=== PATIENT | male | born 1940 ===

== ENCOUNTER 2017-04-19 07:53 | Inpatient (IN) | payer MEDICARE, BC, OTHER ==
[~2017-04-19] VITALS: Ht 162.6 cm; Wt 64.1 kg
[2017-04-19] VITALS (21 sets, daily range): BP systolic 87–116; BP diastolic 52–70; PULSE 92–144; RESP 14–39; TEMP 103.7; Ht 162.6 cm; Wt 64.1 kg
[2017-04-19] MEDS ORDERED: CEFEPIME 2GM/50 ML (PMX) 50 ML IVPB STA (07:55)
[2017-04-19] MEDS ORDERED: SODIUM CHLORIDE 0.9% 1L BAG IV* STA (07:55)
[2017-04-19] MEDS ORDERED: VANCOMYCIN 1 GM (PMX) 250 ML IVPB ONE (08:00)
--- NOTE | 2017-04-19 08:12 | ERD ---
ER Documentation Chief Complaint Chief Complaint s/p cardiac arrest and rosc at 0741 . pt vent dependent in snf. HPI This is a 76-year-old male who [facility] status post cardiac arrest, PEA, 1 round of epinephrine with return of spontaneous circulation. The patient has chronic encephalopathy, chronic contractures and chronic respiratory failure and is ventilator dependent. He has no family available. He is a full code. Remainder of HPI is very limited. Paramedics report that the patient feels warm. ROS Critical patient Medications Home Meds Reported Medications Vit C-Ascorbate Ca-Ascorb Sod (Vitamin C) 500 Mg/15 Ml Liquid, 500 MG GTB BID, ML 04/19/17 Cran/Vitc/Mannose/Inulin/Brom (Uti-Stat Liquid) 3,875 Mg/30 Ml Liquid, 3875 MG GTB BID 04/19/17 Acetaminophen* (Acetaminophen*) 650 Mg Tablet, 650 MG GTB Q6H Y for PAIN AND OR ELEVATED TEMP, #30 TAB 04/19/17 Carbidopa/Levodopa (Carbidopa-Levodopa 25-100 Tab) 1 Each Tablet, 1 TAB GTB QID , #56 04/19/17 Multivitamins* (Theragran*) 1 Tab Tab, 1 TAB GTB DAILY, TAB 04/19/17 Labetalol Hcl* (Labetalol Hcl*) 100 Mg Tablet, 50 MG GTB BID, TAB HOLD FOR SBP LESS THAN 110 04/19/17 Tamsulosin Hcl* (Flomax*) 0.4 Mg Cap.er.24h, 0.4 MG GTB HS, CAP 04/19/17 Ferrous Sulfate* (Ferrous Sulfate*) 325 Mg Tabec, 330 MG GTB TID, TAB 04/19/17 Doxazosin Mesylate* (Doxazosin Mesylate*) 8 Mg Tablet, 8 MG GTB DAILY, TAB HOLD FOR SBP LESS THAN 110 04/19/17 Docusate Sodium* (Colace*) 100 Mg Capsule, 100 MG GTB BID, #60 CAP 04/19/17 Chlorhexidine Gluconate (Peridex) 473 Ml Mouthwash, 15 ML MM Q12, BOTTLE 04/19/17 Atorvastatin Calcium* (Atorvastatin Calcium*) 20 Mg Tablet, 20 MG GTB QHS, #30 TAB 04/19/17 Amiodarone Hcl* (Amiodarone Hcl*) 200 Mg Tablet, 200 MG GTB DAILY, #30 TAB HOLD FOR SBP BELOW 110 OR HR BELOW 60 04/19/17 Albuterol Sulfate* (Albuterol Sulfate* Neb) 0.083%-3 Ml Neb, 2.5 MG NEB Q3H Y for WHEEZING AND SOB, #30 VIAL 04/19/17 Lactobacillus Acidophilus* (Lactinex*) 1 Tab Chew, 1 TAB GTB DAILY, TAB 04/19/17 Allergies Allergies: Coded Allergies: No Known Allergy (Unverified , 04/19/17) PMhx/Soc No prior visits, chronic respiratory failure and encephalopathy noted FmHx Family History: No diabetes Physical Exam Vitals Vital Signs Date Time Temp Pulse Resp B/P Pulse Ox O2 Delivery O2 Flow Rate FiO2 04/19/17 11:43 125 22 165/113 98 Mechanical Ventilator 04/19/17 11:10 129 28 100 40 04/19/17 10:15 98.9 100 18 148/75 98 Mechanical Ventilator 04/19/17 09:23 101 18 122/92 98 Mechanical Ventilator 04/19/17 08:59 93 26 100 40 04/19/17 08:02 113 16 100 100 04/19/17 07:55 98.8 105 20 85/72 100 Physical Exam General: No significant distress Head: Normocephalic, atraumatic. Eyes: Pupils minimally reactive bilaterally ENT: Dry mucous membranes Neck: Supple, no lymphadenopathy Respiratory: Rhonchi bilaterally Cardiovascular: Irregularly irregular, no murmurs, rubs, or gallops Abdominal: Soft, non-tender, non-distended, no peritoneal signs : Deferred MSK: Chronic contractures, no movement of all 4 extremities Neurologic: Limited exam, and encephalopathic, limited movement of all 4 extremities Skin: No rash, no significant breakdown Psych: Unable to assess Result Diagram: 04/19/1717 04/19/17 0817 Results 24 hrs Laboratory Tests Test 04/19/17 07:55 04/19/17 08:17 04/19/17 09:00 04/19/17 09:30 Blood Gas Specimen Source Blood arterial Arterial Blood Date Drawn 04/19/2017 8:47:48 AM Arterial Blood pH (Temp corrected) 7.430 Arterial Blood pCO2 (Temp correct) 31.6mmhg Arterial Blood pO2 (Temp corrected) 506.6mmHG Arterial Blood HCO3 20.5mmol/L Arterial Blood Base Excess -3.0mmol/L Arterial Blood Oxygen Saturation 99.7mmHG Gerard Test ACCEPTAB Arterial Blood Gas Puncture Site Right Radial Arterial Blood Carboxyhemoglobin 0.3% Arterial Blood Methemoglobin 0.3% Blood Gas A-a O2 Differential 174.8mmHg Oxyhemoglobin Percent 99.1% Total Hemoglobin 11.2g/dl Blood Gas Temperature 37.0C Blood Gas Respiration Rate 16.0 Blood Gas Actual Respiration Rate 24 Blood Gas Modality VENT - AC FiO2 100.0% Blood Gas Tidal Volume 500.0mL Blood Gas Low PEEP Setting 5.0cmH2O Blood Gas Notified Whom M.D. Blood Gas Notified Time 04/19/2017 8:56:30 AM White Blood Count 20.710^3/ul Red Blood Count 3.2110^6/ul Hemoglobin 10.9g/dl Hematocrit 34.5% Mean Corpuscular Volume 107.5fl Mean Corpuscular Hemoglobin 34.0pg Mean Corpuscular Hemoglobin Concent 31.6g/dl Red Cell Distribution Width 15.3% Platelet Count 39107^3/UL Mean Platelet Volume 11.7fl Neutrophils % 69.5% Segmented Neutrophils % (Manual) 62% Band Neutrophils % (Manual) 13% Lymphocytes % 14.1% Lymphocytes % (Manual) 12% Reactive Lymphocytes % (Manual) 3% Monocytes % 6.5% Monocytes % (Manual) 6% Eosinophils % 4.4% Eosinophils % (Manual) 5% Basophils % 0.3% Myelocytes % (Manual) 1% Nucleated Red Blood Cells % 0.0/100WBC Neutrophils # 14.410^3/ul Neutrophils # (Manual) 13.410^3/ul Band Neutrophils # 2.610^3/ul Absolute Lymphocytes (Manual) 2.410^3/ul Lymphocytes # 2.910^3/ul Reactive Lymphocytes # 0.610^3/ul Monocytes # 1.310^3/ul Absolute Monocytes (Manual) 1.210^3/ul Eosinophils # 0.910^3/ul Basophils # 0.110^3/ul Myelocytes # 0.210^3/ul Nucleated Red Blood Cells # 0.010^3/ul Platelet Estimate NORMAL Polychromasia 3+ Anisocytosis 1+ Prothrombin Time 16.4Sec Prothrombin Time Ratio 1.3 INR International Normalized Ratio 1.31 Activated Partial Thromboplast Time 43.1Sec Sodium Level 138mmol/L Potassium Level 4.9mmol/L Chloride Level 100mmol/L Carbon Dioxide Level 20mmol/L Anion Gap 23 Blood Urea Nitrogen 21mg/dl Creatinine 0.73mg/dl Glucose Level 192mg/dl Lactic Acid Level 8.6mmol/L 2.3mmol/L Calcium Level 7.9mg/dl Total Bilirubin 0.5mg/dl Direct Bilirubin 0.00mg/dl Indirect Bilirubin 0.5mg/dl Aspartate Amino Transf (AST/SGOT) 71IU/L Alanine Aminotransferase (ALT/SGPT) 64IU/L Alkaline Phosphatase 113IU/L Troponin I < 0.012ng/ml Total Protein 7.4g/dl Albumin 3.2g/dl Globulin 4.20g/dl Albumin/Globulin Ratio 0.76 Urine Color LINH Urine Clarity CLOUDY Urine pH 8.0 Urine Specific Riley 1.016 Urine Ketones NEGATIVEmg/dL Urine Nitrite NEGATIVEmg/dL Urine Bilirubin NEGATIVEmg/dL Urine Urobilinogen 2+mg/dL Urine Leukocyte Esterase 2+Jenaro/ul Urine Microscopic RBC 7/HPF Urine Microscopic WBC 95/HPF Urine Amorphous Crystals FEW/HPF Urine Bacteria FEW/HPF Urine Hyaline Casts FEW/HPF Urine Mucus MODERATE/HPF Urine Hemoglobin NEGATIVEmg/dL Urine Glucose NEGATIVEmg/dL Urine Total Protein 2+mg/dl Current Medications Medications (Trade) Dose Ordered Sig/Emily Route PRN Reason Start Time Stop Time Status Last Admin Dose Admin Sodium Chloride 2020 ml 2,020 ml BOLUS OVER 2 HOURS STAT IV* 04/19/17 07:55 04/19/17 07:59 DC 04/19/17 08:20 Cefepime HCl 50 ml @ 100 mls/hr ONCE STAT IVPB 04/19/17 07:55 04/19/17 08:24 DC 04/19/17 08:35 Vancomycin HCl (Vancocin) 250 ml @ 125 mls/hr ONCE ONCE IVPB 04/19/17 08:00 04/19/17 09:59 DC 04/19/17 08:00 Ondansetron HCl (Zofran Inj) 4 mg ER BRIDGE PRN IV NAUSEA AND/OR VOMITING 04/19/17 11:00 04/20/17 10:59 Acetaminophen (Tylenol Tab) 650 mg ER BRIDGE PRN PO MILD PAIN/FEVER 11/24/17 11:00 04/20/17 10:59 Furosemide (Lasix) 40 mg ONCE ONCE IV 04/19/17 12:00 04/19/17 12:01 Nitroglycerin (Nitroglycerin 2% Oint) 1 inch ONCE ONCE TD 04/19/17 12:00 04/19/17 12:01 Lorazepam (Ativan) 0.5 mg ONCE ONCE IV 04/19/17 12:00 04/19/17 12:01 Procedures/MDM EKG, MONITORS, & DIAGNOSTIC IMAGING: EKG EKG: I reviewed and interpreted a 12-lead EKG. Rhythm: Atrial fibrillation rate around 110 Ectopy: None Intervals: No abnormalities ST segments: No elevations or depressions T waves: No contiguous inversions Chest x-ray: Chest x-ray: I reviewed and interpreted a 1 view of the chest Mediastinum: No enlargement Cardiac silhouette: cardiomegaly Airspace: Mild interstitial process Bones: No evidence of fracture Repeat chest x-ray: Chest x-ray: I reviewed and interpreted a 1 view of the chest Mediastinum: No enlargement Cardiac silhouette: cardiomegaly Airspace: Worsening pulmonary edema bilaterally Bones: No evidence of fracture LAB INTERPRETATION: Significant leukocytosis, mild anemia, lactic acidosis of 8.6 trending down to 2.3, normal sodium, negative troponin, positive UTI MEDICAL DECISION MAKING: This is an elderly gentleman with minimal neurologic status at baseline who presents status post cardiac arrest, PEA arrest with return of spontaneous circulation. Unclear etiology at this point however the patient feels warm and is hypotensive likely consistent with severe sepsis and possibly septic shock. The patient exhibits no signs or symptoms concerning for hemorrhage. The patient will benefit from laboratory testing, diagnostic imaging, fluid resuscitation and broad-spectrum antibiotics. No family is available. The patient is full code. Based on the fact that the patient has very minimal if any neurologic status at baseline is chronically respiratory and ventilator dependent and has no spontaneous neurologic activity at baseline I do not feel that targeted temperature management is appropriate in this case. I believe that hypothermia carries risks without significant benefit in this case. Therefore I do not believe that we will initiate targeted temperature management at this time. The patient does not have clinical evidence of new neurologic deficit status post cardiac arrest. ER COURSE: The patient had initial blood pressure in the 80s but after an IV was established the patient was given fluids and his blood pressure responded nicely. The patient has continued to have normal tension versus slight hypertension. The patient's atrial fibrillation continues to hover around 100- 111. At this point I do not believe he requires Cardizem bolus or drip. Broad- spectrum antibiotics were provided after blood cultures in the form of vancomycin and cefepime. The patient does have a urinary tract infection. During the patient's ER course after the 30 cc/kg bolus of saline the patient had evidence of pulmonary edema. He had increased respiratory effort with rales on exam and slight frothy sputum. For this reason the patient was given nitroglycerin paste, Lasix and suctioning was performed. This is likely secondary to volume overload in the patient's repeat chest x-ray confirms this diagnosis. For this reason I do believe the patient would benefit from ICU level of care. Consider increasing positive pressure and keep if the patient has any decompensation. I kept the patient and/or family informed of laboratory and diagnostic imaging results throughout the emergency room course. DISPOSITION PLAN: ICU CONSULTATION: Accepting care team and consultations: I discussed the current laboratory data, diagnostic imaging and emergency care provided. Admitting team: Dr. Palacios Admitting team indication: Insurance directed Consulting services: Pulmonary medicine Dr. Gallo at the bedside Sepsis Documentation: Patient's infectious symptoms have not stabilized and the patient is at risk of rapid decompensation. The patient will be admitted for careful hydration, antibiotic therapy, and infectious source control. SEVERE SEPSIS CRITERIA: Infectious source: Urinary tract infection End organ damage indicated by: [Lactate > 2.0 mmol/L Hypotension (SBP < 90 or >40 mmHG drop or MAP < 65) SEPSIS MANAGEMENT Time of recognition of severe sepsis/septic shock: Upon arrival 3 HOUR BUNDLE Blood cultures x 2 before broad-spectrum antibiotics: Yes 30 ml/kg NS bolus Completed Initial lactate 8.6 Repeat lactate 2.3 SEPTIC SHOCK ASSESSMENT: + lactic acid > 4.0 No persistent hypotension (SBP < 90 or 40 mmHg drop, MAP < 65) despite 30 mL/kg IV fluid bolus VOLUME REASSESSMENT FOR SEPTIC SHOCK: Reevaluation Time: Approximately 11:15 AM Temperature of 98.9 heart rate 111 respiratory rate 25 blood pressure 114/75 pulse ox 100% on ventilator Heart Regular rate & rhythm Lungs rales bilaterally Skin Warm & dry Cap Refill Less than 2 seconds Peripheral pulses Radially present PERSISTENT HYPOTENSION TREATMENT: Comfort care No Central line not required as the patient has been fluid responsive and lactic acid is cleared significantly Vasopressor started Not required I considered further perfusion assessment with CVP measurement, SCVO2, bedside ultrasound volume assessment, passive leg raise, trial of further fluid bolus. And proceeded with 30 ml/kg fluid bolus of NSS, broad spectrum antbiotics, and admission. CRITICAL CARE Critical care time 55 minutes Emergent fluid management while maintaining close respiratory support. Provision of immediate and broad-spectrum antibiotic therapy. Simultaneous assessment for possible sources in order to direct targeted therapy. Consideration for invasive and chemical support to prevent cardiopulmonary collapse. Critical care time is independent of procedures performed. Departure Diagnosis: Primary Impression: Cardiac arrest Additional Impressions: Severe sepsis Urinary tract infection Urinary tract infection type: acute cystitis Hematuria presence: without hematuria Qualified Code: N30.00 - Acute cystitis without hematuria Encephalopathy chronic Chronic respiratory failure Respiratory failure complication: unspecified whether with hypoxia or hypercapnia Qualified Code: J96.10 - Chronic respiratory failure, unspecified whether with hypoxia or hypercapnia Pulmonary edema Chronicity: acute Qualified Code: J81.0 - Acute pulmonary edema Condition: Critical LEONARDO GASTELUM MD Apr 19, 2017 08:12
[2017-04-19 08:48] LABS: ABNORMAL IP MESSAGE 1; BASOPHIL # 0.1 10^3/ul (0.0-0.1); BASOPHILS % 0.3 % (0.0-2.0); EOSINOPHILS # 0.9 10^3/ul (0.0-0.5); EOSINOPHILS % 4.4 % (0.0-7.0); HEMATOCRIT 34.5 % (42.0-52.0); HEMOGLOBIN 10.9 g/dl (14.0-18.0); LYMPHOCYTES # 2.9 10^3/ul (0.8-2.9); LYMPHOCYTES % 14.1 % (15.0-51.0); MEAN CORPUSCULAR HGB CONC 31.6 g/dl (32.0-37.0); MEAN CORPUSCULAR VOLUME 107.5 fl (82.0-101.0); MEAN PLATELET VOLUME 11.7 fl (7.4-10.4); MONOCYTE # 1.3 10^3/ul (0.3-0.9); MONOCYTES % 6.5 % (0.0-11.0); NEUTROPHIL # 14.4 10^3/ul (1.6-7.5); NEUTROPHILS % 69.5 % (39.0-77.0); PLATELET COUNT 158 10^3/UL (140-415); POSITIVE DIFF @See below; RED BLOOD COUNT 3.21 10^6/ul (4.70-6.10); RED CELL DISTRIBUTION WIDTH 15.3 % (11.5-14.5); WHITE BLOOD COUNT 20.7 10^3/ul (4.8-10.8)
[2017-04-19 08:56] LABS: AADO2 Arterial 174.8 mmHg (7.0-24.0); Allen Test ACCEPTAB; Arterial COHb 0.3 % (0.0-3.0); Arterial Fraction of Oxyhgb 99.1 % (93.0-99.0); Arterial HCO3 20.5 mmol/L (22.0-26.0); Arterial MetHb 0.3 % (0.0-1.5); Arterial Total Hemglobin 11.2 g/dl (12.0-18.0); MODE VENT - AC
[2017-04-19 09:01] LABS: INR 1.31; PARTIAL THROMBOPLASTIN TIME 43.1 Sec (25.0-35.0); PROTIME 16.4 Sec (12.2-14.2); PT RATIO 1.3
[2017-04-19 09:10] LABS: ALANINE AMINOTRANSFERASE 64 IU/L (13-69); ALBUMIN 3.2 g/dl (3.3-4.9); ALBUMIN/GLOBULIN RATIO 0.76; ALKALINE PHOSPHATASE 113 IU/L (42-121); ANION GAP 23 (8-16); ASPARTATE AMINO TRANSFERASE 71 IU/L (15-46); BILIRUBIN,INDIRECT 0.5 mg/dl (0-1.1); BILIRUBIN,TOTAL 0.5 mg/dl (0.2-1.3); BLOOD UREA NITROGEN 21 mg/dl (7-20); CALCIUM 7.9 mg/dl (8.4-10.2); CARBON DIOXIDE 20 mmol/L (21-31); CHLORIDE 100 mmol/L (97-110); CREATININE 0.73 mg/dl (0.61-1.24); GLUCOSE 192 mg/dl (70-220); POTASSIUM 4.9 mmol/L (3.5-5.1); SODIUM 138 mmol/L (135-144); TOTAL PROTEIN 7.4 g/dl (6.1-8.1)
[2017-04-19 09:21] LABS: TROPONIN-I < 0.012 ng/ml (0.00-0.12)
--- NOTE | 2017-04-19 09:21 | RADRPT ---
PROCEDURE: Chest x-ray CLINICAL INDICATION: Shortness of breath TECHNIQUE: Chest single view COMPARISON: None FINDINGS: Tracheostomy tube is in good position. There is post sternotomy changes. Mild cardiomegaly and an sc lerotic aortic calcification is seen. There is mild interstitial vascular congestion. No confluent p neumonias identified. Costophrenic angles sharp. Bones are osteopenic. IMPRESSION: 1. Tracheostomy tube in good position. 2. Cardiomegaly with mild interstitial vascular congestion. 3. Atherosclerotic aortic calcification RPTAT: HH .Tim Nichols MD, MD Date Time Electronically viewed and signed by .Tim Nichols MD, MD on 04/19/2017 09:21 .W/
[2017-04-19 09:47] LABS: ADD UMIC YES; UR AMORPHOUS CRYSTAL FEW /HPF (NONE SEEN); UR ASCORBIC ACID 40 mg/dL (NEGATIVE); UR BACTERIA FEW /HPF (NONE SEEN); UR BILIRUBIN (Dip) NEGATIVE (NEGATIVE); UR BLOOD (Dip) NEGATIVE (NEGATIVE); UR CLARITY CLOUDY (CLEAR); UR COLOR AMBER (YELLOW); UR GLUCOSE (Dip) NEGATIVE (NEGATIVE); UR KETONES (Dip) NEGATIVE (NEGATIVE); UR LEUKOCYTE ESTERASE (Dip) 2+ Leu/ul (NEGATIVE); UR MUCUS MODERATE /HPF (NONE SEEN); UR NITRITE (Dip) NEGATIVE (NEGATIVE); UR RBC 7 /HPF (0-5); UR SPECIFIC GRAVITY (Dip) 1.016 (1.003-1.030); UR TOTAL PROTEIN (Dip) 2+ mg/dl (NEGATIVE); UR UROBILINOGEN (Dip) 2+ mg/dL (NEGATIVE)
[2017-04-19 10:53] LABS: ANISOCYTOSIS 1+ (0-0); EOSINOPHILS % (M) 5 % (0-7); MONOCYTES % (M) 6 % (0-11); MYELOCYTES % (M) 1 % (0-0); PLATELET ESTIMATE NORMAL; POLYCHROMASIA 3+ (0-0); REACTIVE LYMPHOCYTES% (M) 3 % (0-0)
[2017-04-19] MEDS ORDERED: ONDANSETRON 4 MG INJ IV PRN ×2 (11:00→12:00)
[2017-04-19] MEDS ORDERED: ACETAMINOPHEN 325 MG TAB PO PRN (11:00)
[2017-04-19] MEDS ORDERED: LACTINEX GTB (11:09)
[2017-04-19] MEDS ORDERED: ALBU2.5V3 NEB (11:10)
[2017-04-19] MEDS ORDERED: ATOR20TA38 GTB (11:11)
[2017-04-19] MEDS ORDERED: AMIO200T2 GTB (11:11)
[2017-04-19] MEDS ORDERED: CHLO473M4 MM (11:12)
[2017-04-19] MEDS ORDERED: DOCU-144 GTB (11:12)
[2017-04-19] MEDS ORDERED: DOXA8TAB65 GTB (11:13)
[2017-04-19] MEDS ORDERED: FER325 GTB (11:13)
[2017-04-19] MEDS ORDERED: TAMS-14 GTB (11:14)
[2017-04-19] MEDS ORDERED: MULTI GTB (11:15)
[2017-04-19] MEDS ORDERED: LABE100T3 GTB (11:15)
[2017-04-19] MEDS ORDERED: CARB1TAB34 GTB (11:16)
[2017-04-19] MEDS ORDERED: CRAN3875 GTB (11:17)
[2017-04-19] MEDS ORDERED: ACET-2047 GTB (11:17)
[2017-04-19] MEDS ORDERED: VIT500LI GTB (11:18)
--- NOTE | 2017-04-19 11:37 | RADRPT ---
PROCEDURE: XR Chest. CLINICAL INDICATION: pain TECHNIQUE: Single portable view of the chest was obtained COMPARISON: CHEST 04/19/2017 FINDINGS: There are worsening patchy bilateral upper lobe and lower lobe infiltrates. There is mild cardiomega ly. There is a tracheostomy tube in place.. The heart, lungs and mediastinum are otherwise unchanged . . RPTAT: AA IMPRESSION: Worsening patchy bilateral upper lobe and lower lobe infiltrates, suspicious for worsening pulmonary vascular congestion. Mild cardiomegaly. No other significant change. .Toi Hunt MD, MD Date Time Electronically viewed and signed by .Toi Hunt MD, MD on 04/19/2017 11:37 .S/
[2017-04-19] MEDS ORDERED: NACL 0.9% 3 ML SYG IV SCH (12:00)
[2017-04-19] MEDS ORDERED: SOD CHLORIDE 0.45% 1,000 ML IV SCH (12:00)
[2017-04-19] MEDS ORDERED: FUROSEMIDE 40 MG INJ IV ONE (12:00)
[2017-04-19] MEDS ORDERED: VANCOMYCIN IV PER PHARMACY XX SCH (12:00)
[2017-04-19] MEDS ORDERED: ALBUTEROL/IPRATROPIUM (NEB) 3 ML AMP HHN PRN (12:00)
[2017-04-19] MEDS ORDERED: MAGNESIUM HYDROXIDE 30ML CUP PO PRN (12:00)
[2017-04-19] MEDS ORDERED: NITROGLYCERIN 2% 1 GM OINT PKT TD ONE (12:00)
[2017-04-19] MEDS ORDERED: DOCUSATE SODIUM 100 MG CAP PO PRN (12:00)
[2017-04-19] MEDS ORDERED: HYDROCODONE/APAP (5/325) TAB PO PRN (12:00)
[2017-04-19] MEDS ORDERED: LORAZEPAM 2 MG INJ IV PRN (12:00)
[2017-04-19] MEDS ORDERED: NA PHOSPHATE/BIPHOS 133 ML ENEMA PR PRN (12:00)
[2017-04-19] MEDS ORDERED: NITROGLYCERIN (SL) 0.4 MG TAB SL PRN (12:00)
[2017-04-19] MEDS ORDERED: LORAZEPAM 2 MG INJ IV ONE (12:00)
--- NOTE | 2017-04-19 13:18 | CONS ---
DATE OF ADMISSION: 04/19/2017 DATE OF CONSULTATION: 04/19/2017 TYPE OF CONSULTATION: Pulmonary. REASON FOR CONSULT: Ventilator management. HISTORY OF PRESENT ILLNESS: This is an unfortunate 76-year-old gentleman with vent dependent respir atory failure, encephalopathy, transferred from [facility] facility, status post cardiopulmonar y arrest S1 with return of circulation. Awake, alert with contractures. No hemodynamic compromise at present and remains what appears to be his baseline status. PAST MEDICAL HISTORY: 1. Vent dependent respiratory failure. 2. Chronic encephalopathy. 3. Contractures. 4. Dysphagia with G-tube. MEDICATIONS: Per chart. ALLERGIES: NONE. SOCIAL HISTORY: Nonsmoker, no alcohol, no history of drug use. FAMILY HISTORY: Noncontributory. SYSTEMS REVIEW: A 12-point review of systems unable to perform. PHYSICAL EXAMINATION: GENERAL: Chronically ill appearing gentleman. VITAL SIGNS: Temperature 98, pulse is 100, blood pressure 160/100, O2 saturation 96% on FIO2 of 40% . NECK: Trach site clean and intact. CARDIAC: S1, S2, no added sounds or murmurs. CHEST: Diminished air entry bilaterally. ABDOMEN: Soft, nontender. No guarding or rebound. EXTREMITIES: No cyanosis, clubbing, edema. NEUROLOGIC: Generalized weakness, unable to assess. LABORATORY DATA: White count 20.7, hemoglobin 10.9, platelets of 158. BUN 21, creatinine 0.73. La ctic acid initially 8.6. INR 2.3. Arterial blood gas pH 7.4, pCO2 of 31, PaO2 of 506. INR 1.3. U rinalysis positive for UTI. Chest x-ray demonstrates mild cardiomegaly. IMPRESSION AND PLAN: 1. Urinary tract infection with sepsis. 2. Questionable PEA arrest. 3. Chronic encephalopathy. 4. Vent dependent respiratory failure. 5. Dysphagia with G-tube. REQUIREMENTS: 1. Volume resuscitation. 2. Broad-spectrum antibiotics for UTI. 3. Tube feeding as tolerated. 4. Obtain further family history 5. DVT and GI prophylaxis. Dictated By: TEVIN DAVIS/DEYVI Conf#: [id number] DID#: [id number]
[2017-04-19] MEDS ORDERED: NITROGLYCERIN 50 MG/D5W (PMX) 250 ML IV STA (13:41)
[2017-04-19] MEDS ORDERED: ACETAMINOPHEN 650MG/20.3ML CUP GTB ONE (14:30)
--- NOTE | 2017-04-19 15:52 | RADRPT ---
Echocardiogram Report Patient Name: PAM LEIGH Gender: Male Date: 1940 Study Date: 19-Apr-2017 Clerical Office: [facility] Location: [facility] Ref. Physician: ZOE ALEXANDRA Quality: Adequate Procedures: Transthoracic echocardiogram with complete 2D, M-Mode, and doppler examination. Indications: Sepsis, on vent. 2D/M Mode Doppler Measurement Value Normal Ranges Measurement Value Normal Ranges LVIDd 2D 4.4 3.5 - 5.6 cm AV Peak Daniel 1.8 m/sec LVIDs 2D 3.5 2.1 - 4.1 cm AV Peak PG 12.0 mmHg FS 2D 18.6 % LVOT Peak Daniel 1.0 m/sec LVPWd 2D 1.4 0.6 - 1.1 cm LVOT Peak PG 4.0 mmHg IVSd 2D 1.4 0.6 - 1.1 cm MV E Peak Daniel 1.2 m/sec IVS/LVPW 2D 1.0 MV A Peak Daniel 0.7 m/sec AoR Diam 2D 2.9 2.0 - 3.7 cm MV E/A 1.7 LA/Ao 2D 1 0 - 1 MV Decel Time 127 msec EDV 2D 82.9 cm3 MV E/A 1.7 ESV 2D 44.7 cm3 TR Peak Daniel 3.4 m/sec LA Dimen 2D 4.0 2.3 - 4.0 cm TR Peak PG 46.0 mmHg RVSP 54.0 mmHg Findings Left Ventricle: Lower limits of normal systolic function. Normal left ventricular cavity size. Mild concentric left ventricular hypertrophy. Ejection fraction is visually estimated at 50 %. Abnormal Diastolic Function. Right Ventricle: Normal right ventricular size. Normal right ventricular systolic function. Left Atrium: The left atrium is normal in size. Right Atrium: The right atrium is normal in size. Mitral Valve: Mild mitral leaflet calcification. Mild mitral annular calcification. Mild mitral valve regurgitation. Aortic Valve: No significant aortic stenosis. Aortic cusps appear mildly calcified. Trace aortic valve regurgitation. Tricuspid Valve: Normal appearance of the tricuspid valve. Estimated peak PA systolic pressure 54 mmHg. There is mild to moderate tricuspid regurgitation. Pulmonic Valve: Pulmonic valve not well visualized. There is trace pulmonic regurgitation. Pericardium: Normal pericardium with no significant pericardial effusion. Aorta: Normal aortic root. IVC: Dilated IVC with respiratory collapse, however, patient on ventilator. Conclusions Lower limits of normal systolic function. Normal left ventricular cavity size. Mild concentric left ventricular hypertrophy. Ejection fraction is visually estimated at 50 %. Abnormal Diastolic Function. Mild mitral leaflet calcification. Mild mitral annular calcification. Mild mitral valve regurgitation. Normal appearance of the tricuspid valve. Estimated peak PA systolic pressure 54 mmHg. There is mild to moderate tricuspid regurgitation. Electronically Signed By: Nic Aguilar 19-Apr-2017 15:52:10 -0800 Patient Name: PAM LEIGH Study Date: 19-Apr-2017 [id number]
[2017-04-19] MEDS: morphine 2 MG INJ IV PRN (16:42)
[2017-04-19] MEDS: CARBIDOPA/LEVODOPA (25/100) TAB GTB SCH ×2 (17:00→20:16)
[2017-04-19] MEDS: FERROUS SULFATE (EC) 325 MG TAB PO SCH ×2 (17:00→20:16)
--- NOTE | 2017-04-19 17:26 | HP ---
DATE OF ADMISSION: 04/19/2017 CHIEF COMPLAINT: A 76-year-old male, status post cardiac arrest. HISTORY OF PRESENT ILLNESS: A 76-year-old male, [facility] in from [facility]. Past medical history, based on records, of hypertension, prostate issues, high cholesterol, who again was brought in because of PEA cardiac arrest. Most of the information is taken from ER documentation as patient is unable to provide a full HPI at this time. He has a history of chronic encephalopathy as well as contractures and respiratory failure, ventilator dependent. Again when the patient was in PEA cardiac arrest he received 1 round of epinephrine and he had return of spontaneous circulation. Full review of systems cannot be obtained at this time. Pulmonary team evaluated the patient as well in the ER. When he came in today, he was found with a white count of 20.7 so it was elevated. He was found with lactic acid of 8.6, so elevated, and was given IV antibiotics, as well. He also had a chest x-ray performed. History of worsening patchy bilateral upper and lower lobe infiltrates suspicious for worsening pulmonary vascular congestion. PAST MEDICAL HISTORY: As stated above. ALLERGIES: NO KNOWN DRUG ALLERGIES. MEDICATIONS: Based on records: 1. Albuterol nebulizers p.r.n. 2. Flomax 0.4 mg. 3. Ferrous sulfate 330 mg. 4. Amiodarone 200 mg. 5. Atorvastatin 20 mg. 6. Doxazosin 8 mg. 7. Labetalol 50 mg. 8. Tylenol 650 p.r.n. 9. Sinemet 25/100 10. Peridex 15 mL. 11. Colace 100 mg b.i.d. 12. Lactobacillus. 13. Multivitamin 1 tab daily. 14. Vitamin C 500 mg 15. Cranberry extract. PAST SURGICAL HISTORY: Again, he has a trach placement in the past. SOCIAL HISTORY: Noncontributory. FAMILY HISTORY: Unknown. PHYSICAL EXAMINATION: VITAL SIGNS: T-max 98.9, pulse 93-129, respirations 18-26, blood pressure is 85-165 systolic over 72-113 diastolic, saturating at 98-100 percent on mechanical ventilation, FiO2 of 40. GENERAL APPEARANCE: Showed patient lying in bed, appears contracted, unresponsive. HEENT: Pupils minimally reactive bilaterally. NECK: Trach in place. No leakage or bleeding from the trach site. LUNGS: Positive rhonchi heard bilaterally. No wheezes. CARDIOVASCULAR: Irregularly irregular heart rate. No rubs or gallops. ABDOMEN: Soft, nontender, nondistended. Normal bowel sounds. No rebound or guarding. MUSCULOSKELETAL: He has got chronic contractures lower extremities but no lower extremity edema bilaterally. NEUROLOGIC: Unable to fully assess. LABORATORY DATA: WBC 22.7, hemoglobin 10.9, hematocrit 31.5, platelets 158. His sodium 138, potassium 4.9, chloride 100, CO2 of 20, BUN 21, creatinine 0.73, glucose 192. LFTs are essentially normal. Troponin is negative x1. Again, lactic acid 8.6, on repeat it was 2.3. UA shows 2+ leukocyte esterase. Previously mentioned chest x-ray results. IMPRESSION: A 76-year-old male coming in with status post cardiac arrest, pulseless electrical activity with return of spontaneous circulation now sepsis and lactic acidosis secondary to upper respiratory infection versus urinary tract infection. 1. Status post cardiac arrest again admit patient to intensive care unit. Get cardiology consult as well. Check TSH, A1c, lipid panel, monitor heart rate very carefully. 2. Severe sepsis, lactic acidosis. Again, likely secondary to upper respiratory infection given the chest x-ray findings and urinary tract infection. Put him on broad-spectrum antibiotics. Tylenol p.r.n. fevers, intravenous fluids as well. Trend the lactic acid as well. Consider Infectious Disease consult as well. Follow up final culture results. 3. History of chronic encephalopathy. Again, no present issues. Continue to monitor for now. 4. History of respiratory failure, ventilator dependent. Again, will get pulmonary consult for vent management. Patient will be in intensive care unit on broad-spectrum antibiotics. DuoNeb p.r.n. 5. Gastrointestinal prophylaxis. Patient will be on a H2 ulises. 6. Deep venous thrombosis prophylaxis. He will get sequential compression devices for now. Dictated By: Cj Palacios MD /daly/violette /Document#: [id number]
[2017-04-19] MEDS: LORAZEPAM 2 MG INJ IV PRN (17:33)
[2017-04-19] MEDS: SOD CHLORIDE 0.9% 1,000 ML IV SCH (18:00)
[2017-04-19] MEDS: ASCORBIC ACID 500 MG TAB GTB SCH (20:16)
[2017-04-19] MEDS: FAMOTIDINE 20 MG INJ IV SCH (20:16)
[2017-04-19] MEDS: VANCOMYCIN 750 MG in DEXTROSE 5% 150 ML IVPB SCH (20:16)
[2017-04-19] MEDS: CHLORHEXIDINE GLUCONATE 15 ML UD CUP MM SCH (20:17)
[2017-04-19] MEDS ORDERED: NON-FORMULARY/PATIENT OWN MED (Cran/Vitc/Mannose/Inulin/Brom (Uti-Stat Liquid) 3,875 MG) GTB SCH (21:00)
[2017-04-19] MEDS: CEFEPIME 2GM/50 ML (PMX) 50 ML IVPB SCH (21:44)
[2017-04-20] VITALS (34 sets, daily range): BP systolic 92–134; BP diastolic 53–90; PULSE 88–137; RESP 20–38
[2017-04-20] MEDS: SOD CHLORIDE 0.9% 1,000 ML IV SCH ×2 (03:24→09:02)
[2017-04-20 06:46] LABS: HEMATOCRIT 28.4 % (42.0-52.0); HEMOGLOBIN 9.3 g/dl (14.0-18.0); MEAN CORPUSCULAR HEMOGLOBIN 33.8 pg (29.0-33.0); MEAN CORPUSCULAR HGB CONC 32.7 g/dl (32.0-37.0); MEAN CORPUSCULAR VOLUME 103.3 fl (82.0-101.0); MEAN PLATELET VOLUME 11.3 fl (7.4-10.4); PLATELET COUNT 108 10^3/UL (140-415); RED BLOOD COUNT 2.75 10^6/ul (4.70-6.10); RED CELL DISTRIBUTION WIDTH 15.7 % (11.5-14.5); WHITE BLOOD COUNT 15.4 10^3/ul (4.8-10.8)
[2017-04-20 07:08] LABS: CHOL/HDL RATIO 2.2 RATIO
[2017-04-20 07:09] LABS: CREATININE 0.82 mg/dl (0.61-1.24); MAGNESIUM 2.1 mg/dl (1.7-2.5); PHOSPHORUS 3.1 mg/dl (2.5-4.9); POTASSIUM 3.8 mmol/L (3.5-5.1)
--- NOTE | 2017-04-20 08:26 | RADRPT ---
PROCEDURE: XR Chest 1 View. CLINICAL INDICATION: Shortness of breath. TECHNIQUE: Single view of the chest was obtained. COMPARISON: Yesterday. FINDINGS: The heart size is within normal limits. Calcified atherosclerosis is noted in the aorta. Tracheosto my tube is stable and appears in grossly appropriate location. Median sternotomy wires are seen over lying the heart. The lungs are hyperexpanded. Diffuse interstitial prominence is seen in both lungs. Patchy infiltrates throughout the right lung have decreased. Mild scattered residual remains. Subse gmental atelectasis is seen scattered in the left lung. Osseous structures are unchanged. IMPRESSION: Calcified atherosclerosis in the aorta. Hyperexpanded lungs with diffuse mild interstitial prominence in both lungs. Interstitial prominenc e could be chronic. Findings could reflect COPD. Interval decrease in patchy infiltrates throughout the right lung. Mild residual remains. Scattered atelectasis in the left lung. RPTAT: AA .Jimmie Cunningham MD, Date Time Electronically viewed and signed by .Jimmie Cunningham MD, on 04/20/2017 08:26 .P/
[2017-04-20] MEDS: CHLORHEXIDINE GLUCONATE 15 ML UD CUP MM SCH ×2 (08:51→21:42)
[2017-04-20] MEDS: FAMOTIDINE 20 MG INJ IV SCH ×2 (08:51→21:42)
[2017-04-20] MEDS: DOXAZOSIN 4 MG TAB GTB SCH (08:52)
[2017-04-20] MEDS: LACTOBACILLUS RHAMNOSUS CAP PO SCH (08:52)
[2017-04-20] MEDS: AMIODARONE 200 MG TAB GTB SCH (08:53)
[2017-04-20] MEDS: FERROUS SULFATE (EC) 325 MG TAB PO SCH ×3 (08:53→21:41)
[2017-04-20] MEDS: ASCORBIC ACID 500 MG TAB GTB SCH ×2 (08:53→21:42)
[2017-04-20] MEDS: CARBIDOPA/LEVODOPA (25/100) TAB GTB SCH ×4 (08:53→21:41)
[2017-04-20 08:57] LABS: THYROID STIMULATING HORMONE 0.647 MIU/L (0.465-4.680)
[2017-04-20 09:01] LABS: ANISOCYTOSIS 1+ (0-0); GIANT THROMBO% (M) 2 % (0-0); MONOCYTES % (M) 6 % (0-11); POLYCHROMASIA 1+ (0-0)
[2017-04-20] MEDS: CEFEPIME 2GM/50 ML (PMX) 50 ML IVPB SCH ×2 (09:03→23:24)
[2017-04-20 09:13] LABS: AADO2 Arterial 85.5 mmHg (7.0-24.0); Allen Test ACCEPTAB; Arterial Base Excess 1.6 mmol/L (-3.0-3); Arterial COHb 0.3 % (0.0-3.0); Arterial Fraction of Oxyhgb 98.5 % (93.0-99.0); Arterial HCO3 23.8 mmol/L (22.0-26.0); Arterial MetHb 0.2 % (0.0-1.5); Arterial Total Hemglobin 12.4 g/dl (12.0-18.0); MODE VENT - AC
--- NOTE | 2017-04-20 09:18 | PN ---
Date/Time of Note Date/Time of Note DATE: 04/20/17 TIME: 09:13 Assessment/Plan VTE Prophylaxis VTE Prophylaxis Intervention: SCD's Lines/Catheters IV Catheter Type (from Nrs): Intraosseous Central line still needed: Yes Urinary Cath still in place: Yes Reason Cath still needed: urinary retention Assessment/Plan Chief Complaint/Hosp Course S: Seen by pulmonary team, positive fever this morning, had possible seizure activity yesterday evening none since last night. O: VS: see below PE: GENERAL APPEARANCE: lying in bed, appears contracted, opens eyes occasionally HEENT: Pupils minimally reactive bilaterally. NECK: Trach in place. No leakage or bleeding from the trach site. LUNGS: Less positive rhonchi heard bilaterally. No wheezes. CARDIOVASCULAR: Irregularly irregular heart rate. No rubs or gallops. ABDOMEN: Soft, nontender, nondistended. Normal bowel sounds. No rebound or guarding. MUSCULOSKELETAL: He has got chronic contractures lower extremities but no lower extremity edema bilaterally. NEUROLOGIC: Unable to fully assess. A/P: A 76-year-old male coming in with status post cardiac arrest, pulseless electrical activity with return of spontaneous circulation now sepsis and lactic acidosis secondary to upper respiratory infection versus urinary tract infection. 1. Status post cardiac arrest -continue ICU care. -Follow-up cardiology consult as well, TSH, A1c, lipid panel, monitor heart rate very carefully. 2. Severe sepsis, lactic acidosis-slowly improving again, likely secondary to upper respiratory infection given the chest x-ray findings and urinary tract infection. -Continue broad-spectrum antibiotics. -Tylenol p.r.n. fevers, intravenous fluids as well. Trend the lactic acid as well. -Consider Infectious Disease consult as well. - Follow up final culture results. 3. History of chronic encephalopathy. Again, no present issues. Continue to monitor for now. 4. History of respiratory failure, ventilator dependent. - F/U pulmonary consult for vent management. -Antibiotics, duo nebs as needed 5. Gastrointestinal prophylaxis - H2 ulises. 6. Deep venous thrombosis prophylaxis - sequential compression devices for now. Critical care time spent on patient care today equals 45 minutes. Problems: Exam/Review of Systems Vital Signs Vitals Vital Signs Date Time Temp Pulse Resp B/P Pulse Ox O2 Delivery O2 Flow Rate FiO2 04/20/17 08:00 103 04/20/17 06:00 29 104/69 99 Mechanical Ventilator 04/20/17 05:10 40 04/20/17 04:00 99.8 Intake and Output 04/19/17 04/19/17 04/20/17 15:00 23:00 07:00 Intake Total 600 ml 700 ml Output Total 375 ml 355 ml Balance 225 ml 345 ml Results Result Diagram: 04/20/17 0602 04/20/17 0602 Results 24 hrs Laboratory Tests Test 04/19/17 09:30 04/19/17 13:55 04/19/17 18:38 04/19/17 22:01 Lactic Acid Level 2.3 *H 3.0 *H 2.6 *H 1.6 Test 04/20/17 06:02 White Blood Count 15.4 #H Red Blood Count 2.75 L Hemoglobin 9.3 L Hematocrit 28.4 L Mean Corpuscular Volume 103.3 H Mean Corpuscular Hemoglobin 33.8 H Mean Corpuscular Hemoglobin Concent 32.7 Red Cell Distribution Width 15.7 H Platelet Count 108 #L Mean Platelet Volume 11.3 H Neutrophils % Segmented Neutrophils % (Manual) 72 Band Neutrophils % (Manual) 18 H Lymphocytes % Lymphocytes % (Manual) 4 L Monocytes % Monocytes % (Manual) 6 Eosinophils % Basophils % Nucleated Red Blood Cells % 0.0 Neutrophils # Neutrophils # (Manual) 11.5 H Band Neutrophils # 2.7 H Absolute Lymphocytes (Manual) 0.6 L Lymphocytes # Monocytes # Absolute Monocytes (Manual) 0.9 Eosinophils # Basophils # Nucleated Red Blood Cells # Giant Platelets 2 H Polychromasia 1+ Anisocytosis 1+ Macrocytosis 1+ Sodium Level 146 H Potassium Level 3.8 Chloride Level 112 H Carbon Dioxide Level 27 Anion Gap 11 # Blood Urea Nitrogen 38 #H Creatinine 0.82 Glucose Level 131 # Hemoglobin A1c 5.5 Calcium Level 8.0 L Phosphorus Level 3.1 Magnesium Level 2.1 Triglycerides Level 47 Cholesterol Level 55 L LDL Cholesterol, Calculated 21 HDL Cholesterol 25 L Cholesterol/HDL Ratio 2.2 Thyroid Stimulating Hormone (TSH) 0.647 Medications Medications Current Medications Ondansetron HCl (Zofran Inj) 4 mg Q6H PRN IV NAUSEA AND/OR VOMITING; Start at 12:00 Acetaminophen (Tylenol Tab) 650 mg Q6H PRN PO PAIN LEVEL 1-3 OR FEVER; Start 04/19/17 at 12:00 Acetaminophen/ Hydrocodone Bitart ([place] (5/325)) 1 tab Q6H PRN PO MODERATE PAIN LEVEL 4-6; Start 04/19/17 at 12:00 Morphine Sulfate (morphine) 2 mg Q4H PRN IV SEVERE PAIN LEVEL 7-10 Last administered on 04/19/17 16:42; Admin Dose 2 MG; Start 04/19/17 at 12:00 Docusate Sodium (Colace) 100 mg Q12H PRN PO CONSTIPATION; Start 04/19/17 at 12 :00 Magnesium Hydroxide (Milk Of Mag) 30 ml DAILY PRN PO CONSTIPATION; Start 04/19 at 12:00 Sodium Biphosphate/ Sodium Phosphate (Fleet Enema) 133 ml DAILY PRN [place] CONSTIPATION; Start 04/19/17 at 12:00 Famotidine (Pepcid Iv) 20 mg Q12 IV Last administered on 04/20/17 08:51; Admin Dose 20 MG; Start 04/19/17 at 21:00 Lorazepam (Ativan) 0.5 mg Q6H PRN IV ANXIETY; Start 04/19/17 at 12:00 Nitroglycerin (Nitroglycerin (Sl Tab) 0.4 Mg) 1 tab Q5M PRN SL ANGINA; Start 04/19/17 at 12:00 Amiodarone HCl (Cordarone) 200 mg DAILY GTB Last administered on 04/20/17 08: 53; Admin Dose 200 MG; Start 04/20/17 at 09:00 Carbidopa/Levodopa (Sinemet (25/ 100)) 1 tab QID GTB Last administered on 04/20 08:53; Admin Dose 1 TAB; Start 04/19/17 at 13:00 Chlorhexidine Gluconate (Peridex) 15 ml Q12 MM Last administered on 04/20/17 08:51; Admin Dose 15 ML; Start 04/19/17 at 21:00 Doxazosin Mesylate (Cardura) 8 mg DAILY GTB Last administered on 04/20/17 08: 52; Admin Dose 8 MG; Start 04/20/17 at 09:00 Ferrous Sulfate (Ferrous Sulfate (Ec)) 330 mg TID PO Last administered on 04/20 08:53; Admin Dose 330 MG; Start 04/19/17 at 13:00 Lactobacillus Acidophilus/ Rhamnosus (Culturelle) 1 cap DAILY PO Last administered on 04/20/17 08:52; Admin Dose 1 CAP; Start 04/20/17 at 09:00 Ascorbic Acid 500 mg 500 mg BID GTB Last administered on 04/20/17 08:53; Admin Dose 500 MG; Start 04/19/17 at 21:00 Cefepime HCl (Maxipime 2gm/50 ml (Pmx)) 50 ml @ 100 mls/hr Q12 IVPB Last administered on 04/20/17 09:03; Admin Dose 100 MLS/HR; Start 04/19/17 at 21: 00 Miscellaneous Information VANCO TR LEVEL PRIOR... ONCE ONCE XX ; Start at 19:00; Stop 04/20/17 at 19:01 Vancomycin HCl/ Dextrose/Water (Vancocin/D5W) 150 ml @ 75 mls/hr Q12H IVPB Last administered on 04/19/17 20:16; Admin Dose 75 MLS/HR; Start 04/19/17 at 20:00 Lorazepam 2 mg 2 mg Q10MIN PRN IV seisure Last administered on 04/19/17 17:33 ; Admin Dose 2 MG; Start 04/19/17 at 17:30 Dextrose (D5W) 1,000 ml @ 75 mls/hr [id number] IV ; Start 04/20/17 at 09:30; Status ZOE MORA S. Apr 20, 2017 09:18
--- NOTE | 2017-04-20 09:28 | CONS ---
Date/Time of Note Date/Time of Note DATE: 04/20/17 TIME: 09:24 Consult Date/Type/Reason Admit Date/Time Apr 19, 2017 at 10:58 Initial Consult Date Type of Consultation: Pulm Subjective Patient comfortable today. No respiratory distress. Appears at baseline mental status. Objective Vital Signs Date Time Temp Pulse Resp B/P Pulse Ox O2 Delivery O2 Flow Rate FiO2 04/20/17 08:00 103 04/20/17 06:00 29 104/69 99 Mechanical Ventilator 04/20/17 05:10 40 04/20/17 04:00 99.8 Intake and Output 04/19/17 04/19/17 04/20/17 15:00 23:00 07:00 Intake Total 600 ml 700 ml Output Total 375 ml 355 ml Balance 225 ml 345 ml Exam PHYSICAL EXAMINATION: GENERAL: Chronically ill appearing gentleman. VITAL SIGNS: As above. NECK: Trach site clean and intact. CARDIAC: S1, S2, no added sounds or murmurs. CHEST: Diminished air entry bilaterally. ABDOMEN: Soft, nontender. No guarding or rebound. EXTREMITIES: No cyanosis, clubbing, edema. NEUROLOGIC: Generalized weakness, unable to assess. Results/Medications Result Diagram: 04/20/17 0602 04/20/17 0602 Results 24 hrs Laboratory Tests Test 04/19/17 09:30 04/19/17 13:55 04/19/17 18:38 04/19/17 22:01 Lactic Acid Level 2.3 *H 3.0 *H 2.6 *H 1.6 Test 04/20/17 06:02 04/20/17 07:00 White Blood Count 15.4 #H Red Blood Count 2.75 L Hemoglobin 9.3 L Hematocrit 28.4 L Mean Corpuscular Volume 103.3 H Mean Corpuscular Hemoglobin 33.8 H Mean Corpuscular Hemoglobin Concent 32.7 Red Cell Distribution Width 15.7 H Platelet Count 108 #L Mean Platelet Volume 11.3 H Neutrophils % Segmented Neutrophils % (Manual) 72 Band Neutrophils % (Manual) 18 H Lymphocytes % Lymphocytes % (Manual) 4 L Monocytes % Monocytes % (Manual) 6 Eosinophils % Basophils % Nucleated Red Blood Cells % 0.0 Neutrophils # Neutrophils # (Manual) 11.5 H Band Neutrophils # 2.7 H Absolute Lymphocytes (Manual) 0.6 L Lymphocytes # Monocytes # Absolute Monocytes (Manual) 0.9 Eosinophils # Basophils # Nucleated Red Blood Cells # Giant Platelets 2 H Polychromasia 1+ Anisocytosis 1+ Macrocytosis 1+ Sodium Level 146 H Potassium Level 3.8 Chloride Level 112 H Carbon Dioxide Level 27 Anion Gap 11 # Blood Urea Nitrogen 38 #H Creatinine 0.82 Glucose Level 131 # Hemoglobin A1c 5.5 Calcium Level 8.0 L Phosphorus Level 3.1 Magnesium Level 2.1 Triglycerides Level 47 Cholesterol Level 55 L LDL Cholesterol, Calculated 21 HDL Cholesterol 25 L Cholesterol/HDL Ratio 2.2 Thyroid Stimulating Hormone (TSH) 0.647 Blood Gas Specimen Source Blood arterial Arterial Blood Date Drawn 04/20/2017 8:15:00 AM Arterial Blood pH (Temp corrected) 7.517 H Arterial Blood pCO2 (Temp correct) 30.0 L Arterial Blood pO2 (Temp corrected) 165.2 H Arterial Blood HCO3 23.8 Arterial Blood Base Excess 1.6 Arterial Blood Oxygen Saturation 99.0 Gerard Test ACCEPTAB Arterial Blood Gas Puncture Site Right Radial Arterial Blood Carboxyhemoglobin 0.3 Arterial Blood Methemoglobin 0.2 Blood Gas A-a O2 Differential 85.5 H Oxyhemoglobin Percent 98.5 Total Hemoglobin 12.4 Blood Gas Temperature 37.0 Blood Gas Respiration Rate 16.0 Blood Gas Actual Respiration Rate 26 Blood Gas Modality VENT - AC FiO2 40.0 Blood Gas Tidal Volume 500.0 Blood Gas Low PEEP Setting 8.0 Blood Gas Notified Whom KARRI MARTÍNEZ Blood Gas Notified Time 04/20/2017 8:35:00 AM Medications Current Medications Ondansetron HCl (Zofran Inj) 4 mg Q6H PRN IV NAUSEA AND/OR VOMITING; Start at 12:00 Acetaminophen (Tylenol Tab) 650 mg Q6H PRN PO PAIN LEVEL 1-3 OR FEVER; Start 04/19/17 at 12:00 Acetaminophen/ Hydrocodone Bitart ([place] (5/325)) 1 tab Q6H PRN PO MODERATE PAIN LEVEL 4-6; Start 04/19/17 at 12:00 Morphine Sulfate (morphine) 2 mg Q4H PRN IV SEVERE PAIN LEVEL 7-10 Last administered on 04/19/17t 16:42; Admin Dose 2 MG; Start 04/19/17 at 12:00 Docusate Sodium (Colace) 100 mg Q12H PRN PO CONSTIPATION; Start 04/19/17 at 12 :00 Magnesium Hydroxide (Milk Of Mag) 30 ml DAILY PRN PO CONSTIPATION; Start 04/19 at 12:00 Sodium Biphosphate/ Sodium Phosphate (Fleet Enema) 133 ml DAILY PRN MD CONSTIPATION; Start 04/19/17 at 12:00 Famotidine (Pepcid Iv) 20 mg Q12 IV Last administered on 04/20/17 08:51; Admin Dose 20 MG; Start 04/19/17 at 21:00 Lorazepam (Ativan) 0.5 mg Q6H PRN IV ANXIETY; Start 04/19/17 at 12:00 Nitroglycerin (Nitroglycerin (Sl Tab) 0.4 Mg) 1 tab Q5M PRN SL ANGINA; Start 04/19/17 at 12:00 Amiodarone HCl (Cordarone) 200 mg DAILY GTB Last administered on 04/20/17 08: 53; Admin Dose 200 MG; Start 04/20/17 at 09:00 Carbidopa/Levodopa (Sinemet (25/ )) 1 tab QID GTB Last administered on 04/20 08:53; Admin Dose 1 TAB; Start 04/19/17 at 13:00 Chlorhexidine Gluconate (Peridex) 15 ml Q12 MM Last administered on 04/20/17 08:51; Admin Dose 15 ML; Start 04/19/17 at 21:00 Doxazosin Mesylate (Cardura) 8 mg DAILY GTB Last administered on 04/20/17 08: 52; Admin Dose 8 MG; Start 04/20/17 at 09:00 Ferrous Sulfate (Ferrous Sulfate (Ec)) 330 mg TID PO Last administered on 04/20 08:53; Admin Dose 330 MG; Start 04/19/17 at 13:00 Lactobacillus Acidophilus/ Rhamnosus (Culturelle) 1 cap DAILY PO Last administered on 04/20/17 08:52; Admin Dose 1 CAP; Start 04/20/17 at 09:00 Ascorbic Acid 500 mg 500 mg BID GTB Last administered on 04/20/17 08:53; Admin Dose 500 MG; Start 04/19/17 at 21:00 Cefepime HCl (Maxipime 2gm/50 ml (Pmx)) 50 ml @ 100 mls/hr Q12 IVPB Last administered on 04/20/17 09:03; Admin Dose 100 MLS/HR; Start 04/19/17 at 21: 00 Miscellaneous Information VANCO TR LEVEL PRIOR... ONCE ONCE XX ; Start at 19:00; Stop 04/20/17 at 19:01 Vancomycin HCl/ Dextrose/Water (Vancocin/D5W) 150 ml @ 75 mls/hr Q12H IVPB Last administered on 04/19/17 20:16; Admin Dose 75 MLS/HR; Start 04/19/17 at 20:00 Lorazepam 2 mg 2 mg Q10MIN PRN IV seisure Last administered on 04/19/17 17:33 ; Admin Dose 2 MG; Start 04/19/17 at 17:30 Dextrose (D5W) 1,000 ml @ 75 mls/hr [id number] IV ; Start 04/20/17 at 09:30 Lidocaine (Xylocaine 1% (Mpf)) 5 ml ONCE ONCE SC ; Start 04/20/17 at 09:30; Stop 04/20/17 at 09:31 Assessment/Plan Chief Complaint/Hosp Course IMPRESSION AND PLAN: 1. Urinary tract infection with sepsis.Improving leukocytosis transfer to telemetry 2. Questionable PEA arrest. 3. Chronic encephalopathy. 4. Vent dependent respiratory failure. 5. Dysphagia with G-tube. REQUIREMENTS: 1. Volume resuscitation. 2. Broad-spectrum antibiotics for UTI. 3. Tube feeding as tolerated. 4. Obtain further family history 5. DVT and GI prophylaxis. Transfer to telemetry Problems: T[facility] CURRAN MD, [facility] Apr 20, 2017 09:28
[2017-04-20] MEDS ORDERED: LIDOCAINE 1% (MPF) 5 ML VIAL SC ONE (09:30)
[2017-04-20] MEDS: DEXTROSE 5% 1,000 ML IV SCH ×2 (09:47→23:25)
[2017-04-20] MEDS: VANCOMYCIN 750 MG in DEXTROSE 5% 150 ML IVPB SCH ×2 (09:47→20:43)
--- NOTE | 2017-04-20 09:56 | CONS ---
Date/Time of Note Date/Time of Note DATE: 04/20/17 TIME: 09:54 Assessment/Plan Assessment/Plan Additional Assessment/Plan 76 yo with HTN, resp failure, a. fib (likely chronic) s/p reported PEA arrest - better now. EFCHO EF 55% - will initiate on Lovenox 0.75 mg / kg bid for a. fib and add rate Rx agents as needed Full note dictated - tnx #[id number] Consultation Date/Type/Reason Admit Date/Time Apr 19, 2017 at 10:58 Initial Consult Date Type of Consultation: Pulm Exam/Review of Systems Vital Signs Vitals Vital Signs Date Time Temp Pulse Resp B/P Pulse Ox O2 Delivery O2 Flow Rate FiO2 04/20/17 08:00 103 04/20/17 06:00 29 104/69 99 Mechanical Ventilator 04/20/17 05:10 40 04/20/17 04:00 99.8 Intake and Output 04/19/17 04/19/17 04/20/17 15:00 23:00 07:00 Intake Total 600 ml 700 ml Output Total 375 ml 355 ml Balance 225 ml 345 ml Results Result Diagram: 04/20/17 0602 04/20/17 0602 Results 24 hrs Laboratory Tests Test 04/19/17 13:55 04/19/17 18:38 04/19/17 22:01 04/20/17 06:02 Lactic Acid Level 3.0 *H 2.6 *H 1.6 White Blood Count 15.4 #H Red Blood Count 2.75 L Hemoglobin 9.3 L Hematocrit 28.4 L Mean Corpuscular Volume 103.3 H Mean Corpuscular Hemoglobin 33.8 H Mean Corpuscular Hemoglobin Concent 32.7 Red Cell Distribution Width 15.7 H Platelet Count 108 #L Mean Platelet Volume 11.3 H Neutrophils % Segmented Neutrophils % (Manual) 72 Band Neutrophils % (Manual) 18 H Lymphocytes % Lymphocytes % (Manual) 4 L Monocytes % Monocytes % (Manual) 6 Eosinophils % Basophils % Nucleated Red Blood Cells % 0.0 Neutrophils # Neutrophils # (Manual) 11.5 H Band Neutrophils # 2.7 H Absolute Lymphocytes (Manual) 0.6 L Lymphocytes # Monocytes # Absolute Monocytes (Manual) 0.9 Eosinophils # Basophils # Nucleated Red Blood Cells # Giant Platelets 2 H Polychromasia 1+ Anisocytosis 1+ Macrocytosis 1+ Sodium Level 146 H Potassium Level 3.8 Chloride Level 112 H Carbon Dioxide Level 27 Anion Gap 11 # Blood Urea Nitrogen 38 #H Creatinine 0.82 Glucose Level 131 # Hemoglobin A1c 5.5 Calcium Level 8.0 L Phosphorus Level 3.1 Magnesium Level 2.1 Triglycerides Level 47 Cholesterol Level 55 L LDL Cholesterol, Calculated 21 HDL Cholesterol 25 L Cholesterol/HDL Ratio 2.2 Thyroid Stimulating Hormone (TSH) 0.647 Test 04/20/17 07:00 Blood Gas Specimen Source Blood arterial Arterial Blood Date Drawn 04/20/2017 8:15:00 AM Arterial Blood pH (Temp corrected) 7.517 H Arterial Blood pCO2 (Temp correct) 30.0 L Arterial Blood pO2 (Temp corrected) 165.2 H Arterial Blood HCO3 23.8 Arterial Blood Base Excess 1.6 Arterial Blood Oxygen Saturation 99.0 Gerard Test ACCEPTAB Arterial Blood Gas Puncture Site Right Radial Arterial Blood Carboxyhemoglobin 0.3 Arterial Blood Methemoglobin 0.2 Blood Gas A-a O2 Differential 85.5 H Oxyhemoglobin Percent 98.5 Total Hemoglobin 12.4 Blood Gas Temperature 37.0 Blood Gas Respiration Rate 16.0 Blood Gas Actual Respiration Rate 26 Blood Gas Modality VENT - AC FiO2 40.0 Blood Gas Tidal Volume 500.0 Blood Gas Low PEEP Setting 8.0 Blood Gas Notified Whom KARRI MARTÍNEZ Blood Gas Notified Time 04/20/2017 8:35:00 AM Medications Medications Current Medications Ondansetron HCl (Zofran Inj) 4 mg Q6H PRN IV NAUSEA AND/OR VOMITING; Start at 12:00 Acetaminophen (Tylenol Tab) 650 mg Q6H PRN PO PAIN LEVEL 1-3 OR FEVER; Start 04/19/17 at 12:00 Acetaminophen/ Hydrocodone Bitart ([place] (5/325)) 1 tab Q6H PRN PO MODERATE PAIN LEVEL 4-6; Start 04/19/17 at 12:00 Morphine Sulfate (morphine) 2 mg Q4H PRN IV SEVERE PAIN LEVEL 7-10 Last administered on 04/19/17t 16:42; Admin Dose 2 MG; Start 04/19/17 at 12:00 Docusate Sodium (Colace) 100 mg Q12H PRN PO CONSTIPATION; Start 04/19/17 at 12 :00 Magnesium Hydroxide (Milk Of Mag) 30 ml DAILY PRN PO CONSTIPATION; Start 04/19 at 12:00 Sodium Biphosphate/ Sodium Phosphate (Fleet Enema) 133 ml DAILY PRN [place] CONSTIPATION; Start 04/19/17 at 12:00 Famotidine (Pepcid Iv) 20 mg Q12 IV Last administered on 04/20/17 08:51; Admin Dose 20 MG; Start 04/19/17 at 21:00 Lorazepam (Ativan) 0.5 mg Q6H PRN IV ANXIETY; Start 04/19/17 at 12:00 Nitroglycerin (Nitroglycerin (Sl Tab) 0.4 Mg) 1 tab Q5M PRN SL ANGINA; Start 04/19/17 at 12:00 Amiodarone HCl (Cordarone) 200 mg DAILY GTB Last administered on 04/20/17 08: 53; Admin Dose 200 MG; Start 04/20/17 at 09:00 Carbidopa/Levodopa (Sinemet (25/ )) 1 tab QID GTB Last administered on 04/20 08:53; Admin Dose 1 TAB; Start 04/19/17 at 13:00 Chlorhexidine Gluconate (Peridex) 15 ml Q12 MM Last administered on 04/20/17 08:51; Admin Dose 15 ML; Start 04/19/17 at 21:00 Doxazosin Mesylate (Cardura) 8 mg DAILY GTB Last administered on 04/20/17 08: 52; Admin Dose 8 MG; Start 04/20/17 at 09:00 Ferrous Sulfate (Ferrous Sulfate (Ec)) 330 mg TID PO Last administered on 04/20 08:53; Admin Dose 330 MG; Start 04/19/17 at 13:00 Lactobacillus Acidophilus/ Rhamnosus (Culturelle) 1 cap DAILY PO Last administered on 04/20/17 08:52; Admin Dose 1 CAP; Start 04/20/17 at 09:00 Ascorbic Acid 500 mg 500 mg BID GTB Last administered on 04/20/17 08:53; Admin Dose 500 MG; Start 04/19/17 at 21:00 Cefepime HCl (Maxipime 2gm/50 ml (Pmx)) 50 ml @ 100 mls/hr Q12 IVPB Last administered on 04/20/17 09:03; Admin Dose 100 MLS/HR; Start 04/19/17 at 21: 00 Miscellaneous Information VANCO TR LEVEL PRIOR... ONCE ONCE XX ; Start at 19:00; Stop 04/20/17 at 19:01 Vancomycin HCl/ Dextrose/Water (Vancocin/D5W) 150 ml @ 75 mls/hr Q12H IVPB Last administered on 04/20/17 09:47; Admin Dose 75 MLS/HR; Start 04/19/17 at 20:00 Lorazepam 2 mg 2 mg Q10MIN PRN IV seisure Last administered on 04/19/17 17:33 ; Admin Dose 2 MG; Start 04/19/17 at 17:30 Dextrose (D5W) 1,000 ml @ 75 mls/hr [id number] IV Last administered on 09:47; Admin Dose 75 MLS/HR; Start 04/20/17 at 09:30 MARCI CHEN MD Apr 20, 2017 09:56
[2017-04-20] MEDS ORDERED: ENOXAPARIN 100 MG/ML SYG SC SCH ×2 (10:00)
--- NOTE | 2017-04-20 10:27 | EN ---
Date/Time of Note Date/Time of Note DATE: 04/20/17 TIME: 10:24 ER Progress Note I have been consulted to see the patient for IO line removal On exam: General: No significant distress Head: Normocephalic, atraumatic. ENT: Moist mucous membranes Neck: Supple, no lymphadenopathy Respiratory: Mechanical breath sounds Cardiovascular: RRR, no murmurs, rubs, or gallops Abdominal: Soft, non-tender, non-distended, no peritoneal signs : Deferred MSK: Limited movement of all 4 extremities, no bony abnormalities, a left proximal tibial IO line is intact with dressing that is clean and dry Neurologic: Limited exam, and encephalopathic, limited movement of all 4 extremities Skin: No rash, no significant breakdown Psych: Unable to assess Procedure(s): The patient was not available for consent. A sterile procedure was performed. Using traction and rotation I was able to remove the left proximal tibial intraosseous line without complication. The needle was intact. A clean sterile dressing was applied and secured by nursing staff. Needle was disposed of. The patient tolerated procedure well without complications. Further care per ICU team. LEONARDO GASTELUM MD Apr 20, 2017 10:27
[2017-04-20] MEDS: ENOXAPARIN 30 MG/0.3 ML SYG SC SCH ×2 (12:46→21:48)
--- NOTE | 2017-04-20 16:35 | RADRPT ---
PROCEDURE: XR Chest 1 View. CLINICAL INDICATION: Shortness of breath. TECHNIQUE: Single view of the chest was obtained. COMPARISON: April 20, 2017 at 06:18 a.m. FINDINGS: The heart size is within normal limits. Calcified atherosclerosis is noted in the aorta. Left-sided PICC line has its tip in the expected location of the mid superior vena cava. Median sternotomy wir es overlie the heart. Tracheostomy tube is stable and appears in grossly appropriate location. The l ungs are hyperexpanded. Diffuse interstitial prominence in both lungs appears stable. Superimposed m ild potential alveolar infiltrates scattered throughout the right lung are stable. The right costoph renic angle is not included on the obtained image. The osseous structures are unchanged. IMPRESSION: Calcified atherosclerosis in the aorta. Limited exam with the right costophrenic angle not included on the obtained image. Repeat exam can b e considered. Left-sided PICC line with its tip in the expected location of the mid superior vena cava. Hyperexpanded lungs with diffuse mild interstitial prominence in both lungs. Interstitial prominenc e could be chronic. Findings could reflect COPD. Stable mild potential alveolar infiltrates scattered throughout the right lung. RPTAT: AA .Jimmie Cunningham MD, Date Time Electronically viewed and signed by .Jimmie Cunningham MD, on 04/20/2017 16:35 .P/
[2017-04-20] MEDS ORDERED: HEPARIN (10 UNITS/ML) 5ML SYG IV PRN (17:30)
[2017-04-20] MEDS: ACETAMINOPHEN 325 MG TAB PO PRN (19:01)
[2017-04-20] MEDS: morphine 2 MG INJ IV PRN (23:43)
[2017-04-21] VITALS (31 sets, daily range): BP systolic 93–125; BP diastolic 57–77; PULSE 71–129; RESP 20–35
[2017-04-21] MEDS ORDERED: PENDING SANTYL ORDER FOR WOUND CARE XX PRN (02:00)
[2017-04-21 04:19] LABS: ABNORMAL IP MESSAGE 1; POSITIVE DIFF @See below
[2017-04-21 04:20] LABS: MAGNESIUM 2.1 mg/dl (1.7-2.5); PHOSPHORUS 2.4 mg/dl (2.5-4.9)
[2017-04-21 04:23] LABS: CALCIUM 7.4 mg/dl (8.4-10.2); CREATININE 0.68 mg/dl (0.61-1.24); POTASSIUM 3.2 mmol/L (3.5-5.1)
[2017-04-21 04:26] LABS: HEMATOCRIT 23.9 % (42.0-52.0); HEMOGLOBIN 7.8 g/dl (14.0-18.0); MEAN CORPUSCULAR HEMOGLOBIN 34.1 pg (29.0-33.0); MEAN CORPUSCULAR HGB CONC 32.6 g/dl (32.0-37.0); MEAN CORPUSCULAR VOLUME 104.4 fl (82.0-101.0); MEAN PLATELET VOLUME 11.8 fl (7.4-10.4); PLATELET COUNT 102 10^3/UL (140-415); RED BLOOD COUNT 2.29 10^6/ul (4.70-6.10); RED CELL DISTRIBUTION WIDTH 15.7 % (11.5-14.5); WHITE BLOOD COUNT 13.9 10^3/ul (4.8-10.8)
[2017-04-21] MEDS ORDERED: COLLAGENASE 30 GM TUBE TOP PRN (05:00)
[2017-04-21 07:14] LABS: ADD UMIC YES; UR AMORPHOUS CRYSTAL FEW /HPF (NONE SEEN); UR ASCORBIC ACID 40 mg/dL (NEGATIVE); UR BACTERIA FEW /HPF (NONE SEEN); UR BILIRUBIN (Dip) NEGATIVE (NEGATIVE); UR BLOOD (Dip) 3+ mg/dL (NEGATIVE); UR CLARITY CLOUDY (CLEAR); UR COLOR YELLOW (YELLOW); UR GLUCOSE (Dip) NEGATIVE (NEGATIVE); UR KETONES (Dip) TRACE mg/dL (NEGATIVE); UR LEUKOCYTE ESTERASE (Dip) TRACE Leu/ul (NEGATIVE); UR MUCUS FEW /HPF (NONE SEEN); UR NITRITE (Dip) NEGATIVE (NEGATIVE); UR RBC > 182 /HPF (0-5); UR SPECIFIC GRAVITY (Dip) 1.024 (1.003-1.030); UR TOTAL PROTEIN (Dip) 2+ mg/dl (NEGATIVE); UR UROBILINOGEN (Dip) NEGATIVE (NEGATIVE)
[2017-04-21 07:45] LABS: ANISOCYTOSIS 1+ (0-0); MONOCYTES % (M) 4 % (0-11); PLATELET ESTIMATE DECREASED; POLYCHROMASIA 3+ (0-0)
[2017-04-21 08:37] LABS: AADO2 Arterial 82.7 mmHg (7.0-24.0); Allen Test ACCEPTAB; Arterial Base Excess -0.8 mmol/L (-3.0-3); Arterial COHb 0.3 % (0.0-3.0); Arterial Fraction of Oxyhgb 97.1 % (93.0-99.0); Arterial HCO3 21.4 mmol/L (22.0-26.0); Arterial MetHb 0.1 % (0.0-1.5); MODE VENT - AC
[2017-04-21] MEDS: VANCOMYCIN 750 MG in DEXTROSE 5% 150 ML IVPB SCH (08:41)
[2017-04-21] MEDS: DOXAZOSIN 4 MG TAB GTB SCH (08:41)
[2017-04-21] MEDS: FAMOTIDINE 20 MG INJ IV SCH ×2 (08:41→20:37)
[2017-04-21] MEDS: CEFEPIME 2GM/50 ML (PMX) 50 ML IVPB SCH (08:41)
[2017-04-21] MEDS: CHLORHEXIDINE GLUCONATE 15 ML UD CUP MM SCH ×2 (08:41→20:35)
[2017-04-21] MEDS: LACTOBACILLUS RHAMNOSUS CAP PO SCH (08:42)
[2017-04-21] MEDS: AMIODARONE 200 MG TAB GTB SCH (08:42)
[2017-04-21] MEDS: CARBIDOPA/LEVODOPA (25/100) TAB GTB SCH ×4 (08:42→20:33)
[2017-04-21] MEDS: FERROUS SULFATE (EC) 325 MG TAB PO SCH ×3 (08:42→20:34)
[2017-04-21] MEDS: ASCORBIC ACID 500 MG TAB GTB SCH ×2 (08:42→20:35)
--- NOTE | 2017-04-21 09:01 | RADRPT ---
PROCEDURE: CT Brain without contrast. CLINICAL INDICATION: Lethargic. TECHNIQUE: A multiplanar CT of the brain was performed on a CT scanner utilizing axial imaging fro m the skull base through the vertex without IV contrast. The CTDIvol is 45.01 mGy and the DLP is 90 0.28 mGycm. One or more of the following dose reduction techniques were utilized: Automated exposu re control, adjustment of the mA and/or kV according to patient size, use of iterative reconstructio n technique. DICOM images are available. COMPARISON: None FINDINGS: No evidence of intracranial hemorrhage or abnormal extra-axial fluid collection. Mild patchy new periventricular and subcortical white matter low attenuation compatible with sequela e of chronic microvascular ischemic injury. The brain parenchyma is otherwise normal attenuation and morphology with preservation of buckley white differentiation.The ventricles and subarachnoid spaces a re prominent compatible with mild volume loss. Atherosclerotic calcification of the cavernous pricing intern al carotid arteries. Mild lobulated mucosal thickening in the ethmoid air cells and sphenoid sinuses without acute or agg ressive features The basal cisterns, posterior fossa contents, brainstem, craniocervical junction, orbits, pituitary axis, remaining paranasal sinuses, mastoid air cells, and calvarium are unremarkable. IMPRESSION: 1. No intracranial hemorrhage or acute intracranial abnormality. 2. Mild chronic microvascular ischemic changes and age related volume loss. Early ischemic injury m ay be occult to CT imaging and diffusion weighted MRI may be considered as clinically warranted. 3. Atherosclerotic calcification of the cavernous internal carotid arteries. RPTAT:AAJJ Physician Wale Date Time Electronically viewed and signed by Physician Wale on 04/21/2017 09:00 ALTON/
--- NOTE | 2017-04-21 10:14 | RADRPT ---
PROCEDURE: XR Chest. CLINICAL INDICATION: Dyspnea . TECHNIQUE: Single frontal chest x-ray. COMPARISON: 04/20/2017 FINDINGS: There is a tracheostomy tube, left arm PICC line and sternotomy wires in place unchanged. Prominent interstitial markings are present likely chronic or senescent in nature. There are no alveolar infi ltrates, edema, or effusions. . Calcific atherosclerosis of the aorta is present.. The cardiomedias tinal silhouette is unremarkable. The osseous structures are intact. IMPRESSION: Tracheostomy tube and left arm PICC line in place. Diffuse interstitial prominence likely chronic or senescent in nature. RPTAT: QQ .Panfilo Blackmon MD, MD Date Time Electronically viewed and signed by .Panfilo Blackmon MD, MD on 04/21/2017 10:14 .L/
--- NOTE | 2017-04-21 10:37 | CONS ---
Date/Time of Note Date/Time of Note DATE: 04/21/17 TIME: 10:36 Consult Date/Type/Reason Admit Date/Time Apr 19, 2017 at 10:58 Type of Consultation: Pulm Subjective Patient remains comfortable. No new events. Neurologically unchanged. Objective Vital Signs Date Time Temp Pulse Resp B/P Pulse Ox O2 Delivery O2 Flow Rate FiO2 04/21/17 08:00 105 04/21/17 08:00 99.7 27 108/70 100 Mechanical Ventilator 04/21/17 04:46 30 Intake and Output 04/20/17 04/20/17 04/21/17 14:59 22:59 06:59 Intake Total 875 ml 945 ml 830 ml Output Total 380 ml 470 ml 350 ml Balance 495 ml 475 ml 480 ml Exam PHYSICAL EXAMINATION: GENERAL: Chronically ill appearing gentleman. VITAL SIGNS: As above. NECK: Trach site clean and intact. CARDIAC: S1, S2, no added sounds or murmurs. CHEST: Diminished air entry bilaterally. ABDOMEN: Soft, nontender. No guarding or rebound. EXTREMITIES: No cyanosis, clubbing, edema. NEUROLOGIC: Generalized weakness, unable to assess. Results/Medications Result Diagram: 04/21/17 0320 04/21/17 0320 Results 24 hrs Laboratory Tests Test 04/20/17 18:57 04/20/17 19:50 04/21/17 03:20 04/21/17 07:00 Vancomycin Level Trough 12.0 Urine Color YELLOW Urine Clarity CLOUDY A Urine pH 5.0 Urine Specific [place] 1.024 Urine Ketones TRACE A Urine Nitrite NEGATIVE Urine Bilirubin NEGATIVE Urine Urobilinogen NEGATIVE Urine Leukocyte Esterase TRACE A Urine Microscopic RBC > 182 H Urine Microscopic WBC 38 H Urine Amorphous Crystals FEW A Urine Bacteria FEW A Urine Mucus FEW A Urine Hemoglobin 3+ H Urine Glucose NEGATIVE Urine Total Protein 2+ H White Blood Count 13.9 H Red Blood Count 2.29 L Hemoglobin 7.8 L Hematocrit 23.9 L Mean Corpuscular Volume 104.4 H Mean Corpuscular Hemoglobin 34.1 H Mean Corpuscular Hemoglobin Concent 32.6 Red Cell Distribution Width 15.7 H Platelet Count 102 L Mean Platelet Volume 11.8 H Neutrophils % Segmented Neutrophils % (Manual) 86 H Band Neutrophils % (Manual) 5 H Lymphocytes % Lymphocytes % (Manual) 5 L Monocytes % Monocytes % (Manual) 4 Eosinophils % Basophils % Nucleated Red Blood Cells % 0.0 Neutrophils # Neutrophils # (Manual) 12.0 H Band Neutrophils # 0.6 Absolute Lymphocytes (Manual) 0.6 L Lymphocytes # Monocytes # Absolute Monocytes (Manual) 0.5 Eosinophils # Basophils # Nucleated Red Blood Cells # Platelet Estimate DECREASED Polychromasia 3+ Anisocytosis 1+ Sodium Level 142 Potassium Level 3.2 L Chloride Level 111 H Carbon Dioxide Level 26 Anion Gap 8 Blood Urea Nitrogen 32 H Creatinine 0.68 Glucose Level 133 Calcium Level 7.4 L Phosphorus Level 2.4 L Magnesium Level 2.1 Blood Gas Specimen Source Blood arterial Arterial Blood Date Drawn 04/21/2017 8:20:03 AM Arterial Blood pH (Temp corrected) 7.520 H Arterial Blood pCO2 (Temp correct) 26.8 L Arterial Blood pO2 (Temp corrected) 99.7 H Arterial Blood HCO3 21.4 L Arterial Blood Base Excess -0.8 Arterial Blood Oxygen Saturation 97.5 Gerard Test ACCEPTAB Arterial Blood Gas Puncture Site Right Radial Arterial Blood Carboxyhemoglobin 0.3 Arterial Blood Methemoglobin 0.1 Blood Gas A-a O2 Differential 82.7 H Oxyhemoglobin Percent 97.1 Total Hemoglobin 9.0 L Blood Gas Temperature 37.0 Blood Gas Respiration Rate 12.0 Blood Gas Actual Respiration Rate 28 Blood Gas Modality VENT - AC FiO2 30.0 Blood Gas Tidal Volume 450.0 Blood Gas Low PEEP Setting 5.0 Blood Gas Notified Whom KARRI MARTÍNEZ Blood Gas Notified Time 04/21/2017 8:37:12 AM Medications Current Medications Ondansetron HCl (Zofran Inj) 4 mg Q6H PRN IV NAUSEA AND/OR VOMITING; Start at 12:00 Acetaminophen (Tylenol Tab) 650 mg Q6H PRN PO PAIN LEVEL 1-3 OR FEVER Last administered on 04/20/17 19:01; Admin Dose 650 MG; Start 04/19/17 at 12:00 Acetaminophen/ Hydrocodone Bitart ([place] (5/325)) 1 tab Q6H PRN PO MODERATE PAIN LEVEL 4-6; Start 04/19/17 at 12:00 Morphine Sulfate (morphine) 2 mg Q4H PRN IV SEVERE PAIN LEVEL 7-10 Last administered on 04/20/17 23:43; Admin Dose 2 MG; Start 04/19/17 at 12:00 Docusate Sodium (Colace) 100 mg Q12H PRN PO CONSTIPATION; Start 04/19/17 at 12 :00 Magnesium Hydroxide (Milk Of Mag) 30 ml DAILY PRN PO CONSTIPATION; Start 04/19 at 12:00 Sodium Biphosphate/ Sodium Phosphate (Fleet Enema) 133 ml DAILY PRN [place] CONSTIPATION; Start 04/19/17 at 12:00 Famotidine (Pepcid Iv) 20 mg Q12 IV Last administered on 04/21/17 08:41; Admin Dose 20 MG; Start 04/19/17 at 21:00 Lorazepam (Ativan) 0.5 mg Q6H PRN IV ANXIETY Last administered on 04/21/17 01 :46; Admin Dose 0.5 MG; Start 04/19/17 at 12:00 Nitroglycerin (Nitroglycerin (Sl Tab) 0.4 Mg) 1 tab Q5M PRN SL ANGINA; Start 04/19/17 at 12:00 Amiodarone HCl (Cordarone) 200 mg DAILY GTB Last administered on 04/21/17 08: 42; Admin Dose 200 MG; Start 04/20/17 at 09:00 Carbidopa/Levodopa (Sinemet (25/ 100)) 1 tab QID GTB Last administered on 04/21 08:42; Admin Dose 1 TAB; Start 04/19/17 at 13:00 Chlorhexidine Gluconate (Peridex) 15 ml Q12 MM Last administered on 04/21/17 08:41; Admin Dose 15 ML; Start 04/19/17 at 21:00 Doxazosin Mesylate (Cardura) 8 mg DAILY GTB Last administered on 04/21/17 08: 41; Admin Dose 8 MG; Start 04/20/17 at 09:00 Ferrous Sulfate (Ferrous Sulfate (Ec)) 330 mg TID PO Last administered on 04/21 08:42; Admin Dose 330 MG; Start 04/19/17 at 13:00 Lactobacillus Acidophilus/ Rhamnosus (Culturelle) 1 cap DAILY PO Last administered on 04/21/17 08:42; Admin Dose 1 CAP; Start 04/20/17 at 09:00 Ascorbic Acid 500 mg 500 mg BID GTB Last administered on 04/21/17 08:42; Admin Dose 500 MG; Start 04/19/17 at 21:00 Cefepime HCl 50 ml @ 100 mls/hr Q12 IVPB Last administered on 04/21/17 08:41 ; Admin Dose 100 MLS/HR; Start 04/19/17 at 21:00 Vancomycin HCl/ Dextrose/Water (Vancocin/D5W) 150 ml @ 75 mls/hr Q12H IVPB Last administered on 04/21/17 08:41; Admin Dose 75 MLS/HR; Start 04/19/17 at 20:00 Lorazepam 2 mg 2 mg Q10MIN PRN IV seisure Last administered on 04/19/17 17:33 ; Admin Dose 2 MG; Start 04/19/17 at 17:30 Dextrose (D5W) 1,000 ml @ 75 mls/hr [id number] IV Last administered on 23:25; Admin Dose 75 MLS/HR; Start 04/20/17 at 09:30 Enoxaparin Sodium (Lovenox) 30 mg Q12 SC Last administered on 04/20/17 21:48 ; Admin Dose 30 MG; Start 04/20/17 at 10:00 Acetaminophen (Tylenol Liquid) 650 mg Q6H PRN GTB PAIN AND OR ELEVATED TEMP; Start 04/20/17 at 19:00 Miscellaneous Information (Pending Santyl Order For Wound Care) This patient galdamez... PRN PRN XX WOUND CARE; Start 04/21/17 at 02:00 Collagenase (Santyl) 1 applic DAILY TOP ; Start 04/21/17 at 09:00 Collagenase 1 applic 1 applic PRN PRN TOP PRN; Start 04/21/17 at 05:00 Potassium Phosphate/Sodium Chloride (K Phos (Meq)/NS) 259.0909 ml @ 64.773 m... ONCE ONCE IVPB ; Start 04/21/17 at 11:00; Stop 04/21/17 at 14:59 Assessment/Plan Chief Complaint/Hosp Course IMPRESSION AND PLAN: 1. Urinary tract infection with sepsis.Improving leukocytosis transfer to telemetry 2. Questionable PEA arrest. 3. Chronic encephalopathy. 4. Vent dependent respiratory failure. 5. Dysphagia with G-tube. REQUIREMENTS: 1. Volume resuscitation. 2. Broad-spectrum antibiotics for UTI. 3. Tube feeding as tolerated. 4. Obtain further family history 5. DVT and GI prophylaxis. 6. Monitor H&H 7. Replace potassium and electrolytes Transfer to telemetry Problems: TEVIN CURRAN MD, [facility] Apr 21, 2017 10:37
[2017-04-21] MEDS: ENOXAPARIN 30 MG/0.3 ML SYG SC SCH (10:39)
[2017-04-21] MEDS: COLLAGENASE 30 GM TUBE TOP SCH (10:42)
[2017-04-21] MEDS ORDERED: TOBRAMYCIN IV PER PHARMACY XX SCH (11:00)
[2017-04-21] MEDS ORDERED: POTASSIUM PHOSPHATE 40 MEQ in SOD CHLORIDE 0.9% 250 ML IVPB ONE (11:00)
--- NOTE | 2017-04-21 11:25 | CONS ---
Date/Time of Note Date/Time of Note DATE: 04/21/17 TIME: 11:22 Assessment/Plan Assessment/Plan Additional Assessment/Plan 1. HTN - well Rx, con't Med rx 2. Resp failure - chronicm, pulm team follows 3. A. fib (likely chronic) - reasonable rate control now - will initiate on Lovenox 0.75 mg / kg bid for a. fib and add rate Rx agents as needed 4. s/p reported PEA arrest - uncera, no tachy-bardy here. NO VT/Vf noted. 5. HF with preserved EF - chronic - EFCHO EF 55% Consultation Date/Type/Reason Admit Date/Time Apr 19, 2017 at 10:58 Type of Consultation: Pulm 24 HR Interval Summary Free Text/Dictation NO acute events - BP stable - will monitor clinically now. ROS: No fever, no chills, no nausea, no vomiting, no diarrhea/constipation No recent weight changes No chest pain, no PND, no orthopnea No dizziness, blurred vision No thirst, no heat or cold intolerance Exam/Review of Systems Vital Signs Vitals Vital Signs Date Time Temp Pulse Resp B/P Pulse Ox O2 Delivery O2 Flow Rate FiO2 04/21/17 11:10 124 27 100 30 04/21/17 08:00 99.7 108/70 Mechanical Ventilator Intake and Output 04/20/17 04/20/17 04/21/17 15:00 23:00 07:00 Intake Total 850 ml 945 ml 850 ml Output Total 440 ml 420 ml 330 ml Balance 410 ml 525 ml 520 ml Exam General: WN/WD/NAD, AOx 0 HEENT: Unicetric/atraumatic/EOMI (does not follow commands) NECK: trach Lymph: no lymphadenopathy HEART: regular with no S3, II/ systolic murmur at apex LUNGS: Coarse sounds ABD: soft, NT, ND, +BS : Intact Neuro: non focal, contracted SKIN: chronic changes EXT: trace edema Results Result Diagram: 04/21/1731904/21/17 032 Results 24 hrs Laboratory Tests Test 04/20/17 18:57 04/20/17 19:50 04/21/17 03:20 04/21/17 07:00 Vancomycin Level Trough 12.0 Urine Color YELLOW Urine Clarity CLOUDY A Urine pH 5.0 Urine Specific [place] 1.024 Urine Ketones TRACE A Urine Nitrite NEGATIVE Urine Bilirubin NEGATIVE Urine Urobilinogen NEGATIVE Urine Leukocyte Esterase TRACE A Urine Microscopic RBC > 182 H Urine Microscopic WBC 38 H Urine Amorphous Crystals FEW A Urine Bacteria FEW A Urine Mucus FEW A Urine Hemoglobin 3+ H Urine Glucose NEGATIVE Urine Total Protein 2+ H White Blood Count 13.9 H Red Blood Count 2.29 L Hemoglobin 7.8 L Hematocrit 23.9 L Mean Corpuscular Volume 104.4 H Mean Corpuscular Hemoglobin 34.1 H Mean Corpuscular Hemoglobin Concent 32.6 Red Cell Distribution Width 15.7 H Platelet Count 102 L Mean Platelet Volume 11.8 H Neutrophils % Segmented Neutrophils % (Manual) 86 H Band Neutrophils % (Manual) 5 H Lymphocytes % Lymphocytes % (Manual) 5 L Monocytes % Monocytes % (Manual) 4 Eosinophils % Basophils % Nucleated Red Blood Cells % 0.0 Neutrophils # Neutrophils # (Manual) 12.0 H Band Neutrophils # 0.6 Absolute Lymphocytes (Manual) 0.6 L Lymphocytes # Monocytes # Absolute Monocytes (Manual) 0.5 Eosinophils # Basophils # Nucleated Red Blood Cells # Platelet Estimate DECREASED Polychromasia 3+ Anisocytosis 1+ Sodium Level 142 Potassium Level 3.2 L Chloride Level 111 H Carbon Dioxide Level 26 Anion Gap 8 Blood Urea Nitrogen 32 H Creatinine 0.68 Glucose Level 133 Calcium Level 7.4 L Phosphorus Level 2.4 L Magnesium Level 2.1 Blood Gas Specimen Source Blood arterial Arterial Blood Date Drawn 04/21/2017 8:20:03 AM Arterial Blood pH (Temp corrected) 7.520 H Arterial Blood pCO2 (Temp correct) 26.8 L Arterial Blood pO2 (Temp corrected) 99.7 H Arterial Blood HCO3 21.4 L Arterial Blood Base Excess -0.8 Arterial Blood Oxygen Saturation 97.5 Gerard Test ACCEPTAB Arterial Blood Gas Puncture Site Right Radial Arterial Blood Carboxyhemoglobin 0.3 Arterial Blood Methemoglobin 0.1 Blood Gas A-a O2 Differential 82.7 H Oxyhemoglobin Percent 97.1 Total Hemoglobin 9.0 L Blood Gas Temperature 37.0 Blood Gas Respiration Rate 12.0 Blood Gas Actual Respiration Rate 28 Blood Gas Modality VENT - AC FiO2 30.0 Blood Gas Tidal Volume 450.0 Blood Gas Low PEEP Setting 5.0 Blood Gas Notified Whom KARRI MARTÍNEZ Blood Gas Notified Time 04/21/2017 8:37:12 AM Medications Medications Current Medications Ondansetron HCl (Zofran Inj) 4 mg Q6H PRN IV NAUSEA AND/OR VOMITING; Start at 12:00 Acetaminophen (Tylenol Tab) 650 mg Q6H PRN PO PAIN LEVEL 1-3 OR FEVER Last administered on 04/20/17 19:01; Admin Dose 650 MG; Start 04/19/17 at 12:00 Acetaminophen/ Hydrocodone Bitart ([place] (5/325)) 1 tab Q6H PRN PO MODERATE PAIN LEVEL 4-6; Start 04/19/17 at 12:00 Morphine Sulfate (morphine) 2 mg Q4H PRN IV SEVERE PAIN LEVEL 7-10 Last administered on 04/20/17 23:43; Admin Dose 2 MG; Start 04/19/17 at 12:00 Docusate Sodium (Colace) 100 mg Q12H PRN PO CONSTIPATION; Start 04/19/17 at 12 :00 Magnesium Hydroxide (Milk Of Mag) 30 ml DAILY PRN PO CONSTIPATION; Start 04/19 at 12:00 Sodium Biphosphate/ Sodium Phosphate (Fleet Enema) 133 ml DAILY PRN [place] CONSTIPATION; Start 04/19/17 at 12:00 Famotidine (Pepcid Iv) 20 mg Q12 IV Last administered on 04/21/17 08:41; Admin Dose 20 MG; Start 04/19/17 at 21:00 Lorazepam (Ativan) 0.5 mg Q6H PRN IV ANXIETY Last administered on 04/21/17 01 :46; Admin Dose 0.5 MG; Start 04/19/17 at 12:00 Nitroglycerin (Nitroglycerin (Sl Tab) 0.4 Mg) 1 tab Q5M PRN SL ANGINA; Start 04/19/17 at 12:00 Amiodarone HCl (Cordarone) 200 mg DAILY GTB Last administered on 04/21/17 08: 42; Admin Dose 200 MG; Start 04/20/17 at 09:00 Carbidopa/Levodopa (Sinemet (25/ )) 1 tab QID GTB Last administered on 04/21 08:42; Admin Dose 1 TAB; Start 04/19/17 at 13:00 Chlorhexidine Gluconate (Peridex) 15 ml Q12 MM Last administered on 04/21/17 08:41; Admin Dose 15 ML; Start 04/19/17 at 21:00 Doxazosin Mesylate (Cardura) 8 mg DAILY GTB Last administered on 04/21/17 08: 41; Admin Dose 8 MG; Start 04/20/17 at 09:00 Ferrous Sulfate (Ferrous Sulfate (Ec)) 330 mg TID PO Last administered on 04/21 08:42; Admin Dose 330 MG; Start 04/19/17 at 13:00 Lactobacillus Acidophilus/ Rhamnosus (Culturelle) 1 cap DAILY PO Last administered on 04/21/17 08:42; Admin Dose 1 CAP; Start 04/20/17 at 09:00 Ascorbic Acid 500 mg 500 mg BID GTB Last administered on 04/21/17 08:42; Admin Dose 500 MG; Start 04/19/17 at 21:00 Cefepime HCl (Maxipime 2gm/50 ml (Pmx)) 50 ml @ 100 mls/hr Q12 IVPB Last administered on 04/21/17 08:41; Admin Dose 100 MLS/HR; Start 04/19/17 at 21: 00 Lorazepam 2 mg 2 mg Q10MIN PRN IV seisure Last administered on 04/19/17 17:33 ; Admin Dose 2 MG; Start 04/19/17 at 17:30 Dextrose (D5W) 1,000 ml @ 75 mls/hr [id number] IV Last administered on 23:25; Admin Dose 75 MLS/HR; Start 04/20/17 at 09:30 Enoxaparin Sodium (Lovenox) 30 mg Q12 SC Last administered on 04/21/17 10:39 ; Admin Dose 30 MG; Start 04/20/17 at 10:00 Acetaminophen (Tylenol Liquid) 650 mg Q6H PRN GTB PAIN AND OR ELEVATED TEMP; Start 04/20/17 at 19:00 Miscellaneous Information (Pending Santyl Order For Wound Care) This patient galdamez... PRN PRN XX WOUND CARE; Start 04/21/17 at 02:00 Collagenase (Santyl) 1 applic DAILY TOP ; Start 04/21/17 at 09:00 Collagenase 1 applic 1 applic PRN PRN TOP PRN Last administered on 04/21/17 10:40; Admin Dose 1 APPLIC; Start 04/21/17 at 05:00 Potassium Phosphate/Sodium Chloride (K Phos (Meq)/NS) 259.0909 ml @ 64.773 m... ONCE ONCE IVPB ; Start 04/21/17 at 11:00; Stop 04/21/17 at 14:59 Tobramycin TOBRAMYCIN PER PHARMACY NOTE XX ; Start 04/21/17 at 11:00; Status UNV Tobramycin/Sodium Chloride (Tobramycin/NS) 107.5 ml @ 103.75 mls/ hr ONCE ONCE IVPB ; Start 04/21/17 at 12:00; Stop 04/21/17 at 13:02 MARCI CHEN MD Apr 21, 2017 11:25
[2017-04-21] MEDS: ACETAMINOPHEN 650MG/20.3ML CUP GTB PRN ×2 (11:45→17:44)
[2017-04-21] MEDS ORDERED: TOBRAMYCIN 300 MG in SOD CHLORIDE 0.9% 100 ML IVPB ONE (12:00)
--- NOTE | 2017-04-21 12:37 | PN ---
Date/Time of Note Date/Time of Note DATE: 04/21/17 TIME: 12:34 Assessment/Plan VTE Prophylaxis VTE Prophylaxis Intervention: SCD's Lines/Catheters IV [facility]ter Type (from [facility]): PICC Line Central line still needed: Yes Urinary Cath still in place: Yes Reason Cath still needed: urinary retention Assessment/Plan Chief Complaint/Hosp Course S: Again positive fever this morning, seen by cardiology and pulmonary teams. Awaiting blood transfusion. O: VS: see below PE: GENERAL APPEARANCE: lying in bed, appears contracted, opens eyes occasionally HEENT: Pupils minimally reactive bilaterally. NECK: Trach in place. No leakage or bleeding from the trach site. LUNGS: Less positive rhonchi heard bilaterally. No wheezes. CARDIOVASCULAR: Irregularly irregular heart rate. No rubs or gallops. ABDOMEN: Soft, nontender, nondistended. Normal bowel sounds. No rebound or guarding. MUSCULOSKELETAL: He has got chronic contractures lower extremities but no lower extremity edema bilaterally. NEUROLOGIC: Unable to fully assess. A/P: A 76-year-old male coming in with status post cardiac arrest, pulseless electrical activity with return of spontaneous circulation now sepsis and lactic acidosis secondary to upper respiratory infection versus urinary tract infection. 1. Status post cardiac arrest -ROSC -continue ICU care. -Follow-up cardiology consult and pulmonary recommendations - monitor heart rate very carefully. 2. Severe sepsis, lactic acidosis-slowly improving again, likely secondary to upper respiratory infection given the chest x-ray findings and urinary tract infection. Urine culture shows Actinobacter infection multidrug-resistant. -Continue broad-spectrum antibiotics, switched to tobramycin and cefepime, ID consult as well. -Tylenol p.r.n. fevers, intravenous fluids as well. - Trend the lactic acid - Follow up final culture results. 3. History of chronic encephalopathy. Again, no present issues. Continue to monitor for now. 4. History of respiratory failure, ventilator dependent. - F/U pulmonary consult for vent management. -Antibiotics, duo nebs as needed 5. Gastrointestinal prophylaxis - H2 ulises. 6. Deep venous thrombosis prophylaxis - sequential compression devices for now. Critical care time spent on patient care today equals 40 minutes. Problems: Exam/Review of Systems Vital Signs Vitals Vital Signs Date Time Temp Pulse Resp B/P Pulse Ox O2 Delivery O2 Flow Rate FiO2 04/21/17 12:00 125 04/21/17 11:10 27 100 30 11/26/17 11:00 102/72 Mechanical Ventilator 04/21/17 08:00 99.7 Intake and Output 04/20/17 04/20/17 04/21/17 15:00 23:00 07:00 Intake Total 850 ml 945 ml 850 ml Output Total 440 ml 420 ml 330 ml Balance 410 ml 525 ml 520 ml Results Result Diagram: 04/21/17 0320 04/21/17 0320 Results 24 hrs Laboratory Tests Test 04/20/17 18:57 04/20/17 19:50 04/21/17 03:20 04/21/17 07:00 Vancomycin Level Trough 12.0 Urine Color YELLOW Urine Clarity CLOUDY A Urine pH 5.0 Urine Specific [place] 1.024 Urine Ketones TRACE A Urine Nitrite NEGATIVE Urine Bilirubin NEGATIVE Urine Urobilinogen NEGATIVE Urine Leukocyte Esterase TRACE A Urine Microscopic RBC > 182 H Urine Microscopic WBC 38 H Urine Amorphous Crystals FEW A Urine Bacteria FEW A Urine Mucus FEW A Urine Hemoglobin 3+ H Urine Glucose NEGATIVE Urine Total Protein 2+ H White Blood Count 13.9 H Red Blood Count 2.29 L Hemoglobin 7.8 L Hematocrit 23.9 L Mean Corpuscular Volume 104.4 H Mean Corpuscular Hemoglobin 34.1 H Mean Corpuscular Hemoglobin Concent 32.6 Red Cell Distribution Width 15.7 H Platelet Count 102 L Mean Platelet Volume 11.8 H Neutrophils % Segmented Neutrophils % (Manual) 86 H Band Neutrophils % (Manual) 5 H Lymphocytes % Lymphocytes % (Manual) 5 L Monocytes % Monocytes % (Manual) 4 Eosinophils % Basophils % Nucleated Red Blood Cells % 0.0 Neutrophils # Neutrophils # (Manual) 12.0 H Band Neutrophils # 0.6 Absolute Lymphocytes (Manual) 0.6 L Lymphocytes # Monocytes # Absolute Monocytes (Manual) 0.5 Eosinophils # Basophils # Nucleated Red Blood Cells # Platelet Estimate DECREASED Polychromasia 3+ Anisocytosis 1+ Sodium Level 142 Potassium Level 3.2 L Chloride Level 111 H Carbon Dioxide Level 26 Anion Gap 8 Blood Urea Nitrogen 32 H Creatinine 0.68 Glucose Level 133 Calcium Level 7.4 L Phosphorus Level 2.4 L Magnesium Level 2.1 Blood Gas Specimen Source Blood arterial Arterial Blood Date Drawn 04/21/2017 8:20:03 AM Arterial Blood pH (Temp corrected) 7.520 H Arterial Blood pCO2 (Temp correct) 26.8 L Arterial Blood pO2 (Temp corrected) 99.7 H Arterial Blood HCO3 21.4 L Arterial Blood Base Excess -0.8 Arterial Blood Oxygen Saturation 97.5 Gerard Test ACCEPTAB Arterial Blood Gas Puncture Site Right Radial Arterial Blood Carboxyhemoglobin 0.3 Arterial Blood Methemoglobin 0.1 Blood Gas A-a O2 Differential 82.7 H Oxyhemoglobin Percent 97.1 Total Hemoglobin 9.0 L Blood Gas Temperature 37.0 Blood Gas Respiration Rate 12.0 Blood Gas Actual Respiration Rate 28 Blood Gas Modality VENT - AC FiO2 30.0 Blood Gas Tidal Volume 450.0 Blood Gas Low PEEP Setting 5.0 Blood Gas Notified Whom KARRI MARTÍNEZ Blood Gas Notified Time 04/21/2017 8:37:12 AM Medications Medications Current Medications Ondansetron HCl (Zofran Inj) 4 mg Q6H PRN IV NAUSEA AND/OR VOMITING; Start at 12:00 Acetaminophen (Tylenol Tab) 650 mg Q6H PRN PO PAIN LEVEL 1-3 OR FEVER Last administered on 04/20/17 19:01; Admin Dose 650 MG; Start 04/19/17 at 12:00 Acetaminophen/ Hydrocodone Bitart ([place] (5/325)) 1 tab Q6H PRN PO MODERATE PAIN LEVEL 4-6; Start 04/19/17 at 12:00 Morphine Sulfate (morphine) 2 mg Q4H PRN IV SEVERE PAIN LEVEL 7-10 Last administered on 04/20/17 23:43; Admin Dose 2 MG; Start 04/19/17 at 12:00 Docusate Sodium (Colace) 100 mg Q12H PRN PO CONSTIPATION; Start 04/19/17 at 12 :00 Magnesium Hydroxide (Milk Of Mag) 30 ml DAILY PRN PO CONSTIPATION; Start 04/19 at 12:00 Sodium Biphosphate/ Sodium Phosphate (Fleet Enema) 133 ml DAILY PRN [place] CONSTIPATION; Start 04/19/17 at 12:00 Famotidine (Pepcid Iv) 20 mg Q12 IV Last administered on 04/21/17 08:41; Admin Dose 20 MG; Start 04/19/17 at 21:00 Lorazepam (Ativan) 0.5 mg Q6H PRN IV ANXIETY Last administered on 04/21/17 01 :46; Admin Dose 0.5 MG; Start 04/19/17 at 12:00 Nitroglycerin (Nitroglycerin (Sl Tab) 0.4 Mg) 1 tab Q5M PRN SL ANGINA; Start 04/19/17 at 12:00 Amiodarone HCl (Cordarone) 200 mg DAILY GTB Last administered on 04/21/17 08: 42; Admin Dose 200 MG; Start 04/20/17 at 09:00 Carbidopa/Levodopa (Sinemet (25/ 100)) 1 tab QID GTB Last administered on 04/21 08:42; Admin Dose 1 TAB; Start 04/19/17 at 13:00 Chlorhexidine Gluconate (Peridex) 15 ml Q12 MM Last administered on 04/21/17 08:41; Admin Dose 15 ML; Start 04/19/17 at 21:00 Doxazosin Mesylate (Cardura) 8 mg DAILY GTB Last administered on 04/21/17 08: 41; Admin Dose 8 MG; Start 04/20/17 at 09:00 Ferrous Sulfate (Ferrous Sulfate (Ec)) 330 mg TID PO Last administered on 04/21 08:42; Admin Dose 330 MG; Start 04/19/17 at 13:00 Lactobacillus Acidophilus/ Rhamnosus (Culturelle) 1 cap DAILY PO Last administered on 04/21/17 08:42; Admin Dose 1 CAP; Start 04/20/17 at 09:00 Ascorbic Acid (Vitamin C) 500 mg BID GTB Last administered on 04/21/17 08:42 ; Admin Dose 500 MG; Start 04/19/17 at 21:00 Lorazepam 2 mg 2 mg Q10MIN PRN IV seisure Last administered on 04/19/17 17:33 ; Admin Dose 2 MG; Start 04/19/17 at 17:30 Dextrose (D5W) 1,000 ml @ 75 mls/hr [id number] IV Last administered on 23:25; Admin Dose 75 MLS/HR; Start 04/20/17 at 09:30 Acetaminophen (Tylenol Liquid) 650 mg Q6H PRN GTB PAIN AND OR ELEVATED TEMP Last administered on 04/21/17 11:45; Admin Dose 650 MG; Start 04/20/17 at 19: 00 [facility]isc[facility] This patient galdamez... PRN PRN XX WOUND CARE; Start 04/21/17 at 02:00 Collagenase (Santyl) 1 applic DAILY TOP ; Start 04/21/17 at 09:00 Collagenase 1 applic 1 applic PRN PRN TOP PRN Last administered on 04/21/17t 10:40; Admin Dose 1 APPLIC; Start 04/21/17 at 05:00 Potassium Phosphate/Sodium Chloride (K Phos (Meq)/NS) 259.0909 ml @ 64.773 m... ONCE ONCE IVPB Last administered on 04/21/17t 12:04; Admin Dose 64.773 MLS/HR; Start 04/21/17 at 11:00; Stop 04/21/17 at 14:59 Tobramycin TOBRAMYCIN PER PHARMACY NOTE XX ; Start 04/21/17 at 11:00 Tobramycin/Sodium Chloride (Tobramycin/NS) 107.5 ml @ 103.75 mls/ hr ONCE ONCE IVPB ; Start 04/21/17 at 12:00; Stop 04/21/17 at 13:02 Enoxaparin Sodium (Lovenox) 50 mg Q12 SC ; Start 04/21/17 at 21:00 Miscellaneous Information (*Rx Drug Level Order Reminder*) RANDOM TOBRAMYCIN LEVEL ... ONCE ONCE XX ; Start 04/21/17 at 22:00; Stop 04/21/17 at 22:01 ZOE ALEXANDRA Apr 21, 2017 12:37
--- NOTE | 2017-04-21 12:44 | CONS ---
Date/Time of Note Date/Time of Note DATE: 04/21/17 TIME: 12:10 Assessment/Plan Assessment/Plan Chief Complaint/Hosp Course ID PROGRESS NOTE CURRENT ABX: DAY #3 => Vanco IV #3 + Cefepime #3 + Tobra #1 24H INTERVAL SUMMARY * * CT BRAIN IMPRESSION: 1. No intracranial hemorrhage or acute intracranial abnormality.2. Mild chronic microvascular ischemic changes and age related volume loss. Early ischemic injury may be occult to CT imaging and diffusion weighted MRI may be considered as clinically warranted. 3. Atherosclerotic calcification of the cavernous internal carotid arteries. * CXR 04/21/17 IMPRESSION: Tracheostomy tube and left arm PICC line in place. Diffuse interstitial prominence likely chronic or senescent in nature. * CXR 04/20/17: Hyperinflation/COPD * MICRO: (+)MRSA Nares, (-)BCx; Urine Cx (+) GNR URINE CULTURE Final Organism 1 ACINETOBACTER BAUMANNII COLONY COUNT >100,000 CFU/ml A.BAUMANNI M.I.C. RX --------- --- AMIKACIN R CEFEPIME >=64 R CEFTAZIDIME 32 R CIPROFLOXACIN >=4 R GENTAMICIN >=16 R IMIPENEM >=16 R LEVOFLOXACIN >=8 R TOBRAMYCIN 4 S PIPERACILLIN/TAZOBACTAM >=128 R PHYSICAL EXAMINATION: GENERAL: Chronic encephalopathy, VSS, NAD, looks comfortable on the Vent HEENT: NC, AT, anicteric, does not open eyes, oral membranes moist NECK: (+)Trach -> Vent CHEST: CTA anterior, diminished BLL, open wound chest granulation tissue HEART: S1S2 ABDOMEN: soft, peg : FC w/concentrated urine EXT: Warm, chronic BLEXT venous stasis hyperpigmentation changes, luext stiff, knee abrasion, toe scab SKIN: No rash, no diaphoresis Neuro: Obtunded ID ASSESSMENT: 76 yo M w/encephalopathy, VDRF admit from SNF s/p cardiac arrest w/PEA, s/p ROSC on 04/19/17 1. Severe sepsis w/shock, hypotension, fevers > 103.7, leukocytosis w/bandemia , lactic acid of 8.6 on admission * 04/19/17 BCx (-) 2. GNR UTI 04/19/17 URINE CULTURE Final Organism 1 ACINETOBACTER BAUMANNII COLONY COUNT >100,000 CFU/ml 3. Chronic encephalopathy. 4. Vent dependent respiratory failure. 5. Dysphagia with G-tube. 6. Wounds: Chest, knee abrasion, toe scab, buttock (+)MRSA NARES -> Bactroban INVASIVES: PIV, R-IJ TLC, FC CURRENT ABX: DAY #3 => Vanco IV #3 + Cefepime #3 + Tobra #1 ID RECOMMENDATIONS/PLAN: 1. Continue current ABX 2. Wound Cx -> Chest . . Problems: Consultation Date/Type/Reason Admit Date/Time Apr 19, 2017 at 10:58 Initial Consult Date Type of Consultation: ID Exam/Review of Systems Vital Signs Vitals Vital Signs Date Time Temp Pulse Resp B/P Pulse Ox O2 Delivery O2 Flow Rate FiO2 04/21/17 11:10 124 27 100 30 04/21/17 11:00 102/72 Mechanical Ventilator 04/21/17 08:00 99.7 Intake and Output 04/20/17 04/20/17 04/21/17 15:00 23:00 07:00 Intake Total 850 ml 945 ml 850 ml Output Total 440 ml 420 ml 330 ml Balance 410 ml 525 ml 520 ml Results Result Diagram: 04/21/17 0320 04/21/17 0320 Results 24 hrs Laboratory Tests Test 04/20/17 18:57 04/20/17 19:50 04/21/17 03:20 04/21/17 07:00 Vancomycin Level Trough 12.0 Urine Color YELLOW Urine Clarity CLOUDY A Urine pH 5.0 Urine Specific [place] 1.024 Urine Ketones TRACE A Urine Nitrite NEGATIVE Urine Bilirubin NEGATIVE Urine Urobilinogen NEGATIVE Urine Leukocyte Esterase TRACE A Urine Microscopic RBC > 182 H Urine Microscopic WBC 38 H Urine Amorphous Crystals FEW A Urine Bacteria FEW A Urine Mucus FEW A Urine Hemoglobin 3+ H Urine Glucose NEGATIVE Urine Total Protein 2+ H White Blood Count 13.9 H Red Blood Count 2.29 L Hemoglobin 7.8 L Hematocrit 23.9 L Mean Corpuscular Volume 104.4 H Mean Corpuscular Hemoglobin 34.1 H Mean Corpuscular Hemoglobin Concent 32.6 Red Cell Distribution Width 15.7 H Platelet Count 102 L Mean Platelet Volume 11.8 H Neutrophils % Segmented Neutrophils % (Manual) 86 H Band Neutrophils % (Manual) 5 H Lymphocytes % Lymphocytes % (Manual) 5 L Monocytes % Monocytes % (Manual) 4 Eosinophils % Basophils % Nucleated Red Blood Cells % 0.0 Neutrophils # Neutrophils # (Manual) 12.0 H Band Neutrophils # 0.6 Absolute Lymphocytes (Manual) 0.6 L Lymphocytes # Monocytes # Absolute Monocytes (Manual) 0.5 Eosinophils # Basophils # Nucleated Red Blood Cells # Platelet Estimate DECREASED Polychromasia 3+ Anisocytosis 1+ Sodium Level 142 Potassium Level 3.2 L Chloride Level 111 H Carbon Dioxide Level 26 Anion Gap 8 Blood Urea Nitrogen 32 H Creatinine 0.68 Glucose Level 133 Calcium Level 7.4 L Phosphorus Level 2.4 L Magnesium Level 2.1 Blood Gas Specimen Source Blood arterial Arterial Blood Date Drawn 04/21/2017 8:20:03 AM Arterial Blood pH (Temp corrected) 7.520 H Arterial Blood pCO2 (Temp correct) 26.8 L Arterial Blood pO2 (Temp corrected) 99.7 H Arterial Blood HCO3 21.4 L Arterial Blood Base Excess -0.8 Arterial Blood Oxygen Saturation 97.5 Gerard Test ACCEPTAB Arterial Blood Gas Puncture Site Right Radial Arterial Blood Carboxyhemoglobin 0.3 Arterial Blood Methemoglobin 0.1 Blood Gas A-a O2 Differential 82.7 H Oxyhemoglobin Percent 97.1 Total Hemoglobin 9.0 L Blood Gas Temperature 37.0 Blood Gas Respiration Rate 12.0 Blood Gas Actual Respiration Rate 28 Blood Gas Modality VENT - AC FiO2 30.0 Blood Gas Tidal Volume 450.0 Blood Gas Low PEEP Setting 5.0 Blood Gas Notified Whom KARRI MARTÍNEZ Blood Gas Notified Time 04/21/2017 8:37:12 AM Medications Medications Current Medications Ondansetron HCl (Zofran Inj) 4 mg Q6H PRN IV NAUSEA AND/OR VOMITING; Start at 12:00 Acetaminophen (Tylenol Tab) 650 mg Q6H PRN PO PAIN LEVEL 1-3 OR FEVER Last administered on 04/20/17t 19:01; Admin Dose 650 MG; Start 04/19/17 at 12:00 Acetaminophen/ Hydrocodone Bitart ([place] (5/325)) 1 tab Q6H PRN PO MODERATE PAIN LEVEL 4-6; Start 04/19/17 at 12:00 Morphine Sulfate (morphine) 2 mg Q4H PRN IV SEVERE PAIN LEVEL 7-10 Last administered on 04/20/17 23:43; Admin Dose 2 MG; Start 04/19/17 at 12:00 Docusate Sodium (Colace) 100 mg Q12H PRN PO CONSTIPATION; Start 04/19/17 at 12 :00 Magnesium Hydroxide (Milk Of Mag) 30 ml DAILY PRN PO CONSTIPATION; Start 04/19 at 12:00 Sodium Biphosphate/ Sodium Phosphate (Fleet Enema) 133 ml DAILY PRN [place] CONSTIPATION; Start 04/19/17 at 12:00 Famotidine (Pepcid Iv) 20 mg Q12 IV Last administered on 04/21/17 08:41; Admin Dose 20 MG; Start 04/19/17 at 21:00 Lorazepam (Ativan) 0.5 mg Q6H PRN IV ANXIETY Last administered on 04/21/17 01 :46; Admin Dose 0.5 MG; Start 04/19/17 at 12:00 Nitroglycerin (Nitroglycerin (Sl Tab) 0.4 Mg) 1 tab Q5M PRN SL ANGINA; Start 04/19/17 at 12:00 Amiodarone HCl (Cordarone) 200 mg DAILY GTB Last administered on 04/21/17 08: 42; Admin Dose 200 MG; Start 04/20/17 at 09:00 Carbidopa/Levodopa (Sinemet (25/ 100)) 1 tab QID GTB Last administered on 04/21 08:42; Admin Dose 1 TAB; Start 04/19/17 at 13:00 Chlorhexidine Gluconate (Peridex) 15 ml Q12 MM Last administered on 04/21/17 08:41; Admin Dose 15 ML; Start 04/19/17 at 21:00 Doxazosin Mesylate (Cardura) 8 mg DAILY GTB Last administered on 04/21/17 08: 41; Admin Dose 8 MG; Start 04/20/17 at 09:00 Ferrous Sulfate (Ferrous Sulfate (Ec)) 330 mg TID PO Last administered on 04/21 08:42; Admin Dose 330 MG; Start 04/19/17 at 13:00 Lactobacillus Acidophilus/ Rhamnosus (Culturelle) 1 cap DAILY PO Last administered on 04/21/17 08:42; Admin Dose 1 CAP; Start 04/20/17 at 09:00 Ascorbic Acid 500 mg 500 mg BID GTB Last administered on 04/21/17 08:42; Admin Dose 500 MG; Start 04/19/17 at 21:00 Cefepime HCl (Maxipime 2gm/50 ml (Pmx)) 50 ml @ 100 mls/hr Q12 IVPB Last administered on 04/21/17 08:41; Admin Dose 100 MLS/HR; Start 04/19/17 at 21: 00 Lorazepam 2 mg 2 mg Q10MIN PRN IV seisure Last administered on 04/19/17 17:33 ; Admin Dose 2 MG; Start 04/19/17 at 17:30 Dextrose (D5W) 1,000 ml @ 75 mls/hr [id number] IV Last administered on 23:25; Admin Dose 75 MLS/HR; Start 04/20/17 at 09:30 Acetaminophen (Tylenol Liquid) 650 mg Q6H PRN GTB PAIN AND OR ELEVATED TEMP Last administered on 04/21/17 11:45; Admin Dose 650 MG; Start 04/20/17 at 19: 00 Miscellaneous Information (Pending Santyl Order For Wound Care) This patient galdamez... PRN PRN XX WOUND CARE; Start 04/21/17 at 02:00 Collagenase (Santyl) 1 applic DAILY TOP ; Start 04/21/17 at 09:00 Collagenase 1 applic 1 applic PRN PRN TOP PRN Last administered on 04/21/17 10:40; Admin Dose 1 APPLIC; Start 04/21/17 at 05:00 Potassium Phosphate/Sodium Chloride (K Phos (Meq)/NS) 259.0909 ml @ 64.773 m... ONCE ONCE IVPB Last administered on 04/21/17 12:04; Admin Dose 64.773 MLS/HR; Start 04/21/17 at 11:00; Stop 04/21/17 at 14:59 Tobramycin TOBRAMYCIN PER PHARMACY NOTE XX ; Start 04/21/17 at 11:00 Tobramycin/Sodium Chloride (Tobramycin/NS) 107.5 ml @ 103.75 mls/ hr ONCE ONCE IVPB ; Start 04/21/17 at 12:00; Stop 04/21/17 at 13:02 Enoxaparin Sodium (Lovenox) 50 mg Q12 SC ; Start 04/21/17 at 21:00 Miscellaneous Information (*Rx Drug Level Order Reminder*) RANDOM TOBRAMYCIN LEVEL ... ONCE ONCE XX ; Start 04/21/17 at 22:00; Stop 04/21/17 at 22:01 CLEOPATRA SUAREZ NP Apr 21, 2017 12:26
[2017-04-21] MEDS ORDERED: DIPHENHYDRAMINE 50 MG INJ IV PRN (13:00)
[2017-04-21] MEDS: DEXTROSE 5% 1,000 ML IV SCH ×2 (13:06→22:34)
--- NOTE | 2017-04-21 14:09 | CONS ---
DATE OF ADMISSION: 04/19/2017 DATE OF CONSULTATION: 04/21/2017 TYPE OF CONSULTATION: Infectious Disease. REASON FOR CONSULTATION: Antibiotic management. HISTORY OF PRESENT ILLNESS: The patient is a 76-year-old male admitted on 04/19/2017 status post car diac arrest. The patient was brought in from a longterm facility. His past problems include : 1. Chronic encephalopathy. 2. Hypertension. 3. Benign prostatic hypertrophy. 4. Hypercholesterolemia. He was brought in because of PEA cardiac arrest. The patient also has a history of contractures and respiratory failure. He is ventilator dependent. He received round of epinephrine and return of s pontaneous circulation. On admission, his white count was 22.7, H and H of 10.9 and 31.5, platelet count 158,000. BUN and creatinine 21/0.73. LFTs are essentially normal. Lactic acid was 8.6, repe at 2.3. Urine showed 2+ leukocyte esterase. PAST MEDICAL HISTORY: Operations as outlined. FAMILY HISTORY: Noncontributory. SOCIAL HISTORY: He lives in a longterm facility. Has chronic encephalopathy. ALLERGIES: NONE TO PENICILLIN, SULFA OR FOODS. MEDICATIONS: Per chart review. REVIEW OF SYSTEMS: Noncontributory. PHYSICAL EXAMINATION: GENERAL: The patient is an elderly ill-appearing male who is obtunded on a respirator. SKIN: Without generalized rash. HEENT: Within normal limits. NECK: Tracheostomy in place. LYMPH NODES: None palpable. CHEST: Decreased breath sounds at the bases. HEART: Without murmur or gallop. ABDOMEN: Soft, nontender, without organosplenomegaly or masses. EXTREMITIES: He has chronic contractures in the lower extremities. He is without cyanosis, clubbin g, or edema. RECTAL AND GENITAL: Deferred. NEUROLOGIC: The patient is sedated. IMPRESSION AND PLAN: The patient comes in status post cardiac arrest with clear cut sepsis. His ur ine is growing Acinetobacter baumannii. Blood cultures are negative. The patient was started on to bramycin. The acinetobacter thankfully is sensitive to tobramycin. He had a PICC line placed on and currently has diffuse interstitial prominence likely chronic or in nature. The pat ient has urinary tract infection. He is chronically ill. His white count today is 13.9. Will cont inue him currently on tobramycin. The patient also, I believe, received vancomycin per pharmacy. Shaniqua denis is also on cefepime, which he probably does not need. The tobramycin should be adequate. I will dictate my findings to the hospitalist. Dictated By: ESTEFANY REDDING MD, JD/DEYVI Conf#: [id number] DID#: [id number]
[2017-04-21] MEDS: MUPIROCIN 2% 22 GM OINT TOP SCH (20:35)
[2017-04-21] MEDS: ENOXAPARIN 60 MG/0.6 ML SYG SC SCH (20:36)
[2017-04-21] MEDS ORDERED: [UNRECOGNIZED DRUG - OTHER] XX ONE (22:00)
[2017-04-22] VITALS (25 sets, daily range): BP systolic 100–118; BP diastolic 51–67; PULSE 88–104; RESP 17–36
[2017-04-22] MEDS: ACETAMINOPHEN 650MG/20.3ML CUP GTB PRN ×3 (01:29→15:32)
--- NOTE | 2017-04-22 06:57 | CONS ---
DATE OF ADMISSION: 04/19/2017 DATE OF CONSULTATION: TYPE OF CONSULTATION: Cardiology. REFERRING PHYSICIAN: Tony De Jesus MD. REASON FOR EVALUATION: Status post cardiorespiratory arrest, atrial fibrillation. HISTORY OF PRESENT ILLNESS: Mr. Castillo is a 76-year-old gentleman with history of encephalopathy, res piratory failure, history of chronic encephalopathy, history of heart condition who comes to the [facility] now after questionable PEA arrest. I have been asked to see the patient in consultation mary muro of his cardiac issues. The patient is now with chronic trach. He is doing better now. Now, he is in atrial fibrillation with a rate of 118 to 120, blood pressure 110/75. I reviewed medications carefully. The patient is on amiodarone, so I suspect his atrial fibrillation is fairly chronic. T here is no anticoagulation now. For now we are going to initiate Lovenox at 0.75 mg subcutaneous b. i.d. for atrial fibrillation and follow expectantly. The patient did have a 2D echo on presentation and we will review a 2D echo once it is available, but I believe preliminary interpretation was eje ction fraction was fairly normal. PAST MEDICAL HISTORY: Hypertension, dyslipidemia, history of atrial fibrillation, history of respir atory failure, chronic history of malnutrition, history of encephalopathy, history of chronic debili tated state. ALLERGIES: NO KNOWN DRUG ALLERGIES. SOCIAL HISTORY: The patient does not smoke, does not drink, does not use any drugs. FAMILY HISTORY: Negative for sudden cardiac or premature coronary artery disease. CURRENT MEDICATIONS: Include amiodarone 200 mg p.o. b.i.d., doxazosin, lactulose somewhat a 20 mg I V b.i.d., ascorbic acid, cefepime, vancomycin, Lorazepam 10 mg once daily, nitroglycerin, iron, Car bidopa/levodopa, Tylenol, morphine sulfate, docusate, magnesium hydroxide, lorazepam. REVIEW OF SYSTEMS: CONSTITUTIONAL: No fevers. No chills. Not short of breath. HEENT: No change in vision or hearing. CARDIAC: No chest pain reported. The patient is status post PEA, although etiology of this is poor ly defined. RESPIRATORY: Shortness of breath. GASTROINTESTINAL: No nausea, vomiting. GENITOURINARY: No hematuria. NEUROLOGIC: Encephalopathy. PSYCHIATRIC: Unknown. PHYSICAL EXAMINATION: VITAL SIGNS: Currently blood pressure is 110/75, heart rate 111 in atrial fibrillation. He is afeb rile. GENERAL: He is a thin gentleman in no acute distress, alert and oriented x0, not aware of his condi tion. HEAD: Normocephalic, atraumatic. Eyes anicteric. NECK: Supple. JVD is not assessable with a trach. HEART: Irregularly irregular with soft systolic murmur. LUNGS: Coarse at the bases. ABDOMEN: Distended, bowel sounds are present. There is no hepatosplenomegaly. GENITOURINARY: Grossly intact. EXTREMITIES: Show no clubbing, cyanosis or significant edema. LABORATORY DATA: White blood cell count 15.4, hemoglobin is 9.3, platelets 108. INR is 1.3, sodium 146, potassium is 3.8, BUN is __ , creatinine 0.8. Lactic acid is 2.6 on presentation, 1.6 now. ASSESSMENT AND PLAN: 1. Atrial fibrillation. The patient has atrial fibrillation, likely chronic because he was on amio darone at the facility. We will continue to treat now. Rate is modestly well controlled. For now will add additional agents the more blood pressure tolerates. 2. ____. The patient CHADS score greater than 1. I think it would reasonable to initiate him Saroj enox at modified dose and we will follow expectantly. 3. Status post pulseless electrical activity arrest. The description is fairly unclear. The patie nt returned to spontaneous circulation. Continue to follow. 4. Respiratory failure, chronic. Continue vent management per primary team. 5. Infection is on antibiotic . 6. Encephalopathy, probably chronic. We will defer to primary team for management. I would like to thank Dr. Palacios for referring this patient for my evaluation. Dictated By: MARCI BRAGG/DEYVI Conf#: [id number] DID#: [id number]
[2017-04-22] MEDS: FAMOTIDINE 20 MG INJ IV SCH (08:21)
[2017-04-22] MEDS: FERROUS SULFATE (EC) 325 MG TAB PO SCH ×3 (08:22→20:34)
[2017-04-22] MEDS: ASCORBIC ACID 500 MG TAB GTB SCH ×2 (08:22→20:34)
[2017-04-22] MEDS: CARBIDOPA/LEVODOPA (25/100) TAB GTB SCH ×4 (08:22→20:32)
[2017-04-22] MEDS: AMIODARONE 200 MG TAB GTB SCH (08:22)
[2017-04-22] MEDS: CHLORHEXIDINE GLUCONATE 15 ML UD CUP MM SCH ×2 (08:23→21:08)
[2017-04-22] MEDS: LACTOBACILLUS RHAMNOSUS CAP PO SCH (08:23)
[2017-04-22] MEDS: DOXAZOSIN 4 MG TAB GTB SCH (08:23)
[2017-04-22] MEDS: ENOXAPARIN 60 MG/0.6 ML SYG SC SCH ×2 (08:24→20:47)
[2017-04-22] MEDS: MUPIROCIN 2% 22 GM OINT TOP SCH ×2 (08:26→20:35)
[2017-04-22] MEDS: COLLAGENASE 30 GM TUBE TOP SCH (08:26)
[2017-04-22 09:58] LABS: ABNORMAL IP MESSAGE 1; BASOPHILS % 0.2 % (0.0-2.0); EOSINOPHILS # 0.1 10^3/ul (0.0-0.5); HEMATOCRIT 23.9 % (42.0-52.0); HEMOGLOBIN 7.8 g/dl (14.0-18.0); LYMPHOCYTES # 1.1 10^3/ul (0.8-2.9); LYMPHOCYTES % 10.2 % (15.0-51.0); MEAN CORPUSCULAR HEMOGLOBIN 33.1 pg (29.0-33.0); MEAN CORPUSCULAR HGB CONC 32.6 g/dl (32.0-37.0); MEAN CORPUSCULAR VOLUME 101.3 fl (82.0-101.0); MEAN PLATELET VOLUME 12.1 fl (7.4-10.4); MONOCYTE # 0.9 10^3/ul (0.3-0.9); NEUTROPHIL # 8.7 10^3/ul (1.6-7.5); NEUTROPHILS % 80.1 % (39.0-77.0); PLATELET COUNT 80 10^3/UL (140-415); POSITIVE DIFF @See below; RED BLOOD COUNT 2.36 10^6/ul (4.70-6.10); RED CELL DISTRIBUTION WIDTH 18.2 % (11.5-14.5); WHITE BLOOD COUNT 10.9 10^3/ul (4.8-10.8)
--- NOTE | 2017-04-22 10:29 | RADRPT ---
PROCEDURE: US guidance for PICC line CLINICAL INDICATION: PICC line placement TECHNIQUE: Multiple real-time images were acquired of the patient's arm utilizing a high resolutio n transducer. This was performed by the PICC line nurse for venous access. COMPARISON: None FINDINGS: Ultrasound guidance for PICC line placement. IMPRESSION: Ultrasound guidance for PICC line placement. RPTAT: AA .Toi Hunt MD, MD Date Time Electronically viewed and signed by .Toi Hunt MD, on 04/22/2017 10:28 .S/
[2017-04-22 10:32] LABS: CALCIUM 7.2 mg/dl (8.4-10.2); CREATININE 0.8 mg/dl (0.61-1.24); POTASSIUM 3.2 mmol/L (3.5-5.1)
[2017-04-22] MEDS ORDERED: POTASSIUM CHLORIDE 20 MEQ POWDER FOR ORAL SOLN GTB STA (10:47)
--- NOTE | 2017-04-22 11:18 | CONS ---
Date/Time of Note Date/Time of Note DATE: 04/22/17 TIME: : Consult Date/Type/Reason Admit Date/Time Apr 19, 2017 at 10:58 Type of Consultation: Pulmonary Subjective Patient appears comfortable this morning. Improved leukocytosis. Neurologically unchanged. Objective Vital Signs Date Time Temp Pulse Resp B/P Pulse Ox O2 Delivery O2 Flow Rate FiO2 04/22/17 11:06 100.6 78 17 95 04/22/17 09:10 30 04/22/17 04:00 Mechanical Ventilator Intake and Output 04/21/17 04/21/17 04/22/17 15:00 23:00 07:00 Intake Total 1049.54 ml 895 ml 411 ml Output Total 300 ml 200 ml 450 ml Balance 749.54 ml 695 ml -39 ml Exam PHYSICAL EXAMINATION: GENERAL: Chronically ill appearing gentleman. VITAL SIGNS: As above. NECK: Trach site clean and intact. CARDIAC: S1, S2, no added sounds or murmurs. CHEST: Diminished air entry bilaterally. ABDOMEN: Soft, nontender. No guarding or rebound. EXTREMITIES: No cyanosis, clubbing, edema. NEUROLOGIC: Generalized weakness, unable to assess. Results/Medications Result Diagram: 04/22/1792204/22/17922 Results 24 hrs Laboratory Tests Test 04/21/17 22:19 04/22/17 09:23 Random Tobramycin Level 3.8 White Blood Count 10.9 #H Red Blood Count 2.36 L Hemoglobin 7.8 L Hematocrit 23.9 L Mean Corpuscular Volume 101.3 H Mean Corpuscular Hemoglobin 33.1 H Mean Corpuscular Hemoglobin Concent 32.6 Red Cell Distribution Width 18.2 H Platelet Count 80 #L Mean Platelet Volume 12.1 H Neutrophils % 80.1 H Lymphocytes % 10.2 L Monocytes % 8.0 Eosinophils % 1.0 Basophils % 0.2 Nucleated Red Blood Cells % 0.0 Neutrophils # 8.7 H Lymphocytes # 1.1 Monocytes # 0.9 Eosinophils # 0.1 Basophils # 0.0 Nucleated Red Blood Cells # 0.0 Sodium Level 141 Potassium Level 3.2 L Chloride Level 108 Carbon Dioxide Level 25 Anion Gap 11 Blood Urea Nitrogen 32 H Creatinine 0.80 Glucose Level 140 Calcium Level 7.2 L Medications Current Medications Ondansetron HCl (Zofran Inj) 4 mg Q6H PRN IV NAUSEA AND/OR VOMITING; Start at 12:00 Acetaminophen (Tylenol Tab) 650 mg Q6H PRN PO PAIN LEVEL 1-3 OR FEVER Last administered on 04/20/17 19:01; Admin Dose 650 MG; Start 04/19/17 at 12:00 Acetaminophen/ Hydrocodone Bitart ([place] (5/325)) 1 tab Q6H PRN PO MODERATE PAIN LEVEL 4-6; Start 04/19/17 at 12:00 Morphine Sulfate (morphine) 2 mg Q4H PRN IV SEVERE PAIN LEVEL 7-10 Last administered on 04/20/17 23:43; Admin Dose 2 MG; Start 04/19/17 at 12:00 Docusate Sodium (Colace) 100 mg Q12H PRN PO CONSTIPATION; Start 04/19/17 at 12 :00 Magnesium Hydroxide (Milk Of Mag) 30 ml DAILY PRN PO CONSTIPATION; Start 04/19 at 12:00 Sodium Biphosphate/ Sodium Phosphate (Fleet Enema) 133 ml DAILY PRN [place] CONSTIPATION; Start 04/19/17 at 12:00 Nitroglycerin (Nitroglycerin (Sl Tab) 0.4 Mg) 1 tab Q5M PRN SL ANGINA; Start 04/19/17 at 12:00 Amiodarone HCl (Cordarone) 200 mg DAILY GTB Last administered on 04/22/17 08: 22; Admin Dose 200 MG; Start 04/20/17 at 09:00 Carbidopa/Levodopa (Sinemet (25/ 100)) 1 tab QID GTB Last administered on 04/22 08:22; Admin Dose 1 TAB; Start 04/19/17 at 13:00 Chlorhexidine Gluconate (Peridex) 15 ml Q12 MM Last administered on 04/22/17 08:23; Admin Dose 15 ML; Start 04/19/17 at 21:00 Doxazosin Mesylate (Cardura) 8 mg DAILY GTB Last administered on 04/22/17 08: 23; Admin Dose 8 MG; Start 04/20/17 at 09:00 Ferrous Sulfate (Ferrous Sulfate (Ec)) 330 mg TID PO Last administered on 04/22 08:22; Admin Dose 330 MG; Start 04/19/17 at 13:00 Lactobacillus Acidophilus/ Rhamnosus (Culturelle) 1 cap DAILY PO Last administered on 04/22/17 08:23; Admin Dose 1 CAP; Start 04/20/17 at 09:00 Ascorbic Acid (Vitamin C) 500 mg BID GTB Last administered on 04/22/17 08:22 ; Admin Dose 500 MG; Start 04/19/17 at 21:00 Lorazepam (Ativan) 2 mg Q10MIN PRN IV seisure Last administered on 04/19/17 17:33; Admin Dose 2 MG; Start 04/19/17 at 17:30 Acetaminophen (Tylenol Liquid) 650 mg Q6H PRN GTB PAIN AND OR ELEVATED TEMP Last administered on 04/22/17 08:20; Admin Dose 650 MG; Start 04/20/17 at 19: 00 Miscellaneous Information (Pending Santyl Order For Wound Care) This patient galdamez... PRN PRN XX WOUND CARE; Start 04/21/17 at 02:00 Collagenase (Santyl) 1 applic DAILY TOP Last administered on 04/22/17 08:26; Admin Dose 1 APPLIC; Start 04/21/17 at 09:00 Collagenase (Santyl) 1 applic PRN PRN TOP PRN Last administered on 04/21/17 10:40; Admin Dose 1 APPLIC; Start 04/21/17 at 05:00 Tobramycin (Tobramycin Iv Per Pharmacy) TOBRAMYCIN PER PHARMACY NOTE XX ; Start 04/21/17 at 11:00 Enoxaparin Sodium (Lovenox) 50 mg Q12 SC Last administered on 04/22/17 08:24 ; Admin Dose 50 MG; Start 04/21/17 at 21:00 Mupirocin 1 applic 1 applic BID TOP Last administered on 04/22/17 08:26; Admin Dose 1 APPLIC; Start 04/21/17 at 21:00 Tobramycin/ Dextrose (Tobramycin/D5W) 107.5 ml @ 107.5 mls/ hr Q24H IVPB ; Start 04/22/17 at 13:00 Assessment/Plan Chief Complaint/Hosp Course IMPRESSION AND PLAN: 1. Acinetobacter UTI 2. Questionable PEA arrest. 3. Chronic encephalopathy. 4. Vent dependent respiratory failure. 5. Dysphagia with G-tube. REQUIREMENTS: 1. Volume resuscitation. 2. Continue ID recommendations 3. Tube feeding as tolerated. 4. DVT and GI prophylaxis. 5. Monitor H&H consider transfusion 1 unit packed red blood cells 6. Replace potassium and electrolytes [place] evaluation Problems: TEV[facility] CURRAN MD, [facility] Apr 22, 2017 11:18
[2017-04-22] MEDS: TOBRAMYCIN 300 MG in DEXTROSE 5% 100 ML IVPB SCH (13:40)
--- NOTE | 2017-04-22 14:39 | PN ---
DATE: 04/22/2017 SUBJECTIVE: No events overnight. The patient is non-communicative. Spiking fevers with T-max of 1 01.5 this morning. He is in no distress. WBC today 10.9, H and H 7.8 and 23.9, platelets 80, neutrophils 80.1. BUN 32, creatinine 0.80. MICROBIOLOGY: Wound cultures of the chest growing Staphylococcus aureus. Urine culture on admissio n grew Acinetobacter baumannii susceptible only to tobramycin. DIAGNOSTICS: Chest x-ray yesterday revealed diffuse interstitial prominence likely chronic. INDWELLINGS: Trach, PEG, Taylor, PICC line. ASSESSMENT: 1. Sepsis, status post shock. 2. Ongoing fevers. 3. Multidrug resistant urinary tract infection. 4. Sternal wound with cultures preliminary growing Staphylococcus aureus. 5. Chronic encephalopathy. 6. Dysphagia. 7. 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 8. History of cardiopulmonary arrest. PLAN: The patient is clinically stable. We are going to add daptomycin to the regimen to avoid 2 n ephrotoxic drugs. Wait for final wound cultures. Continue tobramycin. Follow recommendations of s pecialists. Dictated By: ALLIE [facility] [employer] ENGINEER for ESTEFANY REDDING MD NI/NTS Conf#: [id number] DID#: [id number] CC: CHATO NIETO MD;*EndCC*
[2017-04-22] MEDS ORDERED: DAPTOMYCIN 385 MG in SOD CHLORIDE 0.9% 100 ML IVPB SCH (16:30)
--- NOTE | 2017-04-22 17:53 | CONS ---
Date/Time of Note Date/Time of Note DATE: 04/22/17 TIME: 17:47 Assessment/Plan Assessment/Plan Chief Complaint/Hosp Course IMP: 1.AF-rate controlled 2.s/p cardiac arrest-PEA. EF 50% by echo this admit 3.encephalopathy 4.Fevers 5.anemia 6.UTI Recc: -Tele -Continue lovenox -Contnue po amio for now -start low dose BB as tolerated only -Continue abx's and f/u cx data -Follow MS closely -check troponin Problems: Consultation Date/Type/Reason Admit Date/Time Apr 19, 2017 at 10:58 Initial Consult Date 04/20/2017 Type of Consultation: cardiology Reason for Consultation cardiac arrest Referring Provider: ZOE ALEXANDRA Exam/Review of Systems Vital Signs Vitals Vital Signs Date Time Temp Pulse Resp B/P Pulse Ox O2 Delivery O2 Flow Rate FiO2 04/22/17 17:15 102 26 100 30 04/22/17 16:20 101.3 04/22/17 15:18 118/55 04/22/17 11:58 Mechanical Ventilator Intake and Output 04/21/17 04/21/17 04/22/17 15:00 23:00 07:00 Intake Total 1049.54 ml 895 ml 411 ml Output Total 300 ml 200 ml 450 ml Balance 749.54 ml 695 ml -39 ml Exam Review of Systems: CONSTITUTIONAL: No fevers, chills. PULMONARY: trached CARDIOVASCULAR: No obvious chest pain/palpitations GASTROINTESTINAL: No nausea/vomiting. GENITOURINARY: No hematuria/dysuria. MUSCULOSKELETAL: No obvious myagias/arthalgias. PSYCHIATRIC: The patient denies depression. NEUROLOGIC: encephalopathic Constitutional: other (encephalopathic) Psych: no complaints Head: normocephalic ENMT: mucosa pink and moist Neck: jvd (9 cm water), supple Respiratory: diminished breath sounds (at bases/B) Cardiovascular: regular rate and rhythm Gastrointestinal: non-tender, soft Musculoskeletal: muscle tone (normal) Extremities: edema (none) Neurological: other (No focal deficits) Results Result Diagram: 04/22/1723 04/22/1723 Results 24 hrs Laboratory Tests Test 04/21/17 22:19 04/22/17 09:23 Random Tobramycin Level 3.8 White Blood Count 10.9 #H Red Blood Count 2.36 L Hemoglobin 7.8 L Hematocrit 23.9 L Mean Corpuscular Volume 101.3 H Mean Corpuscular Hemoglobin 33.1 H Mean Corpuscular Hemoglobin Concent 32.6 Red Cell Distribution Width 18.2 H Platelet Count 80 #L Mean Platelet Volume 12.1 H Neutrophils % 80.1 H Lymphocytes % 10.2 L Monocytes % 8.0 Eosinophils % 1.0 Basophils % 0.2 Nucleated Red Blood Cells % 0.0 Neutrophils # 8.7 H Lymphocytes # 1.1 Monocytes # 0.9 Eosinophils # 0.1 Basophils # 0.0 Nucleated Red Blood Cells # 0.0 Sodium Level 141 Potassium Level 3.2 L Chloride Level 108 Carbon Dioxide Level 25 Anion Gap 11 Blood Urea Nitrogen 32 H Creatinine 0.80 Glucose Level 140 Calcium Level 7.2 L Medications Medications Current Medications Ondansetron HCl (Zofran Inj) 4 mg Q6H PRN IV NAUSEA AND/OR VOMITING; Start at 12:00 Acetaminophen (Tylenol Tab) 650 mg Q6H PRN PO PAIN LEVEL 1-3 OR FEVER Last administered on 04/20/17 19:01; Admin Dose 650 MG; Start 04/19/17 at 12:00 Acetaminophen/ Hydrocodone Bitart ([place] (5/325)) 1 tab Q6H PRN PO MODERATE PAIN LEVEL 4-6; Start 04/19/17 at 12:00 Morphine Sulfate (morphine) 2 mg Q4H PRN IV SEVERE PAIN LEVEL 7-10 Last administered on 04/20/17 23:43; Admin Dose 2 MG; Start 04/19/17 at 12:00 Docusate Sodium (Colace) 100 mg Q12H PRN PO CONSTIPATION; Start 04/19/17 at 12 :00 Magnesium Hydroxide (Milk Of Mag) 30 ml DAILY PRN PO CONSTIPATION; Start 04/19 at 12:00 Sodium Biphosphate/ Sodium Phosphate (Fleet Enema) 133 ml DAILY PRN [place] CONSTIPATION; Start 04/19/17 at 12:00 Nitroglycerin (Nitroglycerin (Sl Tab) 0.4 Mg) 1 tab Q5M PRN SL ANGINA; Start 04/19/17 at 12:00 Amiodarone HCl (Cordarone) 200 mg DAILY GTB Last administered on 04/22/17 08: 22; Admin Dose 200 MG; Start 04/20/17 at 09:00 Carbidopa/Levodopa (Sinemet (25/ )) 1 tab QID GTB Last administered on 04/22 16:33; Admin Dose 1 TAB; Start 04/19/17 at 13:00 Chlorhexidine Gluconate (Peridex) 15 ml Q12 MM Last administered on 04/22/17 08:23; Admin Dose 15 ML; Start 04/19/17 at 21:00 Doxazosin Mesylate (Cardura) 8 mg DAILY GTB Last administered on 04/22/17 08: 23; Admin Dose 8 MG; Start 04/20/17 at 09:00 Ferrous Sulfate (Ferrous Sulfate (Ec)) 330 mg TID PO Last administered on 04/22 12:47; Admin Dose 330 MG; Start 04/19/17 at 13:00 Lactobacillus Acidophilus/ Rhamnosus (Culturelle) 1 cap DAILY PO Last administered on 04/22/17 08:23; Admin Dose 1 CAP; Start 04/20/17 at 09:00 Ascorbic Acid (Vitamin C) 500 mg BID GTB Last administered on 04/22/17 08:22 ; Admin Dose 500 MG; Start 04/19/17 at 21:00 Lorazepam (Ativan) 2 mg Q10MIN PRN IV seisure Last administered on 04/19/17 17:33; Admin Dose 2 MG; Start 04/19/17 at 17:30 Acetaminophen (Tylenol Liquid) 650 mg Q6H PRN GTB PAIN AND OR ELEVATED TEMP Last administered on 04/22/17 15:32; Admin Dose 650 MG; Start 04/20/17 at 19: 00 Miscellaneous Information (Pending Santyl Order For Wound Care) This patient galdamez... PRN PRN XX WOUND CARE; Start 04/21/17 at 02:00 Collagenase (Santyl) 1 applic DAILY TOP Last administered on 04/22/17 08:26; Admin Dose 1 APPLIC; Start 04/21/17 at 09:00 Collagenase (Santyl) 1 applic PRN PRN TOP PRN Last administered on 04/21/17 10:40; Admin Dose 1 APPLIC; Start 04/21/17 at 05:00 Tobramycin (Tobramycin Iv Per Pharmacy) TOBRAMYCIN PER PHARMACY NOTE XX ; Start 04/21/17 at 11:00 Enoxaparin Sodium (Lovenox) 50 mg Q12 SC Last administered on 04/22/17 08:24 ; Admin Dose 50 MG; Start 04/21/17 at 21:00 Mupirocin 1 applic 1 applic BID TOP Last administered on 04/22/17 08:26; Admin Dose 1 APPLIC; Start 04/21/17 at 21:00 Tobramycin 300 mg/ Dextrose 107.5 ml @ 107.5 mls/ hr Q24H IVPB Last administered on 04/22/17 13:40; Admin Dose 107.5 MLS/HR; Start 04/22/17 at 13 :00 Daptomycin/Sodium Chloride (Cubicin/NS) 100 ml @ 200 mls/hr Q24H IVPB Last administered on 04/22/17 16:33; Admin Dose 200 MLS/HR; Start 04/22/17 at 16: 30 ELVIS HINTON Apr 22, 2017 17:53
--- NOTE | 2017-04-22 18:51 | PN ---
Date/Time of Note Date/Time of Note DATE: 04/22/17 TIME: 18:48 Assessment/Plan VTE Prophylaxis VTE Prophylaxis Intervention: SCD's Lines/Catheters IV Catheter Type (from Nrsg): PICC Line Central line still needed: No Urinary Cath still in place: Yes Reason Cath still needed: pres ulcer contaminated by urine Assessment/Plan Assessment/Plan 76 yo M with chronic encephalopathy, suspect h/o anoxic brain injury with chronic PEG/trach sent from SNF following PEA arrest with ROSC. Hospitalization complicated by sepsis 2/2 UTI v chest wall wound #cardiac arrest with ROS[facility] cardiology on consult, etio of cardiac arrest unclear cont cardiac meds #sepsis from UTI v chest wall wound ID on consult, on tobra for possible UTI and dapto based on chest wall wound culture results #chronic encephalopathy: cont home psychotropic meds Subjective 24 Hr Interval Summary Free Text/Dictation doesnt follow commands though this is likely baseline still febrile Exam/Review of Systems Vital Signs Vitals Vital Signs Date Time Temp Pulse Resp B/P Pulse Ox O2 Delivery O2 Flow Rate FiO2 04/22/17 17:15 102 26 100 30 04/22/17 16:20 101.3 04/22/17 15:18 118/55 04/22/17 11:58 Mechanical Ventilator Intake and Output 04/21/17 04/21/17 04/22/17 15:00 23:00 07:00 Intake Total 1049.54 ml 895 ml 411 ml Output Total 300 ml 200 ml 450 ml Balance 749.54 ml 695 ml -39 ml Exam does not follow commands +contractures no mrg lungs clear abd soft no rashes Results Result Diagram: 04/22/1792204/22/17 0923 Results 24 hrs Laboratory Tests Test 04/21/17 22:19 04/22/17 09:23 Random Tobramycin Level 3.8 White Blood Count 10.9 #H Red Blood Count 2.36 L Hemoglobin 7.8 L Hematocrit 23.9 L Mean Corpuscular Volume 101.3 H Mean Corpuscular Hemoglobin 33.1 H Mean Corpuscular Hemoglobin Concent 32.6 Red Cell Distribution Width 18.2 H Platelet Count 80 #L Mean Platelet Volume 12.1 H Neutrophils % 80.1 H Lymphocytes % 10.2 L Monocytes % 8.0 Eosinophils % 1.0 Basophils % 0.2 Nucleated Red Blood Cells % 0.0 Neutrophils # 8.7 H Lymphocytes # 1.1 Monocytes # 0.9 Eosinophils # 0.1 Basophils # 0.0 Nucleated Red Blood Cells # 0.0 Sodium Level 141 Potassium Level 3.2 L Chloride Level 108 Carbon Dioxide Level 25 Anion Gap 11 Blood Urea Nitrogen 32 H Creatinine 0.80 Glucose Level 140 Calcium Level 7.2 L Medications Medications Current Medications Ondansetron HCl (Zofran Inj) 4 mg Q6H PRN IV NAUSEA AND/OR VOMITING; Start at 12:00 Acetaminophen (Tylenol Tab) 650 mg Q6H PRN PO PAIN LEVEL 1-3 OR FEVER Last administered on 04/20/17 19:01; Admin Dose 650 MG; Start 04/19/17 at 12:00 Acetaminophen/ Hydrocodone Bitart ([place] (5/325)) 1 tab Q6H PRN PO MODERATE PAIN LEVEL 4-6; Start 04/19/17 at 12:00 Morphine Sulfate (morphine) 2 mg Q4H PRN IV SEVERE PAIN LEVEL 7-10 Last administered on 04/20/17 23:43; Admin Dose 2 MG; Start 04/19/17 at 12:00 Docusate Sodium (Colace) 100 mg Q12H PRN PO CONSTIPATION; Start 04/19/17 at 12 :00 Magnesium Hydroxide (Milk Of Mag) 30 ml DAILY PRN PO CONSTIPATION; Start 04/19 at 12:00 Sodium Biphosphate/ Sodium Phosphate (Fleet Enema) 133 ml DAILY PRN [place] CONSTIPATION; Start 04/19/17 at 12:00 Nitroglycerin (Nitroglycerin (Sl Tab) 0.4 Mg) 1 tab Q5M PRN SL ANGINA; Start 04/19/17 at 12:00 Amiodarone HCl (Cordarone) 200 mg DAILY GTB Last administered on 04/22/17 08: 22; Admin Dose 200 MG; Start 04/20/17 at 09:00 Carbidopa/Levodopa (Sinemet (25/ 100)) 1 tab QID GTB Last administered on 04/22 16:33; Admin Dose 1 TAB; Start 04/19/17 at 13:00 Chlorhexidine Gluconate (Peridex) 15 ml Q12 MM Last administered on 04/22/17 08:23; Admin Dose 15 ML; Start 04/19/17 at 21:00 Doxazosin Mesylate (Cardura) 8 mg DAILY GTB Last administered on 04/22/17 08: 23; Admin Dose 8 MG; Start 04/20/17 at 09:00 Ferrous Sulfate (Ferrous Sulfate (Ec)) 330 mg TID PO Last administered on 04/22 12:47; Admin Dose 330 MG; Start 04/19/17 at 13:00 Lactobacillus Acidophilus/ Rhamnosus (Culturelle) 1 cap DAILY PO Last administered on 04/22/17 08:23; Admin Dose 1 CAP; Start 04/20/17 at 09:00 Ascorbic Acid (Vitamin C) 500 mg BID GTB Last administered on 04/22/17 08:22 ; Admin Dose 500 MG; Start 04/19/17 at 21:00 Lorazepam (Ativan) 2 mg Q10MIN PRN IV seisure Last administered on 04/19/17 17:33; Admin Dose 2 MG; Start 04/19/17 at 17:30 Acetaminophen (Tylenol Liquid) 650 mg Q6H PRN GTB PAIN AND OR ELEVATED TEMP Last administered on 04/22/17 15:32; Admin Dose 650 MG; Start 04/20/17 at 19: 00 Miscellaneous Information (Pending Santyl Order For Wound Care) This patient galdamez... PRN PRN XX WOUND CARE; Start 04/21/17 at 02:00 Collagenase (Santyl) 1 applic DAILY TOP Last administered on 04/22/17 08:26; Admin Dose 1 APPLIC; Start 04/21/17 at 09:00 Collagenase (Santyl) 1 applic PRN PRN TOP PRN Last administered on 04/21/17 10:40; Admin Dose 1 APPLIC; Start 04/21/17 at 05:00 Tobramycin (Tobramycin Iv Per Pharmacy) TOBRAMYCIN PER PHARMACY NOTE XX ; Start 04/21/17 at 11:00 Enoxaparin Sodium (Lovenox) 50 mg Q12 SC Last administered on 04/22/17 08:24 ; Admin Dose 50 MG; Start 04/21/17 at 21:00 Mupirocin 1 applic 1 applic BID TOP Last administered on 04/22/17 08:26; Admin Dose 1 APPLIC; Start 04/21/17 at 21:00 Tobramycin 300 mg/ Dextrose 107.5 ml @ 107.5 mls/ hr Q24H IVPB Last administered on 04/22/17 13:40; Admin Dose 107.5 MLS/HR; Start 04/22/17 at 13 :00 Daptomycin/Sodium Chloride (Cubicin/NS) 100 ml @ 200 mls/hr Q24H IVPB Last administered on 04/22/17 16:33; Admin Dose 200 MLS/HR; Start 04/22/17 at 16: 30 Metoprolol Tartrate (Lopressor) 12.5 mg BID PO ; Start 04/22/17 at 21:00 VIRGILIO MCCALL MD Apr 22, 2017 18:51
[2017-04-22] MEDS ORDERED: ALBUTEROL 0.083% (NEB) 2.5 MG/3 ML AMP NEB PRN (19:00)
[2017-04-22] MEDS: METOPROLOL 25 MG TAB PO SCH (20:33)
[2017-04-22] MEDS: TAMSULOSIN (SR) 0.4 MG CAP PO SCH (20:58)
[2017-04-22] MEDS: DOCUSATE SODIUM 100 MG CAP PO SCH (21:09)
[2017-04-22] MEDS: ATORVASTATIN 20 MG TAB GTB SCH (21:19)
[2017-04-23] VITALS (27 sets, daily range): BP systolic 86–121; BP diastolic 49–68; PULSE 70–95; RESP 17–32
[2017-04-23] MEDS: ACETAMINOPHEN 650MG/20.3ML CUP GTB PRN ×3 (00:45→17:59)
[2017-04-23 08:57] LABS: ABNORMAL IP MESSAGE 1; BASOPHILS % 0.1 % (0.0-2.0); EOSINOPHILS % 0.4 % (0.0-7.0); HEMATOCRIT 23.4 % (42.0-52.0); HEMOGLOBIN 7.6 g/dl (14.0-18.0); LYMPHOCYTES # 0.8 10^3/ul (0.8-2.9); LYMPHOCYTES % 6.9 % (15.0-51.0); MEAN CORPUSCULAR HEMOGLOBIN 33.3 pg (29.0-33.0); MEAN CORPUSCULAR HGB CONC 32.5 g/dl (32.0-37.0); MEAN CORPUSCULAR VOLUME 102.6 fl (82.0-101.0); MONOCYTE # 0.7 10^3/ul (0.3-0.9); NEUTROPHIL # 9.5 10^3/ul (1.6-7.5); NUCLEATED RED BLOOD CELLS% 0.3 /100WBC (0.0-0.0); PLATELET COUNT 80 10^3/UL (140-415); POSITIVE DIFF @See below; RED BLOOD COUNT 2.28 10^6/ul (4.70-6.10); RED CELL DISTRIBUTION WIDTH 17.7 % (11.5-14.5); WHITE BLOOD COUNT 11.1 10^3/ul (4.8-10.8)
[2017-04-23] MEDS ORDERED: MULTIVITAMINS THERAPEUTIC TAB GTB SCH (09:00)
[2017-04-23] MEDS: ENOXAPARIN 60 MG/0.6 ML SYG SC SCH ×2 (09:00→21:00)
[2017-04-23] MEDS: DOCUSATE SODIUM 100 MG CAP PO SCH (09:00)
[2017-04-23 09:14] LABS: CALCIUM 7.5 mg/dl (8.4-10.2); CREATININE 0.75 mg/dl (0.61-1.24); POTASSIUM 4.3 mmol/L (3.5-5.1)
[2017-04-23] MEDS: CHLORHEXIDINE GLUCONATE 15 ML UD CUP MM SCH ×2 (09:30→20:56)
[2017-04-23] MEDS: DOXAZOSIN 4 MG TAB GTB SCH (09:32)
[2017-04-23] MEDS: LACTOBACILLUS RHAMNOSUS CAP PO SCH (09:33)
[2017-04-23] MEDS: ASCORBIC ACID 500 MG TAB GTB SCH ×2 (09:33→20:56)
[2017-04-23] MEDS: CARBIDOPA/LEVODOPA (25/100) TAB GTB SCH ×4 (09:34→20:56)
[2017-04-23] MEDS: AMIODARONE 200 MG TAB GTB SCH (09:34)
[2017-04-23] MEDS: COLLAGENASE 30 GM TUBE TOP SCH (09:35)
[2017-04-23] MEDS: METOPROLOL 25 MG TAB PO SCH ×2 (09:35→20:56)
[2017-04-23] MEDS: FERROUS SULFATE (EC) 325 MG TAB PO SCH ×3 (09:35→20:56)
[2017-04-23] MEDS: MUPIROCIN 2% 22 GM OINT TOP SCH ×2 (09:35→20:59)
--- NOTE | 2017-04-23 10:14 | CONS ---
Date/Time of Note Date/Time of Note DATE: 04/23/17 TIME: 10:00 Consult Date/Type/Reason Admit Date/Time Apr 19, 2017 at 10:58 Type of Consultation: Pulm Ordering Provider: ZOE ALEXANDRA Subjective remains comfortable. Objective Vital Signs Date Time Temp Pulse Resp B/P Pulse Ox O2 Delivery O2 Flow Rate FiO2 04/23/17 08:05 102.0 98 19 103/58 100 04/23/17 07:00 30 04/22/17 11:58 Mechanical Ventilator Intake and Output 04/22/17 04/22/17 04/23/17 15:00 23:00 07:00 Intake Total 107.5 ml 800 ml 500 ml Output Total 500 ml 450 ml Balance 107.5 ml 300 ml 50 ml Exam PHYSICAL EXAMINATION: GENERAL: Chronically ill appearing gentleman. VITAL SIGNS: As above. NECK: Trach site clean and intact. CARDIAC: S1, S2, no added sounds or murmurs. CHEST: Diminished air entry bilaterally. ABDOMEN: Soft, nontender. No guarding or rebound. EXTREMITIES: No cyanosis, clubbing, edema. NEUROLOGIC: Generalized weakness, unable to assess. Results/Medications Result Diagram: 04/23/17 0734 04/23/17 0734 Results 24 hrs Laboratory Tests Test 04/23/17 07:34 White Blood Count 11.1 H Red Blood Count 2.28 L Hemoglobin 7.6 L Hematocrit 23.4 L Mean Corpuscular Volume 102.6 H Mean Corpuscular Hemoglobin 33.3 H Mean Corpuscular Hemoglobin Concent 32.5 Red Cell Distribution Width 17.7 H Platelet Count 80 L Mean Platelet Volume 13.0 H Neutrophils % 86.0 H Lymphocytes % 6.9 L Monocytes % 6.0 Eosinophils % 0.4 Basophils % 0.1 Nucleated Red Blood Cells % 0.3 H Neutrophils # 9.5 H Lymphocytes # 0.8 Monocytes # 0.7 Eosinophils # 0.0 Basophils # 0.0 Nucleated Red Blood Cells # 0.0 Sodium Level 142 Potassium Level 4.3 Chloride Level 111 H Carbon Dioxide Level 26 Anion Gap 9 Blood Urea Nitrogen 35 H Creatinine 0.75 Glucose Level 112 Calcium Level 7.5 L Troponin I 0.028 Medications Current Medications Ondansetron HCl (Zofran Inj) 4 mg Q6H PRN IV NAUSEA AND/OR VOMITING; Start at 12:00 Acetaminophen (Tylenol Tab) 650 mg Q6H PRN PO PAIN LEVEL 1-3 OR FEVER Last administered on 04/20/17 19:01; Admin Dose 650 MG; Start 04/19/17 at 12:00 Acetaminophen/ Hydrocodone Bitart ([place] (5/325)) 1 tab Q6H PRN PO MODERATE PAIN LEVEL 4-6; Start 04/19/17 at 12:00 Morphine Sulfate (morphine) 2 mg Q4H PRN IV SEVERE PAIN LEVEL 7-10 Last administered on 04/20/17 23:43; Admin Dose 2 MG; Start 04/19/17 at 12:00 Docusate Sodium (Colace) 100 mg Q12H PRN PO CONSTIPATION; Start 04/19/17 at 12 :00 Magnesium Hydroxide (Milk Of Mag) 30 ml DAILY PRN PO CONSTIPATION; Start 04/19 at 12:00 Sodium Biphosphate/ Sodium Phosphate (Fleet Enema) 133 ml DAILY PRN [place] CONSTIPATION; Start 04/19/17 at 12:00 Nitroglycerin (Nitroglycerin (Sl Tab) 0.4 Mg) 1 tab Q5M PRN SL ANGINA; Start 04/19/17 at 12:00 Amiodarone HCl (Cordarone) 200 mg DAILY GTB Last administered on 04/23/17 09: 34; Admin Dose 200 MG; Start 04/20/17 at 09:00 Carbidopa/Levodopa (Sinemet (25/ 100)) 1 tab QID GTB Last administered on 04/23 09:34; Admin Dose 1 TAB; Start 04/19/17 at 13:00 Chlorhexidine Gluconate (Peridex) 15 ml Q12 MM Last administered on 04/23/17 09:30; Admin Dose 15 ML; Start 04/19/17 at 21:00 Doxazosin Mesylate (Cardura) 8 mg DAILY GTB Last administered on 04/23/17 09: 32; Admin Dose 8 MG; Start 04/20/17 at 09:00 Ferrous Sulfate (Ferrous Sulfate (Ec)) 330 mg TID PO Last administered on 04/23 09:35; Admin Dose 330 MG; Start 04/19/17 at 13:00 Lactobacillus Acidophilus/ Rhamnosus (Culturelle) 1 cap DAILY PO Last administered on 04/23/17 09:33; Admin Dose 1 CAP; Start 04/20/17 at 09:00 Ascorbic Acid (Vitamin C) 500 mg BID GTB Last administered on 04/23/17 09:33 ; Admin Dose 500 MG; Start 04/19/17 at 21:00 Lorazepam (Ativan) 2 mg Q10MIN PRN IV seisure Last administered on 04/19/17 17:33; Admin Dose 2 MG; Start 04/19/17 at 17:30 Acetaminophen (Tylenol Liquid) 650 mg Q6H PRN GTB PAIN AND OR ELEVATED TEMP Last administered on 04/23/17 09:35; Admin Dose 650 MG; Start 04/20/17 at 19: 00 Miscellaneous Information (Pending Santyl Order For Wound Care) This patient galdamez... PRN PRN XX WOUND CARE; Start 04/21/17 at 02:00 Collagenase (Santyl) 1 applic DAILY TOP Last administered on 04/23/17 09:35; Admin Dose 1 APPLIC; Start 04/21/17 at 09:00 Collagenase (Santyl) 1 applic PRN PRN TOP PRN Last administered on 04/21/17 10:40; Admin Dose 1 APPLIC; Start 04/21/17 at 05:00 Tobramycin (Tobramycin Iv Per Pharmacy) TOBRAMYCIN PER PHARMACY NOTE XX ; Start 04/21/17 at 11:00 Enoxaparin Sodium (Lovenox) 50 mg Q12 SC Last administered on 04/22/17 20:47 ; Admin Dose 50 MG; Start 04/21/17 at 21:00 Mupirocin 1 applic 1 applic BID TOP Last administered on 04/23/17 09:35; Admin Dose 1 APPLIC; Start 04/21/17 at 21:00 Tobramycin 300 mg/ Dextrose 107.5 ml @ 107.5 mls/ hr Q24H IVPB Last administered on 04/22/17 13:40; Admin Dose 107.5 MLS/HR; Start 04/22/17 at 13 :00 Daptomycin/Sodium Chloride (Cubicin/NS) 100 ml @ 200 mls/hr Q24H IVPB Last administered on 04/22/17 16:33; Admin Dose 200 MLS/HR; Start 04/22/17 at 16: 30 Metoprolol Tartrate (Lopressor) 12.5 mg BID PO Last administered on 04/23/17 09:35; Admin Dose 12.5 MG; Start 04/22/17 at 21:00 Albuterol (Proventil 0.083% (Neb)) 2.5 mg Q3H PRN NEB WHEEZING AND SOB; Start 04/22/17 at 19:00 Atorvastatin Calcium (Lipitor) 20 mg QHS GTB Last administered on 04/22/17 21 :19; Admin Dose 20 MG; Start 04/22/17 at 21:00 Docusate Sodium (Colace) 100 mg BID PO Last administered on 04/22/17 21:09; Admin Dose 100 MG; Start 04/22/17 at 21:00 Multivitamins Therapeutic (Theragran) 1 tab DAILY GTB Last administered on 09:35; Admin Dose 1 TAB; Start 04/23/17 at 09:00 Tamsulosin HCl (Flomax) 0.4 mg HS PO Last administered on 04/22/17 20:58; Admin Dose 0.4 MG; Start 04/22/17 at 21:00 Miscellaneous Information (*Rx Drug Level Order Reminder*) TOBRA TR LEVEL PRIOR... ONCE ONCE XX ; Start 04/23/17 at 12:00; Stop 04/23/17 at 12:01 Assessment/Plan Chief Complaint/Hosp Course IMPRESSION AND PLAN: 1. Acinetobacter UTI 2. Questionable PEA arrest. 3. Chronic encephalopathy. 4. Vent dependent respiratory failure. 5. Dysphagia with G-tube. REQUIREMENTS: 1. Volume resuscitation. 2. Continue ID recommendations 3. Tube feeding as tolerated. 4. DVT and GI prophylaxis. 5. Monitor H&H consider transfusion 1 unit packed red blood cells 6. Replace potassium and electrolytes Block evaluation Problems: TEVIN CURRAN MD, [facility] Apr 23, 2017 10:10
--- NOTE | 2017-04-23 10:49 | CONS ---
Date/Time of Note Date/Time of Note DATE: 04/23/17 TIME: 10:47 Assessment/Plan Assessment/Plan Additional Assessment/Plan 1. Atrial fibrillation. The patient has atrial fibrillation, likely chronic because he was on amiodarone at the facility. We will continue to treat now. Rate is modestly well controlled. For now will add additional agents the more blood pressure tolerates.STABLE. 2. 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 I think it would reasonable to initiate him Lovenox at modified dose and we will follow expectantly. Tolerted well. 3. Status post pulseless electrical activity arrest. The description is fairly unclear. The patient returned to spontaneous circulation. Continue to follow. 4. Respiratory failure, chronic. Continue vent management per primary team. 5. Infection - on antibiotics, chronic. 6. Encephalopathy, probably chronic. We will defer to primary team for management. Consultation Date/Type/Reason Admit Date/Time Apr 19, 2017 at 10:58 Type of Consultation: Pulm Referring Provider: ZOE ALEXANDRA 24 HR Interval Summary Free Text/Dictation NO acute events - BP in good range - no CP now, will monitor. ROS: No fever, no chills, no nausea, no vomiting, no diarrhea/constipation No recent weight changes No chest pain, no PND, no orthopnea No dizziness, blurred vision No thirst, no heat or cold intolerance (per nurse) Exam/Review of Systems Vital Signs Vitals Vital Signs Date Time Temp Pulse Resp B/P Pulse Ox O2 Delivery O2 Flow Rate FiO2 04/23/17 08:05 102.0 98 19 103/58 100 04/23/17 07:00 30 04/22/17 11:58 Mechanical Ventilator Intake and Output 04/22/17 04/22/17 04/23/17 15:00 23:00 07:00 Intake Total 107.5 ml 800 ml 500 ml Output Total 500 ml 450 ml Balance 107.5 ml 300 ml 50 ml Exam General: WN/WD/NAD, AOx 0 HEENT: Unicetric/atraumatic/EOMI (does not follow commands) NECK: trach Lymph: no lymphadenopathy HEART: regular with no S3, II/ systolic murmur at apex LUNGS: Coarse sounds ABD: soft, NT, ND, +BS : Intact Neuro: non focal SKIN: chronic changes EXT: trace edema Results Result Diagram: 04/23/17 0734 04/23/17 0734 Results 24 hrs Laboratory Tests Test 04/23/17 06:00 04/23/17 07:34 Stool Occult Blood NEGATIVE White Blood Count 11.1 H Red Blood Count 2.28 L Hemoglobin 7.6 L Hematocrit 23.4 L Mean Corpuscular Volume 102.6 H Mean Corpuscular Hemoglobin 33.3 H Mean Corpuscular Hemoglobin Concent 32.5 Red Cell Distribution Width 17.7 H Platelet Count 80 L Mean Platelet Volume 13.0 H Neutrophils % 86.0 H Lymphocytes % 6.9 L Monocytes % 6.0 Eosinophils % 0.4 Basophils % 0.1 Nucleated Red Blood Cells % 0.3 H Neutrophils # 9.5 H Lymphocytes # 0.8 Monocytes # 0.7 Eosinophils # 0.0 Basophils # 0.0 Nucleated Red Blood Cells # 0.0 Sodium Level 142 Potassium Level 4.3 Chloride Level 111 H Carbon Dioxide Level 26 Anion Gap 9 Blood Urea Nitrogen 35 H Creatinine 0.75 Glucose Level 112 Calcium Level 7.5 L Troponin I 0.028 Medications Medications Current Medications Ondansetron HCl (Zofran Inj) 4 mg Q6H PRN IV NAUSEA AND/OR VOMITING; Start at 12:00 Acetaminophen (Tylenol Tab) 650 mg Q6H PRN PO PAIN LEVEL 1-3 OR FEVER Last administered on 04/20/17 19:01; Admin Dose 650 MG; Start 04/19/17 at 12:00 Acetaminophen/ Hydrocodone Bitart ([place] (5/325)) 1 tab Q6H PRN PO MODERATE PAIN LEVEL 4-6; Start 04/19/17 at 12:00 Morphine Sulfate (morphine) 2 mg Q4H PRN IV SEVERE PAIN LEVEL 7-10 Last administered on 04/20/17 23:43; Admin Dose 2 MG; Start 04/19/17 at 12:00 Docusate Sodium (Colace) 100 mg Q12H PRN PO CONSTIPATION; Start 04/19/17 at 12 :00 Magnesium Hydroxide (Milk Of Mag) 30 ml DAILY PRN PO CONSTIPATION; Start 04/19 at 12:00 Sodium Biphosphate/ Sodium Phosphate (Fleet Enema) 133 ml DAILY PRN [place] CONSTIPATION; Start 04/19/17 at 12:00 Nitroglycerin (Nitroglycerin (Sl Tab) 0.4 Mg) 1 tab Q5M PRN SL ANGINA; Start 04/19/17 at 12:00 Amiodarone HCl (Cordarone) 200 mg DAILY GTB Last administered on 04/23/17 09: 34; Admin Dose 200 MG; Start 04/20/17 at 09:00 Carbidopa/Levodopa (Sinemet (25/ 100)) 1 tab QID GTB Last administered on 04/23 09:34; Admin Dose 1 TAB; Start 04/19/17 at 13:00 Chlorhexidine Gluconate (Peridex) 15 ml Q12 MM Last administered on 04/23/17 09:30; Admin Dose 15 ML; Start 04/19/17 at 21:00 Doxazosin Mesylate (Cardura) 8 mg DAILY GTB Last administered on 04/23/17 09: 32; Admin Dose 8 MG; Start 04/20/17 at 09:00 Ferrous Sulfate (Ferrous Sulfate (Ec)) 330 mg TID PO Last administered on 04/23 09:35; Admin Dose 330 MG; Start 04/19/17 at 13:00 Lactobacillus Acidophilus/ Rhamnosus (Culturelle) 1 cap DAILY PO Last administered on 04/23/17 09:33; Admin Dose 1 CAP; Start 04/20/17 at 09:00 Ascorbic Acid (Vitamin C) 500 mg BID GTB Last administered on 04/23/17 09:33 ; Admin Dose 500 MG; Start 04/19/17 at 21:00 Lorazepam (Ativan) 2 mg Q10MIN PRN IV seisure Last administered on 04/19/17 17:33; Admin Dose 2 MG; Start 04/19/17 at 17:30 Acetaminophen (Tylenol Liquid) 650 mg Q6H PRN GTB PAIN AND OR ELEVATED TEMP Last administered on 04/23/17 09:35; Admin Dose 650 MG; Start 04/20/17 at 19: 00 Miscellaneous Information (Pending Santyl Order For Wound Care) This patient galdamez... PRN PRN XX WOUND CARE; Start 04/21/17 at 02:00 Collagenase (Santyl) 1 applic DAILY TOP Last administered on 04/23/17 09:35; Admin Dose 1 APPLIC; Start 04/21/17 at 09:00 Collagenase (Santyl) 1 applic PRN PRN TOP PRN Last administered on 04/21/17 10:40; Admin Dose 1 APPLIC; Start 04/21/17 at 05:00 Tobramycin (Tobramycin Iv Per Pharmacy) TOBRAMYCIN PER PHARMACY NOTE XX ; Start 04/21/17 at 11:00 Enoxaparin Sodium (Lovenox) 50 mg Q12 SC Last administered on 04/22/17 20:47 ; Admin Dose 50 MG; Start 04/21/17 at 21:00 Mupirocin 1 applic 1 applic BID TOP Last administered on 04/23/17 09:35; Admin Dose 1 APPLIC; Start 04/21/17 at 21:00 Tobramycin 300 mg/ Dextrose 107.5 ml @ 107.5 mls/ hr Q24H IVPB Last administered on 04/22/17 13:40; Admin Dose 107.5 MLS/HR; Start 04/22/17 at 13 :00 Daptomycin/Sodium Chloride (Cubicin/NS) 100 ml @ 200 mls/hr Q24H IVPB Last administered on 04/22/17 16:33; Admin Dose 200 MLS/HR; Start 04/22/17 at 16: 30 Metoprolol Tartrate (Lopressor) 12.5 mg BID PO Last administered on 04/23/17 09:35; Admin Dose 12.5 MG; Start 04/22/17 at 21:00 Albuterol (Proventil 0.083% (Neb)) 2.5 mg Q3H PRN NEB WHEEZING AND SOB; Start 04/22/17 at 19:00 Atorvastatin Calcium (Lipitor) 20 mg QHS GTB Last administered on 04/22/17 21 :19; Admin Dose 20 MG; Start 04/22/17 at 21:00 Docusate Sodium (Colace) 100 mg BID PO Last administered on 04/22/17 21:09; Admin Dose 100 MG; Start 04/22/17 at 21:00 Multivitamins Therapeutic (Theragran) 1 tab DAILY GTB Last administered on 09:35; Admin Dose 1 TAB; Start 04/23/17 at 09:00 Tamsulosin HCl (Flomax) 0.4 mg HS PO Last administered on 04/22/17 20:58; Admin Dose 0.4 MG; Start 04/22/17 at 21:00 Miscellaneous Information (*Rx Drug Level Order Reminder*) TOBRA TR LEVEL PRIOR... ONCE ONCE XX ; Start 04/23/17 at 12:00; Stop 04/23/17 at 12:01 MARCI CHEN MD Apr 23, 2017 10:49
[2017-04-23] MEDS: TOBRAMYCIN 300 MG in DEXTROSE 5% 100 ML IVPB SCH (13:00)
--- NOTE | 2017-04-23 14:26 | RADRPT ---
Vent Rate: 86 bpm RR Interval: 0 msec OR Interval: 0 msec QRS Duration: 70 msec QT Interval: 378 msec QTC Interval: 452 msec P-R-T [place]: 0 - 71 - 85 degrees Atrial fibrillation Abnormal ECG Electronically Signed By: Brady Fritz [id number]
[2017-04-23] MEDS: BALSAM PERU/CASTOR OIL 60 GM TUBE TOP SCH ×2 (15:00→15:27)
--- NOTE | 2017-04-23 17:19 | PN ---
DATE: 04/23/2017 SUBJECTIVE: No events overnight. The patient is lying comfortably in bed. Still spiking fevers wi th a T-max of 102, T-current 101.7. LABORATORY: WBC today 11.1, H and H 7.6 and 23.4, platelets 80, neutrophils 86. BUN 35, creatinine 0.75. MICROBIOLOGY: Blood cultures have been negative. Urine culture on 04/19/2017 grew Acinetobacter ba umannii. Repeat urine culture negative. The wound on the chest is growing MRSA. ANTIMICROBIALS: The patient is on daptomycin and tobramycin. INDWELLINGS: Trach, PEG, Taylor, PICC line placed on 04/20/2017. PHYSICAL EXAMINATION: GENERAL: This is a chronically ill-appearing, elderly man who is in no distress. HEENT: Head atraumatic, normocephalic. Sclerae anicteric. Buccal mucosa dry. NECK: Supple. CHEST: Rise symmetrical. Breath sounds diminished to bases. HEART: S1, S2. ABDOMEN: Soft, bowel tones present. EXTREMITIES: Without cyanosis. ASSESSMENT: 1. Persistent fevers, questionable essential. 2. Status post septic shock. 3. Status post multidrug resistant urinary tract infection. 4. Sternal wound with cultures growing methicillin-resistant Staphylococcus aureus. 5. Anoxic encephalopathy status post cardiopulmonary arrest. 6. Methicillin-resistant Staphylococcus aureus nares colonization. PLAN: The patient remains clinically unchanged with ongoing fevers off unclear etiology. Blood cul tures since admission have been negative. Repeat urine culture negative. He is on appropriate anti biotics. We may change daptomycin to IV clindamycin. We might order CT chest, abdomen and pelvis a nd if negative, proceed with WBC labeled nuclear scan. Dictated By: ALLIE GODOY INTERNAL CONTROLS MANAGER for ESTEFANY REDDING MD NI/NTS Conf#: [id number] DID#: [id number] CC: Tony De Jesus;*EndCC*
--- NOTE | 2017-04-23 18:13 | PN ---
Date/Time of Note Date/Time of Note DATE: 04/23/17 TIME: 18:08 Assessment/Plan VTE Prophylaxis VTE Prophylaxis Intervention: SCD's Lines/Catheters IV Catheter Type (from Nrsg): PICC Line Central line still needed: No Urinary Cath still in place: Yes Reason Cath still needed: urinary retention Assessment/Plan Assessment/Plan 76 yo M with chronic encephalopathy, suspect h/o anoxic brain injury with chronic PEG/trach sent from SNF following PEA arrest with [facility]. Hospitalization complicated by sepsis 2/2 UTI v chest wall wound #cardiac arrest with [facility] cardiology on consult, etio of cardiac arrest unclear cont cardiac meds full dose lovenox started by cardiology for ?hypercoag state? Pt without any known VTEs #sepsis from UTI v chest wall wound ID on consult, on tobra for possible UTI and clinda based on chest wall wound culture results Of note, given size of chest wall wound, cannot rule out underlying abscess/ fluid collection. defer work up to ID team #chronic encephalopathy: cont home psychotropic meds Subjective 24 Hr Interval Summary Free Text/Dictation still febrile Exam/Review of Systems Vital Signs Vitals Vital Signs Date Time Temp Pulse Resp B/P Pulse Ox O2 Delivery O2 Flow Rate FiO2 04/23/17 17:00 87 23 99 30 04/23/17 15:23 100.3 86/49 04/22/17 11:58 Mechanical Ventilator Intake and Output 04/22/17 04/22/17 04/23/17 14:59 22:59 06:59 Intake Total 107.5 ml 800 ml 500 ml Output Total 500 ml 450 ml Balance 107.5 ml 300 ml 50 ml Exam chronic trach, doesnt follow commands chest wall wound undressed, 2 cm white patch with several small darkened areas, no sig surrounding erythema abd soft no mrg lungs clear Results Result Diagram: 04/23/17 0734 04/23/17 0734 Results 24 hrs Laboratory Tests Test 04/23/17 06:00 04/23/17 07:34 04/23/17 11:42 Stool Occult Blood NEGATIVE White Blood Count 11.1 H Red Blood Count 2.28 L Hemoglobin 7.6 L Hematocrit 23.4 L Mean Corpuscular Volume 102.6 H Mean Corpuscular Hemoglobin 33.3 H Mean Corpuscular Hemoglobin Concent 32.5 Red Cell Distribution Width 17.7 H Platelet Count 80 L Mean Platelet Volume 13.0 H Neutrophils % 86.0 H Lymphocytes % 6.9 L Monocytes % 6.0 Eosinophils % 0.4 Basophils % 0.1 Nucleated Red Blood Cells % 0.3 H Neutrophils # 9.5 H Lymphocytes # 0.8 Monocytes # 0.7 Eosinophils # 0.0 Basophils # 0.0 Nucleated Red Blood Cells # 0.0 Sodium Level 142 Potassium Level 4.3 Chloride Level 111 H Carbon Dioxide Level 26 Anion Gap 9 Blood Urea Nitrogen 35 H Creatinine 0.75 Glucose Level 112 Calcium Level 7.5 L Troponin I 0.028 Tobramycin Level Trough 1.3 Medications Medications Current Medications Ondansetron HCl (Zofran Inj) 4 mg Q6H PRN IV NAUSEA AND/OR VOMITING; Start at 12:00 Acetaminophen (Tylenol Tab) 650 mg Q6H PRN PO PAIN LEVEL 1-3 OR FEVER Last administered on 04/20/17 19:01; Admin Dose 650 MG; Start 04/19/17 at 12:00 Acetaminophen/ Hydrocodone Bitart ([place] (5/325)) 1 tab Q6H PRN PO MODERATE PAIN LEVEL 4-6; Start 04/19/17 at 12:00 Morphine Sulfate (morphine) 2 mg Q4H PRN IV SEVERE PAIN LEVEL 7-10 Last administered on 04/20/17 23:43; Admin Dose 2 MG; Start 04/19/17 at 12:00 Magnesium Hydroxide (Milk Of Mag) 30 ml DAILY PRN PO CONSTIPATION; Start 04/19 at 12:00 Sodium Biphosphate/ Sodium Phosphate (Fleet Enema) 133 ml DAILY PRN [place] CONSTIPATION; Start 04/19/17 at 12:00 Nitroglycerin (Nitroglycerin (Sl Tab) 0.4 Mg) 1 tab Q5M PRN SL ANGINA; Start 04/19/17 at 12:00 Amiodarone HCl (Cordarone) 200 mg DAILY GTB Last administered on 04/23/17 09: 34; Admin Dose 200 MG; Start 04/20/17 at 09:00 Carbidopa/Levodopa (Sinemet (25/ 100)) 1 tab QID GTB Last administered on 04/23 17:59; Admin Dose 1 TAB; Start 04/19/17 at 13:00 Chlorhexidine Gluconate (Peridex) 15 ml Q12 MM Last administered on 04/23/17 09:30; Admin Dose 15 ML; Start 04/19/17 at 21:00 Doxazosin Mesylate (Cardura) 8 mg DAILY GTB Last administered on 04/23/17 09: 32; Admin Dose 8 MG; Start 04/20/17 at 09:00 Ferrous Sulfate (Ferrous Sulfate (Ec)) 330 mg TID PO Last administered on 04/23 13:11; Admin Dose 330 MG; Start 04/19/17 at 13:00 Lactobacillus Acidophilus/ Rhamnosus (Culturelle) 1 cap DAILY PO Last administered on 04/23/17 09:33; Admin Dose 1 CAP; Start 04/20/17 at 09:00 Ascorbic Acid (Vitamin C) 500 mg BID GTB Last administered on 04/23/17 09:33 ; Admin Dose 500 MG; Start 04/19/17 at 21:00 Lorazepam (Ativan) 2 mg Q10MIN PRN IV seisure Last administered on 04/19/17 17:33; Admin Dose 2 MG; Start 04/19/17 at 17:30 Acetaminophen (Tylenol Liquid) 650 mg Q6H PRN GTB PAIN AND OR ELEVATED TEMP Last administered on 04/23/17 17:59; Admin Dose 650 MG; Start 04/20/17 at 19: 00 Miscellaneous Information (Pending Santyl Order For Wound Care) This patient galdamez... PRN PRN XX WOUND CARE; Start 04/21/17 at 02:00 Collagenase (Santyl) 1 applic DAILY TOP Last administered on 04/23/17 09:35; Admin Dose 1 APPLIC; Start 04/21/17 at 09:00 Collagenase (Santyl) 1 applic PRN PRN TOP PRN Last administered on 04/21/17 10:40; Admin Dose 1 APPLIC; Start 04/21/17 at 05:00 Tobramycin (Tobramycin Iv Per Pharmacy) TOBRAMYCIN PER PHARMACY NOTE XX ; Start 04/21/17 at 11:00 Enoxaparin Sodium (Lovenox) 50 mg Q12 SC Last administered on 04/22/17 20:47 ; Admin Dose 50 MG; Start 04/21/17 at 21:00 Mupirocin (Bactroban) 1 applic BID TOP Last administered on 04/23/17 09:35; Admin Dose 1 APPLIC; Start 04/21/17 at 21:00 Metoprolol Tartrate (Lopressor) 12.5 mg BID PO Last administered on 04/23/17 09:35; Admin Dose 12.5 MG; Start 04/22/17 at 21:00 Albuterol (Proventil 0.083% (Neb)) 2.5 mg Q3H PRN NEB WHEEZING AND SOB; Start 04/22/17 at 19:00 Atorvastatin Calcium (Lipitor) 20 mg QHS GTB Last administered on 04/22/17 21 :19; Admin Dose 20 MG; Start 04/22/17 at 21:00 Tamsulosin HCl 0.4 mg 0.4 mg HS PO Last administered on 04/22/17 20:58; Admin Dose 0.4 MG; Start 04/22/17 at 21:00 Tobramycin 300 mg/ Dextrose 107.5 ml @ 107.5 mls/ hr Q36H IVPB ; Start at 01:00 Clindamycin HCl/ Dextrose (Cleocin 600 Mg/ D5W (Pmx)) 50 ml @ 50 mls/hr Q8 IVPB ; Start 04/23/17 at 22:00 Docusate Sodium (Colace Liquid Cup) 100 mg BID GTB ; Start 04/23/17 at 21:00 Multivitamins (Multivitamin) 30 ml DAILY GTB ; Start 04/24/17 at 09:00 VIRGILIO MCCALL MD Apr 23, 2017 18:13
[2017-04-23] MEDS: TAMSULOSIN (SR) 0.4 MG CAP PO SCH (20:56)
[2017-04-23] MEDS: DOCUSATE SODIUM 10 MG/ML (10ML CUP) GTB SCH (20:56)
[2017-04-23] MEDS: ATORVASTATIN 20 MG TAB GTB SCH (22:22)
[2017-04-23] MEDS: CLINDAMYCIN 600 MG/D5W (PMX) 50 ML IVPB SCH (22:22)
[2017-04-24] VITALS (36 sets, daily range): BP systolic 83–123; BP diastolic 51–81; PULSE 58–104; RESP 11–24
[2017-04-24] MEDS: TOBRAMYCIN 300 MG in DEXTROSE 5% 100 ML IVPB SCH ×2 (01:00→02:43)
[2017-04-24] MEDS: ACETAMINOPHEN 650MG/20.3ML CUP GTB PRN ×2 (03:55→09:24)
[2017-04-24] MEDS: CLINDAMYCIN 600 MG/D5W (PMX) 50 ML IVPB SCH ×2 (06:04→17:28)
[2017-04-24] MEDS ORDERED: IBUPROFEN 600 MG TAB GTB ONE (06:30)
--- NOTE | 2017-04-24 06:59 | RADRPT ---
PROCEDURE: XR Chest. TECHNIQUE: Single frontal radiograph. CLINICAL INDICATION: FEVER COMPARISON: CHEST 04/21/2017. FINDINGS: Stable position of tracheostomy tube and left-sided PICC. Progressed air space opacities identified at the right lung base. Stable appearance of the cardiac silhouette with postoperative changes reflecting prior CABG. There are aortic calcifications. IMPRESSION: Increased right lower lobe infiltrate. RPTAT: EE .Julio Cesar Swift MD, MD Date Time Electronically viewed and signed by .Julio Cesar Swift MD, MD on 04/24/2017 07:05 .C/
[2017-04-24 07:45] LABS: ABNORMAL IP MESSAGE 1; MEAN CORPUSCULAR HEMOGLOBIN 32.7 pg (29.0-33.0); MEAN CORPUSCULAR VOLUME 105.5 fl (82.0-101.0); MEAN PLATELET VOLUME 13.1 fl (7.4-10.4); NUCLEATED RED BLOOD CELLS% 0.8 /100WBC (0.0-0.0); PLATELET COUNT 86 10^3/UL (140-415); POSITIVE DIFF @See below; RED BLOOD COUNT 1.99 10^6/ul (4.70-6.10); RED CELL DISTRIBUTION WIDTH 17.3 % (11.5-14.5); WHITE BLOOD COUNT 8.7 10^3/ul (4.8-10.8)
[2017-04-24 07:55] LABS: HEMOGLOBIN 6.5 g/dl (14.0-18.0)
[2017-04-24 08:11] LABS: CALCIUM 7.4 mg/dl (8.4-10.2); CREATININE 0.96 mg/dl (0.61-1.24); POTASSIUM 3.9 mmol/L (3.5-5.1)
[2017-04-24] MEDS: ENOXAPARIN 60 MG/0.6 ML SYG SC SCH (09:00)
[2017-04-24] MEDS: METOPROLOL 25 MG TAB PO SCH ×2 (09:00→21:00)
[2017-04-24] MEDS: DOXAZOSIN 4 MG TAB GTB SCH (09:00)
[2017-04-24] MEDS: MULTIVITAMINS 30 ML CUP GTB SCH (09:23)
[2017-04-24] MEDS: CHLORHEXIDINE GLUCONATE 15 ML UD CUP MM SCH (09:23)
[2017-04-24] MEDS: AMIODARONE 200 MG TAB GTB SCH (09:24)
[2017-04-24] MEDS: CARBIDOPA/LEVODOPA (25/100) TAB GTB SCH ×4 (09:24→21:00)
[2017-04-24] MEDS: DOCUSATE SODIUM 10 MG/ML (10ML CUP) GTB SCH ×2 (09:24→21:00)
[2017-04-24] MEDS: MUPIROCIN 2% 22 GM OINT TOP SCH ×2 (09:25→21:00)
[2017-04-24] MEDS: BALSAM PERU/CASTOR OIL 60 GM TUBE TOP SCH (09:25)
[2017-04-24] MEDS: LACTOBACILLUS RHAMNOSUS CAP PO SCH (09:25)
[2017-04-24] MEDS: COLLAGENASE 30 GM TUBE TOP SCH (09:25)
[2017-04-24] MEDS: FERROUS SULFATE (EC) 325 MG TAB PO SCH ×3 (09:25→21:00)
[2017-04-24] MEDS: ASCORBIC ACID 500 MG TAB GTB SCH ×2 (09:25→21:00)
[2017-04-24 10:31] LABS: ADD UMIC YES; UR ASCORBIC ACID 40 mg/dL (NEGATIVE); UR BACTERIA FEW /HPF (NONE SEEN); UR BILIRUBIN (Dip) NEGATIVE (NEGATIVE); UR BLOOD (Dip) 1+ mg/dL (NEGATIVE); UR CLARITY CLOUDY (CLEAR); UR COLOR YELLOW (YELLOW); UR GLUCOSE (Dip) NEGATIVE (NEGATIVE); UR KETONES (Dip) NEGATIVE (NEGATIVE); UR LEUKOCYTE ESTERASE (Dip) NEGATIVE Leu/ul (NEGATIVE); UR MUCUS FEW /HPF (NONE SEEN); UR NITRITE (Dip) NEGATIVE (NEGATIVE); UR RBC 23 /HPF (0-5); UR SPECIFIC GRAVITY (Dip) 1.019 (1.003-1.030); UR SQUAMOUS EPITHELIAL CELL FEW /HPF (FEW); UR TOTAL PROTEIN (Dip) 1+ mg/dl (NEGATIVE); UR UROBILINOGEN (Dip) 1+ mg/dL (NEGATIVE)
[2017-04-24 10:34] LABS: ANISOCYTOSIS 1+ (0-0); ERYTHROBLAST% (NRBC) (M) 1 % (0-0); PLATELET ESTIMATE DECREASED; POLYCHROMASIA 3+ (0-0)
[2017-04-24] MEDS ORDERED: SOD CHLORIDE 0.9% 250 ML IV* ONE (10:59)
[2017-04-24] MEDS: SOD CHLORIDE 0.9% 500 ML IV SCH ×2 (12:00→13:00)
[2017-04-24 12:35] LABS: IRON < 10 ug/dl (35-150)
--- NOTE | 2017-04-24 12:38 | CONS ---
Date/Time of Note Date/Time of Note DATE: 04/24/17 TIME: 12:37 Consult Date/Type/Reason Admit Date/Time Apr 19, 2017 at 10:58 Type of Consultation: Pulm Ordering Provider: ZOE ALEXANDRA Subjective Still febrile. Drop in hemoglobin noted. Clinically unchanged. Objective Vital Signs Date Time Temp Pulse Resp B/P Pulse Ox O2 Delivery O2 Flow Rate FiO2 04/24/17 12:33 58 04/24/17 11:00 21 100 30 04/24/17 10:59 97.7 83/51 04/22/17 11:58 Mechanical Ventilator Intake and Output 04/23/17 04/23/17 04/24/17 14:59 22:59 06:59 Intake Total 1010 ml 50 ml Output Total 400 ml Balance 610 ml 50 ml Exam GENERAL: Elderly lady appears comfortable at rest no acute distress VITAL SIGNS: per chart NECK: Supple. No JVD or lymphadenopathy. CARDIAC EXAM: S1, S2. No added sounds or murmurs. CHEST: Diminished air entry right base ABDOMEN: Soft, nontender. No guarding or rebound. Diminished bowel sounds EXTREMITIES: No cyanosis, clubbing or edema. NEUROLOGIC: Generalized weakness. Results/Medications Result Diagram: 04/24/17 0631 04/24/17 0631 Results 24 hrs Laboratory Tests Test 04/24/17 06:28 04/24/17 06:30 04/24/17 06:31 Iron Level < 10 L Total Iron Binding Capacity Pending Percent Iron Saturation Pending Urine Color YELLOW Urine Clarity CLOUDY A Urine pH 5.0 Urine Specific [place] 1.019 Urine Ketones NEGATIVE Urine Nitrite NEGATIVE Urine Bilirubin NEGATIVE Urine Urobilinogen 1+ H Urine Leukocyte Esterase NEGATIVE Urine Microscopic RBC 23 H Urine Microscopic WBC 9 H Urine Squamous Epithelial Cells FEW Urine Bacteria FEW A Urine Mucus FEW A Urine Hemoglobin 1+ H Urine Glucose NEGATIVE Urine Total Protein 1+ H White Blood Count 8.7 # Red Blood Count 1.99 L Hemoglobin 6.5 *L Hematocrit 21.0 L Mean Corpuscular Volume 105.5 H Mean Corpuscular Hemoglobin 32.7 Mean Corpuscular Hemoglobin Concent 31.0 L Red Cell Distribution Width 17.3 H Platelet Count 86 L Mean Platelet Volume 13.1 H Neutrophils % Segmented Neutrophils % (Manual) 84 H Band Neutrophils % (Manual) 6 H Lymphocytes % Lymphocytes % (Manual) 10 L Monocytes % Eosinophils % Basophils % Nucleated Red Blood Cells % 1 H Neutrophils # Neutrophils # (Manual) 7.4 Band Neutrophils # 0.5 Absolute Lymphocytes (Manual) 0.8 Lymphocytes # Monocytes # Eosinophils # Basophils # Nucleated Red Blood Cells # Platelet Estimate DECREASED Polychromasia 3+ Anisocytosis 1+ Macrocytosis 1+ Sodium Level 144 Potassium Level 3.9 Chloride Level 112 H Carbon Dioxide Level 28 Anion Gap 8 Blood Urea Nitrogen 42 H Creatinine 0.96 Glucose Level 144 Calcium Level 7.4 L Creatine Kinase 1286 H Medications Current Medications Ondansetron HCl (Zofran Inj) 4 mg Q6H PRN IV NAUSEA AND/OR VOMITING; Start at 12:00 Acetaminophen (Tylenol Tab) 650 mg Q6H PRN PO PAIN LEVEL 1-3 OR FEVER Last administered on 04/20/17 19:01; Admin Dose 650 MG; Start 04/19/17 at 12:00 Acetaminophen/ Hydrocodone Bitart ([place] (5/325)) 1 tab Q6H PRN PO MODERATE PAIN LEVEL 4-6; Start 04/19/17 at 12:00 Morphine Sulfate (morphine) 2 mg Q4H PRN IV SEVERE PAIN LEVEL 7-10 Last administered on 04/20/17 23:43; Admin Dose 2 MG; Start 04/19/17 at 12:00 Magnesium Hydroxide (Milk Of Mag) 30 ml DAILY PRN PO CONSTIPATION; Start 04/19 at 12:00 Sodium Biphosphate/ Sodium Phosphate (Fleet Enema) 133 ml DAILY PRN [place] CONSTIPATION; Start 04/19/17 at 12:00 Nitroglycerin (Nitroglycerin (Sl Tab) 0.4 Mg) 1 tab Q5M PRN SL ANGINA; Start 04/19/17 at 12:00 Amiodarone HCl (Cordarone) 200 mg DAILY GTB Last administered on 04/24/17 09: 24; Admin Dose 200 MG; Start 04/20/17 at 09:00 Carbidopa/Levodopa (Sinemet (25/ 100)) 1 tab QID GTB Last administered on 04/24 09:24; Admin Dose 1 TAB; Start 04/19/17 at 13:00 Chlorhexidine Gluconate (Peridex) 15 ml Q12 MM Last administered on 04/24/17 09:23; Admin Dose 15 ML; Start 04/19/17 at 21:00 Doxazosin Mesylate (Cardura) 8 mg DAILY GTB Last administered on 04/23/17 09: 32; Admin Dose 8 MG; Start 04/20/17 at 09:00 Ferrous Sulfate (Ferrous Sulfate (Ec)) 330 mg TID PO Last administered on 04/24 09:25; Admin Dose 330 MG; Start 04/19/17 at 13:00 Lactobacillus Acidophilus/ Rhamnosus (Culturelle) 1 cap DAILY PO Last administered on 04/24/17 09:25; Admin Dose 1 CAP; Start 04/20/17 at 09:00 Ascorbic Acid (Vitamin C) 500 mg BID GTB Last administered on 04/24/17 09:25 ; Admin Dose 500 MG; Start 04/19/17 at 21:00 Lorazepam (Ativan) 2 mg Q10MIN PRN IV seisure Last administered on 04/19/17 17:33; Admin Dose 2 MG; Start 04/19/17 at 17:30 Acetaminophen (Tylenol Liquid) 650 mg Q6H PRN GTB PAIN AND OR ELEVATED TEMP Last administered on 04/24/17 09:24; Admin Dose 650 MG; Start 04/20/17 at 19: 00 Miscellaneous Information (Pending Santyl Order For Wound Care) This patient galdamez... PRN PRN XX WOUND CARE; Start 04/21/17 at 02:00 Collagenase (Santyl) 1 applic DAILY TOP Last administered on 04/24/17 09:25; Admin Dose 1 APPLIC; Start 04/21/17 at 09:00 Collagenase (Santyl) 1 applic PRN PRN TOP PRN Last administered on 04/21/17 10:40; Admin Dose 1 APPLIC; Start 04/21/17 at 05:00 Enoxaparin Sodium (Lovenox) 50 mg Q12 SC Last administered on 04/23/17 21:00 ; Admin Dose 50 MG; Start 04/21/17 at 21:00 Mupirocin (Bactroban) 1 applic BID TOP Last administered on 04/24/17 09:25; Admin Dose 1 APPLIC; Start 04/21/17 at 21:00 Metoprolol Tartrate (Lopressor) 12.5 mg BID PO Last administered on 04/23/17 09:35; Admin Dose 12.5 MG; Start 04/22/17 at 21:00 Albuterol (Proventil 0.083% (Neb)) 2.5 mg Q3H PRN NEB WHEEZING AND SOB; Start 04/22/17 at 19:00 Atorvastatin Calcium (Lipitor) 20 mg QHS GTB Last administered on 04/23/17 22 :22; Admin Dose 20 MG; Start 04/22/17 at 21:00 Tamsulosin HCl 0.4 mg 0.4 mg HS PO Last administered on 04/23/17 20:56; Admin Dose 0.4 MG; Start 04/22/17 at 21:00 Clindamycin HCl/ Dextrose (Cleocin 600 Mg/ D5W (Pmx)) 50 ml @ 50 mls/hr Q8 IVPB Last administered on 04/24/17 06:04; Admin Dose 50 MLS/HR; Start 04/23/17 at 22:00 Docusate Sodium (Colace Liquid Cup) 100 mg BID GTB Last administered on 09:24; Admin Dose 100 MG; Start 04/23/17 at 21:00 Multivitamins 30 ml 30 ml DAILY GTB Last administered on 04/24/17 09:23; Admin Dose 30 ML; Start 04/24/17 at 09:00 Meropenem/Sodium Chloride 50 ml @ 100 mls/hr Q8 IVPB ; Start 04/24/17 at 14:00 Sodium Chloride (NS) 500 ml @ 500 mls/hr Q1H IV ; Start 04/24/17 at 12:00; Stop 04/24/17 at 13:59 Assessment/Plan Chief Complaint/Hosp Course IMPRESSION AND PLAN: 1. Acinetobacter UTI persistent sepsis with fevers. Possible underlying abscess. 2. Questionable PEA arrest. 3. Chronic encephalopathy. 4. Vent dependent respiratory failure. 5. Dysphagia with G-tube. 6. Drop in hemoglobin. Questionable GI bleed. REQUIREMENTS: 1. Continue tube feeding IV fluids. 2. Continue ID recommendations 3. Care. 4. DVT and GI prophylaxis. 5. Transfuse PRBCs. Block evaluation Problems: TEVIN CURRAN MD, [facility] Apr 24, 2017 12:38
[2017-04-24 12:44] LABS: TOTAL IRON BINDING CAPACITY 210 ug/dl (241-421)
[2017-04-24] MEDS ORDERED: SOD CHLORIDE 0.9% 500 ML IV ONE (14:00)
--- NOTE | 2017-04-24 14:11 | CONS ---
Date/Time of Note Date/Time of Note DATE: 04/24/17 TIME: 14:07 Assessment/Plan Assessment/Plan Chief Complaint/Hosp Course IMP: 1.AF-rate controlled 2.s/p cardiac arrest-PEA. EF 50% by echo this admit 3.encephalopathy 4.Fevers 5.anemia-worsening 6.UTI Recc: -Tele -Continue lovenox as tolerated only and would consider holding given worseing anemia requiring transfuion -Contnue po amio for now -start low dose BB as tolerated only -Continue abx's and f/u cx data -Follow MS closely -hold cardura given anemia -transfuse PRBC's and follow Hgb Problems: Consultation Date/Type/Reason Admit Date/Time Apr 19, 2017 at 10:58 Initial Consult Date 04/20/2017 Type of Consultation: cardiology Reason for Consultation cardiac arrest Referring Provider: ZOE ALEXANDRA Exam/Review of Systems Vital Signs Vitals Vital Signs Date Time Temp Pulse Resp B/P Pulse Ox O2 Delivery O2 Flow Rate FiO2 04/24/17 13:50 63 19 100 30 04/24/17 10:59 97.7 83/51 04/22/17 11:58 Mechanical Ventilator Intake and Output 04/23/17 04/23/17 04/24/17 15:00 23:00 07:00 Intake Total 1010 ml 1070 ml Output Total 400 ml 550 ml Balance 610 ml 520 ml Exam Review of Systems: CONSTITUTIONAL: No fevers, chills. PULMONARY: No sob CARDIOVASCULAR: No chest pain/palpitations GASTROINTESTINAL: No nausea/vomiting. GENITOURINARY: No hematuria/dysuria. MUSCULOSKELETAL: No myagias/arthalgias. PSYCHIATRIC: The patient denies depression. NEUROLOGIC: No weakness Constitutional: alert Psych: no complaints Head: normocephalic ENMT: mucosa pink and moist Neck: jvd (8 cm water), other (trached), supple Respiratory: other (upper airway rhonchi) Cardiovascular: regular rate and rhythm Gastrointestinal: non-tender, soft Musculoskeletal: muscle weakness (generalized) Extremities: edema (none), other (Contracted) Neurological: unresponsive Results Result Diagram: 04/24/17 0631 04/24/17 0631 Results 24 hrs Laboratory Tests Test 04/24/17 06:28 04/24/17 06:30 04/24/17 06:31 Iron Level < 10 L Total Iron Binding Capacity 210 L Percent Iron Saturation Vitamin B12 Level > 1000 H Urine Color YELLOW Urine Clarity CLOUDY A Urine pH 5.0 Urine Specific [place] 1.019 Urine Ketones NEGATIVE Urine Nitrite NEGATIVE Urine Bilirubin NEGATIVE Urine Urobilinogen 1+ H Urine Leukocyte Esterase NEGATIVE Urine Microscopic RBC 23 H Urine Microscopic WBC 9 H Urine Squamous Epithelial Cells FEW Urine Bacteria FEW A Urine Mucus FEW A Urine Hemoglobin 1+ H Urine Glucose NEGATIVE Urine Total Protein 1+ H White Blood Count 8.7 # Red Blood Count 1.99 L Hemoglobin 6.5 *L Hematocrit 21.0 L Mean Corpuscular Volume 105.5 H Mean Corpuscular Hemoglobin 32.7 Mean Corpuscular Hemoglobin Concent 31.0 L Red Cell Distribution Width 17.3 H Platelet Count 86 L Mean Platelet Volume 13.1 H Neutrophils % Segmented Neutrophils % (Manual) 84 H Band Neutrophils % (Manual) 6 H Lymphocytes % Lymphocytes % (Manual) 10 L Monocytes % Eosinophils % Basophils % Nucleated Red Blood Cells % 1 H Neutrophils # Neutrophils # (Manual) 7.4 Band Neutrophils # 0.5 Absolute Lymphocytes (Manual) 0.8 Lymphocytes # Monocytes # Eosinophils # Basophils # Nucleated Red Blood Cells # Platelet Estimate DECREASED Polychromasia 3+ Anisocytosis 1+ Macrocytosis 1+ Sodium Level 144 Potassium Level 3.9 Chloride Level 112 H Carbon Dioxide Level 28 Anion Gap 8 Blood Urea Nitrogen 42 H Creatinine 0.96 Glucose Level 144 Calcium Level 7.4 L Creatine Kinase 1286 H Medications Medications Current Medications Ondansetron HCl (Zofran Inj) 4 mg Q6H PRN IV NAUSEA AND/OR VOMITING; Start at 12:00 Acetaminophen (Tylenol Tab) 650 mg Q6H PRN PO PAIN LEVEL 1-3 OR FEVER Last administered on 04/20/17 19:01; Admin Dose 650 MG; Start 04/19/17 at 12:00 Acetaminophen/ Hydrocodone Bitart ([place] (5/325)) 1 tab Q6H PRN PO MODERATE PAIN LEVEL 4-6; Start 04/19/17 at 12:00 Morphine Sulfate (morphine) 2 mg Q4H PRN IV SEVERE PAIN LEVEL 7-10 Last administered on 04/20/17 23:43; Admin Dose 2 MG; Start 04/19/17 at 12:00 Magnesium Hydroxide (Milk Of Mag) 30 ml DAILY PRN PO CONSTIPATION; Start 04/19 at 12:00 Sodium Biphosphate/ Sodium Phosphate (Fleet Enema) 133 ml DAILY PRN [place] CONSTIPATION; Start 04/19/17 at 12:00 Nitroglycerin (Nitroglycerin (Sl Tab) 0.4 Mg) 1 tab Q5M PRN SL ANGINA; Start 04/19/17 at 12:00 Amiodarone HCl (Cordarone) 200 mg DAILY GTB Last administered on 04/24/17 09: 24; Admin Dose 200 MG; Start 04/20/17 at 09:00 Carbidopa/Levodopa (Sinemet (/ )) 1 tab QID GTB Last administered on 04/24 13:12; Admin Dose 1 TAB; Start 04/19/17 at 13:00 Chlorhexidine Gluconate (Peridex) 15 ml Q12 MM Last administered on 04/24/17 09:23; Admin Dose 15 ML; Start 04/19/17 at 21:00 Doxazosin Mesylate (Cardura) 8 mg DAILY GTB Last administered on 04/23/17 09: 32; Admin Dose 8 MG; Start 04/20/17 at 09:00 Ferrous Sulfate (Ferrous Sulfate (Ec)) 330 mg TID PO Last administered on 04/24 13:12; Admin Dose 330 MG; Start 04/19/17 at 13:00 Lactobacillus Acidophilus/ Rhamnosus (Culturelle) 1 cap DAILY PO Last administered on 04/24/17 09:25; Admin Dose 1 CAP; Start 04/20/17 at 09:00 Ascorbic Acid (Vitamin C) 500 mg BID GTB Last administered on 04/24/17 09:25 ; Admin Dose 500 MG; Start 04/19/17 at 21:00 Lorazepam (Ativan) 2 mg Q10MIN PRN IV seisure Last administered on 04/19/17 17:33; Admin Dose 2 MG; Start 04/19/17 at 17:30 Acetaminophen (Tylenol Liquid) 650 mg Q6H PRN GTB PAIN AND OR ELEVATED TEMP Last administered on 04/24/17 09:24; Admin Dose 650 MG; Start 04/20/17 at 19: 00 Miscellaneous Information (Pending Santyl Order For Wound Care) This patient galdamez... PRN PRN XX WOUND CARE; Start 04/21/17 at 02:00 Collagenase (Santyl) 1 applic DAILY TOP Last administered on 04/24/17 09:25; Admin Dose 1 APPLIC; Start 04/21/17 at 09:00 Collagenase (Santyl) 1 applic PRN PRN TOP PRN Last administered on 04/21/17 10:40; Admin Dose 1 APPLIC; Start 04/21/17 at 05:00 Enoxaparin Sodium (Lovenox) 50 mg Q12 SC Last administered on 04/23/17 21:00 ; Admin Dose 50 MG; Start 04/21/17 at 21:00 Mupirocin (Bactroban) 1 applic BID TOP Last administered on 04/24/17 09:25; Admin Dose 1 APPLIC; Start 04/21/17 at 21:00 Metoprolol Tartrate (Lopressor) 12.5 mg BID PO Last administered on 04/23/17 09:35; Admin Dose 12.5 MG; Start 04/22/17 at 21:00 Albuterol (Proventil 0.083% (Neb)) 2.5 mg Q3H PRN NEB WHEEZING AND SOB; Start 04/22/17 at 19:00 Atorvastatin Calcium (Lipitor) 20 mg QHS GTB Last administered on 04/23/17 22 :22; Admin Dose 20 MG; Start 04/22/17 at 21:00 Tamsulosin HCl 0.4 mg 0.4 mg HS PO Last administered on 04/23/17 20:56; Admin Dose 0.4 MG; Start 04/22/17 at 21:00 Clindamycin HCl/ Dextrose (Cleocin 600 Mg/ D5W (Pmx)) 50 ml @ 50 mls/hr Q8 IVPB Last administered on 04/24/17 06:04; Admin Dose 50 MLS/HR; Start 04/23/17 at 22:00 Docusate Sodium (Colace Liquid Cup) 100 mg BID GTB Last administered on 09:24; Admin Dose 100 MG; Start 04/23/17 at 21:00 Multivitamins 30 ml 30 ml DAILY GTB Last administered on 04/24/17 09:23; Admin Dose 30 ML; Start 04/24/17 at 09:00 Meropenem/Sodium Chloride 50 ml @ 100 mls/hr Q8 IVPB ; Start 04/24/17 at 14:00 Sodium Chloride (NS) 500 ml @ 500 mls/hr Q1H ONCE IV ; Start 04/24/17 at 14:00 ; Stop 04/24/17 at 14:59 ELVIS HINTON Apr 24, 2017 14:10
--- NOTE | 2017-04-24 15:33 | PN ---
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 Hospitalization complicated by sepsis 2/2 UTI v chest wall wound, now with progressive anemia of unclear etiology #anemia: etio unclear. FOBT negative so no evidence of GI blood loss. MCV high -transfuse 1 unit pRBCs, hold lovenox -re macrocytosis, TFTs not grossly abnormal. check folate. will also check iron despite macrocytosis #cardiac arrest with ROSC cardiology on consult, etio of cardiac arrest unclear cont cardiac meds HOLD LOVENOX GIVEN PROGRESSIVE ANEMIA #sepsis from UTI v chest wall wound ID on consult, abx expanded from tobra to meropenem, pt remains on clinda Of note, given size of chest wall wound, cannot rule out underlying abscess/ fluid collection. defer work up to ID team goals of care: talked to pt's sister ashlee to get blood transfusion consent. she told RN and I that she wants "everything done" to prolong her brother's life. Subjective 24 Hr Interval Summary Free Text/Dictation still febrile Exam/Review of Systems Vital Signs Vitals Vital Signs Date Time Temp Pulse Resp B/P Pulse Ox O2 Delivery O2 Flow Rate FiO2 04/24/17 15:10 98.1 67 19 85/54 99 04/24/17 13:50 30 04/22/17 11:58 Mechanical Ventilator Intake and Output 04/23/17 04/23/17 04/24/17 15:00 23:00 07:00 Intake Total 1010 ml 1070 ml Output Total 400 ml 550 ml Balance 610 ml 520 ml Exam doesn't follow commands lungs clear no mrg abd soft no rashes Results Result Diagram: 04/24/17 0631 04/24/17 0631 Results 24 hrs Laboratory Tests Test 04/24/17 06:28 04/24/17 06:30 04/24/17 06:31 04/24/17 14:09 Iron Level < 10 L Total Iron Binding Capacity 210 L Percent Iron Saturation Vitamin B12 Level > 1000 H Urine Color YELLOW Urine Clarity CLOUDY A Urine pH 5.0 Urine Specific [place] 1.019 Urine Ketones NEGATIVE Urine Nitrite NEGATIVE Urine Bilirubin NEGATIVE Urine Urobilinogen 1+ H Urine Leukocyte Esterase NEGATIVE Urine Microscopic RBC 23 H Urine Microscopic WBC 9 H Urine Squamous Epithelial Cells FEW Urine Bacteria FEW A Urine Mucus FEW A Urine Hemoglobin 1+ H Urine Glucose NEGATIVE Urine Total Protein 1+ H White Blood Count 8.7 # Red Blood Count 1.99 L Hemoglobin 6.5 *L Hematocrit 21.0 L Mean Corpuscular Volume 105.5 H Mean Corpuscular Hemoglobin 32.7 Mean Corpuscular Hemoglobin Concent 31.0 L Red Cell Distribution Width 17.3 H Platelet Count 86 L Mean Platelet Volume 13.1 H Neutrophils % Segmented Neutrophils % (Manual) 84 H Band Neutrophils % (Manual) 6 H Lymphocytes % Lymphocytes % (Manual) 10 L Monocytes % Eosinophils % Basophils % Nucleated Red Blood Cells % 1 H Neutrophils # Neutrophils # (Manual) 7.4 Band Neutrophils # 0.5 Absolute Lymphocytes (Manual) 0.8 Lymphocytes # Monocytes # Eosinophils # Basophils # Nucleated Red Blood Cells # Platelet Estimate DECREASED Polychromasia 3+ Anisocytosis 1+ Macrocytosis 1+ Sodium Level 144 Potassium Level 3.9 Chloride Level 112 H Carbon Dioxide Level 28 Anion Gap 8 Blood Urea Nitrogen 42 H Creatinine 0.96 Glucose Level 144 Calcium Level 7.4 L Creatine Kinase 1286 H Lactic Acid Level 1.4 Medications Medications Current Medications Ondansetron HCl (Zofran Inj) 4 mg Q6H PRN IV NAUSEA AND/OR VOMITING; Start at 12:00 Acetaminophen (Tylenol Tab) 650 mg Q6H PRN PO PAIN LEVEL 1-3 OR FEVER Last administered on 04/20/17 19:01; Admin Dose 650 MG; Start 04/19/17 at 12:00 Acetaminophen/ Hydrocodone Bitart ([place] (5/325)) 1 tab Q6H PRN PO MODERATE PAIN LEVEL 4-6; Start 04/19/17 at 12:00 Morphine Sulfate (morphine) 2 mg Q4H PRN IV SEVERE PAIN LEVEL 7-10 Last administered on 04/20/17 23:43; Admin Dose 2 MG; Start 04/19/17 at 12:00 Magnesium Hydroxide (Milk Of Mag) 30 ml DAILY PRN PO CONSTIPATION; Start 04/19 at 12:00 Sodium Biphosphate/ Sodium Phosphate (Fleet Enema) 133 ml DAILY PRN [place] CONSTIPATION; Start 04/19/17 at 12:00 Nitroglycerin (Nitroglycerin (Sl Tab) 0.4 Mg) 1 tab Q5M PRN SL ANGINA; Start 04/19/17 at 12:00 Amiodarone HCl (Cordarone) 200 mg DAILY GTB Last administered on 04/24/17 09: 24; Admin Dose 200 MG; Start 04/20/17 at 09:00 Carbidopa/Levodopa (Sinemet (/ )) 1 tab QID GTB Last administered on 04/24 13:12; Admin Dose 1 TAB; Start 04/19/17 at 13:00 Chlorhexidine Gluconate (Peridex) 15 ml Q12 MM Last administered on 04/24/17 09:23; Admin Dose 15 ML; Start 04/19/17 at 21:00 Doxazosin Mesylate (Cardura) 8 mg DAILY GTB Last administered on 04/23/17 09: 32; Admin Dose 8 MG; Start 04/20/17 at 09:00; Status Future Hold Ferrous Sulfate (Ferrous Sulfate (Ec)) 330 mg TID PO Last administered on 04/24 13:12; Admin Dose 330 MG; Start 04/19/17 at 13:00 Lactobacillus Acidophilus/ Rhamnosus (Culturelle) 1 cap DAILY PO Last administered on 04/24/17 09:25; Admin Dose 1 CAP; Start 04/20/17 at 09:00 Ascorbic Acid (Vitamin C) 500 mg BID GTB Last administered on 04/24/17 09:25 ; Admin Dose 500 MG; Start 04/19/17 at 21:00 Lorazepam (Ativan) 2 mg Q10MIN PRN IV seisure Last administered on 04/19/17 17:33; Admin Dose 2 MG; Start 04/19/17 at 17:30 Acetaminophen (Tylenol Liquid) 650 mg Q6H PRN GTB PAIN AND OR ELEVATED TEMP Last administered on 04/24/17 09:24; Admin Dose 650 MG; Start 04/20/17 at 19: 00 Miscellaneous Information (Pending [facility] Order For Wound Care) This patient galdamez... PRN PRN XX WOUND CARE; Start 04/21/17 at 02:00 Collagenase (Santyl) 1 applic DAILY TOP Last administered on 04/24/17 09:25; Admin Dose 1 APPLIC; Start 04/21/17 at 09:00 Collagenase (Santyl) 1 applic PRN PRN TOP PRN Last administered on 04/21/17 10:40; Admin Dose 1 APPLIC; Start 04/21/17 at 05:00 Enoxaparin Sodium (Lovenox) 50 mg Q12 SC Last administered on 04/23/17 21:00 ; Admin Dose 50 MG; Start 04/21/17 at 21:00 Mupirocin (Bactroban) 1 applic BID TOP Last administered on 04/24/17 09:25; Admin Dose 1 APPLIC; Start 04/21/17 at 21:00 Metoprolol Tartrate (Lopressor) 12.5 mg BID PO Last administered on 04/23/17 09:35; Admin Dose 12.5 MG; Start 04/22/17 at 21:00 Albuterol (Proventil 0.083% (Neb)) 2.5 mg Q3H PRN NEB WHEEZING AND SOB; Start 04/22/17 at 19:00 Atorvastatin Calcium (Lipitor) 20 mg QHS GTB Last administered on 04/23/17 22 :22; Admin Dose 20 MG; Start 04/22/17 at 21:00 Tamsulosin HCl 0.4 mg 0.4 mg HS PO Last administered on 04/23/17 20:56; Admin Dose 0.4 MG; Start 04/22/17 at 21:00 Clindamycin HCl/ Dextrose (Cleocin 600 Mg/ D5W (Pmx)) 50 ml @ 50 mls/hr Q8 IVPB Last administered on 04/24/17 06:04; Admin Dose 50 MLS/HR; Start 04/23/17 at 22:00 Docusate Sodium (Colace Liquid Cup) 100 mg BID GTB Last administered on 09:24; Admin Dose 100 MG; Start 04/23/17 at 21:00 Multivitamins 30 ml 30 ml DAILY GTB Last administered on 04/24/17 09:23; Admin Dose 30 ML; Start 04/24/17 at 09:00 Meropenem/Sodium Chloride (Merrem 500mg/50 ml(Pmx)) 50 ml @ 100 mls/hr Q8 IVPB ; Start 04/24/17 at 14:00 VIRGILIO MCCALL MD Apr 24, 2017 15:33
[2017-04-24] MEDS: MEROPENEM 500MG/50 ML (PMX) 50 ML IVPB SCH (15:40)
--- NOTE | 2017-04-24 15:56 | PN ---
DATE: 04/24/2017 SUBJECTIVE: The patient remains clinically unchanged, continues to spike fever with a T-max 103.1 t his morning. DIAGNOSTICS: Chest x-ray this morning revealed increased right lower lobe infiltrate. INDWELLINGS: Trach, PEG, [place]. ANTIMICROBIALS: He was started on meropenem also on IV clindamycin. MICROBIOLOGY: Chest wall grew MRSA. Urine culture on admission grew Acinetobacter baumannii. Nare s swab positive for MRSA. PHYSICAL EXAMINATION: GENERAL: This is a chronically ill-appearing, elderly man who is noncommunicative, in no distress. HEENT: Head atraumatic, normocephalic. Sclerae anicteric. Buccal mucosa dry. NECK: Supple, tracheostomy present. CHEST: Rise symmetrical. Breath sounds diminished to bases. HEART: S1, S2. ABDOMEN: Soft. Bowel tones present. EXTREMITIES: Wasted, contractured without cyanosis. ASSESSMENT: 1. Ongoing fevers. 2. Status post septic shock. 3. Healthcare-associated pneumonia. 4. 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 5. Methicillin-resistant Staphylococcus aureus nares colonization. 6. Anoxic encephalopathy status post cardiopulmonary arrest. PLAN: The patient remains clinically unchanged, again, with ongoing fevers. LABORATORY DATA: WBC today decreased to 8.7. He is FULL CODE. We will keep him on current antibio tics. We will order CT abdomen, chest and pelvis given high fever to rule out occult abscess. Dictated By: ALLIE GODOY [employer]IANCES CONSULTANT for ESTEFANY MEDINA/DEYVI Conf#: [id number] DID#: [id number]
[2017-04-24] MEDS ORDERED: NORepinephrine 8MG/250 ML (PMX 250 ML IV SCH (16:00)
[2017-04-24] MEDS ORDERED: BARIUM SULF 2% 450 ML BTL (BERRY SMOOTHIE) PO ONE (16:00)
--- NOTE | 2017-04-24 17:42 | CONS ---
Date/Time of Note Date/Time of Note DATE: 04/24/17 TIME: 17:23 Assessment/Plan Assessment/Plan Chief Complaint/Hosp Course Assessment: Anemia Hypotension Chronic encephalopathy Respiratory failure Sepsis UTI Chest wall wound Status post cardiac arrest Plan: Colonoscopy when patient is hemodynamically stable or emergently needs intervention Transfuse for hemoglobin less than 7.5 Plan discussed with the nursing staff. Consultation performed in collaboration with Dr. Leal Problems: Consultation Date/Type/Reason Admit Date/Time Apr 19, 2017 at 10:58 Date of Consultation: Apr 24, 2017 Reason for Consultation GI Hx of Present Illness This is a 76-year-old male with a history of cardiac arrest and anoxic brain injury as a result he has chronic encephalopathy. 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 Was admitted from SNF following PEA cardiac arrest. Ring the course of hospitalization patient developed UTI sepsis and a chest wall wound. Past Medical History Unable to obtain due to tracheostomy Social History Smoking Status: Unknown if ever smoked Exam/Review of Systems Vital Signs Vitals Vital Signs Date Time Temp Pulse Resp B/P Pulse Ox O2 Delivery O2 Flow Rate FiO2 04/24/17 16:59 77 04/24/17 15:14 20 98 30 04/24/17 15:10 98.1 85/54 04/22/17 11:58 Mechanical Ventilator Intake and Output 04/23/17 04/23/17 04/24/17 15:00 23:00 07:00 Intake Total 1010 ml 1070 ml Output Total 400 ml 550 ml Balance 610 ml 520 ml Exam PHYSICAL EXAMINATION: GENERAL: Cachectic with multiple contractures. Ventilator dependent SKIN: Scattered skin lesions, no stigmata chronic liver disease, no evidence of bleeding diathesis LYMPHATIC: No palpable lymphadenopathy. HEAD: Normocephalic, atraumatic, no tenderness. EYES: Pupils equal reactive to light and accommodation, full extraocular movements, sclera clear, non-icteric, no discharge. EARS/NOSE AND THROAT: Ears normal, nose normal, oropharynx normal, oral membranes well hydrated without lesions. NECK: Supple, no masses, thyroid normal. Tracheostomy in place CHEST: Inspection within normal limits. CARDIOVASCULAR: Heart: Regular rate and rhythm, no murmurs, gallops or rubs. Peripheral pulses present within normal limits, no cyanosis, clubbing or edemas. No pulsatile abdominal mass RESPIRATORY: Lungs clear to auscultation and percussion, no wheezing, no rubs GASTROINTESTINAL AND LIVER: Abdomen: Soft, non tenderness, non-distended, no hernias, no masses, no organomegaly, no ascites, no guarding, no rebound tenderness, normoactive bowel sounds. Rectal: Deferred. GENITOURINARY: Male genitalia within normal limits. EXTREMITIES: No cyanosis, clubbing or edema. Contractures present Results Result Diagram: 04/24/17 0631 04/24/17 0631 Results 24 hrs Laboratory Tests Test 04/24/17 06:28 04/24/17 06:30 04/24/17 06:31 04/24/17 14:09 Iron Level < 10 L Total Iron Binding Capacity 210 L Percent Iron Saturation Vitamin B12 Level > 1000 H Urine Color YELLOW Urine Clarity CLOUDY A Urine pH 5.0 Urine Specific [place] 1.019 Urine Ketones NEGATIVE Urine Nitrite NEGATIVE Urine Bilirubin NEGATIVE Urine Urobilinogen 1+ H Urine Leukocyte Esterase NEGATIVE Urine Microscopic RBC 23 H Urine Microscopic WBC 9 H Urine Squamous Epithelial Cells FEW Urine Bacteria FEW A Urine Mucus FEW A Urine Hemoglobin 1+ H Urine Glucose NEGATIVE Urine Total Protein 1+ H White Blood Count 8.7 # Red Blood Count 1.99 L Hemoglobin 6.5 *L Hematocrit 21.0 L Mean Corpuscular Volume 105.5 H Mean Corpuscular Hemoglobin 32.7 Mean Corpuscular Hemoglobin Concent 31.0 L Red Cell Distribution Width 17.3 H Platelet Count 86 L Mean Platelet Volume 13.1 H Neutrophils % Segmented Neutrophils % (Manual) 84 H Band Neutrophils % (Manual) 6 H Lymphocytes % Lymphocytes % (Manual) 10 L Monocytes % Eosinophils % Basophils % Nucleated Red Blood Cells % 1 H Neutrophils # Neutrophils # (Manual) 7.4 Band Neutrophils # 0.5 Absolute Lymphocytes (Manual) 0.8 Lymphocytes # Monocytes # Eosinophils # Basophils # Nucleated Red Blood Cells # Platelet Estimate DECREASED Polychromasia 3+ Anisocytosis 1+ Macrocytosis 1+ Sodium Level 144 Potassium Level 3.9 Chloride Level 112 H Carbon Dioxide Level 28 Anion Gap 8 Blood Urea Nitrogen 42 H Creatinine 0.96 Glucose Level 144 Calcium Level 7.4 L Creatine Kinase 1286 H Lactic Acid Level 1.4 Medications Medications Current Medications Ondansetron HCl (Zofran Inj) 4 mg Q6H PRN IV NAUSEA AND/OR VOMITING; Start at 12:00 Acetaminophen (Tylenol Tab) 650 mg Q6H PRN PO PAIN LEVEL 1-3 OR FEVER Last administered on 04/20/17 19:01; Admin Dose 650 MG; Start 04/19/17 at 12:00 Acetaminophen/ Hydrocodone Bitart ([place] (5/325)) 1 tab Q6H PRN PO MODERATE PAIN LEVEL 4-6; Start 04/19/17 at 12:00 Morphine Sulfate (morphine) 2 mg Q4H PRN IV SEVERE PAIN LEVEL 7-10 Last administered on 04/20/17 23:43; Admin Dose 2 MG; Start 04/19/17 at 12:00 Magnesium Hydroxide (Milk Of Mag) 30 ml DAILY PRN PO CONSTIPATION; Start 04/19 at 12:00 Sodium Biphosphate/ Sodium Phosphate (Fleet Enema) 133 ml DAILY PRN CO CONSTIPATION; Start 04/19/17 at 12:00 Nitroglycerin (Nitroglycerin (Sl Tab) 0.4 Mg) 1 tab Q5M PRN SL ANGINA; Start 04/19/17 at 12:00 Amiodarone HCl (Cordarone) 200 mg DAILY GTB Last administered on 04/24/17 09: 24; Admin Dose 200 MG; Start 04/20/17 at 09:00 Carbidopa/Levodopa (Sinemet (25/ 100)) 1 tab QID GTB Last administered on 04/24 13:12; Admin Dose 1 TAB; Start 04/19/17 at 13:00 Chlorhexidine Gluconate (Peridex) 15 ml Q12 MM Last administered on 04/24/17 09:23; Admin Dose 15 ML; Start 04/19/17 at 21:00 Doxazosin Mesylate (Cardura) 8 mg DAILY GTB Last administered on 04/23/17 09: 32; Admin Dose 8 MG; Start 04/20/17 at 09:00; Status Future Hold Ferrous Sulfate (Ferrous Sulfate (Ec)) 330 mg TID PO Last administered on 04/24 13:12; Admin Dose 330 MG; Start 04/19/17 at 13:00 Lactobacillus Acidophilus/ Rhamnosus (Culturelle) 1 cap DAILY PO Last administered on 04/24/17 09:25; Admin Dose 1 CAP; Start 04/20/17 at 09:00 Ascorbic Acid (Vitamin C) 500 mg BID GTB Last administered on 04/24/17 09:25 ; Admin Dose 500 MG; Start 04/19/17 at 21:00 Lorazepam (Ativan) 2 mg Q10MIN PRN IV seisure Last administered on 04/19/17 17:33; Admin Dose 2 MG; Start 04/19/17 at 17:30 Acetaminophen (Tylenol Liquid) 650 mg Q6H PRN GTB PAIN AND OR ELEVATED TEMP Last administered on 04/24/17 09:24; Admin Dose 650 MG; Start 04/20/17 at 19: 00 Miscellaneous Information (Pending Santyl Order For Wound Care) This patient galdamez... PRN PRN XX WOUND CARE; Start 04/21/17 at 02:00 Collagenase (Santyl) 1 applic DAILY TOP Last administered on 04/24/17 09:25; Admin Dose 1 APPLIC; Start 04/21/17 at 09:00 Collagenase (Santyl) 1 applic PRN PRN TOP PRN Last administered on 04/21/17 10:40; Admin Dose 1 APPLIC; Start 04/21/17 at 05:00 Enoxaparin Sodium (Lovenox) 50 mg Q12 SC Last administered on 04/23/17 21:00 ; Admin Dose 50 MG; Start 04/21/17 at 21:00; Status Future Hold Mupirocin (Bactroban) 1 applic BID TOP Last administered on 04/24/17 09:25; Admin Dose 1 APPLIC; Start 04/21/17 at 21:00 Metoprolol Tartrate (Lopressor) 12.5 mg BID PO Last administered on 04/23/17 09:35; Admin Dose 12.5 MG; Start 04/22/17 at 21:00 Albuterol (Proventil 0.083% (Neb)) 2.5 mg Q3H PRN NEB WHEEZING AND SOB; Start 04/22/17 at 19:00 Atorvastatin Calcium (Lipitor) 20 mg QHS GTB Last administered on 04/23/17 22 :22; Admin Dose 20 MG; Start 04/22/17 at 21:00 Tamsulosin HCl 0.4 mg 0.4 mg HS PO Last administered on 04/23/17 20:56; Admin Dose 0.4 MG; Start 04/22/17 at 21:00 Clindamycin HCl/ Dextrose (Cleocin 600 Mg/ D5W (Pmx)) 50 ml @ 50 mls/hr Q8 IVPB Last administered on 04/24/17 06:04; Admin Dose 50 MLS/HR; Start 04/23/17 at 22:00 Docusate Sodium (Colace Liquid Cup) 100 mg BID GTB Last administered on 09:24; Admin Dose 100 MG; Start 04/23/17 at 21:00 Multivitamins 30 ml 30 ml DAILY GTB Last administered on 04/24/17 09:23; Admin Dose 30 ML; Start 04/24/17 at 09:00 Meropenem/Sodium Chloride (Merrem 500mg/50 ml(Pmx)) 50 ml @ 100 mls/hr Q8 IVPB Last administered on 04/24/17 15:40; Admin Dose 100 MLS/HR; Start 04/24/17 at 14:00 Copies To: CC: DHEERAJ LEAL MD, ANASTASIA NP Apr 24, 2017 17:34
[2017-04-24] MEDS ORDERED: ALTEPLASE (CATHFLO) 2 MG INJ CATHETER PRN (18:30)
[2017-04-24] MEDS ORDERED: ALTEPLASE (CATHFLO) 2 MG INJ CATHETER ONE (19:30)
[2017-04-24] MEDS: ATORVASTATIN 20 MG TAB GTB SCH (21:00)
[2017-04-24] MEDS: TAMSULOSIN (SR) 0.4 MG CAP PO SCH (21:00)
[2017-04-24] MEDS ORDERED: SOD CHLORIDE 0.9% 100 ML ONE (22:49)
[2017-04-24] MEDS ORDERED: IODIXANOL LOCM 100 ML BTL ONE (22:49)
--- NOTE | 2017-04-24 23:15 | RADRPT ---
PROCEDURE: CT Chest without contrast. CLINICAL INDICATION: Fever. Possible abscess or infection. TECHNIQUE: CT scan of the chest without contrast was performed on a multidetector high-resolution C T scanner. Coronal and sagittal reformatted images were obtained from the axial source images. The total exam CTDI equals 10.29 mGy and the total exam DLP equals 391.31 mGy-cm. DICOM images are avail able. One or more of the following dose reduction techniques were used: - Automated exposure control. - Adjustment of the mA and/or kV according to patient size. - Use of iterative reconstruction technique. COMPARISON: Chest x-ray dated 04/24/2017. FINDINGS: Lungs, pleura, airways, and thoracic inlet: There is consolidation within the bilateral dependent l ower lobes and tree in bud opacity throughout the remaining portions of the basilar lower lobes, lef t greater than right. There is also patchy consolidation within the dependent left upper lobe. There are scattered subpleural ground-glass opacities in both upper lobes and there are patchy tree in bu d opacities in the lingula, right middle lobe, and inferior right upper lobe. There is mild interlob ular septal thickening scattered throughout both lungs, most pronounced at the lung bases. There is no pneumothorax. There are small bilateral pleural effusions. There is a well-positioned tracheostom y in place. Cardiovascular system, mediastinum, and lymphatics: There is four-chamber cardiac enlargement witho ut pericardial thickening or effusion. There has been prior median sternotomy. There is a left-sided PICC with its tip in the mid SVC. There are multivessel coronary artery calcifications. There are a therosclerotic changes of the aorta, which is nonaneurysmal. There are calcified mediastinal lymph n odes, consistent with prior granulomatous disease. There are enlarged noncalcified paratracheal node s with a dominant node measuring 12 mm. Visualized upper abdomen: There is a percutaneous gastrostomy tube in place. There is moderate mult ilevel degenerative enthesopathy. Musculoskeletal system and soft tissues: There are fractures of the anterolateral right second thro ugh seventh ribs and anterolateral left 2nd through 6th ribs, which appears subacute in nature, whic h correspond to the regions of ground-glass opacity within the lungs. There are no concerning osseou s lesions. There is nonspecific focal fluid density within the ventral right mid chest subcutaneous fat measuring 3.5 cm. IMPRESSION: 1. Consolidation within the dependent bilateral lower lobes, which may reflect aspiration or pneumo koki. Small bilateral pleural effusions. Extensive bronchiolitis throughout the remaining basilar low er lobes, lingula, and inferior right upper lobe and right middle lobe. 2. Four-chamber cardiac enlargement with findings suggestive of mild pulmonary edema. Correlate cli nically for CHF. 3. Fractures of the anterolateral right second through seventh ribs and anterolateral left 2nd thro ugh 6th ribs, which appears subacute in nature. Ground-glass opacities within the underlying lung pa renchyma in the regions of the fractures, suggestive of pulmonary contusion. 4. Nonspecific focal fluid density within the ventral right mid chest subcutaneous fat measuring 3. 5 cm, possibly a seroma. Underlying infection is not excluded. 5. Mediastinal adenopathy, likely reactive in nature. 6. Multivessel coronary artery calcifications and atherosclerotic changes of the aorta. RPTAT: HLBP .King Anaya MD, Date Time Electronically viewed and signed by .King Anaya MD, MD on 04/24/2017 23:15 .P/
[2017-04-25] VITALS (31 sets, daily range): BP systolic 84–147; BP diastolic 51–85; PULSE 80–124; RESP 0–29
[2017-04-25] MEDS: MEROPENEM 500MG/50 ML (PMX) 50 ML IVPB SCH ×4 (00:04→22:21)
[2017-04-25] MEDS: CLINDAMYCIN 600 MG/D5W (PMX) 50 ML IVPB SCH ×4 (00:04→22:29)
[2017-04-25] MEDS: CHLORHEXIDINE GLUCONATE 15 ML UD CUP MM SCH ×3 (00:09→21:02)
[2017-04-25] MEDS: LORAZEPAM 2 MG INJ IV PRN (04:06)
[2017-04-25 06:29] LABS: ABNORMAL IP MESSAGE 1; BASOPHILS % 0.1 % (0.0-2.0); HEMATOCRIT 24.2 % (42.0-52.0); HEMOGLOBIN 7.8 g/dl (14.0-18.0); LYMPHOCYTES # 0.5 10^3/ul (0.8-2.9); LYMPHOCYTES % 5.8 % (15.0-51.0); MEAN CORPUSCULAR HEMOGLOBIN 32.8 pg (29.0-33.0); MEAN CORPUSCULAR HGB CONC 32.2 g/dl (32.0-37.0); MEAN CORPUSCULAR VOLUME 101.7 fl (82.0-101.0); MEAN PLATELET VOLUME 13.2 fl (7.4-10.4); MONOCYTE # 0.5 10^3/ul (0.3-0.9); MONOCYTES % 6.6 % (0.0-11.0); NEUTROPHIL # 7.1 10^3/ul (1.6-7.5); NEUTROPHILS % 86.6 % (39.0-77.0); NUCLEATED RED BLOOD CELLS # 0.2 10^3/ul (0.0-0.0); NUCLEATED RED BLOOD CELLS% 1.8 /100WBC (0.0-0.0); PLATELET COUNT 101 10^3/UL (140-415); POSITIVE DIFF @See below; RED BLOOD COUNT 2.38 10^6/ul (4.70-6.10); RED CELL DISTRIBUTION WIDTH 19.2 % (11.5-14.5); WHITE BLOOD COUNT 8.2 10^3/ul (4.8-10.8)
[2017-04-25 07:11] LABS: CALCIUM 7.3 mg/dl (8.4-10.2); CREATININE 1.05 mg/dl (0.61-1.24); POTASSIUM 4.6 mmol/L (3.5-5.1)
--- NOTE | 2017-04-25 08:38 | RADRPT ---
PROCEDURE: CT Abdomen and Pelvis with contrast. CLINICAL INDICATION: Abdominal pain TECHNIQUE: CT scan of the abdomen and pelvis with contrast was performed on a multidetector high-r esolution CT scanner. Coronal and sagittal reformatted images were obtained from the axial source im ages. Images were reviewed on a high-resolution PACS workstation. 80 cc of Isovue 300 iodinated cont rast was administered intravenously without reported complication. The total exam CTDI equals 13 mG y and the total exam DLP equals 667 mGy-cm. One or more of the following dose reduction techniques were used: Automated exposure control, Adjustment of the mA and/or kV according to patient size, and /or use of iterative reconstruction technique. DICOM images are available. COMPARISON: None. FINDINGS: Partially imaged right sixth and seventh rib minimally displaced fractures. Coronary arterial and ao rtic atherosclerosis. Small bilateral pleural effusions, right greater than left, with bibasilar ate lectasis/consolidation. No suspicious hepatic mass. Portal vein is patent. No pancreatic ductal dilatation. Spleen and adren als are unremarkable. Gastrostomy tube identified. Gallbladder is contracted. Mild scattered abdomin al and pelvic ascites. No hydronephrosis. No obstructing renal stone. No evidence of small bowel obstruction. Moderate stool throughout the colon. No significant retroperitoneal lymphadenopathy or evidence of pneumoperitoneum. Taylor catheter in pl [place]. Diffuse anasarca. Aortoiliac atherosclerosis. No well-defined rim-enhancing fluid collection. 6 mm rounded hyperdensit y within the left psoas muscle. Enlarged prostate gland with central calcifications. Blunted appearance of the right femoral head with chronic-appearing dislocation and periarticular os sification/calcification. Probable right hip joint effusion with synovitis. IMPRESSION: Partially imaged right sixth and seventh rib minimally displaced fractures. Coronary arterial and aortic atherosclerosis. Small bilateral pleural effusions, right greater than left, with bibasilar atelectasis/consolidation . Mild scattered abdominal pelvic ascites. No well-defined, drainable intra-abdominal abscess. 6 mm rounded hyperdensity within the left psoas muscle. Intramuscular hemorrhage may have this appea myron. Blunted appearance of the right femoral head with chronic-appearing dislocation and periarticular os sification/calcification. Probable right hip joint effusion with synovitis. RPTAT: AA .Guillermo Paul MD, MD Date Time Electronically viewed and signed by .Guillermo Paul MD, MD on 04/25/2017 08:38 .T/
[2017-04-25] MEDS: FERROUS SULFATE (EC) 325 MG TAB PO SCH ×3 (08:55→21:04)
[2017-04-25] MEDS: ASCORBIC ACID 500 MG TAB GTB SCH ×2 (08:55→21:02)
[2017-04-25] MEDS: CARBIDOPA/LEVODOPA (25/100) TAB GTB SCH ×4 (08:55→21:05)
[2017-04-25] MEDS: METOPROLOL 25 MG TAB PO SCH ×2 (08:55→21:07)
[2017-04-25] MEDS: AMIODARONE 200 MG TAB GTB SCH (08:56)
[2017-04-25] MEDS: MULTIVITAMINS 30 ML CUP GTB SCH (08:57)
[2017-04-25] MEDS: LACTOBACILLUS RHAMNOSUS CAP PO SCH (08:57)
[2017-04-25] MEDS: DOCUSATE SODIUM 10 MG/ML (10ML CUP) GTB SCH ×2 (08:57→21:02)
[2017-04-25] MEDS: BALSAM PERU/CASTOR OIL 60 GM TUBE TOP SCH (08:59)
[2017-04-25] MEDS: COLLAGENASE 30 GM TUBE TOP SCH (08:59)
[2017-04-25] MEDS: MUPIROCIN 2% 22 GM OINT TOP SCH ×2 (09:00→21:00)
--- NOTE | 2017-04-25 09:53 | CONS ---
Date/Time of Note Date/Time of Note DATE: 04/25/17 TIME: 09:22 Consultation Date/Type/Reason Admit Date/Time Apr 19, 2017 at 10:58 Type of Consultation: Palliative care Brief note Palliative care issues addressed with patient's brother this morning. History was patient was normal state of good condition up until approximately 2 years ago he developed some acute onset of respiratory failure. Son left the hospital when he returned he found his brother in extreme as he had been intubated after that the details are somewhat unclear. States the patient was transferred to a long-term unit and since that time he has not improved neurologically. Please refer to extensive note written by admissions hospitalist. I discussed palliative care issues the fact that we will continue to do whatever level of care that he would want us to do at that patient was already on life support and that there are no benefits in cardiopulmonary resuscitation. He is in agreement with this we discussed ongoing level of care briefly I did not address comfort measures at this time. The brother is the major decision maker for family. My impressions are that he does not want to do prolonged care if his brother is suffering.Athis time he is in agreement with code change to DNR Social History Smoking Status: Unknown if ever smoked Exam/Review of Systems Vital Signs Vitals Vital Signs Date Time Temp Pulse Resp B/P Pulse Ox O2 Delivery O2 Flow Rate FiO2 04/25/17 05:30 95 28 100 30 04/25/17 04:00 99.0 147/85 04/24/17 17:45 Mechanical Ventilator Intake and Output 04/24/17 04/24/17 04/25/17 14:59 22:59 06:59 Intake Total 1020 ml 1350 ml 200 ml Output Total 550 ml 890 ml 80 ml Balance 470 ml 460 ml 120 ml Results Result Diagram: 04/25/17 0600 04/25/17 0600 Results 24 hrs Laboratory Tests Test 04/24/17 14:09 04/25/17 04:49 04/25/17 06:00 Lactic Acid Level 1.4 Lab Scanned Report BLOOD TRANSFUSION White Blood Count 8.2 Red Blood Count 2.38 L Hemoglobin 7.8 L Hematocrit 24.2 L Mean Corpuscular Volume 101.7 H Mean Corpuscular Hemoglobin 32.8 Mean Corpuscular Hemoglobin Concent 32.2 Red Cell Distribution Width 19.2 H Platelet Count 101 L Mean Platelet Volume 13.2 H Neutrophils % 86.6 H Lymphocytes % 5.8 L Monocytes % 6.6 Eosinophils % 0.0 Basophils % 0.1 Nucleated Red Blood Cells % 1.8 H Neutrophils # 7.1 Lymphocytes # 0.5 L Monocytes # 0.5 Eosinophils # 0.0 Basophils # 0.0 Nucleated Red Blood Cells # 0.2 H Sodium Level 145 H Potassium Level 4.6 Chloride Level 114 H Carbon Dioxide Level 24 Anion Gap 12 Blood Urea Nitrogen 50 H Creatinine 1.05 Glucose Level 94 # Calcium Level 7.3 L Medications Medications Current Medications Ondansetron HCl (Zofran Inj) 4 mg Q6H PRN IV NAUSEA AND/OR VOMITING; Start at 12:00 Acetaminophen (Tylenol Tab) 650 mg Q6H PRN PO PAIN LEVEL 1-3 OR FEVER Last administered on 04/20/17 19:01; Admin Dose 650 MG; Start 04/19/17 at 12:00 Acetaminophen/ Hydrocodone Bitart ([place] (5/325)) 1 tab Q6H PRN PO MODERATE PAIN LEVEL 4-6; Start 04/19/17 at 12:00 Morphine Sulfate (morphine) 2 mg Q4H PRN IV SEVERE PAIN LEVEL 7-10 Last administered on 04/20/17 23:43; Admin Dose 2 MG; Start 04/19/17 at 12:00 Magnesium Hydroxide (Milk Of Mag) 30 ml DAILY PRN PO CONSTIPATION; Start 04/19 at 12:00 Sodium Biphosphate/ Sodium Phosphate (Fleet Enema) 133 ml DAILY PRN NE CONSTIPATION; Start 04/19/17 at 12:00 Nitroglycerin (Nitroglycerin (Sl Tab) 0.4 Mg) 1 tab Q5M PRN SL ANGINA; Start 04/19/17 at 12:00 Amiodarone HCl (Cordarone) 200 mg DAILY GTB Last administered on 04/24/17 09: 24; Admin Dose 200 MG; Start 04/20/17 at 09:00 Carbidopa/Levodopa (Sinemet (25/ 100)) 1 tab QID GTB Last administered on 04/25 08:55; Admin Dose 1 TAB; Start 04/19/17 at 13:00 Chlorhexidine Gluconate (Peridex) 15 ml Q12 MM Last administered on 04/25/17 00:09; Admin Dose 15 ML; Start 04/19/17 at 21:00 Doxazosin Mesylate (Cardura) 8 mg DAILY GTB Last administered on 04/23/17 09: 32; Admin Dose 8 MG; Start 04/20/17 at 09:00; Status Future Hold Ferrous Sulfate (Ferrous Sulfate (Ec)) 330 mg TID PO Last administered on 04/25 08:55; Admin Dose 330 MG; Start 04/19/17 at 13:00 Lactobacillus Acidophilus/ Rhamnosus (Culturelle) 1 cap DAILY PO Last administered on 04/24/17 09:25; Admin Dose 1 CAP; Start 04/20/17 at 09:00 Ascorbic Acid (Vitamin C) 500 mg BID GTB Last administered on 04/25/17 08:55 ; Admin Dose 500 MG; Start 04/19/17 at 21:00 Lorazepam (Ativan) 2 mg Q10MIN PRN IV seisure Last administered on 04/25/17 04:06; Admin Dose 2 MG; Start 04/19/17 at 17:30 Acetaminophen (Tylenol Liquid) 650 mg Q6H PRN GTB PAIN AND OR ELEVATED TEMP Last administered on 04/24/17 09:24; Admin Dose 650 MG; Start 04/20/17 at 19: 00 Miscellaneous Information (Pending Santyl Order For Wound Care) This patient galdamez... PRN PRN XX WOUND CARE; Start 04/21/17 at 02:00 Collagenase (Santyl) 1 applic DAILY TOP Last administered on 04/24/17 09:25; Admin Dose 1 APPLIC; Start 04/21/17 at 09:00 Collagenase (Santyl) 1 applic PRN PRN TOP PRN Last administered on 04/21/17 10:40; Admin Dose 1 APPLIC; Start 04/21/17 at 05:00 Enoxaparin Sodium (Lovenox) 50 mg Q12 SC Last administered on 04/23/17 21:00 ; Admin Dose 50 MG; Start 04/21/17 at 21:00; Status Future Hold Mupirocin (Bactroban) 1 applic BID TOP Last administered on 04/24/17 21:00; Admin Dose 1 APPLIC; Start 04/21/17 at 21:00 Metoprolol Tartrate (Lopressor) 12.5 mg BID PO Last administered on 04/25/17 08:55; Admin Dose 12.5 MG; Start 04/22/17 at 21:00 Albuterol (Proventil 0.083% (Neb)) 2.5 mg Q3H PRN NEB WHEEZING AND SOB; Start 04/22/17 at 19:00 Atorvastatin Calcium (Lipitor) 20 mg QHS GTB Last administered on 04/23/17 22 :22; Admin Dose 20 MG; Start 04/22/17 at 21:00 Tamsulosin HCl 0.4 mg 0.4 mg HS PO Last administered on 04/23/17 20:56; Admin Dose 0.4 MG; Start 04/22/17 at 21:00 Clindamycin HCl/ Dextrose (Cleocin 600 Mg/ D5W (Pmx)) 50 ml @ 50 mls/hr Q8 IVPB Last administered on 04/25/17 05:40; Admin Dose 50 MLS/HR; Start 04/23/17 at 22:00 Docusate Sodium (Colace Liquid Cup) 100 mg BID GTB Last administered on 09:24; Admin Dose 100 MG; Start 04/23/17 at 21:00 Multivitamins 30 ml 30 ml DAILY GTB Last administered on 04/24/17 09:23; Admin Dose 30 ML; Start 04/24/17 at 09:00 Meropenem/Sodium Chloride (Merrem 500mg/50 ml(Pmx)) 50 ml @ 100 mls/hr Q8 IVPB Last administered on 04/25/17 05:40; Admin Dose 100 MLS/HR; Start 04/24/17 at 14:00 PRATIK SANTACRUZ Apr 25, 2017 09:32
--- NOTE | 2017-04-25 10:24 | CONS ---
Date/Time of Note Date/Time of Note DATE: 04/25/17 TIME: 10:10 Consult Date/Type/Reason Admit Date/Time Apr 19, 2017 at 10:58 Type of Consultation: Pulm Ordering Provider: ZOE ALEXANDRA Subjective GENERAL: Elderly male comfortable at rest. VITAL SIGNS: per chart NECK: Supple. No JVD or lymphadenopathy. CARDIAC EXAM: S1, S2. No added sounds or murmurs. CHEST: Diminished air entry right base ABDOMEN: Soft, nontender. No guarding or rebound. Diminished bowel sounds EXTREMITIES: No cyanosis, clubbing or edema. NEUROLOGIC: Generalized weakness. Objective Vital Signs Date Time Temp Pulse Resp B/P Pulse Ox O2 Delivery O2 Flow Rate FiO2 04/25/17 08:47 120 25 100 30 04/25/17 04:00 99.0 147/85 04/24/17 17:45 Mechanical Ventilator Intake and Output 04/24/17 04/24/17 04/25/17 14:59 22:59 06:59 Intake Total 1020 ml 1350 ml 200 ml Output Total 550 ml 890 ml 80 ml Balance 470 ml 460 ml 120 ml Results/Medications Result Diagram: 04/25/17 0600 04/25/17 0600 Results 24 hrs Laboratory Tests Test 04/24/17 14:09 04/25/17 04:49 04/25/17 06:00 Lactic Acid Level 1.4 Lab Scanned Report BLOOD TRANSFUSION White Blood Count 8.2 Red Blood Count 2.38 L Hemoglobin 7.8 L Hematocrit 24.2 L Mean Corpuscular Volume 101.7 H Mean Corpuscular Hemoglobin 32.8 Mean Corpuscular Hemoglobin Concent 32.2 Red Cell Distribution Width 19.2 H Platelet Count 101 L Mean Platelet Volume 13.2 H Neutrophils % 86.6 H Lymphocytes % 5.8 L Monocytes % 6.6 Eosinophils % 0.0 Basophils % 0.1 Nucleated Red Blood Cells % 1.8 H Neutrophils # 7.1 Lymphocytes # 0.5 L Monocytes # 0.5 Eosinophils # 0.0 Basophils # 0.0 Nucleated Red Blood Cells # 0.2 H Sodium Level 145 H Potassium Level 4.6 Chloride Level 114 H Carbon Dioxide Level 24 Anion Gap 12 Blood Urea Nitrogen 50 H Creatinine 1.05 Glucose Level 94 # Calcium Level 7.3 L Medications Current Medications Ondansetron HCl (Zofran Inj) 4 mg Q6H PRN IV NAUSEA AND/OR VOMITING; Start at 12:00 Acetaminophen (Tylenol Tab) 650 mg Q6H PRN PO PAIN LEVEL 1-3 OR FEVER Last administered on 04/20/17 19:01; Admin Dose 650 MG; Start 04/19/17 at 12:00 Acetaminophen/ Hydrocodone Bitart ([place] (5/325)) 1 tab Q6H PRN PO MODERATE PAIN LEVEL 4-6; Start 04/19/17 at 12:00 Morphine Sulfate (morphine) 2 mg Q4H PRN IV SEVERE PAIN LEVEL 7-10 Last administered on 04/20/17 23:43; Admin Dose 2 MG; Start 04/19/17 at 12:00 Magnesium Hydroxide (Milk Of Mag) 30 ml DAILY PRN PO CONSTIPATION; Start 04/19 at 12:00 Sodium Biphosphate/ Sodium Phosphate (Fleet Enema) 133 ml DAILY PRN [place] CONSTIPATION; Start 04/19/17 at 12:00 Nitroglycerin (Nitroglycerin (Sl Tab) 0.4 Mg) 1 tab Q5M PRN SL ANGINA; Start 04/19/17 at 12:00 Amiodarone HCl (Cordarone) 200 mg DAILY GTB Last administered on 04/25/17 08: 56; Admin Dose 200 MG; Start 04/20/17 at 09:00 Carbidopa/Levodopa (Sinemet (25/ 100)) 1 tab QID GTB Last administered on 04/25 08:55; Admin Dose 1 TAB; Start 04/19/17 at 13:00 Chlorhexidine Gluconate (Peridex) 15 ml Q12 MM Last administered on 04/25/17 08:57; Admin Dose 15 ML; Start 04/19/17 at 21:00 Doxazosin Mesylate (Cardura) 8 mg DAILY GTB Last administered on 04/23/17 09: 32; Admin Dose 8 MG; Start 04/20/17 at 09:00; Status Future Hold Ferrous Sulfate (Ferrous Sulfate (Ec)) 330 mg TID PO Last administered on 04/25 08:55; Admin Dose 330 MG; Start 04/19/17 at 13:00 Lactobacillus Acidophilus/ Rhamnosus (Culturelle) 1 cap DAILY PO Last administered on 04/25/17 08:57; Admin Dose 1 CAP; Start 04/20/17 at 09:00 Ascorbic Acid (Vitamin C) 500 mg BID GTB Last administered on 04/25/17 08:55 ; Admin Dose 500 MG; Start 04/19/17 at 21:00 Lorazepam (Ativan) 2 mg Q10MIN PRN IV seisure Last administered on 04/25/17 04:06; Admin Dose 2 MG; Start 04/19/17 at 17:30 Acetaminophen (Tylenol Liquid) 650 mg Q6H PRN GTB PAIN AND OR ELEVATED TEMP Last administered on 04/24/17 09:24; Admin Dose 650 MG; Start 04/20/17 at 19: 00 Miscellaneous Information (Pending Santyl Order For Wound Care) This patient galdamez... PRN PRN XX WOUND CARE; Start 04/21/17 at 02:00 Collagenase (Santyl) 1 applic DAILY TOP Last administered on 04/25/17 08:59; Admin Dose 1 APPLIC; Start 04/21/17 at 09:00 Collagenase (Santyl) 1 applic PRN PRN TOP PRN Last administered on 04/21/17 10:40; Admin Dose 1 APPLIC; Start 04/21/17 at 05:00 Enoxaparin Sodium (Lovenox) 50 mg Q12 SC Last administered on 04/23/17 21:00 ; Admin Dose 50 MG; Start 04/21/17 at 21:00; Status Future Hold Mupirocin (Bactroban) 1 applic BID TOP Last administered on 04/24/17 21:00; Admin Dose 1 APPLIC; Start 04/21/17 at 21:00 Metoprolol Tartrate (Lopressor) 12.5 mg BID PO Last administered on 04/25/17 08:55; Admin Dose 12.5 MG; Start 04/22/17 at 21:00 Albuterol (Proventil 0.083% (Neb)) 2.5 mg Q3H PRN NEB WHEEZING AND SOB; Start 04/22/17 at 19:00 Atorvastatin Calcium (Lipitor) 20 mg QHS GTB Last administered on 04/23/17 22 :22; Admin Dose 20 MG; Start 04/22/17 at 21:00 Tamsulosin HCl 0.4 mg 0.4 mg HS PO Last administered on 11/28/17at 20:56; Admin Dose 0.4 MG; Start 04/22/17 at 21:00 Clindamycin HCl/ Dextrose (Cleocin 600 Mg/ D5W (Pmx)) 50 ml @ 50 mls/hr Q8 IVPB Last administered on 04/25/17 05:40; Admin Dose 50 MLS/HR; Start 04/23/17 at 22:00 Docusate Sodium (Colace Liquid Cup) 100 mg BID GTB Last administered on 08:57; Admin Dose 100 MG; Start 04/23/17 at 21:00 Multivitamins 30 ml 30 ml DAILY GTB Last administered on 04/25/17 08:57; Admin Dose 30 ML; Start 04/24/17 at 09:00 Meropenem/Sodium Chloride (Merrem 500mg/50 ml(Pmx)) 50 ml @ 100 mls/hr Q8 IVPB Last administered on 04/25/17 05:40; Admin Dose 100 MLS/HR; Start 04/24/17 at 14:00 Assessment/Plan Chief Complaint/Hosp Course IMPRESSION AND PLAN: 1. Acinetobacter UTI persistent sepsis with fevers. Possible underlying abscess. 2. Questionable PEA arrest. 3. Chronic encephalopathy. 4. Vent dependent respiratory failure. 5. Dysphagia with G-tube. 6. Drop in hemoglobin. Questionable GI bleed. REQUIREMENTS: 1. Continue tube feeding IV fluids. 2. Continue ID recommendations 3. Care. 4. DVT and GI prophylaxis. 5. Transfuse PRBCs. 6. Pressors as needed. Problems: TEVIN CURRAN MD, [facility] Apr 25, 2017 10:24
[2017-04-25] MEDS: ACETAMINOPHEN 650MG/20.3ML CUP GTB PRN ×2 (10:43→21:02)
--- NOTE | 2017-04-25 11:43 | CONS ---
Date/Time of Note Date/Time of Note DATE: 04/25/17 TIME: 11:38 Assessment/Plan Assessment/Plan Chief Complaint/Hosp Course IMP: 1.AF-some tachycardia today 2.s/p cardiac arrest-PEA. EF 50% by echo this admit 3.encephalopathy 4.Fevers 5.anemia-worsening 6.UTI 7. Hypotension-overall improved Recc: -Tele -Lovenox on hold due to anemia -Contnue po amio for now -Continue low dose BB as tolerated only -Continue abx's and f/u cx data -Follow MS closely -hold cardura given anemia -s/p transfusions of PRBC's/follow HGb -Five digoxin IVP Q6 x 2 Problems: Consultation Date/Type/Reason Admit Date/Time Apr 19, 2017 at 10:58 Initial Consult Date 04/20/2017 Type of Consultation: cardiology Reason for Consultation AF Referring Provider: ZOE ALEXANDRA Exam/Review of Systems Vital Signs Vitals Vital Signs Date Time Temp Pulse Resp B/P Pulse Ox O2 Delivery O2 Flow Rate FiO2 04/25/17 11:10 92 20 100 30 04/25/17 11:00 100/59 04/25/17 08:00 102.7 04/24/17 17:45 Mechanical Ventilator Intake and Output 04/24/17 04/24/17 04/25/17 15:00 23:00 07:00 Intake Total 1350 ml 200 ml Output Total 930 ml 115 ml Balance 420 ml 85 ml Exam Review of Systems: CONSTITUTIONAL: No fevers, chills. PULMONARY: trached CARDIOVASCULAR: No chest pain/palpitations GASTROINTESTINAL: No nausea/vomiting. GENITOURINARY: No hematuria/dysuria. MUSCULOSKELETAL: No obvious myagias/arthalgias. PSYCHIATRIC: The patient denies depression. NEUROLOGIC: Encephalopathic Constitutional: other (encephalopathic) Psych: no complaints Neck: other (trached) Respiratory: other (upper airway rhocherous sounds) Cardiovascular: irregular rhythm Gastrointestinal: non-tender, soft Musculoskeletal: muscle weakness (generalized) Extremities: edema (trace/B) Neurological: confused Results Result Diagram: 04/25/17 0600 04/25/17 0600 Results 24 hrs Laboratory Tests Test 04/24/17 14:09 04/25/17 04:49 04/25/17 06:00 Lactic Acid Level 1.4 Lab Scanned Report BLOOD TRANSFUSION White Blood Count 8.2 Red Blood Count 2.38 L Hemoglobin 7.8 L Hematocrit 24.2 L Mean Corpuscular Volume 101.7 H Mean Corpuscular Hemoglobin 32.8 Mean Corpuscular Hemoglobin Concent 32.2 Red Cell Distribution Width 19.2 H Platelet Count 101 L Mean Platelet Volume 13.2 H Neutrophils % 86.6 H Lymphocytes % 5.8 L Monocytes % 6.6 Eosinophils % 0.0 Basophils % 0.1 Nucleated Red Blood Cells % 1.8 H Neutrophils # 7.1 Lymphocytes # 0.5 L Monocytes # 0.5 Eosinophils # 0.0 Basophils # 0.0 Nucleated Red Blood Cells # 0.2 H Sodium Level 145 H Potassium Level 4.6 Chloride Level 114 H Carbon Dioxide Level 24 Anion Gap 12 Blood Urea Nitrogen 50 H Creatinine 1.05 Glucose Level 94 # Calcium Level 7.3 L Medications Medications Current Medications Ondansetron HCl (Zofran Inj) 4 mg Q6H PRN IV NAUSEA AND/OR VOMITING; Start at 12:00 Acetaminophen (Tylenol Tab) 650 mg Q6H PRN PO PAIN LEVEL 1-3 OR FEVER Last administered on 04/20/17 19:01; Admin Dose 650 MG; Start 04/19/17 at 12:00 Acetaminophen/ Hydrocodone Bitart ([place] (5/325)) 1 tab Q6H PRN PO MODERATE PAIN LEVEL 4-6; Start 04/19/17 at 12:00 Morphine Sulfate (morphine) 2 mg Q4H PRN IV SEVERE PAIN LEVEL 7-10 Last administered on 04/20/17 23:43; Admin Dose 2 MG; Start 04/19/17 at 12:00 Magnesium Hydroxide (Milk Of Mag) 30 ml DAILY PRN PO CONSTIPATION; Start 04/19 at 12:00 Sodium Biphosphate/ Sodium Phosphate (Fleet Enema) [address] CONSTIPATION; Start 04/19/17 at 12:00 Nitroglycerin (Nitroglycerin (Sl Tab) 0.4 Mg) 1 tab Q5M PRN SL ANGINA; Start 04/19/17 at 12:00 Amiodarone HCl (Cordarone) 200 mg DAILY GTB Last administered on 04/25/17 08: 56; Admin Dose 200 MG; Start 04/20/17 at 09:00 Carbidopa/Levodopa (Sinemet (/ )) 1 tab QID GTB Last administered on 04/25 08:55; Admin Dose 1 TAB; Start 04/19/17 at 13:00 Chlorhexidine Gluconate (Peridex) 15 ml Q12 MM Last administered on 04/25/17 08:57; Admin Dose 15 ML; Start 04/19/17 at 21:00 Doxazosin Mesylate (Cardura) 8 mg DAILY GTB Last administered on 04/23/17 09: 32; Admin Dose 8 MG; Start 04/20/17 at 09:00; Status Future Hold Ferrous Sulfate (Ferrous Sulfate (Ec)) 330 mg TID PO Last administered on 04/25 08:55; Admin Dose 330 MG; Start 04/19/17 at 13:00 Lactobacillus Acidophilus/ Rhamnosus (Culturelle) 1 cap DAILY PO Last administered on 04/25/17 08:57; Admin Dose 1 CAP; Start 04/20/17 at 09:00 Ascorbic Acid (Vitamin C) 500 mg BID GTB Last administered on 04/25/17 08:55 ; Admin Dose 500 MG; Start 04/19/17 at 21:00 Lorazepam (Ativan) 2 mg Q10MIN PRN IV seisure Last administered on 04/25/17 04:06; Admin Dose 2 MG; Start 04/19/17 at 17:30 Acetaminophen (Tylenol Liquid) 650 mg Q6H PRN GTB PAIN AND OR ELEVATED TEMP Last administered on 04/25/17 10:43; Admin Dose 650 MG; Start 04/20/17 at 19: 00 Miscellaneous Information (Pending Santyl Order For Wound Care) This patient galdamez... PRN PRN XX WOUND CARE; Start 04/21/17 at 02:00 Collagenase (Santyl) 1 applic DAILY TOP Last administered on 04/25/17 08:59; Admin Dose 1 APPLIC; Start 04/21/17 at 09:00 Collagenase (Santyl) 1 applic PRN PRN TOP PRN Last administered on 04/21/17 10:40; Admin Dose 1 APPLIC; Start 04/21/17 at 05:00 Enoxaparin Sodium (Lovenox) 50 mg Q12 SC Last administered on 04/23/17 21:00 ; Admin Dose 50 MG; Start 04/21/17 at 21:00; Status Future Hold Mupirocin (Bactroban) 1 applic BID TOP Last administered on 04/24/17 21:00; Admin Dose 1 APPLIC; Start 04/21/17 at 21:00 Metoprolol Tartrate (Lopressor) 12.5 mg BID PO Last administered on 04/25/17 08:55; Admin Dose 12.5 MG; Start 04/22/17 at 21:00 Albuterol (Proventil 0.083% (Neb)) 2.5 mg Q3H PRN NEB WHEEZING AND SOB; Start 04/22/17 at 19:00 Atorvastatin Calcium (Lipitor) 20 mg QHS GTB Last administered on 04/23/17 22 :22; Admin Dose 20 MG; Start 04/22/17 at 21:00 Tamsulosin HCl 0.4 mg 0.4 mg HS PO Last administered on 04/23/17 20:56; Admin Dose 0.4 MG; Start 04/22/17 at 21:00 Clindamycin HCl/ Dextrose (Cleocin 600 Mg/ D5W (Pmx)) 50 ml @ 50 mls/hr Q8 IVPB Last administered on 04/25/17 05:40; Admin Dose 50 MLS/HR; Start 04/23/17 at 22:00 Docusate Sodium (Colace Liquid Cup) 100 mg BID GTB Last administered on 08:57; Admin Dose 100 MG; Start 04/23/17 at 21:00 Multivitamins 30 ml 30 ml DAILY GTB Last administered on 04/25/17 08:57; Admin Dose 30 ML; Start 04/24/17 at 09:00 Meropenem/Sodium Chloride (Merrem 500mg/50 ml(Pmx)) 50 ml @ 100 mls/hr Q8 IVPB Last administered on 04/25/17 05:40; Admin Dose 100 MLS/HR; Start 04/24/17 at 14:00 ELVIS HINTON 30, 2017 11:43
[2017-04-25] MEDS: DIGOXIN 500 MCG INJ IV SCH ×2 (13:56→21:10)
--- NOTE | 2017-04-25 14:38 | PN ---
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 Hospitalization complicated by sepsis 2/2 UTI v chest wall wound, now with progressive anemia of unclear etiology #anemia: etio unclear. FOBT negative but labs with ZULY even in setting of macrocytosis in pt already on iron GI to see. hgb with appropriate bump after transfusion #cardiac arrest with ROSC cardiology on consult, etio of cardiac arrest unclear cont cardiac meds #sepsis from PNA v chest wall wound based on imaging. remains febrile ID on consult, abx expanded from tobra to meropenem, pt remains on clinda Of note, given size of chest wall wound, cannot rule out underlying abscess/ fluid collection. defer work up to ID team-->imaging with seroma v abscess. defer aspiration to ID could also consider sampling hip fluid, pleural effusion-->dw ID transfer back to tele given BP ok Subjective 24 Hr Interval Summary Free Text/Dictation never actually required pressors after xfer yesterday Exam/Review of Systems Vital Signs Vitals Vital Signs Date Time Temp Pulse Resp B/P Pulse Ox O2 Delivery O2 Flow Rate FiO2 04/25/17 13:15 83 20 100 30 04/25/17 12:00 102.0 90/51 04/24/17 17:45 Mechanical Ventilator Intake and Output 04/24/17 04/24/17 04/25/17 15:00 23:00 07:00 Intake Total 1350 ml 200 ml Output Total 930 ml 115 ml Balance 420 ml 85 ml Exam doesnt follow commands no mrg no wheezing +contractures no rashes imaging results from yesterday reviewed, multiple niduses of infection possible 1. Consolidation within the dependent bilateral lower lobes, which may reflect aspiration or pneumonia. Small bilateral pleural effusions. Extensive bronchiolitis throughout the remaining basilar lower lobes, lingula, and inferior right upper lobe and right middle lobe. 3. Fractures of the anterolateral right second through seventh ribs and anterolateral left 2nd through 6th ribs, which appears subacute in nature. Ground-glass opacities within the underlying lung parenchyma in the regions of the fractures, suggestive of pulmonary contusion. 4. Nonspecific focal fluid density within the ventral right mid chest subcutaneous fat measuring 3.5 cm, possibly a seroma. Underlying infection is not excluded. 5. Mediastinal adenopathy, likely reactive in nature. Partially imaged right sixth and seventh rib minimally displaced fractures. Small bilateral pleural effusions, right greater than left, with bibasilar atelectasis/consolidation. 6 mm rounded hyperdensity within the left psoas muscle. Intramuscular hemorrhage may have this appearance. Blunted appearance of the right femoral head with chronic-appearing dislocation and periarticular ossification/calcification. Probable right hip joint effusion with synovitis. Results Result Diagram: 04/25/17 0600 04/25/17 0600 Results 24 hrs Laboratory Tests Test 04/25/17 04:49 04/25/17 06:00 Lab Scanned Report BLOOD TRANSFUSION White Blood Count 8.2 Red Blood Count 2.38 L Hemoglobin 7.8 L Hematocrit 24.2 L Mean Corpuscular Volume 101.7 H Mean Corpuscular Hemoglobin 32.8 Mean Corpuscular Hemoglobin Concent 32.2 Red Cell Distribution Width 19.2 H Platelet Count 101 L Mean Platelet Volume 13.2 H Neutrophils % 86.6 H Lymphocytes % 5.8 L Monocytes % 6.6 Eosinophils % 0.0 Basophils % 0.1 Nucleated Red Blood Cells % 1.8 H Neutrophils # 7.1 Lymphocytes # 0.5 L Monocytes # 0.5 Eosinophils # 0.0 Basophils # 0.0 Nucleated Red Blood Cells # 0.2 H Sodium Level 145 H Potassium Level 4.6 Chloride Level 114 H Carbon Dioxide Level 24 Anion Gap 12 Blood Urea Nitrogen 50 H Creatinine 1.05 Glucose Level 94 # Calcium Level 7.3 L Medications Medications Current Medications Ondansetron HCl (Zofran Inj) 4 mg Q6H PRN IV NAUSEA AND/OR VOMITING; Start at 12:00 Acetaminophen (Tylenol Tab) 650 mg Q6H PRN PO PAIN LEVEL 1-3 OR FEVER Last administered on 04/20/17t 19:01; Admin Dose 650 MG; Start 04/19/17 at 12:00 Acetaminophen/ Hydrocodone Bitart ([place] (5/325)) 1 tab Q6H PRN PO MODERATE PAIN LEVEL 4-6; Start 04/19/17 at 12:00 Morphine Sulfate (morphine) 2 mg Q4H PRN IV SEVERE PAIN LEVEL 7-10 Last administered on 04/20/17 23:43; Admin Dose 2 MG; Start 04/19/17 at 12:00 Magnesium Hydroxide (Milk Of Mag) 30 ml DAILY PRN PO CONSTIPATION; Start 04/19 at 12:00 Sodium Biphosphate/ Sodium Phosphate (Fleet Enema) 133 ml DAILY PRN [place] CONSTIPATION; Start 04/19/17 at 12:00 Nitroglycerin (Nitroglycerin (Sl Tab) 0.4 Mg) 1 tab Q5M PRN SL ANGINA; Start 04/19/17 at 12:00 Amiodarone HCl (Cordarone) 200 mg DAILY GTB Last administered on 04/25/17 08: 56; Admin Dose 200 MG; Start 04/20/17 at 09:00 Carbidopa/Levodopa (Sinemet (25/ 100)) 1 tab QID GTB Last administered on 04/25 13:45; Admin Dose 1 TAB; Start 04/19/17 at 13:00 Chlorhexidine Gluconate (Peridex) 15 ml Q12 MM Last administered on 04/25/17 08:57; Admin Dose 15 ML; Start 04/19/17 at 21:00 Doxazosin Mesylate (Cardura) 8 mg DAILY GTB Last administered on 04/23/17 09: 32; Admin Dose 8 MG; Start 04/20/17 at 09:00; Status Future Hold Ferrous Sulfate (Ferrous Sulfate (Ec)) 330 mg TID PO Last administered on 04/25 13:45; Admin Dose 330 MG; Start 04/19/17 at 13:00 Lactobacillus Acidophilus/ Rhamnosus (Culturelle) 1 cap DAILY PO Last administered on 04/25/17 08:57; Admin Dose 1 CAP; Start 04/20/17 at 09:00 Ascorbic Acid (Vitamin C) 500 mg BID GTB Last administered on 04/25/17 08:55 ; Admin Dose 500 MG; Start 04/19/17 at 21:00 Lorazepam (Ativan) 2 mg Q10MIN PRN IV seisure Last administered on 04/25/17 04:06; Admin Dose 2 MG; Start 04/19/17 at 17:30 Acetaminophen (Tylenol Liquid) 650 mg Q6H PRN GTB PAIN AND OR ELEVATED TEMP Last administered on 04/25/17 10:43; Admin Dose 650 MG; Start 04/20/17 at 19: 00 Miscellaneous Information (Pending Santyl Order For Wound Care) This patient galdamez... PRN PRN XX WOUND CARE; Start 04/21/17 at 02:00 Collagenase (Santyl) 1 applic DAILY TOP Last administered on 04/25/17 08:59; Admin Dose 1 APPLIC; Start 04/21/17 at 09:00 Collagenase (Santyl) 1 applic PRN PRN TOP PRN Last administered on 04/21/17 10:40; Admin Dose 1 APPLIC; Start 04/21/17 at 05:00 Enoxaparin Sodium (Lovenox) 50 mg Q12 SC Last administered on 04/23/17 21:00 ; Admin Dose 50 MG; Start 04/21/17 at 21:00; Status Future Hold Mupirocin (Bactroban) 1 applic BID TOP Last administered on 04/24/17 21:00; Admin Dose 1 APPLIC; Start 04/21/17 at 21:00 Metoprolol Tartrate (Lopressor) 12.5 mg BID PO Last administered on 04/25/17 08:55; Admin Dose 12.5 MG; Start 04/22/17 at 21:00 Albuterol (Proventil 0.083% (Neb)) 2.5 mg Q3H PRN NEB WHEEZING AND SOB; Start 04/22/17 at 19:00 Atorvastatin Calcium (Lipitor) 20 mg QHS GTB Last administered on 04/23/17 22 :22; Admin Dose 20 MG; Start 04/22/17 at 21:00 Tamsulosin HCl 0.4 mg 0.4 mg HS PO Last administered on 04/23/17 20:56; Admin Dose 0.4 MG; Start 04/22/17 at 21:00 Clindamycin HCl/ Dextrose (Cleocin 600 Mg/ D5W (Pmx)) 50 ml @ 50 mls/hr Q8 IVPB Last administered on 04/25/17 05:40; Admin Dose 50 MLS/HR; Start 04/23/17 at 22:00 Docusate Sodium (Colace Liquid Cup) 100 mg BID GTB Last administered on 08:57; Admin Dose 100 MG; Start 04/23/17 at 21:00 Multivitamins 30 ml 30 ml DAILY GTB Last administered on 04/25/17 08:57; Admin Dose 30 ML; Start 04/24/17 at 09:00 Meropenem/Sodium Chloride (Merrem 500mg/50 ml(Pmx)) 50 ml @ 100 mls/hr Q8 IVPB Last administered on 04/25/17 13:59; Admin Dose 100 MLS/HR; Start 04/24/17 at 14:00 Digoxin (Digoxin) 250 mcg Q6 IV Last administered on 04/25/17 13:56; Admin Dose 250 MCG; Start 04/25/17 at 12:00; Stop 04/25/17 at 18:01 VIRGILIO MCCALL MD Apr 25, 2017 14:38
--- NOTE | 2017-04-25 17:21 | PN ---
Date/Time of Note Date/Time of Note DATE: 04/25/17 TIME: 17:09 Assessment/Plan VTE Prophylaxis VTE Prophylaxis Intervention: SCD's Lines/Catheters IV Catheter Type (from Nrs): PICC Line Central line still needed: Yes (Medication) Urinary Cath still in place: Yes (Monitor output) Reason Cath still needed: other (indicate) (monitor output) Assessment/Plan Chief Complaint/Hosp Course Assessment: Macrocytic anemia Hypotension Chronic encephalopathy Respiratory failure Sepsis UTI Chest wall wound Status post cardiac arrest Plan: Stool for OB negative Continue to monitor H/H Transfuse for hemoglobin less than 7.5 No overt signs of GI bleed, colonoscopy Patient seen in collaboration with Dr. Leal Subjective: Course reviewed with nursing staff Patient interviewed and examined All labs, imaging and other results reviewed The patient received transfusion yesterday, currently HGB 7.8- no overt signs of GI bleed. Code status DNR. Problems: Exam/Review of Systems Vital Signs Vitals Vital Signs Date Time Temp Pulse Resp B/P Pulse Ox O2 Delivery O2 Flow Rate FiO2 04/25/17 15:00 80 21 110/62 100 04/25/17 13:15 30 04/25/17 12:00 102.0 04/24/17 17:45 Mechanical Ventilator Intake and Output 04/24/17 04/24/17 04/25/17 15:00 23:00 07:00 Intake Total 1350 ml 200 ml Output Total 930 ml 115 ml Balance 420 ml 85 ml Results Result Diagram: 04/25/17 0600 04/25/17 0600 Results 24 hrs Laboratory Tests Test 04/25/17 04:49 04/25/17 06:00 Lab Scanned Report BLOOD TRANSFUSION White Blood Count 8.2 Red Blood Count 2.38 L Hemoglobin 7.8 L Hematocrit 24.2 L Mean Corpuscular Volume 101.7 H Mean Corpuscular Hemoglobin 32.8 Mean Corpuscular Hemoglobin Concent 32.2 Red Cell Distribution Width 19.2 H Platelet Count 101 L Mean Platelet Volume 13.2 H Neutrophils % 86.6 H Lymphocytes % 5.8 L Monocytes % 6.6 Eosinophils % 0.0 Basophils % 0.1 Nucleated Red Blood Cells % 1.8 H Neutrophils # 7.1 Lymphocytes # 0.5 L Monocytes # 0.5 Eosinophils # 0.0 Basophils # 0.0 Nucleated Red Blood Cells # 0.2 H Sodium Level 145 H Potassium Level 4.6 Chloride Level 114 H Carbon Dioxide Level 24 Anion Gap 12 Blood Urea Nitrogen 50 H Creatinine 1.05 Glucose Level 94 # Calcium Level 7.3 L Medications Medications Current Medications Ondansetron HCl (Zofran Inj) 4 mg Q6H PRN IV NAUSEA AND/OR VOMITING; Start at 12:00 Acetaminophen (Tylenol Tab) 650 mg Q6H PRN PO PAIN LEVEL 1-3 OR FEVER Last administered on 04/20/17 19:01; Admin Dose 650 MG; Start 04/19/17 at 12:00 Acetaminophen/ Hydrocodone Bitart ([place] (5/325)) 1 tab Q6H PRN PO MODERATE PAIN LEVEL 4-6; Start 04/19/17 at 12:00 Morphine Sulfate (morphine) 2 mg Q4H PRN IV SEVERE PAIN LEVEL 7-10 Last administered on 04/20/17 23:43; Admin Dose 2 MG; Start 04/19/17 at 12:00 Magnesium Hydroxide (Milk Of Mag) 30 ml DAILY PRN PO CONSTIPATION; Start 04/19 at 12:00 Sodium Biphosphate/ Sodium Phosphate (Fleet Enema) 133 ml DAILY PRN [place] CONSTIPATION; Start 04/19/17 at 12:00 Nitroglycerin (Nitroglycerin (Sl Tab) 0.4 Mg) 1 tab Q5M PRN SL ANGINA; Start 04/19/17 at 12:00 Amiodarone HCl (Cordarone) 200 mg DAILY GTB Last administered on 04/25/17 08: 56; Admin Dose 200 MG; Start 04/20/17 at 09:00 Carbidopa/Levodopa (Sinemet (25/ 100)) 1 tab QID GTB Last administered on 04/25 13:45; Admin Dose 1 TAB; Start 04/19/17 at 13:00 Chlorhexidine Gluconate (Peridex) 15 ml Q12 MM Last administered on 04/25/17 08:57; Admin Dose 15 ML; Start 04/19/17 at 21:00 Doxazosin Mesylate (Cardura) 8 mg DAILY GTB Last administered on 04/23/17 09: 32; Admin Dose 8 MG; Start 04/20/17 at 09:00; Status Future Hold Ferrous Sulfate (Ferrous Sulfate (Ec)) 330 mg TID PO Last administered on 04/25 13:45; Admin Dose 330 MG; Start 04/19/17 at 13:00 Lactobacillus Acidophilus/ Rhamnosus (Culturelle) 1 cap DAILY PO Last administered on 04/25/17 08:57; Admin Dose 1 CAP; Start 04/20/17 at 09:00 Ascorbic Acid (Vitamin C) 500 mg BID GTB Last administered on 04/25/17 08:55 ; Admin Dose 500 MG; Start 04/19/17 at 21:00 Lorazepam (Ativan) 2 mg Q10MIN PRN IV seisure Last administered on 04/25/17 04:06; Admin Dose 2 MG; Start 04/19/17 at 17:30 Acetaminophen (Tylenol Liquid) 650 mg Q6H PRN GTB PAIN AND OR ELEVATED TEMP Last administered on 04/25/17 10:43; Admin Dose 650 MG; Start 04/20/17 at 19: 00 Miscellaneous Information (Pending Santyl Order For Wound Care) This patient galdamez... PRN PRN XX WOUND CARE; Start 04/21/17 at 02:00 Collagenase (Santyl) 1 applic DAILY TOP Last administered on 04/25/17 08:59; Admin Dose 1 APPLIC; Start 04/21/17 at 09:00 Collagenase (Santyl) 1 applic PRN PRN TOP PRN Last administered on 04/21/17 10:40; Admin Dose 1 APPLIC; Start 04/21/17 at 05:00 Enoxaparin Sodium (Lovenox) 50 mg Q12 SC Last administered on 04/23/17 21:00 ; Admin Dose 50 MG; Start 04/21/17 at 21:00; Status Future Hold Mupirocin (Bactroban) 1 applic BID TOP Last administered on 04/24/17 21:00; Admin Dose 1 APPLIC; Start 04/21/17 at 21:00 Metoprolol Tartrate (Lopressor) 12.5 mg BID PO Last administered on 04/25/17 08:55; Admin Dose 12.5 MG; Start 04/22/17 at 21:00 Albuterol (Proventil 0.083% (Neb)) 2.5 mg Q3H PRN NEB WHEEZING AND SOB; Start 04/22/17 at 19:00 Atorvastatin Calcium (Lipitor) 20 mg QHS GTB Last administered on 04/23/17 22 :22; Admin Dose 20 MG; Start 04/22/17 at 21:00 Tamsulosin HCl 0.4 mg 0.4 mg HS PO Last administered on 04/23/17 20:56; Admin Dose 0.4 MG; Start 04/22/17 at 21:00 Clindamycin HCl/ Dextrose (Cleocin 600 Mg/ D5W (Pmx)) 50 ml @ 50 mls/hr Q8 IVPB Last administered on 04/25/17 15:36; Admin Dose 50 MLS/HR; Start 04/23/17 at 22:00 Docusate Sodium (Colace Liquid Cup) 100 mg BID GTB Last administered on 08:57; Admin Dose 100 MG; Start 04/23/17 at 21:00 Multivitamins 30 ml 30 ml DAILY GTB Last administered on 04/25/17 08:57; Admin Dose 30 ML; Start 04/24/17 at 09:00 Meropenem/Sodium Chloride (Merrem 500mg/50 ml(Pmx)) 50 ml @ 100 mls/hr Q8 IVPB Last administered on 04/25/17 13:59; Admin Dose 100 MLS/HR; Start 04/24/17 at 14:00 Digoxin (Digoxin) 250 mcg Q6 IV Last administered on 04/25/17 13:56; Admin Dose 250 MCG; Start 04/25/17 at 12:00; Stop 04/25/17 at 18:01 JAMIE FINLEY Apr 25, 2017 17:19
--- NOTE | 2017-04-25 17:43 | PN ---
DATE: 04/25/2017 SUBJECTIVE: The patient was transferred to ICU secondary to symptomatic hypotension. He is nonverb al, noncommunicative. VITAL SIGNS: Spiking fevers with a T-max of 102.7, pulse 99, respirations 87, blood pressure 90/51, saturation 100 on the vent. LABORATORY: WBC 8.2, H and H 7.8 and 24.2, platelets 101, neutrophils 86.6, BUN 50, creatinine 1.05 . MICROBIOLOGY: Blood culture and urine culture repeated on 04/24/2017 remain negative. Upper chest wound culture growing MRSA susceptible to clindamycin. DIAGNOSTICS: The patient had CT of the abdomen and chest yesterday that revealed consolidation with independent bilateral lower lobes which may reflect aspiration or pneumonia, small bilateral pleura l effusion, extensive bronchiolitis throughout the remaining bibasilar lower lobes, lingula and infe rior right upper lobe and right middle lobe, fractures of the anterolateral right second through sev enth ribs and anterolateral left second through sixth ribs which appears subacute in nature. No spe cific focal fluid density within the ventral . Subcutaneous fat measuring 3.5 cm, possibly ser ezio. Underlying infection is not excluded. Mediastinal adenopathy likely reactive in nature. CT o f the abdomen revealed 6 mm rounded hyperdensity within the left psoas muscle, questionable intramus cular hemorrhage. Questionable right hip joint effusion with synovitis. No well-defined drainable intra-abdominal abscess. INDWELLINGS: Trach, PEG, Taylor. ANTIMICROBIALS: The patient was started on meropenem 2 days ago. He is also on clindamycin. PHYSICAL EXAMINATION: GENERAL: This is a chronically ill-appearing, elderly man who is in no distress. HEENT: Head atraumatic, normocephalic. Sclerae anicteric. Buccal mucosa dry. NECK: Supple. Tracheostomy present. CHEST: Rise symmetrical. Breath sounds diminished to bases. HEART: S1, S2. ABDOMEN: Soft, bowel tones present. EXTREMITIES: Without cyanosis. ASSESSMENT: 1. Septic shock with persistent fevers. Etiology could be secondary to pneumonia, left psoas muscl e infection versus chest wound with a questionable abscess. 2. Vegetative state status post cardiopulmonary arrest. 3. 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 4. Methicillin-resistant Staphylococcus aureus nares colonization. 5. Dysphagia. 6. Anemia. PLAN: The patient is stable off pressors. He is on broad-spectrum antibiotics. He is being follow ed by multiple consultants. Palliative care on the case. He is DNR status now. Dictated By: ALLIE GODOY STORES CLERK for ESTEFANY REDDING MD NI/NTS Conf#: [id number] DID#: [id number] CC: Tony De Jesus;*EndCC*
[2017-04-25] MEDS: ATORVASTATIN 20 MG TAB GTB SCH (21:03)
[2017-04-25] MEDS: TAMSULOSIN (SR) 0.4 MG CAP PO SCH (21:05)
[2017-04-26] VITALS (24 sets, daily range): BP systolic 95–111; BP diastolic 49–60; PULSE 71–92; RESP 18–27
[2017-04-26] MEDS: ACETAMINOPHEN 650MG/20.3ML CUP GTB PRN ×2 (03:19→13:47)
[2017-04-26] MEDS: MEROPENEM 500MG/50 ML (PMX) 50 ML IVPB SCH ×3 (05:17→21:18)
[2017-04-26] MEDS: CLINDAMYCIN 600 MG/D5W (PMX) 50 ML IVPB SCH ×3 (05:47→21:19)
[2017-04-26 06:39] LABS: ABNORMAL IP MESSAGE 1; BASOPHILS % 0.2 % (0.0-2.0); HEMATOCRIT 23.8 % (42.0-52.0); HEMOGLOBIN 7.6 g/dl (14.0-18.0); LYMPHOCYTES # 0.9 10^3/ul (0.8-2.9); LYMPHOCYTES % 9.8 % (15.0-51.0); MEAN CORPUSCULAR HGB CONC 31.9 g/dl (32.0-37.0); MEAN CORPUSCULAR VOLUME 103.5 fl (82.0-101.0); MEAN PLATELET VOLUME 13.4 fl (7.4-10.4); MONOCYTE # 0.5 10^3/ul (0.3-0.9); MONOCYTES % 5.9 % (0.0-11.0); NEUTROPHIL # 7.2 10^3/ul (1.6-7.5); NEUTROPHILS % 83.6 % (39.0-77.0); NUCLEATED RED BLOOD CELLS # 0.1 10^3/ul (0.0-0.0); NUCLEATED RED BLOOD CELLS% 1.5 /100WBC (0.0-0.0); PLATELET COUNT 123 10^3/UL (140-415); POSITIVE DIFF @See below; RED CELL DISTRIBUTION WIDTH 18.5 % (11.5-14.5); WHITE BLOOD COUNT 8.7 10^3/ul (4.8-10.8)
[2017-04-26 07:18] LABS: CREATININE 1.01 mg/dl (0.61-1.24); POTASSIUM 3.4 mmol/L (3.5-5.1)
[2017-04-26] MEDS: MUPIROCIN 2% 22 GM OINT TOP SCH ×2 (09:00→21:13)
[2017-04-26] MEDS: LACTOBACILLUS RHAMNOSUS CAP PO SCH (09:00)
[2017-04-26] MEDS: CHLORHEXIDINE GLUCONATE 15 ML UD CUP MM SCH ×2 (10:06→21:10)
[2017-04-26] MEDS: MULTIVITAMINS 30 ML CUP GTB SCH (10:07)
[2017-04-26] MEDS: AMIODARONE 200 MG TAB GTB SCH (10:09)
[2017-04-26] MEDS: CARBIDOPA/LEVODOPA (25/100) TAB GTB SCH ×4 (10:09→21:18)
[2017-04-26] MEDS: METOPROLOL 25 MG TAB PO SCH ×2 (10:10→21:00)
[2017-04-26] MEDS: FERROUS SULFATE (EC) 325 MG TAB PO SCH ×3 (10:11→21:09)
[2017-04-26] MEDS: ASCORBIC ACID 500 MG TAB GTB SCH ×2 (10:11→21:09)
[2017-04-26] MEDS: DOCUSATE SODIUM 10 MG/ML (10ML CUP) GTB SCH ×2 (10:11→21:09)
[2017-04-26] MEDS: COLLAGENASE 30 GM TUBE TOP SCH (10:12)
[2017-04-26] MEDS: BALSAM PERU/CASTOR OIL 60 GM TUBE TOP SCH (10:15)
--- NOTE | 2017-04-26 11:25 | CONS ---
Date/Time of Note Date/Time of Note DATE: 04/26/17 TIME: 11:23 Assessment/Plan Assessment/Plan Additional Assessment/Plan Ventilator setting; AC of 12, tidal volume 450, PEEP of 5, 30% FiO2. Assessment and recommendations; 1. Patient with history of chronic respiratory failure and advanced encephalopathy admitted with pneumonia and UTI currently on appropriate antibiotic regimen. 2. Anemia and thrombocytopenia. Continue current supportive care. Consultation Date/Type/Reason Admit Date/Time Apr 19, 2017 at 10:58 Initial Consult Date 04/24/17 Type of Consultation: Pulmonary Referring Provider: ZOE ALEXANDRA 24 HR Interval Summary Free Text/Dictation Patient's condition remained stable. Has remained hemodynamically stable. General exam; elderly male, on ventilator via tracheostomy, unresponsive, currently in no distress. Exam/Review of Systems Vital Signs Vitals Vital Signs Date Time Temp Pulse Resp B/P Pulse Ox O2 Delivery O2 Flow Rate FiO2 04/26/17 10:48 80 22 100 30 04/26/17 08:04 102.4 105/49 04/24/17 17:45 Mechanical Ventilator Intake and Output 04/25/17 04/25/17 04/26/17 15:00 23:00 07:00 Intake Total 50 ml 680 ml Output Total 425 ml 550 ml Balance -425 ml 50 ml 130 ml Exam HEENT exam; supple neck, no lymphadenopathy. No JVD. Tracheostomy in place. Patient has bilateral subconjunctival edema. Patient is edentulous. Chest exam; diminished but clear breath sounds. There is a well-healed sternal scar. S1-S2 audible, no murmurs. Regular rhythm. Abdomen exam; soft, protuberant. G-tube in place. Bowel sounds audible. Extremity exam; no edema. Patient has evidence contractures involving all 4 extremities. 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 Results Result Diagram: 04/26/17 0555 04/26/17 0555 Results 24 hrs Laboratory Tests Test 04/26/17 05:55 White Blood Count 8.7 Red Blood Count 2.30 L Hemoglobin 7.6 L Hematocrit 23.8 L Mean Corpuscular Volume 103.5 H Mean Corpuscular Hemoglobin 33.0 Mean Corpuscular Hemoglobin Concent 31.9 L Red Cell Distribution Width 18.5 H Platelet Count 123 #L Mean Platelet Volume 13.4 H Neutrophils % 83.6 H Lymphocytes % 9.8 L Monocytes % 5.9 Eosinophils % 0.0 Basophils % 0.2 Nucleated Red Blood Cells % 1.5 H Neutrophils # 7.2 Lymphocytes # 0.9 Monocytes # 0.5 Eosinophils # 0.0 Basophils # 0.0 Nucleated Red Blood Cells # 0.1 H Sodium Level 148 H Potassium Level 3.4 L Chloride Level 117 H Carbon Dioxide Level 27 Anion Gap 7 L Blood Urea Nitrogen 43 H Creatinine 1.01 Glucose Level 129 Calcium Level 7.0 L Medications Medications Current Medications Ondansetron HCl (Zofran Inj) 4 mg Q6H PRN IV NAUSEA AND/OR VOMITING; Start at 12:00 Acetaminophen (Tylenol Tab) 650 mg Q6H PRN PO PAIN LEVEL 1-3 OR FEVER Last administered on 04/20/17 19:01; Admin Dose 650 MG; Start 04/19/17 at 12:00 Acetaminophen/ Hydrocodone Bitart ([place] (5/325)) 1 tab Q6H PRN PO MODERATE PAIN LEVEL 4-6; Start 04/19/17 at 12:00 Morphine Sulfate (morphine) 2 mg Q4H PRN IV SEVERE PAIN LEVEL 7-10 Last administered on 04/20/17 23:43; Admin Dose 2 MG; Start 04/19/17 at 12:00 Magnesium Hydroxide (Milk Of Mag) 30 ml DAILY PRN PO CONSTIPATION; Start 04/19 at 12:00 Sodium Biphosphate/ Sodium Phosphate (Fleet Enema) 133 ml DAILY PRN [place] CONSTIPATION; Start 04/19/17 at 12:00 Nitroglycerin (Nitroglycerin (Sl Tab) 0.4 Mg) 1 tab Q5M PRN SL ANGINA; Start 04/19/17 at 12:00 Amiodarone HCl (Cordarone) 200 mg DAILY GTB Last administered on 04/26/17 10: 09; Admin Dose 200 MG; Start 04/20/17 at 09:00 Carbidopa/Levodopa (Sinemet (25/ 100)) 1 tab QID GTB Last administered on 10:09; Admin Dose 1 TAB; Start 04/19/17 at 13:00 Chlorhexidine Gluconate (Peridex) 15 ml Q12 MM Last administered on 04/26/17 10:06; Admin Dose 15 ML; Start 04/19/17 at 21:00 Doxazosin Mesylate (Cardura) 8 mg DAILY GTB Last administered on 04/23/17 09: 32; Admin Dose 8 MG; Start 04/20/17 at 09:00; Status Future Hold Ferrous Sulfate (Ferrous Sulfate (Ec)) 330 mg TID PO Last administered on 10:11; Admin Dose 330 MG; Start 04/19/17 at 13:00 Lactobacillus Acidophilus/ Rhamnosus (Culturelle) 1 cap DAILY PO Last administered on 04/26/17 09:00; Admin Dose 1 CAP; Start 04/20/17 at 09:00 Ascorbic Acid (Vitamin C) 500 mg BID GTB Last administered on 04/26/17 10:11; Admin Dose 500 MG; Start 04/19/17 at 21:00 Lorazepam (Ativan) 2 mg Q10MIN PRN IV seisure Last administered on 04/25/17 04:06; Admin Dose 2 MG; Start 04/19/17 at 17:30 Acetaminophen (Tylenol Liquid) 650 mg Q6H PRN GTB PAIN AND OR ELEVATED TEMP Last administered on 04/26/17 03:19; Admin Dose 650 MG; Start 04/20/17 at 19: 00 Miscellaneous Information (Pending Santyl Order For Wound Care) This patient galdamez... PRN PRN XX WOUND CARE; Start 04/21/17 at 02:00 Collagenase (Santyl) 1 applic DAILY TOP Last administered on 04/26/17 10:12; Admin Dose 1 APPLIC; Start 04/21/17 at 09:00 Collagenase (Santyl) 1 applic PRN PRN TOP PRN Last administered on 04/21/17 10:40; Admin Dose 1 APPLIC; Start 04/21/17 at 05:00 Enoxaparin Sodium (Lovenox) 50 mg Q12 SC Last administered on 04/23/17 21:00 ; Admin Dose 50 MG; Start 04/21/17 at 21:00; Status Future Hold Mupirocin (Bactroban) 1 applic BID TOP Last administered on 04/26/17 09:00; Admin Dose 1 APPLIC; Start 04/21/17 at 21:00 Metoprolol Tartrate (Lopressor) 12.5 mg BID PO Last administered on 04/26/17 10:10; Admin Dose 12.5 MG; Start 04/22/17 at 21:00 Albuterol (Proventil 0.083% (Neb)) 2.5 mg Q3H PRN NEB WHEEZING AND SOB; Start 04/22/17 at 19:00 Atorvastatin Calcium (Lipitor) 20 mg QHS GTB Last administered on 04/25/17 21 :03; Admin Dose 20 MG; Start 04/22/17 at 21:00 Tamsulosin HCl 0.4 mg 0.4 mg HS PO Last administered on 04/25/17 21:05; Admin Dose 0.4 MG; Start 04/22/17 at 21:00 Clindamycin HCl/ Dextrose (Cleocin 600 Mg/ D5W (Pmx)) 50 ml @ 50 mls/hr Q8 IVPB Last administered on 04/26/17 05:47; Admin Dose 50 MLS/HR; Start 04/23/17 at 22:00 Docusate Sodium (Colace Liquid Cup) 100 mg BID GTB Last administered on 10:11; Admin Dose 100 MG; Start 04/23/17 at 21:00 Multivitamins 30 ml 30 ml DAILY GTB Last administered on 04/26/17 10:07; Admin Dose 30 ML; Start 04/24/17 at 09:00 Meropenem/Sodium Chloride (Merrem 500mg/50 ml(Pmx)) 50 ml @ 100 mls/hr Q8 IVPB Last administered on 04/26/17 05:17; Admin Dose 100 MLS/HR; Start 04/24/17 at 14:00 ILANA BENITEZ Apr 26, 2017 11:25
--- NOTE | 2017-04-26 11:35 | PN ---
Date/Time of Note Date/Time of Note DATE: 04/26/17 TIME: 11:27 Assessment/Plan VTE Prophylaxis VTE Prophylaxis Intervention: SCD's Lines/Catheters IV Catheter Type (from Nrs): PICC Line Central line still needed: Yes (meds) Urinary Cath still in place: Yes Reason Cath still needed: other (indicate) (monitor output) Assessment/Plan Chief Complaint/Hosp Course Assessment: Macrocytic anemia Hypotension Chronic encephalopathy Respiratory failure Sepsis UTI Chest wall wound Status post cardiac arrest Plan: Stool for OB negative Continue to monitor H/H Transfuse for hemoglobin less than 7.5 No overt signs of GI bleed, colonoscopy Patient seen in collaboration with Dr. Leal Subjective: Course reviewed with nursing staff Patient interviewed and examined All labs, imaging and other results reviewed The patient has been down graded to TELE, currently remains stable, HGB stable from yesterday. No overt signs of GI bleed will continue to monitor need for endoscopies. At this time not clinically warranted. Code status DNR. Problems: Exam/Review of Systems Vital Signs Vitals Vital Signs Date Time Temp Pulse Resp B/P Pulse Ox O2 Delivery O2 Flow Rate FiO2 04/26/17 10:48 80 22 100 30 04/26/17 08:04 102.4 105/49 04/24/17 17:45 Mechanical Ventilator Intake and Output 04/25/17 04/25/17 04/26/17 15:00 23:00 07:00 Intake Total 50 ml 680 ml Output Total 425 ml 550 ml Balance -425 ml 50 ml 130 ml Results Result Diagram: 04/26/17 0555 04/26/17 0555 Results 24 hrs Laboratory Tests Test 04/26/17 05:55 White Blood Count 8.7 Red Blood Count 2.30 L Hemoglobin 7.6 L Hematocrit 23.8 L Mean Corpuscular Volume 103.5 H Mean Corpuscular Hemoglobin 33.0 Mean Corpuscular Hemoglobin Concent 31.9 L Red Cell Distribution Width 18.5 H Platelet Count 123 #L Mean Platelet Volume 13.4 H Neutrophils % 83.6 H Lymphocytes % 9.8 L Monocytes % 5.9 Eosinophils % 0.0 Basophils % 0.2 Nucleated Red Blood Cells % 1.5 H Neutrophils # 7.2 Lymphocytes # 0.9 Monocytes # 0.5 Eosinophils # 0.0 Basophils # 0.0 Nucleated Red Blood Cells # 0.1 H Sodium Level 148 H Potassium Level 3.4 L Chloride Level 117 H Carbon Dioxide Level 27 Anion Gap 7 L Blood Urea Nitrogen 43 H Creatinine 1.01 Glucose Level 129 Calcium Level 7.0 L Medications Medications Current Medications Ondansetron HCl (Zofran Inj) 4 mg Q6H PRN IV NAUSEA AND/OR VOMITING; Start at 12:00 Acetaminophen (Tylenol Tab) 650 mg Q6H PRN PO PAIN LEVEL 1-3 OR FEVER Last administered on 04/20/17 19:01; Admin Dose 650 MG; Start 04/19/17 at 12:00 Acetaminophen/ Hydrocodone Bitart ([place] (5/325)) 1 tab Q6H PRN PO MODERATE PAIN LEVEL 4-6; Start 04/19/17 at 12:00 Morphine Sulfate (morphine) 2 mg Q4H PRN IV SEVERE PAIN LEVEL 7-10 Last administered on 04/20/17 23:43; Admin Dose 2 MG; Start 04/19/17 at 12:00 Magnesium Hydroxide (Milk Of Mag) 30 ml DAILY PRN PO CONSTIPATION; Start 04/19 at 12:00 Sodium Biphosphate/ Sodium Phosphate (Fleet Enema) 133 ml DAILY PRN [place] CONSTIPATION; Start 04/19/17 at 12:00 Nitroglycerin (Nitroglycerin (Sl Tab) 0.4 Mg) 1 tab Q5M PRN SL ANGINA; Start 04/19/17 at 12:00 Amiodarone HCl (Cordarone) 200 mg DAILY GTB Last administered on 04/26/17 10: 09; Admin Dose 200 MG; Start 04/20/17 at 09:00 Carbidopa/Levodopa (Sinemet (25/ 100)) 1 tab QID GTB Last administered on 10:09; Admin Dose 1 TAB; Start 04/19/17 at 13:00 Chlorhexidine Gluconate (Peridex) 15 ml Q12 MM Last administered on 04/26/17 10:06; Admin Dose 15 ML; Start 04/19/17 at 21:00 Doxazosin Mesylate (Cardura) 8 mg DAILY GTB Last administered on 04/23/17 09: 32; Admin Dose 8 MG; Start 04/20/17 at 09:00; Status Future Hold Ferrous Sulfate (Ferrous Sulfate (Ec)) 330 mg TID PO Last administered on 10:11; Admin Dose 330 MG; Start 04/19/17 at 13:00 Lactobacillus Acidophilus/ Rhamnosus (Culturelle) 1 cap DAILY PO Last administered on 04/26/17 09:00; Admin Dose 1 CAP; Start 04/20/17 at 09:00 Ascorbic Acid (Vitamin C) 500 mg BID GTB Last administered on 04/26/17 10:11; Admin Dose 500 MG; Start 04/19/17 at 21:00 Lorazepam (Ativan) 2 mg Q10MIN PRN IV seisure Last administered on 04/25/17 04:06; Admin Dose 2 MG; Start 04/19/17 at 17:30 Acetaminophen (Tylenol Liquid) 650 mg Q6H PRN GTB PAIN AND OR ELEVATED TEMP Last administered on 04/26/17 03:19; Admin Dose 650 MG; Start 04/20/17 at 19: 00 Miscellaneous Information (Pending Santyl Order For Wound Care) This patient galdamez... PRN PRN XX WOUND CARE; Start 04/21/17 at 02:00 Collagenase (Santyl) 1 applic DAILY TOP Last administered on 04/26/17 10:12; Admin Dose 1 APPLIC; Start 04/21/17 at 09:00 Collagenase (Santyl) 1 applic PRN PRN TOP PRN Last administered on 04/21/17 10:40; Admin Dose 1 APPLIC; Start 04/21/17 at 05:00 Enoxaparin Sodium (Lovenox) 50 mg Q12 SC Last administered on 04/23/17 21:00 ; Admin Dose 50 MG; Start 04/21/17 at 21:00; Status Future Hold Mupirocin (Bactroban) 1 applic BID TOP Last administered on 04/26/17 09:00; Admin Dose 1 APPLIC; Start 04/21/17 at 21:00 Metoprolol Tartrate (Lopressor) 12.5 mg BID PO Last administered on 04/26/17 10:10; Admin Dose 12.5 MG; Start 04/22/17 at 21:00 Albuterol (Proventil 0.083% (Neb)) 2.5 mg Q3H PRN NEB WHEEZING AND SOB; Start 04/22/17 at 19:00 Atorvastatin Calcium (Lipitor) 20 mg QHS GTB Last administered on 04/25/17 21 :03; Admin Dose 20 MG; Start 04/22/17 at 21:00 Tamsulosin HCl 0.4 mg 0.4 mg HS PO Last administered on 04/25/17 21:05; Admin Dose 0.4 MG; Start 04/22/17 at 21:00 Clindamycin HCl/ Dextrose (Cleocin 600 Mg/ D5W (Pmx)) 50 ml @ 50 mls/hr Q8 IVPB Last administered on 04/26/17 05:47; Admin Dose 50 MLS/HR; Start 04/23/17 at 22:00 Docusate Sodium (Colace Liquid Cup) 100 mg BID GTB Last administered on 10:11; Admin Dose 100 MG; Start 04/23/17 at 21:00 Multivitamins 30 ml 30 ml DAILY GTB Last administered on 04/26/17 10:07; Admin Dose 30 ML; Start 04/24/17 at 09:00 Meropenem/Sodium Chloride (Merrem 500mg/50 ml(Pmx)) 50 ml @ 100 mls/hr Q8 IVPB Last administered on 04/26/17 05:17; Admin Dose 100 MLS/HR; Start 04/24/17 at 14:00 JAMIE FINLEY Apr 26, 2017 11:35
--- NOTE | 2017-04-26 12:48 | CONS ---
Date/Time of Note Date/Time of Note DATE: 04/26/17 TIME: 12:45 Assessment/Plan Assessment/Plan Chief Complaint/Hosp Course SUBJECTIVE: no acute changes, nonverbal, noncommunicative, in no distress. Continues to spike fevers MICROBIOLOGY: Blood culture and urine culture repeated on 04/24/2017 remain negative. Upper chest wound culture growing MRSA susceptible to clindamycin. DIAGNOSTICS: 04/24 CT of the abdomen and chest revealed consolidation with independent bilateral lower lobes which may reflect aspiration or pneumonia, small bilateral pleural effusion, extensive bronchiolitis throughout the remaining bibasilar lower lobes, lingula and inferior right upper lobe and right middle lobe, fractures of the anterolateral right second through seventh ribs and anterolateral left second through sixth ribs which appears subacute in nature. No specific focal fluid density within the ventral . Subcutaneous fat measuring 3.5 cm, possibly seroma. Underlying infection is not excluded. Mediastinal adenopathy likely reactive in nature. CT of the abdomen revealed 6 mm rounded hyperdensity within the left psoas muscle, questionable intramuscular hemorrhage. Questionable right hip joint effusion with synovitis. No well-defined drainable intra-abdominal abscess. INDWELLINGS: Trach, PEG, Taylor. ANTIMICROBIALS: Meropenem Clindamycin. PHYSICAL EXAMINATION: GENERAL: This is a chronically ill-appearing, elderly man who is in no distress. HEENT: Head atraumatic, normocephalic. Sclerae anicteric. Buccal mucosa dry. NECK: Supple. Tracheostomy present. CHEST: Rise symmetrical. Breath sounds diminished to bases. HEART: S1, S2. ABDOMEN: Soft, bowel tones present. EXTREMITIES: Without cyanosis. ASSESSMENT: 1. Septic shock with persistent fevers. Etiology could be secondary to pneumonia, left psoas muscle infection versus chest wound with a questionable abscess. 2. Vegetative state status post cardiopulmonary arrest. 3. 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 4. Methicillin-resistant Staphylococcus aureus nares colonization. 5. Dysphagia. 6. Anemia. PLAN: Clinically unchanged. Spiking fevers despite broad-spectrum antibiotics. He is being followed by multiple consultants. Palliative care on the case. He is DNR status now. Care is futile. staff Problems: Consultation Date/Type/Reason Admit Date/Time Apr 19, 2017 at 10:58 Initial Consult Date 04/24/17 Type of Consultation: id Referring Provider: ZOE ALEXANDRA Exam/Review of Systems Vital Signs Vitals Vital Signs Date Time Temp Pulse Resp B/P Pulse Ox O2 Delivery O2 Flow Rate FiO2 04/26/17 12:19 103.0 84 27 108/53 100 04/26/17 10:48 30 04/24/17 17:45 Mechanical Ventilator Intake and Output 04/25/17 04/25/17 04/26/17 15:00 23:00 07:00 Intake Total 50 ml 680 ml Output Total 425 ml 550 ml Balance -425 ml 50 ml 130 ml Results Result Diagram: 04/26/17 0555 04/26/17 0555 Results 24 hrs Laboratory Tests Test 04/26/17 05:55 White Blood Count 8.7 Red Blood Count 2.30 L Hemoglobin 7.6 L Hematocrit 23.8 L Mean Corpuscular Volume 103.5 H Mean Corpuscular Hemoglobin 33.0 Mean Corpuscular Hemoglobin Concent 31.9 L Red Cell Distribution Width 18.5 H Platelet Count 123 #L Mean Platelet Volume 13.4 H Neutrophils % 83.6 H Lymphocytes % 9.8 L Monocytes % 5.9 Eosinophils % 0.0 Basophils % 0.2 Nucleated Red Blood Cells % 1.5 H Neutrophils # 7.2 Lymphocytes # 0.9 Monocytes # 0.5 Eosinophils # 0.0 Basophils # 0.0 Nucleated Red Blood Cells # 0.1 H Sodium Level 148 H Potassium Level 3.4 L Chloride Level 117 H Carbon Dioxide Level 27 Anion Gap 7 L Blood Urea Nitrogen 43 H Creatinine 1.01 Glucose Level 129 Calcium Level 7.0 L Medications Medications Current Medications Ondansetron HCl (Zofran Inj) 4 mg Q6H PRN IV NAUSEA AND/OR VOMITING; Start at 12:00 Acetaminophen (Tylenol Tab) 650 mg Q6H PRN PO PAIN LEVEL 1-3 OR FEVER Last administered on 04/20/17 19:01; Admin Dose 650 MG; Start 04/19/17 at 12:00 Acetaminophen/ Hydrocodone Bitart ([place] (5/325)) 1 tab Q6H PRN PO MODERATE PAIN LEVEL 4-6; Start 04/19/17 at 12:00 Morphine Sulfate (morphine) 2 mg Q4H PRN IV SEVERE PAIN LEVEL 7-10 Last administered on 04/20/17 23:43; Admin Dose 2 MG; Start 04/19/17 at 12:00 Magnesium Hydroxide (Milk Of Mag) 30 ml DAILY PRN PO CONSTIPATION; Start 04/19 at 12:00 Sodium Biphosphate/ Sodium Phosphate (Fleet Enema) 133 ml DAILY PRN [place] CONSTIPATION; Start 04/19/17 at 12:00 Nitroglycerin (Nitroglycerin (Sl Tab) 0.4 Mg) 1 tab Q5M PRN SL ANGINA; Start 04/19/17 at 12:00 Amiodarone HCl (Cordarone) 200 mg DAILY GTB Last administered on 04/26/17 10: 09; Admin Dose 200 MG; Start 04/20/17 at 09:00 Carbidopa/Levodopa (Sinemet (/ )) 1 tab QID GTB Last administered on 10:09; Admin Dose 1 TAB; Start 04/19/17 at 13:00 Chlorhexidine Gluconate (Peridex) 15 ml Q12 MM Last administered on 04/26/17 10:06; Admin Dose 15 ML; Start 04/19/17 at 21:00 Doxazosin Mesylate (Cardura) 8 mg DAILY GTB Last administered on 04/23/17 09: 32; Admin Dose 8 MG; Start 04/20/17 at 09:00; Status Future Hold Ferrous Sulfate (Ferrous Sulfate (Ec)) 330 mg TID PO Last administered on 10:11; Admin Dose 330 MG; Start 04/19/17 at 13:00 Lactobacillus Acidophilus/ Rhamnosus (Culturelle) 1 cap DAILY PO Last administered on 04/26/17 09:00; Admin Dose 1 CAP; Start 04/20/17 at 09:00 Ascorbic Acid (Vitamin C) 500 mg BID GTB Last administered on 04/26/17 10:11; Admin Dose 500 MG; Start 04/19/17 at 21:00 Lorazepam (Ativan) 2 mg Q10MIN PRN IV seisure Last administered on 04/25/17 04:06; Admin Dose 2 MG; Start 04/19/17 at 17:30 Acetaminophen (Tylenol Liquid) 650 mg Q6H PRN GTB PAIN AND OR ELEVATED TEMP Last administered on 04/26/17 03:19; Admin Dose 650 MG; Start 04/20/17 at 19: 00 Miscellaneous Information (Pending Santyl Order For Wound Care) This patient galdamez... PRN PRN XX WOUND CARE; Start 04/21/17 at 02:00 Collagenase (Santyl) 1 applic DAILY TOP Last administered on 04/26/17 10:12; Admin Dose 1 APPLIC; Start 04/21/17 at 09:00 Collagenase (Santyl) 1 applic PRN PRN TOP PRN Last administered on 04/21/17 10:40; Admin Dose 1 APPLIC; Start 04/21/17 at 05:00 Enoxaparin Sodium (Lovenox) 50 mg Q12 SC Last administered on 04/23/17 21:00 ; Admin Dose 50 MG; Start 04/21/17 at 21:00; Status Future Hold Mupirocin (Bactroban) 1 applic BID TOP Last administered on 04/26/17 09:00; Admin Dose 1 APPLIC; Start 04/21/17 at 21:00 Metoprolol Tartrate (Lopressor) 12.5 mg BID PO Last administered on 04/26/17 10:10; Admin Dose 12.5 MG; Start 04/22/17 at 21:00 Albuterol (Proventil 0.083% (Neb)) 2.5 mg Q3H PRN NEB WHEEZING AND SOB; Start 04/22/17 at 19:00 Atorvastatin Calcium (Lipitor) 20 mg QHS GTB Last administered on 04/25/17 21 :03; Admin Dose 20 MG; Start 04/22/17 at 21:00 Tamsulosin HCl 0.4 mg 0.4 mg HS PO Last administered on 04/25/17 21:05; Admin Dose 0.4 MG; Start 04/22/17 at 21:00 Clindamycin HCl/ Dextrose (Cleocin 600 Mg/ D5W (Pmx)) 50 ml @ 50 mls/hr Q8 IVPB Last administered on 04/26/17 05:47; Admin Dose 50 MLS/HR; Start 04/23/17 at 22:00 Docusate Sodium (Colace Liquid Cup) 100 mg BID GTB Last administered on 10:11; Admin Dose 100 MG; Start 04/23/17 at 21:00 Multivitamins 30 ml 30 ml DAILY GTB Last administered on 04/26/17 10:07; Admin Dose 30 ML; Start 04/24/17 at 09:00 Meropenem/Sodium Chloride (Merrem 500mg/50 ml(Pmx)) 50 ml @ 100 mls/hr Q8 IVPB Last administered on 04/26/17t 05:17; Admin Dose 100 MLS/HR; Start 04/24/17 at 14:00 ALLIE GODOY NP Apr 26, 2017 12:48
--- NOTE | 2017-04-26 13:14 | CONS ---
Date/Time of Note Date/Time of Note DATE: 04/26/17 TIME: 13:10 Assessment/Plan Assessment/Plan Chief Complaint/Hosp Course IMP: 1.AF-Cinthya controlled 80-90 today 2.s/p cardiac arrest-PEA. EF 50% by echo this admit 3.encephalopathy 4.Fevers-ongoing 10 103 5.anemia-worsening 6.UTI 7. Hypotension-overall improved 8.PNA/psoas muscle infection Recc: -Tele -Lovenox on hold due to anemia -Contnue po amio for now -Continue low dose BB as tolerated only -Continue abx's and f/u cx data -Follow MS closely -hold cardura given borderline BP -s/p transfusions of PRBC's/follow HGb -improved HY s/p digoxin IVP and will thus start po digoxin today Problems: Consultation Date/Type/Reason Admit Date/Time Apr 19, 2017 at 10:58 Initial Consult Date 04/20/2017 Type of Consultation: cardiology Reason for Consultation girish Referring Provider: ZOE ALEXANDRA Exam/Review of Systems Vital Signs Vitals Vital Signs Date Time Temp Pulse Resp B/P Pulse Ox O2 Delivery O2 Flow Rate FiO2 04/26/17 12:19 103.0 84 27 108/53 100 04/26/17 10:48 30 04/24/17 17:45 Mechanical Ventilator Intake and Output 04/25/17 04/25/17 04/26/17 15:00 23:00 07:00 Intake Total 50 ml 680 ml Output Total 425 ml 550 ml Balance -425 ml 50 ml 130 ml Exam Review of Systems: CONSTITUTIONAL: No fevers, chills. PULMONARY: No sob CARDIOVASCULAR: No chest pain/palpitations GASTROINTESTINAL: No nausea/vomiting. GENITOURINARY: No hematuria/dysuria. MUSCULOSKELETAL: No myagias/arthalgias. PSYCHIATRIC: The patient denies depression. NEUROLOGIC: No weakness Constitutional: other (encephalopathic) Psych: no complaints Head: normocephalic ENMT: mucosa pink and moist Neck: jvd (9 cm water), other (trached), supple Respiratory: diminished breath sounds (at bases/B) Cardiovascular: regular rate and rhythm Gastrointestinal: non-tender, soft Musculoskeletal: muscle weakness (generalized) Extremities: edema (none) Neurological: confused, lethargic Results Result Diagram: 04/26/17 0555 04/26/17 0555 Results 24 hrs Laboratory Tests Test 04/26/17 05:55 White Blood Count 8.7 Red Blood Count 2.30 L Hemoglobin 7.6 L Hematocrit 23.8 L Mean Corpuscular Volume 103.5 H Mean Corpuscular Hemoglobin 33.0 Mean Corpuscular Hemoglobin Concent 31.9 L Red Cell Distribution Width 18.5 H Platelet Count 123 #L Mean Platelet Volume 13.4 H Neutrophils % 83.6 H Lymphocytes % 9.8 L Monocytes % 5.9 Eosinophils % 0.0 Basophils % 0.2 Nucleated Red Blood Cells % 1.5 H Neutrophils # 7.2 Lymphocytes # 0.9 Monocytes # 0.5 Eosinophils # 0.0 Basophils # 0.0 Nucleated Red Blood Cells # 0.1 H Sodium Level 148 H Potassium Level 3.4 L Chloride Level 117 H Carbon Dioxide Level 27 Anion Gap 7 L Blood Urea Nitrogen 43 H Creatinine 1.01 Glucose Level 129 Calcium Level 7.0 L Medications Medications Current Medications Ondansetron HCl (Zofran Inj) 4 mg Q6H PRN IV NAUSEA AND/OR VOMITING; Start at 12:00 Acetaminophen (Tylenol Tab) 650 mg Q6H PRN PO PAIN LEVEL 1-3 OR FEVER Last administered on 04/20/17 19:01; Admin Dose 650 MG; Start 04/19/17 at 12:00 Acetaminophen/ Hydrocodone Bitart ([place] (5/325)) 1 tab Q6H PRN PO MODERATE PAIN LEVEL 4-6; Start 04/19/17 at 12:00 Morphine Sulfate (morphine) 2 mg Q4H PRN IV SEVERE PAIN LEVEL 7-10 Last administered on 04/20/17 23:43; Admin Dose 2 MG; Start 04/19/17 at 12:00 Magnesium Hydroxide (Milk Of Mag) 30 ml DAILY PRN PO CONSTIPATION; Start 04/19 at 12:00 Sodium Biphosphate/ Sodium Phosphate (Fleet Enema) 133 ml DAILY PRN [place] CONSTIPATION; Start 04/19/17 at 12:00 Nitroglycerin (Nitroglycerin (Sl Tab) 0.4 Mg) 1 tab Q5M PRN SL ANGINA; Start 04/19/17 at 12:00 Amiodarone HCl (Cordarone) 200 mg DAILY GTB Last administered on 04/26/17 10: 09; Admin Dose 200 MG; Start 04/20/17 at 09:00 Carbidopa/Levodopa (Sinemet (25/ )) 1 tab QID GTB Last administered on 10:09; Admin Dose 1 TAB; Start 04/19/17 at 13:00 Chlorhexidine Gluconate (Peridex) 15 ml Q12 MM Last administered on 04/26/17 10:06; Admin Dose 15 ML; Start 04/19/17 at 21:00 Doxazosin Mesylate (Cardura) 8 mg DAILY GTB Last administered on 04/23/17 09: 32; Admin Dose 8 MG; Start 04/20/17 at 09:00; Status Future Hold Ferrous Sulfate (Ferrous Sulfate (Ec)) 330 mg TID PO Last administered on 10:11; Admin Dose 330 MG; Start 04/19/17 at 13:00 Lactobacillus Acidophilus/ Rhamnosus (Culturelle) 1 cap DAILY PO Last administered on 04/26/17 09:00; Admin Dose 1 CAP; Start 04/20/17 at 09:00 Ascorbic Acid (Vitamin C) 500 mg BID GTB Last administered on 04/26/17 10:11; Admin Dose 500 MG; Start 04/19/17 at 21:00 Lorazepam (Ativan) 2 mg Q10MIN PRN IV seisure Last administered on 04/25/17 04:06; Admin Dose 2 MG; Start 04/19/17 at 17:30 Acetaminophen (Tylenol Liquid) 650 mg Q6H PRN GTB PAIN AND OR ELEVATED TEMP Last administered on 04/26/17 03:19; Admin Dose 650 MG; Start 04/20/17 at 19: 00 Miscellaneous Information (Pending Santyl Order For Wound Care) This patient galdamez... PRN PRN XX WOUND CARE; Start 04/21/17 at 02:00 Collagenase (Santyl) 1 applic DAILY TOP Last administered on 04/26/17 10:12; Admin Dose 1 APPLIC; Start 04/21/17 at 09:00 Collagenase (Santyl) 1 applic PRN PRN TOP PRN Last administered on 04/21/17 10:40; Admin Dose 1 APPLIC; Start 04/21/17 at 05:00 Enoxaparin Sodium (Lovenox) 50 mg Q12 SC Last administered on 04/23/17 21:00 ; Admin Dose 50 MG; Start 04/21/17 at 21:00; Status Future Hold Mupirocin (Bactroban) 1 applic BID TOP Last administered on 04/26/17 09:00; Admin Dose 1 APPLIC; Start 04/21/17 at 21:00 Metoprolol Tartrate (Lopressor) 12.5 mg BID PO Last administered on 04/26/17 10:10; Admin Dose 12.5 MG; Start 04/22/17 at 21:00 Albuterol (Proventil 0.083% (Neb)) 2.5 mg Q3H PRN NEB WHEEZING AND SOB; Start 04/22/17 at 19:00 Atorvastatin Calcium (Lipitor) 20 mg QHS GTB Last administered on 04/25/17 21 :03; Admin Dose 20 MG; Start 04/22/17 at 21:00 Tamsulosin HCl 0.4 mg 0.4 mg HS PO Last administered on 04/25/17 21:05; Admin Dose 0.4 MG; Start 04/22/17 at 21:00 Clindamycin HCl/ Dextrose (Cleocin 600 Mg/ D5W (Pmx)) 50 ml @ 50 mls/hr Q8 IVPB Last administered on 04/26/17 05:47; Admin Dose 50 MLS/HR; Start 04/23/17 at 22:00 Docusate Sodium (Colace Liquid Cup) 100 mg BID GTB Last administered on 10:11; Admin Dose 100 MG; Start 04/23/17 at 21:00 Multivitamins 30 ml 30 ml DAILY GTB Last administered on 04/26/17 10:07; Admin Dose 30 ML; Start 04/24/17 at 09:00 Meropenem/Sodium Chloride (Merrem 500mg/50 ml(Pmx)) 50 ml @ 100 mls/hr Q8 IVPB Last administered on 04/26/17 05:17; Admin Dose 100 MLS/HR; Start 04/24/17 at 14:00 ELVIS HINTON Apr 26, 2017 13:14
--- NOTE | 2017-04-26 13:49 | PN ---
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 Hospitalization complicated by sepsis 2/2 UTI v chest wall wound, now with progressive anemia of unclear etiology #anemia: etio unclear. FOBT negative but labs with ZULY even in setting of macrocytosis in pt already on iron GI on boared #cardiac arrest with ROSC cardiology on consult, etio of cardiac arrest unclear cont cardiac meds #sepsis from PNA v chest wall wound based on imaging. remains febrile ID on consult, abx expanded from tobra to meropenem, pt remains on clinda could also consider sampling hip fluid, pleural effusion-->dw ID. ID does not believe these to be infectious foci per their note -gen surg cs to eval chest wall wound Subjective 24 Hr Interval Summary Free Text/Dictation BPs ok, still febrile Exam/Review of Systems Vital Signs Vitals Vital Signs Date Time Temp Pulse Resp B/P Pulse Ox O2 Delivery O2 Flow Rate FiO2 04/26/17 12:19 103.0 84 27 108/53 100 04/26/17 10:48 30 04/24/17 17:45 Mechanical Ventilator Intake and Output 04/25/17 04/25/17 04/26/17 15:00 23:00 07:00 Intake Total 50 ml 680 ml Output Total 425 ml 550 ml Balance -425 ml 50 ml 130 ml Exam doesnt follow commands no mrg abd soft no rashes +contracted Results Result Diagram: 04/26/17 0555 04/26/17 0555 Results 24 hrs Laboratory Tests Test 04/26/17 05:55 White Blood Count 8.7 Red Blood Count 2.30 L Hemoglobin 7.6 L Hematocrit 23.8 L Mean Corpuscular Volume 103.5 H Mean Corpuscular Hemoglobin 33.0 Mean Corpuscular Hemoglobin Concent 31.9 L Red Cell Distribution Width 18.5 H Platelet Count 123 #L Mean Platelet Volume 13.4 H Neutrophils % 83.6 H Lymphocytes % 9.8 L Monocytes % 5.9 Eosinophils % 0.0 Basophils % 0.2 Nucleated Red Blood Cells % 1.5 H Neutrophils # 7.2 Lymphocytes # 0.9 Monocytes # 0.5 Eosinophils # 0.0 Basophils # 0.0 Nucleated Red Blood Cells # 0.1 H Sodium Level 148 H Potassium Level 3.4 L Chloride Level 117 H Carbon Dioxide Level 27 Anion Gap 7 L Blood Urea Nitrogen 43 H Creatinine 1.01 Glucose Level 129 Calcium Level 7.0 L Medications Medications Current Medications Ondansetron HCl (Zofran Inj) 4 mg Q6H PRN IV NAUSEA AND/OR VOMITING; Start at 12:00 Acetaminophen (Tylenol Tab) 650 mg Q6H PRN PO PAIN LEVEL 1-3 OR FEVER Last administered on 04/20/17 19:01; Admin Dose 650 MG; Start 04/19/17 at 12:00 Acetaminophen/ Hydrocodone Bitart ([place] (5/325)) 1 tab Q6H PRN PO MODERATE PAIN LEVEL 4-6; Start 04/19/17 at 12:00 Morphine Sulfate (morphine) 2 mg Q4H PRN IV SEVERE PAIN LEVEL 7-10 Last administered on 04/20/17 23:43; Admin Dose 2 MG; Start 04/19/17 at 12:00 Magnesium Hydroxide (Milk Of Mag) 30 ml DAILY PRN PO CONSTIPATION; Start 04/19 at 12:00 Sodium Biphosphate/ Sodium Phosphate (Fleet Enema) [address] CONSTIPATION; Start 04/19/17 at 12:00 Nitroglycerin (Nitroglycerin (Sl Tab) 0.4 Mg) 1 tab Q5M PRN SL ANGINA; Start 04/19/17 at 12:00 Amiodarone HCl (Cordarone) 200 mg DAILY GTB Last administered on 04/26/17 10: 09; Admin Dose 200 MG; Start 04/20/17 at 09:00 Carbidopa/Levodopa (Sinemet (25/ 100)) 1 tab QID GTB Last administered on 10:09; Admin Dose 1 TAB; Start 04/19/17 at 13:00 Chlorhexidine Gluconate (Peridex) 15 ml Q12 MM Last administered on 04/26/17 10:06; Admin Dose 15 ML; Start 04/19/17 at 21:00 Doxazosin Mesylate (Cardura) 8 mg DAILY GTB Last administered on 04/23/17 09: 32; Admin Dose 8 MG; Start 04/20/17 at 09:00; Status Future Hold Ferrous Sulfate (Ferrous Sulfate (Ec)) 330 mg TID PO Last administered on 10:11; Admin Dose 330 MG; Start 04/19/17 at 13:00 Lactobacillus Acidophilus/ Rhamnosus (Culturelle) 1 cap DAILY PO Last administered on 04/26/17 09:00; Admin Dose 1 CAP; Start 04/20/17 at 09:00 Ascorbic Acid (Vitamin C) 500 mg BID GTB Last administered on 04/26/17 10:11; Admin Dose 500 MG; Start 04/19/17 at 21:00 Lorazepam (Ativan) 2 mg Q10MIN PRN IV seisure Last administered on 04/25/17 04:06; Admin Dose 2 MG; Start 04/19/17 at 17:30 Acetaminophen (Tylenol Liquid) 650 mg Q6H PRN GTB PAIN AND OR ELEVATED TEMP Last administered on 04/26/17 03:19; Admin Dose 650 MG; Start 04/20/17 at 19: 00 Miscellaneous Information (Pending Santyl Order For Wound Care) This patient galdamez... PRN PRN XX WOUND CARE; Start 04/21/17 at 02:00 Collagenase (Santyl) 1 applic DAILY TOP Last administered on 04/26/17 10:12; Admin Dose 1 APPLIC; Start 04/21/17 at 09:00 Collagenase (Santyl) 1 applic PRN PRN TOP PRN Last administered on 04/21/17 10:40; Admin Dose 1 APPLIC; Start 04/21/17 at 05:00 Enoxaparin Sodium (Lovenox) 50 mg Q12 SC Last administered on 04/23/17 21:00 ; Admin Dose 50 MG; Start 04/21/17 at 21:00; Status Future Hold Mupirocin (Bactroban) 1 applic BID TOP Last administered on 04/26/17 09:00; Admin Dose 1 APPLIC; Start 04/21/17 at 21:00 Metoprolol Tartrate (Lopressor) 12.5 mg BID PO Last administered on 04/26/17 10:10; Admin Dose 12.5 MG; Start 04/22/17 at 21:00 Albuterol (Proventil 0.083% (Neb)) 2.5 mg Q3H PRN NEB WHEEZING AND SOB; Start 04/22/17 at 19:00 Atorvastatin Calcium (Lipitor) 20 mg QHS GTB Last administered on 04/25/17 21 :03; Admin Dose 20 MG; Start 04/22/17 at 21:00 Tamsulosin HCl 0.4 mg 0.4 mg HS PO Last administered on 04/25/17 21:05; Admin Dose 0.4 MG; Start 04/22/17 at 21:00 Clindamycin HCl/ Dextrose (Cleocin 600 Mg/ D5W (Pmx)) 50 ml @ 50 mls/hr Q8 IVPB Last administered on 04/26/17 05:47; Admin Dose 50 MLS/HR; Start 04/23/17 at 22:00 Docusate Sodium (Colace Liquid Cup) 100 mg BID GTB Last administered on 10:11; Admin Dose 100 MG; Start 04/23/17 at 21:00 Multivitamins 30 ml 30 ml DAILY GTB Last administered on 04/26/17 10:07; Admin Dose 30 ML; Start 04/24/17 at 09:00 Meropenem/Sodium Chloride (Merrem 500mg/50 ml(Pmx)) 50 ml @ 100 mls/hr Q8 IVPB Last administered on 04/26/17 05:17; Admin Dose 100 MLS/HR; Start 04/24/17 at 14:00 Digoxin (Digoxin) 0.125 mg DAILY@13 PO ; Start 04/27/17 at 13:00 VIRGILIO MCCALL MD Apr 26, 2017 13:49
--- NOTE | 2017-04-26 15:34 | CONS ---
Date/Time of Note Date/Time of Note DATE: 04/26/17 TIME: 15:23 Assessment/Plan Assessment/Plan Problems: (1) Pressure ulcer Status: Chronic Comment: 76 year old male with what seems to be a small 1-1.5cm superficial pressure ulcer on his mid chest/sternal skin. small area of dry eschar. no signs of infection. no drainage. no fluid collection. no cellulitis. no edema. given poor nutritional status will likely be slow healing. given area likely from trach respiratory tubing. patient febrile, no leukocytosis, and septic. unlikely this to be the source. no surgical intervention necessary. continue with wound care. unlikely source of sepsis. thank you for this consultation. 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 Currently septic with unknown etiology. Was noted to have small chest wall wound. Surgery called to evaluate as potential source. When seen at bedside patient chronically ill with trach/peg. history obtained from EMR as patient is not verbal. unable to obtain given patients medical condition Past Medical History multiple medical comorbidities. please refer to EMR for details Past Surgical History Trach/PEG Family History Significant Family History: other (unknown ) Social History chronically ill currently in facility requiring full care. Smoking Status: Unknown if ever smoked Exam/Review of Systems Vital Signs Vitals Vital Signs Date Time Temp Pulse Resp B/P Pulse Ox O2 Delivery O2 Flow Rate FiO2 04/26/17 15:00 82 19 100 30 04/26/17 12:19 103.0 108/53 04/24/17 17:45 Mechanical Ventilator Intake and Output 04/25/17 04/25/17 04/26/17 15:00 23:00 07:00 Intake Total 50 ml 680 ml Output Total 425 ml 550 ml Balance -425 ml 50 ml 130 ml Exam Constitutional: frail, non-verbal Psych: other (cannot obatin ) Head: atraumatic Eyes: nl conjunctiva ENMT: other (trach ) Neck: other (trach) Respiratory: normal air movement Cardiovascular: other (pulses okay ) Gastrointestinal: other (cannot assess tenderness. feeding tube ), soft Musculoskeletal: other (bed bound) Neurological: unresponsive Skin: other (1-1.5cm lesion noted on mid chest wall / sternum which almost looks like a pressure ulcer? with dry eschar noted. no drainage. no underlying fluid collection. no surrounding erythema or edema. no cellulitis. ) Results Result Diagram: 04/26/17 0555 04/26/17 0555 Results 24 hrs Laboratory Tests Test 04/26/17 05:55 White Blood Count 8.7 Red Blood Count 2.30 L Hemoglobin 7.6 L Hematocrit 23.8 L Mean Corpuscular Volume 103.5 H Mean Corpuscular Hemoglobin 33.0 Mean Corpuscular Hemoglobin Concent 31.9 L Red Cell Distribution Width 18.5 H Platelet Count 123 #L Mean Platelet Volume 13.4 H Neutrophils % 83.6 H Lymphocytes % 9.8 L Monocytes % 5.9 Eosinophils % 0.0 Basophils % 0.2 Nucleated Red Blood Cells % 1.5 H Neutrophils # 7.2 Lymphocytes # 0.9 Monocytes # 0.5 Eosinophils # 0.0 Basophils # 0.0 Nucleated Red Blood Cells # 0.1 H Sodium Level 148 H Potassium Level 3.4 L Chloride Level 117 H Carbon Dioxide Level 27 Anion Gap 7 L Blood Urea Nitrogen 43 H Creatinine 1.01 Glucose Level 129 Calcium Level 7.0 L Medications Medications Current Medications Ondansetron HCl (Zofran Inj) 4 mg Q6H PRN IV NAUSEA AND/OR VOMITING; Start at 12:00 Acetaminophen (Tylenol Tab) 650 mg Q6H PRN PO PAIN LEVEL 1-3 OR FEVER Last administered on 04/20/17 19:01; Admin Dose 650 MG; Start 04/19/17 at 12:00 Acetaminophen/ Hydrocodone Bitart ([place] (5/325)) 1 tab Q6H PRN PO MODERATE PAIN LEVEL 4-6; Start 04/19/17 at 12:00 Morphine Sulfate (morphine) 2 mg Q4H PRN IV SEVERE PAIN LEVEL 7-10 Last administered on 04/20/17 23:43; Admin Dose 2 MG; Start 04/19/17 at 12:00 Magnesium Hydroxide (Milk Of Mag) 30 ml DAILY PRN PO CONSTIPATION; Start 04/19 at 12:00 Sodium Biphosphate/ Sodium Phosphate (Fleet Enema) 133 ml DAILY PRN [place] CONSTIPATION; Start 04/19/17 at 12:00 Nitroglycerin (Nitroglycerin (Sl Tab) 0.4 Mg) 1 tab Q5M PRN SL ANGINA; Start 04/19/17 at 12:00 Amiodarone HCl (Cordarone) 200 mg DAILY GTB Last administered on 04/26/17 10: 09; Admin Dose 200 MG; Start 04/20/17 at 09:00 Carbidopa/Levodopa (Sinemet (25/ 100)) 1 tab QID GTB Last administered on 13:46; Admin Dose 1 TAB; Start 04/19/17 at 13:00 Chlorhexidine Gluconate (Peridex) 15 ml Q12 MM Last administered on 04/26/17 10:06; Admin Dose 15 ML; Start 04/19/17 at 21:00 Doxazosin Mesylate (Cardura) 8 mg DAILY GTB Last administered on 04/23/17 09: 32; Admin Dose 8 MG; Start 04/20/17 at 09:00; Status Future Hold Ferrous Sulfate (Ferrous Sulfate (Ec)) 330 mg TID PO Last administered on 13:46; Admin Dose 330 MG; Start 04/19/17 at 13:00 Lactobacillus Acidophilus/ Rhamnosus (Culturelle) 1 cap DAILY PO Last administered on 04/26/17 09:00; Admin Dose 1 CAP; Start 04/20/17 at 09:00 Ascorbic Acid (Vitamin C) 500 mg BID GTB Last administered on 04/26/17 10:11; Admin Dose 500 MG; Start 04/19/17 at 21:00 Lorazepam (Ativan) 2 mg Q10MIN PRN IV seisure Last administered on 04/25/17 04:06; Admin Dose 2 MG; Start 04/19/17 at 17:30 Acetaminophen (Tylenol Liquid) 650 mg Q6H PRN GTB PAIN AND OR ELEVATED TEMP Last administered on 04/26/17 13:47; Admin Dose 650 MG; Start 04/20/17 at 19: 00 Miscellaneous Information (Pending Santyl Order For Wound Care) This patient galdamez... PRN PRN XX WOUND CARE; Start 04/21/17 at 02:00 Collagenase (Santyl) 1 applic DAILY TOP Last administered on 04/26/17 10:12; Admin Dose 1 APPLIC; Start 04/21/17 at 09:00 Collagenase (Santyl) 1 applic PRN PRN TOP PRN Last administered on 04/21/17 10:40; Admin Dose 1 APPLIC; Start 04/21/17 at 05:00 Enoxaparin Sodium (Lovenox) 50 mg Q12 SC Last administered on 04/23/17 21:00 ; Admin Dose 50 MG; Start 04/21/17 at 21:00; Status Future Hold Mupirocin (Bactroban) 1 applic BID TOP Last administered on 04/26/17 09:00; Admin Dose 1 APPLIC; Start 04/21/17 at 21:00 Metoprolol Tartrate (Lopressor) 12.5 mg BID PO Last administered on 04/26/17 10:10; Admin Dose 12.5 MG; Start 04/22/17 at 21:00 Albuterol (Proventil 0.083% (Neb)) 2.5 mg Q3H PRN NEB WHEEZING AND SOB; Start 04/22/17 at 19:00 Atorvastatin Calcium (Lipitor) 20 mg QHS GTB Last administered on 04/25/17 21 :03; Admin Dose 20 MG; Start 04/22/17 at 21:00 Tamsulosin HCl 0.4 mg 0.4 mg HS PO Last administered on 04/25/17 21:05; Admin Dose 0.4 MG; Start 04/22/17 at 21:00 Clindamycin HCl/ Dextrose (Cleocin 600 Mg/ D5W (Pmx)) 50 ml @ 50 mls/hr Q8 IVPB Last administered on 04/26/17 13:46; Admin Dose 50 MLS/HR; Start 04/23/17 at 22:00 Docusate Sodium (Colace Liquid Cup) 100 mg BID GTB Last administered on 10:11; Admin Dose 100 MG; Start 04/23/17 at 21:00 Multivitamins 30 ml 30 ml DAILY GTB Last administered on 04/26/17 10:07; Admin Dose 30 ML; Start 04/24/17 at 09:00 Meropenem/Sodium Chloride (Merrem 500mg/50 ml(Pmx)) 50 ml @ 100 mls/hr Q8 IVPB Last administered on 04/26/17 13:49; Admin Dose 100 MLS/HR; Start 04/24/17 at 14:00 Digoxin (Digoxin) 0.125 mg DAILY@13 PO ; Start 04/27/17 at 13:00 FRED MEEHAN MD Apr 26, 2017 15:34
[2017-04-26] MEDS: TAMSULOSIN (SR) 0.4 MG CAP PO SCH (21:08)
[2017-04-26] MEDS: ATORVASTATIN 20 MG TAB GTB SCH (21:08)
[2017-04-26] MEDS: ACETAMINOPHEN 325 MG TAB PO PRN (21:27)
[2017-04-27] VITALS (25 sets, daily range): BP systolic 105–127; BP diastolic 56–62; PULSE 69–91; RESP 18–29
[2017-04-27] MEDS: ACETAMINOPHEN 650MG/20.3ML CUP GTB PRN ×4 (02:27→21:18)
[2017-04-27] MEDS: CLINDAMYCIN 600 MG/D5W (PMX) 50 ML IVPB SCH ×3 (04:45→21:27)
[2017-04-27] MEDS: MEROPENEM 500MG/50 ML (PMX) 50 ML IVPB SCH ×3 (04:45→21:27)
[2017-04-27] MEDS: CARBIDOPA/LEVODOPA (25/100) TAB GTB SCH ×4 (09:42→21:18)
[2017-04-27] MEDS: AMIODARONE 200 MG TAB GTB SCH (09:42)
[2017-04-27] MEDS: FERROUS SULFATE (EC) 325 MG TAB PO SCH ×3 (09:42→21:20)
[2017-04-27] MEDS: LACTOBACILLUS RHAMNOSUS CAP PO SCH (09:42)
[2017-04-27] MEDS: ASCORBIC ACID 500 MG TAB GTB SCH ×2 (09:42→21:20)
[2017-04-27] MEDS: DOCUSATE SODIUM 10 MG/ML (10ML CUP) GTB SCH ×2 (09:42→21:18)
[2017-04-27] MEDS: MULTIVITAMINS 30 ML CUP GTB SCH (09:43)
[2017-04-27] MEDS: METOPROLOL 25 MG TAB PO SCH ×2 (09:43→21:19)
[2017-04-27] MEDS: CHLORHEXIDINE GLUCONATE 15 ML UD CUP MM SCH ×2 (09:43→21:20)
[2017-04-27] MEDS: BALSAM PERU/CASTOR OIL 60 GM TUBE TOP SCH (09:44)
[2017-04-27] MEDS: COLLAGENASE 30 GM TUBE TOP SCH (09:44)
[2017-04-27] MEDS: MUPIROCIN 2% 22 GM OINT TOP SCH ×2 (09:45→21:22)
[2017-04-27] MEDS: DIGOXIN 0.125 MG TAB PO SCH (12:56)
--- NOTE | 2017-04-27 13:15 | PN ---
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 Currently septic with unknown etiology. Was noted to have small chest wall wound. Surgery called to evaluate as potential source. When seen at bedside patient chronically ill with trach/peg. history obtained from EMR as patient is not verbal. Problems: (1) Pressure ulcer Status: Chronic Comment: sternal 1`-1.5cm superficial with dry eschar Qualifiers: Pressure ulcer location: other site Assessment/Plan wound clean. no surrounding cellulitis. no drainage but wound is moist from moist dressings. unlikely source of infection. patient still febrile with no leukocytosis or shift. -continue with dressings. please stop using moist dressings and use dry gauze BID and prn. Subjective 24 Hr Interval Summary Subjective hx not possible: pt non-verbal Exam/Review of Systems Vital Signs Vitals Vital Signs Date Time Temp Pulse Resp B/P Pulse Ox O2 Delivery O2 Flow Rate FiO2 04/27/17 11:21 103.0 83 18 117/56 99 04/27/17 11:07 40 04/24/17 17:45 Mechanical Ventilator Intake and Output 04/26/17 04/26/17 04/27/17 15:00 23:00 07:00 Intake Total 50 ml 920 ml 1120 ml Output Total 800 ml 500 ml Balance 50 ml 120 ml 620 ml Exam Additional Comments sternal superficial skin wound likely pressure ulcer from some trach supply. no signs of active infection. no cellulitis. dry eschar noted. wound moist Results Result Diagram: 04/26/17 0555 04/26/17 0555 FRED MEEHAN MD Apr 27, 2017 13:15
--- NOTE | 2017-04-27 13:30 | PN ---
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 Hospitalization complicated by sepsis 2/2 UTI v chest wall wound, now with progressive anemia of unclear etiology. Still with fevers, etio unclear. #anemia: etio unclear. FOBT negative but labs with ZULY even in setting of macrocytosis in pt already on iron GI on board #cardiac arrest with ROSC cardiology on consult, etio of cardiac arrest unclear cont cardiac meds #sepsis from PNA v chest wall wound based on imaging. remains febrile ID on consult, abx expanded from tobra to meropenem, pt remains on clinda could also consider sampling hip fluid, pleural effusion. IR aspiration of hip fluid ordered chest wall wound is sp gen surg eval. not in need of debridement consider thora? agree with ID that care ultimately medically futile. Palliative care is on the case. I have placed a sw consult to ask for assistance setting up a family meeting sometime next week to clarify goals of care. Pt initially sent in sp PEA arrest. His quality of life appears quite poor-->he's contracted in all limbs and is unable to communicate. Besides the ROSC obtained in the field, unclear to me in what meaningful way pt is benefitting from continued medical intervention Subjective 24 Hr Interval Summary Free Text/Dictation still febrile Exam/Review of Systems Vital Signs Vitals Vital Signs Date Time Temp Pulse Resp B/P Pulse Ox O2 Delivery O2 Flow Rate FiO2 04/27/17 13:00 78 25 97 40 04/27/17 11:21 103.0 117/56 04/24/17 17:45 Mechanical Ventilator Intake and Output 04/26/17 04/26/17 04/27/17 14:59 22:59 06:59 Intake Total 50 ml 920 ml 1120 ml Output Total 800 ml 500 ml Balance 50 ml 120 ml 620 ml Exam doesnt follow commands trach site c/d/i no mrg abd soft +contractures Results Result Diagram: 04/26/17 0555 04/26/17 0555 Medications Medications Current Medications Ondansetron HCl (Zofran Inj) 4 mg Q6H PRN IV NAUSEA AND/OR VOMITING; Start at 12:00 Acetaminophen (Tylenol Tab) 650 mg Q6H PRN PO PAIN LEVEL 1-3 OR FEVER Last administered on 04/26/17 21:27; Admin Dose 650 MG; Start 04/19/17 at 12:00 Acetaminophen/ Hydrocodone Bitart ([place] (5/325)) 1 tab Q6H PRN PO MODERATE PAIN LEVEL 4-6; Start 04/19/17 at 12:00 Morphine Sulfate (morphine) 2 mg Q4H PRN IV SEVERE PAIN LEVEL 7-10 Last administered on 04/20/17 23:43; Admin Dose 2 MG; Start 04/19/17 at 12:00 Magnesium Hydroxide (Milk Of Mag) 30 ml DAILY PRN PO CONSTIPATION; Start 04/19 at 12:00 Sodium Biphosphate/ Sodium Phosphate (Fleet Enema) 133 ml DAILY PRN [place] CONSTIPATION; Start 04/19/17 at 12:00 Nitroglycerin (Nitroglycerin (Sl Tab) 0.4 Mg) 1 tab Q5M PRN SL ANGINA; Start 04/19/17 at 12:00 Amiodarone HCl (Cordarone) 200 mg DAILY GTB Last administered on 04/27/17 09: 42; Admin Dose 200 MG; Start 04/20/17 at 09:00 Carbidopa/Levodopa (Sinemet (25/ 100)) 1 tab QID GTB Last administered on 12:56; Admin Dose 1 TAB; Start 04/19/17 at 13:00 Chlorhexidine Gluconate (Peridex) 15 ml Q12 MM Last administered on 04/27/17 09:43; Admin Dose 15 ML; Start 04/19/17 at 21:00 Doxazosin Mesylate (Cardura) 8 mg DAILY GTB Last administered on 04/23/17 09: 32; Admin Dose 8 MG; Start 04/20/17 at 09:00; Status Future Hold Ferrous Sulfate (Ferrous Sulfate (Ec)) 330 mg TID PO Last administered on 12:56; Admin Dose 330 MG; Start 04/19/17 at 13:00 Lactobacillus Acidophilus/ Rhamnosus (Culturelle) 1 cap DAILY PO Last administered on 04/27/17 09:42; Admin Dose 1 CAP; Start 04/20/17 at 09:00 Ascorbic Acid (Vitamin C) 500 mg BID GTB Last administered on 04/27/17 09:42; Admin Dose 500 MG; Start 04/19/17 at 21:00 Lorazepam (Ativan) 2 mg Q10MIN PRN IV seisure Last administered on 04/25/17 04:06; Admin Dose 2 MG; Start 04/19/17 at 17:30 Acetaminophen (Tylenol Liquid) 650 mg Q6H PRN GTB PAIN AND OR ELEVATED TEMP Last administered on 04/27/17 09:51; Admin Dose 650 MG; Start 04/20/17 at 19: 00 Miscellaneous Information (Pending Santyl Order For Wound Care) This patient galdamez... PRN PRN XX WOUND CARE; Start 04/21/17 at 02:00 Collagenase (Santyl) 1 applic DAILY TOP Last administered on 04/27/17 09:44; Admin Dose 1 APPLIC; Start 04/21/17 at 09:00 Collagenase (Santyl) 1 applic PRN PRN TOP PRN Last administered on 04/21/17 10:40; Admin Dose 1 APPLIC; Start 04/21/17 at 05:00 Enoxaparin Sodium (Lovenox) 50 mg Q12 SC Last administered on 04/23/17 21:00 ; Admin Dose 50 MG; Start 04/21/17 at 21:00; Status Future Hold Mupirocin (Bactroban) 1 applic BID TOP Last administered on 04/27/17 09:45; Admin Dose 1 APPLIC; Start 04/21/17 at 21:00 Metoprolol Tartrate (Lopressor) 12.5 mg BID PO Last administered on 04/27/17 09:43; Admin Dose 12.5 MG; Start 04/22/17 at 21:00 Albuterol (Proventil 0.083% (Neb)) 2.5 mg Q3H PRN NEB WHEEZING AND SOB; Start 04/22/17 at 19:00 Atorvastatin Calcium (Lipitor) 20 mg QHS GTB Last administered on 04/26/17 21: 08; Admin Dose 20 MG; Start 04/22/17 at 21:00 Tamsulosin HCl 0.4 mg 0.4 mg HS PO Last administered on 04/26/17 21:08; Admin Dose 0.4 MG; Start 04/22/17 at 21:00 Clindamycin HCl/ Dextrose (Cleocin 600 Mg/ D5W (Pmx)) 50 ml @ 50 mls/hr Q8 IVPB Last administered on 04/27/17 04:45; Admin Dose 50 MLS/HR; Start 04/23/17 at 22:00 Docusate Sodium (Colace Liquid Cup) 100 mg BID GTB Last administered on 09:42; Admin Dose 100 MG; Start 04/23/17 at 21:00 Multivitamins 30 ml 30 ml DAILY GTB Last administered on 04/27/17 09:43; Admin Dose 30 ML; Start 04/24/17 at 09:00 Meropenem/Sodium Chloride (Merrem 500mg/50 ml(Pmx)) 50 ml @ 100 mls/hr Q8 IVPB Last administered on 04/27/17 04:45; Admin Dose 100 MLS/HR; Start 04/24/17 at 14:00 Digoxin (Digoxin) 0.125 mg DAILY@13 PO Last administered on 04/27/17 12:56; Admin Dose 0.125 MG; Start 04/27/17 at 13:00 VIRGILIO MCCALL MD Apr 27, 2017 13:30
--- NOTE | 2017-04-27 13:31 | CONS ---
Date/Time of Note Date/Time of Note DATE: 04/27/17 TIME: 13:29 Assessment/Plan Assessment/Plan Chief Complaint/Hosp Course SUBJECTIVE: no acute changes, nonverbal, noncommunicative, in no distress. Continues to spike fevers MICROBIOLOGY: Blood culture and urine culture repeated on 04/24/2017 remain negative. Upper chest wound culture growing MRSA susceptible to clindamycin. DIAGNOSTICS: 04/24 CT of the abdomen and chest revealed consolidation with independent bilateral lower lobes which may reflect aspiration or pneumonia, small bilateral pleural effusion, extensive bronchiolitis throughout the remaining bibasilar lower lobes, lingula and inferior right upper lobe and right middle lobe, fractures of the anterolateral right second through seventh ribs and anterolateral left second through sixth ribs which appears subacute in nature. No specific focal fluid density within the ventral . Subcutaneous fat measuring 3.5 cm, possibly seroma. Underlying infection is not excluded. Mediastinal adenopathy likely reactive in nature. CT of the abdomen revealed 6 mm rounded hyperdensity within the left psoas muscle, questionable intramuscular hemorrhage. Questionable right hip joint effusion with synovitis. No well-defined drainable intra-abdominal abscess. INDWELLINGS: Trach, PEG, Taylor. ANTIMICROBIALS: Meropenem Clindamycin. PHYSICAL EXAMINATION: GENERAL: This is a chronically ill-appearing, elderly man who is in no distress. HEENT: Head atraumatic, normocephalic. Sclerae anicteric. Buccal mucosa dry. NECK: Supple. Tracheostomy present. CHEST: Rise symmetrical. Breath sounds diminished to bases. HEART: S1, S2. ABDOMEN: Soft, bowel tones present. EXTREMITIES: Without cyanosis. ASSESSMENT: 1. Septic shock with persistent fevers. Etiology could be secondary to pneumonia, left psoas muscle infection versus chest wound with a questionable abscess. 2. Vegetative state status post cardiopulmonary arrest. 3. 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 4. Methicillin-resistant Staphylococcus aureus nares colonization. 5. Dysphagia. 6. Anemia. 7. R great toe OM PLAN: Clinically unchanged. Spiking fevers despite broad-spectrum antibiotics, will order WBC scan [facility] staff Problems: Consultation Date/Type/Reason Admit Date/Time Apr 19, 2017 at 10:58 Initial Consult Date 04/24/17 Type of Consultation: id Referring Provider: ZOE ALEXANDRA Exam/Review of Systems Vital Signs Vitals Vital Signs Date Time Temp Pulse Resp B/P Pulse Ox O2 Delivery O2 Flow Rate FiO2 04/27/17 13:00 78 25 97 40 04/27/17 11:21 103.0 117/56 04/24/17 17:45 Mechanical Ventilator Intake and Output 04/26/17 04/26/17 04/27/17 15:00 23:00 07:00 Intake Total 50 ml 920 ml 1120 ml Output Total 800 ml 500 ml Balance 50 ml 120 ml 620 ml Results Result Diagram: 04/26/17 0555 04/26/17 0555 Medications Medications Current Medications Ondansetron HCl (Zofran Inj) 4 mg Q6H PRN IV NAUSEA AND/OR VOMITING; Start at 12:00 Acetaminophen (Tylenol Tab) 650 mg Q6H PRN PO PAIN LEVEL 1-3 OR FEVER Last administered on 04/26/17 21:27; Admin Dose 650 MG; Start 04/19/17 at 12:00 Acetaminophen/ Hydrocodone Bitart ([place] (5/325)) 1 tab Q6H PRN PO MODERATE PAIN LEVEL 4-6; Start 04/19/17 at 12:00 Morphine Sulfate (morphine) 2 mg Q4H PRN IV SEVERE PAIN LEVEL 7-10 Last administered on 04/20/17 23:43; Admin Dose 2 MG; Start 04/19/17 at 12:00 Magnesium Hydroxide (Milk Of Mag) 30 ml DAILY PRN PO CONSTIPATION; Start 04/19 at 12:00 Sodium Biphosphate/ Sodium Phosphate (Fleet Enema) 133 ml DAILY PRN [place] CONSTIPATION; Start 04/19/17 at 12:00 Nitroglycerin (Nitroglycerin (Sl Tab) 0.4 Mg) 1 tab Q5M PRN SL ANGINA; Start 04/19/17 at 12:00 Amiodarone HCl (Cordarone) 200 mg DAILY GTB Last administered on 04/27/17 09: 42; Admin Dose 200 MG; Start 04/20/17 at 09:00 Carbidopa/Levodopa (Sinemet (25/ 100)) 1 tab QID GTB Last administered on 12:56; Admin Dose 1 TAB; Start 04/19/17 at 13:00 Chlorhexidine Gluconate (Peridex) 15 ml Q12 MM Last administered on 04/27/17 09:43; Admin Dose 15 ML; Start 04/19/17 at 21:00 Doxazosin Mesylate (Cardura) 8 mg DAILY GTB Last administered on 04/23/17 09: 32; Admin Dose 8 MG; Start 04/20/17 at 09:00; Status Future Hold Ferrous Sulfate (Ferrous Sulfate (Ec)) 330 mg TID PO Last administered on 12:56; Admin Dose 330 MG; Start 04/19/17 at 13:00 Lactobacillus Acidophilus/ Rhamnosus (Culturelle) 1 cap DAILY PO Last administered on 04/27/17 09:42; Admin Dose 1 CAP; Start 04/20/17 at 09:00 Ascorbic Acid (Vitamin C) 500 mg BID GTB Last administered on 04/27/17 09:42; Admin Dose 500 MG; Start 04/19/17 at 21:00 Lorazepam (Ativan) 2 mg Q10MIN PRN IV seisure Last administered on 04/25/17 04:06; Admin Dose 2 MG; Start 04/19/17 at 17:30 Acetaminophen (Tylenol Liquid) 650 mg Q6H PRN GTB PAIN AND OR ELEVATED TEMP Last administered on 04/27/17 09:51; Admin Dose 650 MG; Start 04/20/17 at 19: 00 Miscellaneous Information (Pending Santyl Order For Wound Care) This patient galdamez... PRN PRN XX WOUND CARE; Start 04/21/17 at 02:00 Collagenase (Santyl) 1 applic DAILY TOP Last administered on 04/27/17 09:44; Admin Dose 1 APPLIC; Start 04/21/17 at 09:00 Collagenase (Santyl) 1 applic PRN PRN TOP PRN Last administered on 04/21/17 10:40; Admin Dose 1 APPLIC; Start 04/21/17 at 05:00 Enoxaparin Sodium (Lovenox) 50 mg Q12 SC Last administered on 04/23/17 21:00 ; Admin Dose 50 MG; Start 04/21/17 at 21:00; Status Future Hold Mupirocin (Bactroban) 1 applic BID TOP Last administered on 04/27/17 09:45; Admin Dose 1 APPLIC; Start 04/21/17 at 21:00 Metoprolol Tartrate (Lopressor) 12.5 mg BID PO Last administered on 04/27/17 09:43; Admin Dose 12.5 MG; Start 04/22/17 at 21:00 Albuterol (Proventil 0.083% (Neb)) 2.5 mg Q3H PRN NEB WHEEZING AND SOB; Start 04/22/17 at 19:00 Atorvastatin Calcium (Lipitor) 20 mg QHS GTB Last administered on 04/26/17 21: 08; Admin Dose 20 MG; Start 04/22/17 at 21:00 Tamsulosin HCl 0.4 mg 0.4 mg HS PO Last administered on 04/26/17 21:08; Admin Dose 0.4 MG; Start 04/22/17 at 21:00 Clindamycin HCl/ Dextrose (Cleocin 600 Mg/ D5W (Pmx)) 50 ml @ 50 mls/hr Q8 IVPB Last administered on 04/27/17 04:45; Admin Dose 50 MLS/HR; Start 04/23/17 at 22:00 Docusate Sodium (Colace Liquid Cup) 100 mg BID GTB Last administered on 09:42; Admin Dose 100 MG; Start 04/23/17 at 21:00 Multivitamins 30 ml 30 ml DAILY GTB Last administered on 04/27/17 09:43; Admin Dose 30 ML; Start 04/24/17 at 09:00 Meropenem/Sodium Chloride (Merrem 500mg/50 ml(Pmx)) 50 ml @ 100 mls/hr Q8 IVPB Last administered on 04/27/17 04:45; Admin Dose 100 MLS/HR; Start 04/24/17 at 14:00 Digoxin (Digoxin) 0.125 mg DAILY@13 PO Last administered on 04/27/17 12:56; Admin Dose 0.125 MG; Start 04/27/17 at 13:00 ALLIE GODOY NP Apr 27, 2017 13:31
--- NOTE | 2017-04-27 14:34 | CONS ---
Date/Time of Note Date/Time of Note DATE: 04/27/17 TIME: 14:31 Assessment/Plan Assessment/Plan Chief Complaint/Hosp Course IMP: 1.AF-Rate controlled 2.s/p cardiac arrest-PEA. EF 50% by echo this admit 3.encephalopathy 4.Fevers-ongoing 10 103 5.anemia-worsening 6.UTI 7. Hypotension-overall improved 8.PNA/psoas muscle infection Recc: -Tele -Lovenox on hold due to anemia -Contnue po amio for now but will likley d/c if remains in AF -Continue low dose BB as tolerated only -Continue abx's and f/u cx data -Follow MS closely -hold cardura given borderline BP -s/p transfusions of PRBC's/follow HGb closely -Continue digoxin PO Problems: Consultation Date/Type/Reason Admit Date/Time Apr 19, 2017 at 10:58 Initial Consult Date 04/20/2017 Type of Consultation: cardiology Reason for Consultation cardiac arrest Referring Provider: ZOE ALEXANDRA Exam/Review of Systems Vital Signs Vitals Vital Signs Date Time Temp Pulse Resp B/P Pulse Ox O2 Delivery O2 Flow Rate FiO2 04/27/17 13:00 78 25 97 40 04/27/17 11:21 103.0 117/56 04/24/17 17:45 Mechanical Ventilator Intake and Output 04/26/17 04/26/17 04/27/17 15:00 23:00 07:00 Intake Total 50 ml 920 ml 1120 ml Output Total 800 ml 500 ml Balance 50 ml 120 ml 620 ml Exam Review of Systems: CONSTITUTIONAL: No fevers, chills. PULMONARY: trached CARDIOVASCULAR: No chest pain/palpitations GASTROINTESTINAL: No nausea/vomiting. GENITOURINARY: No hematuria/dysuria. MUSCULOSKELETAL: No myagias/arthalgias. PSYCHIATRIC: The patient denies depression. NEUROLOGIC: encephalopathic Constitutional: alert Psych: no complaints Head: normocephalic ENMT: mucosa pink and moist Neck: jvd (9 cm water), other (trached), supple Respiratory: other (upper airway rhoncherous sounds) Cardiovascular: regular rate and rhythm Gastrointestinal: non-tender, soft Musculoskeletal: muscle tone (normal) Extremities: edema (none), other (contracted) Neurological: lethargic, other (encephalopathic) Results Result Diagram: 04/26/17 0555 04/26/1755 Medications Medications Current Medications Ondansetron HCl (Zofran Inj) 4 mg Q6H PRN IV NAUSEA AND/OR VOMITING; Start at 12:00 Acetaminophen (Tylenol Tab) 650 mg Q6H PRN PO PAIN LEVEL 1-3 OR FEVER Last administered on 04/26/17 21:27; Admin Dose 650 MG; Start 04/19/17 at 12:00 Acetaminophen/ Hydrocodone Bitart ([place] (5/325)) 1 tab Q6H PRN PO MODERATE PAIN LEVEL 4-6; Start 04/19/17 at 12:00 Morphine Sulfate (morphine) 2 mg Q4H PRN IV SEVERE PAIN LEVEL 7-10 Last administered on 04/20/17 23:43; Admin Dose 2 MG; Start 04/19/17 at 12:00 Magnesium Hydroxide (Milk Of Mag) 30 ml DAILY PRN PO CONSTIPATION; Start 04/19 at 12:00 Sodium Biphosphate/ Sodium Phosphate (Fleet Enema) 133 ml DAILY PRN [place] CONSTIPATION; Start 04/19/17 at 12:00 Nitroglycerin (Nitroglycerin (Sl Tab) 0.4 Mg) 1 tab Q5M PRN SL ANGINA; Start 04/19/17 at 12:00 Amiodarone HCl (Cordarone) 200 mg DAILY GTB Last administered on 04/27/17 09: 42; Admin Dose 200 MG; Start 04/20/17 at 09:00 Carbidopa/Levodopa (Sinemet (25/ 100)) 1 tab QID GTB Last administered on 12:56; Admin Dose 1 TAB; Start 04/19/17 at 13:00 Chlorhexidine Gluconate (Peridex) 15 ml Q12 MM Last administered on 04/27/17 09:43; Admin Dose 15 ML; Start 04/19/17 at 21:00 Doxazosin Mesylate (Cardura) 8 mg DAILY GTB Last administered on 04/23/17 09: 32; Admin Dose 8 MG; Start 04/20/17 at 09:00; Status Future Hold Ferrous Sulfate (Ferrous Sulfate (Ec)) 330 mg TID PO Last administered on 12:56; Admin Dose 330 MG; Start 04/19/17 at 13:00 Lactobacillus Acidophilus/ Rhamnosus (Culturelle) 1 cap DAILY PO Last administered on 04/27/17 09:42; Admin Dose 1 CAP; Start 04/20/17 at 09:00 Ascorbic Acid (Vitamin C) 500 mg BID GTB Last administered on 04/27/17 09:42; Admin Dose 500 MG; Start 04/19/17 at 21:00 Lorazepam (Ativan) 2 mg Q10MIN PRN IV seisure Last administered on 04/25/17 04:06; Admin Dose 2 MG; Start 04/19/17 at 17:30 Acetaminophen (Tylenol Liquid) 650 mg Q6H PRN GTB PAIN AND OR ELEVATED TEMP Last administered on 04/27/17 09:51; Admin Dose 650 MG; Start 04/20/17 at 19: 00 Miscellaneous Information (Pending Santyl Order For Wound Care) This patient galdamez... PRN PRN XX WOUND CARE; Start 04/21/17 at 02:00 Collagenase (Santyl) 1 applic DAILY TOP Last administered on 04/27/17 09:44; Admin Dose 1 APPLIC; Start 04/21/17 at 09:00 Collagenase (Santyl) 1 applic PRN PRN TOP PRN Last administered on 04/21/17 10:40; Admin Dose 1 APPLIC; Start 04/21/17 at 05:00 Enoxaparin Sodium (Lovenox) 50 mg Q12 SC Last administered on 04/23/17 21:00 ; Admin Dose 50 MG; Start 04/21/17 at 21:00; Status Future Hold Mupirocin (Bactroban) 1 applic BID TOP Last administered on 04/27/17 09:45; Admin Dose 1 APPLIC; Start 04/21/17 at 21:00 Metoprolol Tartrate (Lopressor) 12.5 mg BID PO Last administered on 04/27/17 09:43; Admin Dose 12.5 MG; Start 04/22/17 at 21:00 Albuterol (Proventil 0.083% (Neb)) 2.5 mg Q3H PRN NEB WHEEZING AND SOB; Start 04/22/17 at 19:00 Atorvastatin Calcium (Lipitor) 20 mg QHS GTB Last administered on 04/26/17 21: 08; Admin Dose 20 MG; Start 04/22/17 at 21:00 Tamsulosin HCl 0.4 mg 0.4 mg HS PO Last administered on 04/26/17 21:08; Admin Dose 0.4 MG; Start 04/22/17 at 21:00 Clindamycin HCl/ Dextrose (Cleocin 600 Mg/ D5W (Pmx)) 50 ml @ 50 mls/hr Q8 IVPB Last administered on 04/27/17 13:52; Admin Dose 50 MLS/HR; Start 04/23/17 at 22:00 Docusate Sodium (Colace Liquid Cup) 100 mg BID GTB Last administered on 09:42; Admin Dose 100 MG; Start 04/23/17 at 21:00 Multivitamins 30 ml 30 ml DAILY GTB Last administered on 04/27/17 09:43; Admin Dose 30 ML; Start 04/24/17 at 09:00 Meropenem/Sodium Chloride (Merrem 500mg/50 ml(Pmx)) 50 ml @ 100 mls/hr Q8 IVPB Last administered on 04/27/17 04:45; Admin Dose 100 MLS/HR; Start 04/24/17 at 14:00 Digoxin (Digoxin) 0.125 mg DAILY@13 PO Last administered on 04/27/17 12:56; Admin Dose 0.125 MG; Start 04/27/17 at 13:00 EVLIS HINTON Apr 27, 2017 14:34
--- NOTE | 2017-04-27 16:03 | PN ---
Date/Time of Note Date/Time of Note DATE: 04/27/17 TIME: 15:40 Assessment/Plan VTE Prophylaxis VTE Prophylaxis Intervention: SCD's Lines/Catheters IV Catheter Type (from Nrs): PICC Line Central line still needed: Yes (Medications and blood transfusions) Urinary Cath still in place: No Assessment/Plan Chief Complaint/Hosp Course Assessment: Anemia possible due to intramuscular hemorrhage and psoas muscle on CT Ultrasound of the right hip-results pending Hypotension Chronic encephalopathy Respiratory failure Sepsis UTI Chest wall wound Status post cardiac arrest Plan: Order STAT CBC ( last CBC 04/26 Hgb 7.6) Transfuse for hemoglobin less than 7.5 No colonoscopy at this time unless there is a sign of overt bleeding Plan discussed with the nursing staff. Consultation performed in collaboration with Dr. Leal PHYSICAL EXAMINATION: GENERAL: Patient is nonresponsive, trached and vent dependent. No acute distress SKIN: Multiple lesions on the toes and chest wound, no stigmata chronic liver disease, no evidence of bleeding diathesis LYMPHATIC: No palpable lymphadenopathy. HEAD: Normocephalic, atraumatic, no tenderness. EYES: Pupils equal reactive to light and accommodation, full extraocular movements, sclera clear, non-icteric, no discharge. EARS/NOSE AND THROAT: Ears normal, nose normal, oropharynx normal, oral membranes well hydrated without lesions. NECK: Supple, no masses, tracheostomy tube in place, JVP within normal limits, carotids normal without bruits. CHEST: Inspection within normal limits. CARDIOVASCULAR: Heart: Regular rate and rhythm, no murmurs, gallops or rubs. Peripheral pulses present within normal limits, no cyanosis, clubbing or edemas. No pulsatile abdominal mass RESPIRATORY: Lungs clear to auscultation and percussion, no wheezing, no rubs GASTROINTESTINAL AND LIVER: Abdomen: Soft, non tenderness, non-distended, no hernias, no masses, no organomegaly, no ascites, no guarding, no rebound tenderness, normoactive bowel sounds, PEG tube in place with continuous feeding. Rectal: Deferred. GENITOURINARY: Male genitalia within normal limits. EXTREMITIES: No cyanosis, clubbing or edema. Problems: Exam/Review of Systems Vital Signs Vitals Vital Signs Date Time Temp Pulse Resp B/P Pulse Ox O2 Delivery O2 Flow Rate FiO2 04/27/17 15:21 79 25 99 40 04/27/17 11:21 103.0 117/56 04/24/17 17:45 Mechanical Ventilator Intake and Output 04/26/17 04/26/17 04/27/17 15:00 23:00 07:00 Intake Total 50 ml 920 ml 1120 ml Output Total 800 ml 500 ml Balance 50 ml 120 ml 620 ml Results Result Diagram: 04/26/17 0555 04/26/17 0555 Medications Medications Current Medications Ondansetron HCl (Zofran Inj) 4 mg Q6H PRN IV NAUSEA AND/OR VOMITING; Start at 12:00 Acetaminophen (Tylenol Tab) 650 mg Q6H PRN PO PAIN LEVEL 1-3 OR FEVER Last administered on 04/26/17 21:27; Admin Dose 650 MG; Start 04/19/17 at 12:00 Acetaminophen/ Hydrocodone Bitart ([place] (5/325)) 1 tab Q6H PRN PO MODERATE PAIN LEVEL 4-6; Start 04/19/17 at 12:00 Morphine Sulfate (morphine) 2 mg Q4H PRN IV SEVERE PAIN LEVEL 7-10 Last administered on 04/20/17 23:43; Admin Dose 2 MG; Start 04/19/17 at 12:00 Magnesium Hydroxide (Milk Of Mag) 30 ml DAILY PRN PO CONSTIPATION; Start 04/19 at 12:00 Sodium Biphosphate/ Sodium Phosphate (Fleet Enema) 133 ml DAILY PRN [place] CONSTIPATION; Start 04/19/17 at 12:00 Nitroglycerin (Nitroglycerin (Sl Tab) 0.4 Mg) 1 tab Q5M PRN SL ANGINA; Start 04/19/17 at 12:00 Amiodarone HCl (Cordarone) 200 mg DAILY GTB Last administered on 04/27/17 09: 42; Admin Dose 200 MG; Start 04/20/17 at 09:00 Carbidopa/Levodopa (Sinemet (25/ 100)) 1 tab QID GTB Last administered on 12:56; Admin Dose 1 TAB; Start 04/19/17 at 13:00 Chlorhexidine Gluconate (Peridex) 15 ml Q12 MM Last administered on 04/27/17 09:43; Admin Dose 15 ML; Start 04/19/17 at 21:00 Doxazosin Mesylate (Cardura) 8 mg DAILY GTB Last administered on 04/23/17 09: 32; Admin Dose 8 MG; Start 04/20/17 at 09:00; Status Future Hold Ferrous Sulfate (Ferrous Sulfate (Ec)) 330 mg TID PO Last administered on 12:56; Admin Dose 330 MG; Start 04/19/17 at 13:00 Lactobacillus Acidophilus/ Rhamnosus (Culturelle) 1 cap DAILY PO Last administered on 04/27/17 09:42; Admin Dose 1 CAP; Start 04/20/17 at 09:00 Ascorbic Acid (Vitamin C) 500 mg BID GTB Last administered on 04/27/17 09:42; Admin Dose 500 MG; Start 04/19/17 at 21:00 Lorazepam (Ativan) 2 mg Q10MIN PRN IV seisure Last administered on 04/25/17 04:06; Admin Dose 2 MG; Start 04/19/17 at 17:30 Acetaminophen (Tylenol Liquid) 650 mg Q6H PRN GTB PAIN AND OR ELEVATED TEMP Last administered on 04/27/17 09:51; Admin Dose 650 MG; Start 04/20/17 at 19: 00 Miscellaneous Information (Pending Santyl Order For Wound Care) This patient galdamez... PRN PRN XX WOUND CARE; Start 04/21/17 at 02:00 Collagenase (Santyl) 1 applic DAILY TOP Last administered on 04/27/17 09:44; Admin Dose 1 APPLIC; Start 04/21/17 at 09:00 Collagenase (Santyl) 1 applic PRN PRN TOP PRN Last administered on 04/21/17 10:40; Admin Dose 1 APPLIC; Start 04/21/17 at 05:00 Enoxaparin Sodium (Lovenox) 50 mg Q12 SC Last administered on 04/23/17 21:00 ; Admin Dose 50 MG; Start 04/21/17 at 21:00; Status Future Hold Mupirocin (Bactroban) 1 applic BID TOP Last administered on 04/27/17 09:45; Admin Dose 1 APPLIC; Start 04/21/17 at 21:00 Metoprolol Tartrate (Lopressor) 12.5 mg BID PO Last administered on 04/27/17 09:43; Admin Dose 12.5 MG; Start 04/22/17 at 21:00 Albuterol (Proventil 0.083% (Neb)) 2.5 mg Q3H PRN NEB WHEEZING AND SOB; Start 04/22/17 at 19:00 Atorvastatin Calcium (Lipitor) 20 mg QHS GTB Last administered on 04/26/17 21: 08; Admin Dose 20 MG; Start 04/22/17 at 21:00 Tamsulosin HCl 0.4 mg 0.4 mg HS PO Last administered on 04/26/17 21:08; Admin Dose 0.4 MG; Start 04/22/17 at 21:00 Clindamycin HCl/ Dextrose (Cleocin 600 Mg/ D5W (Pmx)) 50 ml @ 50 mls/hr Q8 IVPB Last administered on 04/27/17 13:52; Admin Dose 50 MLS/HR; Start 04/23/17 at 22:00 Docusate Sodium (Colace Liquid Cup) 100 mg BID GTB Last administered on 09:42; Admin Dose 100 MG; Start 04/23/17 at 21:00 Multivitamins 30 ml 30 ml DAILY GTB Last administered on 04/27/17 09:43; Admin Dose 30 ML; Start 04/24/17 at 09:00 Meropenem/Sodium Chloride (Merrem 500mg/50 ml(Pmx)) 50 ml @ 100 mls/hr Q8 IVPB Last administered on 04/27/17 15:25; Admin Dose 100 MLS/HR; Start 04/24/17 at 14:00 Digoxin (Digoxin) 0.125 mg DAILY@13 PO Last administered on 04/27/17 12:56; Admin Dose 0.125 MG; Start 04/27/17 at 13:00 REGGIE MILTON NP Apr 27, 2017 15:53
[2017-04-27 17:39] LABS: BASOPHILS % 0.1 % (0.0-2.0); EOSINOPHILS % 0.1 % (0.0-7.0); HEMATOCRIT 27.4 % (42.0-52.0); HEMOGLOBIN 8.6 g/dl (14.0-18.0); LYMPHOCYTES # 1.2 10^3/ul (0.8-2.9); LYMPHOCYTES % 12.5 % (15.0-51.0); MEAN CORPUSCULAR HEMOGLOBIN 33.1 pg (29.0-33.0); MEAN CORPUSCULAR HGB CONC 31.4 g/dl (32.0-37.0); MEAN CORPUSCULAR VOLUME 105.4 fl (82.0-101.0); MONOCYTE # 0.6 10^3/ul (0.3-0.9); MONOCYTES % 6.1 % (0.0-11.0); NEUTROPHILS % 80.5 % (39.0-77.0); NUCLEATED RED BLOOD CELLS # 0.1 10^3/ul (0.0-0.0); NUCLEATED RED BLOOD CELLS% 0.8 /100WBC (0.0-0.0); PLATELET COUNT 174 10^3/UL (140-415); RED CELL DISTRIBUTION WIDTH 18.6 % (11.5-14.5); WHITE BLOOD COUNT 9.9 10^3/ul (4.8-10.8)
[2017-04-27] MEDS: ATORVASTATIN 20 MG TAB GTB SCH (21:18)
[2017-04-27] MEDS: TAMSULOSIN (SR) 0.4 MG CAP PO SCH (21:18)
[2017-04-28] VITALS (23 sets, daily range): BP systolic 104–142; BP diastolic 57–66; PULSE 64–98; RESP 18–29
[2017-04-28] MEDS: ACETAMINOPHEN 650MG/20.3ML CUP GTB PRN ×2 (02:42→09:26)
[2017-04-28] MEDS: MEROPENEM 500MG/50 ML (PMX) 50 ML IVPB SCH ×3 (05:19→22:15)
[2017-04-28] MEDS: CLINDAMYCIN 600 MG/D5W (PMX) 50 ML IVPB SCH ×3 (05:19→23:14)
--- NOTE | 2017-04-28 09:23 | RADRPT ---
PROCEDURE: Ultrasound right hip CLINICAL INDICATION: Right hip pain. TECHNIQUE: Sonographic evaluation of the right hip was performed. Arguello scale and color imaging wa s utilized. Images were reviewed on a high-resolution PACS workstation. COMPARISON: CT abdomen and pelvis 04/24/2017. FINDINGS: There is a small simple appearing fluid collection in the right hip joint measuring 3 x 3.2 x 1.3 cm . IMPRESSION: 1. Simple appearing small fluid collection in the right hip joint. RPTAT: EE .Leila Leyva MD, Date Time Electronically viewed and signed by .Leial Leyva MD, on 04/28/2017 09:23 .O/
[2017-04-28] MEDS: DOCUSATE SODIUM 10 MG/ML (10ML CUP) GTB SCH ×2 (09:26→21:25)
[2017-04-28] MEDS: CHLORHEXIDINE GLUCONATE 15 ML UD CUP MM SCH ×2 (09:26→21:25)
[2017-04-28] MEDS: MULTIVITAMINS 30 ML CUP GTB SCH (09:26)
[2017-04-28] MEDS: FERROUS SULFATE (EC) 325 MG TAB PO SCH ×2 (09:26→12:55)
[2017-04-28] MEDS: AMIODARONE 200 MG TAB GTB SCH (09:27)
[2017-04-28] MEDS: METOPROLOL 25 MG TAB PO SCH ×2 (09:27→21:26)
[2017-04-28] MEDS: ASCORBIC ACID 500 MG TAB GTB SCH ×2 (09:27→21:25)
[2017-04-28] MEDS: CARBIDOPA/LEVODOPA (25/100) TAB GTB SCH ×4 (09:27→21:25)
[2017-04-28] MEDS: MUPIROCIN 2% 22 GM OINT TOP SCH ×2 (09:28→21:29)
[2017-04-28] MEDS: BALSAM PERU/CASTOR OIL 60 GM TUBE TOP SCH (09:29)
[2017-04-28] MEDS: COLLAGENASE 30 GM TUBE TOP SCH (09:29)
[2017-04-28] MEDS: LACTOBACILLUS RHAMNOSUS CAP PO SCH (09:32)
--- NOTE | 2017-04-28 11:29 | PN ---
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 Currently septic with unknown etiology. Was noted to have small chest wall wound. Surgery called to evaluate as potential source. When seen at bedside patient chronically ill with trach/peg. history obtained from EMR as patient is not verbal. Problems: Assessment/Plan continues to be febrile. chest wound unlikely source. reviewed CT again and no significant pathology can be seen underlying wound confirming suspicion that it is superficial and likely a pressure ulcer from some trach device. right ventral chest has small lipoma which is of no significance. wound evaluated again today and simple superficial 1cm dry eschar wound that is superficial without cellulitis or drainage. continue with DRY dressings to wound and keeping wound clean. should not use moist dressings. no debridement necessary as this would only leave a larger wound with prolonged wound care for a wound that currently has a good clean eschar cap. thank you for this consultation. will sign off for now. please call with any questions or concerns. [phone] Subjective 24 Hr Interval Summary no acute events. continues to be febrile. no leukocytosis but does have shift. on multiple ABX Subjective hx not possible: pt non-verbal, pt critical Exam/Review of Systems Vital Signs Vitals Vital Signs Date Time Temp Pulse Resp B/P Pulse Ox O2 Delivery O2 Flow Rate FiO2 04/28/17 10:00 30 04/28/17 09:15 88 23 100 04/28/17 08:00 102.5 141/61 04/24/17 17:45 Mechanical Ventilator Intake and Output 04/27/17 04/27/17 04/28/17 15:00 23:00 07:00 Intake Total 1000 ml 450 ml Output Total 700 ml 550 ml Balance 300 ml -100 ml Results Result Diagram: 04/27/17 1710 04/26/17 0555 FRED MEEHAN MD Apr 28, 2017 11:28
[2017-04-28] MEDS ORDERED: FLUCONAZOLE 100 MG TAB PO ONE (12:30)
[2017-04-28] MEDS: DIGOXIN 0.125 MG TAB PO SCH (12:55)
--- NOTE | 2017-04-28 14:20 | CONS ---
Date/Time of Note Date/Time of Note DATE: 04/28/17 TIME: 14:18 Assessment/Plan Assessment/Plan Chief Complaint/Hosp Course IMP: 1.AF-Rate controlled 2.s/p cardiac arrest-PEA. EF 50% by echo this admit 3.encephalopathy 4.Fevers-ongoing to 103 5.anemia-worsening 6.UTI 7. Hypotension-now improved but some lability 8.PNA/psoas muscle infection Recc: -Tele -Lovenox on hold due to anemia -Contnue po amio for now but will likley d/c if remains in AF -Continue low dose BB as tolerated only -Continue abx's and f/u cx data -Follow MS closely -hold cardura given borderline BP -s/p transfusions of PRBC's/follow HGb closely -Continue digoxin PO Problems: Consultation Date/Type/Reason Admit Date/Time Apr 19, 2017 at 10:58 Initial Consult Date 04/20/2017 Type of Consultation: cardiology Reason for Consultation cardiac arrest Referring Provider: ZOE ALEXANDRA Exam/Review of Systems Vital Signs Vitals Vital Signs Date Time Temp Pulse Resp B/P Pulse Ox O2 Delivery O2 Flow Rate FiO2 04/28/17 13:15 91 20 97 30 04/28/17 12:35 103.0 142/65 04/24/17 17:45 Mechanical Ventilator Intake and Output 04/27/17 04/27/17 04/28/17 15:00 23:00 07:00 Intake Total 1000 ml 450 ml Output Total 700 ml 550 ml Balance 300 ml -100 ml Exam Review of Systems: CONSTITUTIONAL: No fevers, chills. PULMONARY: trached CARDIOVASCULAR: No chest pain/palpitations GASTROINTESTINAL: No nausea/vomiting. GENITOURINARY: No hematuria/dysuria. MUSCULOSKELETAL: No myagias/arthalgias. PSYCHIATRIC: The patient denies depression. NEUROLOGIC:encephalopathy Constitutional: other (encephalopathic) Psych: no complaints Head: normocephalic ENMT: mucosa pink and moist Neck: other (trached) Cardiovascular: regular rate and rhythm Gastrointestinal: non-tender, soft Musculoskeletal: muscle weakness (generalized) Extremities: other (contracted) Neurological: lethargic Results Result Diagram: 04/27/17 1710 04/26/17 0555 Results 24 hrs Laboratory Tests Test 04/27/17 17:10 White Blood Count 9.9 Red Blood Count 2.60 L Hemoglobin 8.6 L Hematocrit 27.4 L Mean Corpuscular Volume 105.4 H Mean Corpuscular Hemoglobin 33.1 H Mean Corpuscular Hemoglobin Concent 31.4 L Red Cell Distribution Width 18.6 H Platelet Count 174 # Mean Platelet Volume 13.0 H Neutrophils % 80.5 H Lymphocytes % 12.5 L Monocytes % 6.1 Eosinophils % 0.1 Basophils % 0.1 Nucleated Red Blood Cells % 0.8 H Neutrophils # 8.0 H Lymphocytes # 1.2 Monocytes # 0.6 Eosinophils # 0.0 Basophils # 0.0 Nucleated Red Blood Cells # 0.1 H Medications Medications Current Medications Ondansetron HCl (Zofran Inj) 4 mg Q6H PRN IV NAUSEA AND/OR VOMITING; Start at 12:00 Acetaminophen (Tylenol Tab) 650 mg Q6H PRN PO PAIN LEVEL 1-3 OR FEVER Last administered on 04/26/17 21:27; Admin Dose 650 MG; Start 04/19/17 at 12:00 Acetaminophen/ Hydrocodone Bitart ([place] (5/325)) 1 tab Q6H PRN PO MODERATE PAIN LEVEL 4-6; Start 04/19/17 at 12:00 Morphine Sulfate (morphine) 2 mg Q4H PRN IV SEVERE PAIN LEVEL 7-10 Last administered on 04/20/17 23:43; Admin Dose 2 MG; Start 04/19/17 at 12:00 Magnesium Hydroxide (Milk Of Mag) 30 ml DAILY PRN PO CONSTIPATION; Start 04/19 at 12:00 Sodium Biphosphate/ Sodium Phosphate (Fleet Enema) 133 ml DAILY PRN [place] CONSTIPATION; Start 04/19/17 at 12:00 Nitroglycerin (Nitroglycerin (Sl Tab) 0.4 Mg) 1 tab Q5M PRN SL ANGINA; Start 04/19/17 at 12:00 Amiodarone HCl (Cordarone) 200 mg DAILY GTB Last administered on 04/28/17 09: 27; Admin Dose 200 MG; Start 04/20/17 at 09:00 Carbidopa/Levodopa (Sinemet (25/ 100)) 1 tab QID GTB Last administered on 12:55; Admin Dose 1 TAB; Start 11/24/17 at 13:00 Chlorhexidine Gluconate (Peridex) 15 ml Q12 MM Last administered on 04/28/17 09:26; Admin Dose 15 ML; Start 04/19/17 at 21:00 Doxazosin Mesylate (Cardura) 8 mg DAILY GTB Last administered on 04/23/17 09: 32; Admin Dose 8 MG; Start 04/20/17 at 09:00; Status Future Hold Ferrous Sulfate (Ferrous Sulfate (Ec)) 330 mg TID PO Last administered on 12:55; Admin Dose 330 MG; Start 04/19/17 at 13:00 Lactobacillus Acidophilus/ Rhamnosus (Culturelle) 1 cap DAILY PO Last administered on 04/28/17 09:32; Admin Dose 1 CAP; Start 04/20/17 at 09:00 Ascorbic Acid (Vitamin C) 500 mg BID GTB Last administered on 04/28/17 09:27; Admin Dose 500 MG; Start 04/19/17 at 21:00 Lorazepam (Ativan) 2 mg Q10MIN PRN IV seisure Last administered on 04/25/17 04:06; Admin Dose 2 MG; Start 04/19/17 at 17:30 Acetaminophen (Tylenol Liquid) 650 mg Q6H PRN GTB PAIN AND OR ELEVATED TEMP Last administered on 04/28/17 09:26; Admin Dose 650 MG; Start 04/20/17 at 19: 00 Miscellaneous Information (Pending Santyl Order For Wound Care) This patient galdamez... PRN PRN XX WOUND CARE; Start 04/21/17 at 02:00 Collagenase (Santyl) 1 applic DAILY TOP Last administered on 04/28/17 09:29; Admin Dose 1 APPLIC; Start 04/21/17 at 09:00 Collagenase (Santyl) 1 applic PRN PRN TOP PRN Last administered on 04/21/17 10:40; Admin Dose 1 APPLIC; Start 04/21/17 at 05:00 Enoxaparin Sodium (Lovenox) 50 mg Q12 SC Last administered on 04/23/17 21:00 ; Admin Dose 50 MG; Start 04/21/17 at 21:00; Status Future Hold Mupirocin (Bactroban) 1 applic BID TOP Last administered on 04/28/17 09:28; Admin Dose 1 APPLIC; Start 04/21/17 at 21:00 Metoprolol Tartrate (Lopressor) 12.5 mg BID PO Last administered on 04/28/17 09:27; Admin Dose 12.5 MG; Start 04/22/17 at 21:00 Albuterol (Proventil 0.083% (Neb)) 2.5 mg Q3H PRN NEB WHEEZING AND SOB; Start 04/22/17 at 19:00 Atorvastatin Calcium (Lipitor) 20 mg QHS GTB Last administered on 04/27/17 21: 18; Admin Dose 20 MG; Start 04/22/17 at 21:00 Tamsulosin HCl 0.4 mg 0.4 mg HS PO Last administered on 04/27/17 21:18; Admin Dose 0.4 MG; Start 04/22/17 at 21:00 Clindamycin HCl/ Dextrose (Cleocin 600 Mg/ D5W (Pmx)) 50 ml @ 50 mls/hr Q8 IVPB Last administered on 04/28/17 05:19; Admin Dose 50 MLS/HR; Start 04/23/17 at 22:00 Docusate Sodium (Colace Liquid Cup) 100 mg BID GTB Last administered on 09:26; Admin Dose 100 MG; Start 04/23/17 at 21:00 Multivitamins 30 ml 30 ml DAILY GTB Last administered on 04/28/17 09:26; Admin Dose 30 ML; Start 04/24/17 at 09:00 Meropenem/Sodium Chloride (Merrem 500mg/50 ml(Pmx)) 50 ml @ 100 mls/hr Q8 IVPB Last administered on 04/28/17 13:30; Admin Dose 100 MLS/HR; Start 04/24/17 at 14:00 Digoxin (Digoxin) 0.125 mg DAILY@13 PO Last administered on 04/28/17 12:55; Admin Dose 0.125 MG; Start 04/27/17 at 13:00 Fluconazole (Diflucan) 100 mg DAILY PO ; Start 04/29/17 at 09:00 ELVIS HINTON Apr 28, 2017 14:20
--- NOTE | 2017-04-28 14:30 | PN ---
Date/Time of Note Date/Time of Note DATE: 04/28/17 TIME: 14:17 Assessment/Plan VTE Prophylaxis VTE Prophylaxis Intervention: SCD's Lines/Catheters IV Catheter Type (from Nrsg): PICC Line Central line still needed: Yes (Occasions and IV fluids) Urinary Cath still in place: No Assessment/Plan Chief Complaint/Hosp Course Assessment: Anemia possible due to intramuscular hemorrhage and psoas muscle on CT Ultrasound of the right hip-small collection of fluid Persistent fever due to possible abscess in the right hip Hypotension-resolved Chronic encephalopathy Respiratory failure-tracheostomy, ventilator dependent Sepsis UTI Chest wall wound Status post cardiac arrest Plan: Monitor H&H Transfuse for hemoglobin less than 7.5 No colonoscopy at this time unless there is a sign of overt bleeding All laboratory data and imaging results reviewed. Plan discussed with the nursing staff. Consultation performed in collaboration with Dr. Leal PHYSICAL EXAMINATION: GENERAL: Patient is nonresponsive, trached and vent dependent. No acute distress SKIN: Multiple lesions on the toes and chest wound, no stigmata chronic liver disease, no evidence of bleeding diathesis. Chest wall wound and bilateral pressure ulcers on the feet LYMPHATIC: No palpable lymphadenopathy. HEAD: Normocephalic, atraumatic, no tenderness. EYES: Pupils equal reactive to light and accommodation, full extraocular movements, sclera clear, non-icteric, no discharge. EARS/NOSE AND THROAT: Ears normal, nose normal, oropharynx normal, oral membranes well hydrated without lesions. NECK: Supple, no masses, tracheostomy tube in place, JVP within normal limits, carotids normal without bruits. CHEST: Inspection within normal limits. Chest wall wound CARDIOVASCULAR: Heart: Regular rate and rhythm, no murmurs, gallops or rubs. Peripheral pulses present within normal limits, no cyanosis, clubbing or edemas. No pulsatile abdominal mass RESPIRATORY: Lungs clear to auscultation and percussion, no wheezing, no rubs GASTROINTESTINAL AND LIVER: Abdomen: Soft, non tenderness, non-distended, no hernias, no masses, no organomegaly, no ascites, no guarding, no rebound tenderness, normoactive bowel sounds, PEG tube in place with continuous feeding. Rectal: Deferred. GENITOURINARY: Male genitalia within normal limits. EXTREMITIES: No cyanosis, clubbing or edema. Problems: Exam/Review of Systems Vital Signs Vitals Vital Signs Date Time Temp Pulse Resp B/P Pulse Ox O2 Delivery O2 Flow Rate FiO2 04/28/17 13:15 91 20 97 30 04/28/17 12:35 103.0 142/65 04/24/17 17:45 Mechanical Ventilator Intake and Output 04/27/17 04/27/17 04/28/17 15:00 23:00 07:00 Intake Total 1000 ml 450 ml Output Total 700 ml 550 ml Balance 300 ml -100 ml Results Result Diagram: 04/27/17 1710 04/26/17 0555 Results 24 hrs Laboratory Tests Test 04/27/17 17:10 White Blood Count 9.9 Red Blood Count 2.60 L Hemoglobin 8.6 L Hematocrit 27.4 L Mean Corpuscular Volume 105.4 H Mean Corpuscular Hemoglobin 33.1 H Mean Corpuscular Hemoglobin Concent 31.4 L Red Cell Distribution Width 18.6 H Platelet Count 174 # Mean Platelet Volume 13.0 H Neutrophils % 80.5 H Lymphocytes % 12.5 L Monocytes % 6.1 Eosinophils % 0.1 Basophils % 0.1 Nucleated Red Blood Cells % 0.8 H Neutrophils # 8.0 H Lymphocytes # 1.2 Monocytes # 0.6 Eosinophils # 0.0 Basophils # 0.0 Nucleated Red Blood Cells # 0.1 H Medications Medications Current Medications Ondansetron HCl (Zofran Inj) 4 mg Q6H PRN IV NAUSEA AND/OR VOMITING; Start at 12:00 Acetaminophen (Tylenol Tab) 650 mg Q6H PRN PO PAIN LEVEL 1-3 OR FEVER Last administered on 04/26/17 21:27; Admin Dose 650 MG; Start 04/19/17 at 12:00 Acetaminophen/ Hydrocodone Bitart ([place] (5/325)) 1 tab Q6H PRN PO MODERATE PAIN LEVEL 4-6; Start 04/19/17 at 12:00 Morphine Sulfate (morphine) 2 mg Q4H PRN IV SEVERE PAIN LEVEL 7-10 Last administered on 04/20/17 23:43; Admin Dose 2 MG; Start 04/19/17 at 12:00 Magnesium Hydroxide (Milk Of Mag) 30 ml DAILY PRN PO CONSTIPATION; Start 04/19 at 12:00 Sodium Biphosphate/ Sodium Phosphate (Fleet Enema) 133 ml DAILY PRN [place] CONSTIPATION; Start 04/19/17 at 12:00 Nitroglycerin (Nitroglycerin (Sl Tab) 0.4 Mg) 1 tab Q5M PRN SL ANGINA; Start 04/19/17 at 12:00 Amiodarone HCl (Cordarone) 200 mg DAILY GTB Last administered on 04/28/17 09: 27; Admin Dose 200 MG; Start 04/20/17 at 09:00 Carbidopa/Levodopa (Sinemet (25/ 100)) 1 tab QID GTB Last administered on 12:55; Admin Dose 1 TAB; Start 04/19/17 at 13:00 Chlorhexidine Gluconate (Peridex) 15 ml Q12 MM Last administered on 04/28/17 09:26; Admin Dose 15 ML; Start 04/19/17 at 21:00 Doxazosin Mesylate (Cardura) 8 mg DAILY GTB Last administered on 04/23/17 09: 32; Admin Dose 8 MG; Start 04/20/17 at 09:00; Status Future Hold Ferrous Sulfate (Ferrous Sulfate (Ec)) 330 mg TID PO Last administered on 12:55; Admin Dose 330 MG; Start 04/19/17 at 13:00 Lactobacillus Acidophilus/ Rhamnosus (Culturelle) 1 cap DAILY PO Last administered on 04/28/17 09:32; Admin Dose 1 CAP; Start 04/20/17 at 09:00 Ascorbic Acid (Vitamin C) 500 mg BID GTB Last administered on 04/28/17 09:27; Admin Dose 500 MG; Start 04/19/17 at 21:00 Lorazepam (Ativan) 2 mg Q10MIN PRN IV seisure Last administered on 04/25/17 04:06; Admin Dose 2 MG; Start 04/19/17 at 17:30 Acetaminophen (Tylenol Liquid) 650 mg Q6H PRN GTB PAIN AND OR ELEVATED TEMP Last administered on 04/28/17 09:26; Admin Dose 650 MG; Start 04/20/17 at 19: 00 Miscellaneous Information (Pending Santyl Order For Wound Care) This patient galdamez... PRN PRN XX WOUND CARE; Start 04/21/17 at 02:00 Collagenase (Santyl) 1 applic DAILY TOP Last administered on 04/28/17 09:29; Admin Dose 1 APPLIC; Start 04/21/17 at 09:00 Collagenase (Santyl) 1 applic PRN PRN TOP PRN Last administered on 04/21/17 10:40; Admin Dose 1 APPLIC; Start 04/21/17 at 05:00 Enoxaparin Sodium (Lovenox) 50 mg Q12 SC Last administered on 04/23/17 21:00 ; Admin Dose 50 MG; Start 04/21/17 at 21:00; Status Future Hold Mupirocin (Bactroban) 1 applic BID TOP Last administered on 04/28/17 09:28; Admin Dose 1 APPLIC; Start 04/21/17 at 21:00 Metoprolol Tartrate (Lopressor) 12.5 mg BID PO Last administered on 04/28/17 09:; Admin Dose 12.5 MG; Start 04/22/17 at 21:00 Albuterol (Proventil 0.083% (Neb)) 2.5 mg Q3H PRN NEB WHEEZING AND SOB; Start 04/22/17 at 19:00 Atorvastatin Calcium (Lipitor) 20 mg QHS GTB Last administered on 04/27/17 21: 18; Admin Dose 20 MG; Start 04/22/17 at 21:00 Tamsulosin HCl 0.4 mg 0.4 mg HS PO Last administered on 04/27/17 21:18; Admin Dose 0.4 MG; Start 04/22/17 at 21:00 Clindamycin HCl/ Dextrose (Cleocin 600 Mg/ D5W (Pmx)) 50 ml @ 50 mls/hr Q8 IVPB Last administered on 04/28/17 05:19; Admin Dose 50 MLS/HR; Start 04/23/17 at 22:00 Docusate Sodium (Colace Liquid Cup) 100 mg BID GTB Last administered on 09:; Admin Dose 100 MG; Start 04/23/17 at 21:00 Multivitamins 30 ml 30 ml DAILY GTB Last administered on 04/28/17 09:26; Admin Dose 30 ML; Start 04/24/17 at 09:00 Meropenem/Sodium Chloride (Merrem 500mg/50 ml(Pmx)) 50 ml @ 100 mls/hr Q8 IVPB Last administered on 04/28/17 13:30; Admin Dose 100 MLS/HR; Start 04/24/17 at 14:00 Digoxin (Digoxin) 0.125 mg DAILY@13 PO Last administered on 04/28/17t 12:55; Admin Dose 0.125 MG; Start 04/27/17 at 13:00 Fluconazole (Diflucan) 100 mg DAILY PO ; Start 04/29/17 at 09:00 Copies To: CC: DHEERAJ LEAL MD, ANASTASIA NP Apr 28, 2017 14:27
--- NOTE | 2017-04-28 14:38 | CONS ---
Date/Time of Note Date/Time of Note DATE: 04/28/17 TIME: 14:37 Consult Date/Type/Reason Admit Date/Time Apr 19, 2017 at 10:58 Initial Consult Date 04/26/17 Type of Consultation: Pulm Ordering Provider: ZOE ALEXANDRA Subjective No events on MV. Objective Vital Signs Date Time Temp Pulse Resp B/P Pulse Ox O2 Delivery O2 Flow Rate FiO2 04/28/17 13:15 91 20 97 30 04/28/17 12:35 103.0 142/65 04/24/17 17:45 Mechanical Ventilator Intake and Output 04/27/17 04/27/17 04/28/17 15:00 23:00 07:00 Intake Total 1000 ml 450 ml Output Total 700 ml 550 ml Balance 300 ml -100 ml Exam HEENT: Neck supple; no JVD; no LAD; + trach CVS: RRR, S1 and S2 CHEST: Coarse rhonchi ABD: Soft, NT, + BS EXT: Contracted; warm Results/Medications Result Diagram: 04/27/17 1710 04/26/17 0555 Results 24 hrs Laboratory Tests Test 04/27/17 17:10 White Blood Count 9.9 Red Blood Count 2.60 L Hemoglobin 8.6 L Hematocrit 27.4 L Mean Corpuscular Volume 105.4 H Mean Corpuscular Hemoglobin 33.1 H Mean Corpuscular Hemoglobin Concent 31.4 L Red Cell Distribution Width 18.6 H Platelet Count 174 # Mean Platelet Volume 13.0 H Neutrophils % 80.5 H Lymphocytes % 12.5 L Monocytes % 6.1 Eosinophils % 0.1 Basophils % 0.1 Nucleated Red Blood Cells % 0.8 H Neutrophils # 8.0 H Lymphocytes # 1.2 Monocytes # 0.6 Eosinophils # 0.0 Basophils # 0.0 Nucleated Red Blood Cells # 0.1 H Medications Current Medications Ondansetron HCl (Zofran Inj) 4 mg Q6H PRN IV NAUSEA AND/OR VOMITING; Start at 12:00 Acetaminophen (Tylenol Tab) 650 mg Q6H PRN PO PAIN LEVEL 1-3 OR FEVER Last administered on 04/26/17t 21:27; Admin Dose 650 MG; Start 04/19/17 at 12:00 Acetaminophen/ Hydrocodone Bitart ([place] (5/325)) 1 tab Q6H PRN PO MODERATE PAIN LEVEL 4-6; Start 04/19/17 at 12:00 Morphine Sulfate (morphine) 2 mg Q4H PRN IV SEVERE PAIN LEVEL 7-10 Last administered on 04/20/17 23:43; Admin Dose 2 MG; Start 04/19/17 at 12:00 Magnesium Hydroxide (Milk Of Mag) 30 ml DAILY PRN PO CONSTIPATION; Start 04/19 at 12:00 Sodium Biphosphate/ Sodium Phosphate (Fleet Enema) 133 ml DAILY PRN [place] CONSTIPATION; Start 04/19/17 at 12:00 Nitroglycerin (Nitroglycerin (Sl Tab) 0.4 Mg) 1 tab Q5M PRN SL ANGINA; Start 04/19/17 at 12:00 Amiodarone HCl (Cordarone) 200 mg DAILY GTB Last administered on 04/28/17 09: 27; Admin Dose 200 MG; Start 04/20/17 at 09:00 Carbidopa/Levodopa (Sinemet (25/ 100)) 1 tab QID GTB Last administered on 12:55; Admin Dose 1 TAB; Start 04/19/17 at 13:00 Chlorhexidine Gluconate (Peridex) 15 ml Q12 MM Last administered on 04/28/17 09:26; Admin Dose 15 ML; Start 04/19/17 at 21:00 Doxazosin Mesylate (Cardura) 8 mg DAILY GTB Last administered on 04/23/17 09: 32; Admin Dose 8 MG; Start 04/20/17 at 09:00; Status Future Hold Ferrous Sulfate (Ferrous Sulfate (Ec)) 330 mg TID PO Last administered on 12:55; Admin Dose 330 MG; Start 04/19/17 at 13:00 Lactobacillus Acidophilus/ Rhamnosus (Culturelle) 1 cap DAILY PO Last administered on 04/28/17 09:32; Admin Dose 1 CAP; Start 04/20/17 at 09:00 Ascorbic Acid (Vitamin C) 500 mg BID GTB Last administered on 04/28/17 09:27; Admin Dose 500 MG; Start 04/19/17 at 21:00 Lorazepam (Ativan) 2 mg Q10MIN PRN IV seisure Last administered on 04/25/17 04:06; Admin Dose 2 MG; Start 04/19/17 at 17:30 Acetaminophen (Tylenol Liquid) 650 mg Q6H PRN GTB PAIN AND OR ELEVATED TEMP Last administered on 04/28/17 09:26; Admin Dose 650 MG; Start 04/20/17 at 19: 00 Miscellaneous Information (Pending Santyl Order For Wound Care) This patient galdamez... PRN PRN XX WOUND CARE; Start 04/21/17 at 02:00 Collagenase (Santyl) 1 applic DAILY TOP Last administered on 04/28/17 09:29; Admin Dose 1 APPLIC; Start 04/21/17 at 09:00 Collagenase (Santyl) 1 applic PRN PRN TOP PRN Last administered on 04/21/17 10:40; Admin Dose 1 APPLIC; Start 04/21/17 at 05:00 Enoxaparin Sodium (Lovenox) 50 mg Q12 SC Last administered on 04/23/17 21:00 ; Admin Dose 50 MG; Start 04/21/17 at 21:00; Status Future Hold Mupirocin (Bactroban) 1 applic BID TOP Last administered on 04/28/17 09:28; Admin Dose 1 APPLIC; Start 04/21/17 at 21:00 Metoprolol Tartrate (Lopressor) 12.5 mg BID PO Last administered on 04/28/17 09:27; Admin Dose 12.5 MG; Start 04/22/17 at 21:00 Albuterol (Proventil 0.083% (Neb)) 2.5 mg Q3H PRN NEB WHEEZING AND SOB; Start 04/22/17 at 19:00 Atorvastatin Calcium (Lipitor) 20 mg QHS GTB Last administered on 04/27/17 21: 18; Admin Dose 20 MG; Start 04/22/17 at 21:00 Tamsulosin HCl 0.4 mg 0.4 mg HS PO Last administered on 04/27/17 21:18; Admin Dose 0.4 MG; Start 04/22/17 at 21:00 Clindamycin HCl/ Dextrose (Cleocin 600 Mg/ D5W (Pmx)) 50 ml @ 50 mls/hr Q8 IVPB Last administered on 04/28/17 05:19; Admin Dose 50 MLS/HR; Start 04/23/17 at 22:00 Docusate Sodium (Colace Liquid Cup) 100 mg BID GTB Last administered on 09:26; Admin Dose 100 MG; Start 04/23/17 at 21:00 Multivitamins 30 ml 30 ml DAILY GTB Last administered on 04/28/17 09:26; Admin Dose 30 ML; Start 04/24/17 at 09:00 Meropenem/Sodium Chloride (Merrem 500mg/50 ml(Pmx)) 50 ml @ 100 mls/hr Q8 IVPB Last administered on 04/28/17 13:30; Admin Dose 100 MLS/HR; Start 04/24/17 at 14:00 Digoxin (Digoxin) 0.125 mg DAILY@13 PO Last administered on 04/28/17 12:55; Admin Dose 0.125 MG; Start 04/27/17 at 13:00 Fluconazole (Diflucan) 100 mg DAILY PO ; Start 04/29/17 at 09:00 Assessment/Plan Additional Assessment/Plan IMP: 1. Acinetobacter UTI/persistent sepsis 2. s/p Questionable PEA arrest 3. Chronic encephalopathy. 4. Vent dependent respiratory failure 5. Anemia RECS: 1. Focus should be goals of care and to assist with transition to comfort care 2 Palliative Care consult 3. Vent support 4. Wound care DEANDRA ORELLANA MD Apr 28, 2017 14:38
--- NOTE | 2017-04-28 15:44 | PN ---
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 Hospitalization complicated by sepsis 2/2 UTI v chest wall wound, now with progressive anemia of unclear etiology. Still with fevers, etio unclear. #anemia: etio unclear. FOBT negative but labs with ZULY even in setting of macrocytosis in pt already on iron GI on board #cardiac arrest with ROSC cardiology on consult, etio of cardiac arrest unclear cont cardiac meds #sepsis from PNA v chest wall wound based on imaging. remains febrile ID on consult, abx expanded from tobra to meropenem, pt remains on clinda could also consider sampling hip fluid, pleural effusion. DEFER FURTHER ASPIRATION/INTERVENTION UNTIL GOALS OF CARE ARE CLARIFIED chest wall wound is sp gen surg eval. not in need of acute debridement agree with ID that care ultimately medically futile. Palliative care is on the case.. Pt initially sent in sp PEA arrest. His quality of life appears quite poor-->he's contracted in all limbs and unable to communicate. Besides the ROSC obtained in the field, unclear to me in what meaningful way pt is benefitting from continued medical intervention SPOKE WITH BROTHER OVER THE PHONE TODAY. FAMILY MEETING TOMORROW AT 2PM TO CLARIFY GOALS OF CARE. I HAVE TEXTED PALLIATIVE [employer]ER AND PLACED NEW SW CONSULT. WILL ENDORSE TO INCOMING HOSPITALIST Subjective 24 Hr Interval Summary Free Text/Dictation still febrile Exam/Review of Systems Vital Signs Vitals Vital Signs Date Time Temp Pulse Resp B/P Pulse Ox O2 Delivery O2 Flow Rate FiO2 04/28/17 15:01 88 22 99 30 04/28/17 12:35 103.0 142/65 04/24/17 17:45 Mechanical Ventilator Intake and Output 04/27/17 04/27/17 04/28/17 15:00 23:00 07:00 Intake Total 1000 ml 450 ml Output Total 700 ml 550 ml Balance 300 ml -100 ml Exam doesnt follow commands no mrg no wheezing abd soft contracted throughout Results Result Diagram: 04/27/17 1710 04/26/17 0555 Results 24 hrs Laboratory Tests Test 04/27/17 17:10 White Blood Count 9.9 Red Blood Count 2.60 L Hemoglobin 8.6 L Hematocrit 27.4 L Mean Corpuscular Volume 105.4 H Mean Corpuscular Hemoglobin 33.1 H Mean Corpuscular Hemoglobin Concent 31.4 L Red Cell Distribution Width 18.6 H Platelet Count 174 # Mean Platelet Volume 13.0 H Neutrophils % 80.5 H Lymphocytes % 12.5 L Monocytes % 6.1 Eosinophils % 0.1 Basophils % 0.1 Nucleated Red Blood Cells % 0.8 H Neutrophils # 8.0 H Lymphocytes # 1.2 Monocytes # 0.6 Eosinophils # 0.0 Basophils # 0.0 Nucleated Red Blood Cells # 0.1 H Medications Medications Current Medications Ondansetron HCl (Zofran Inj) 4 mg Q6H PRN IV NAUSEA AND/OR VOMITING; Start at 12:00 Acetaminophen (Tylenol Tab) 650 mg Q6H PRN PO PAIN LEVEL 1-3 OR FEVER Last administered on 04/26/17 21:27; Admin Dose 650 MG; Start 04/19/17 at 12:00 Acetaminophen/ Hydrocodone Bitart ([place] (5/325)) 1 tab Q6H PRN PO MODERATE PAIN LEVEL 4-6; Start 04/19/17 at 12:00 Morphine Sulfate (morphine) 2 mg Q4H PRN IV SEVERE PAIN LEVEL 7-10 Last administered on 04/20/17 23:43; Admin Dose 2 MG; Start 04/19/17 at 12:00 Magnesium Hydroxide (Milk Of Mag) 30 ml DAILY PRN PO CONSTIPATION; Start 04/19 at 12:00 Sodium Biphosphate/ Sodium Phosphate (Fleet Enema) 133 ml DAILY PRN [place] CONSTIPATION; Start 04/19/17 at 12:00 Nitroglycerin (Nitroglycerin (Sl Tab) 0.4 Mg) 1 tab Q5M PRN SL ANGINA; Start 04/19/17 at 12:00 Amiodarone HCl (Cordarone) 200 mg DAILY GTB Last administered on 04/28/17 09: 27; Admin Dose 200 MG; Start 04/20/17 at 09:00 Carbidopa/Levodopa (Sinemet (25/ 100)) 1 tab QID GTB Last administered on 12:55; Admin Dose 1 TAB; Start 04/19/17 at 13:00 Chlorhexidine Gluconate (Peridex) 15 ml Q12 MM Last administered on 04/28/17 09:26; Admin Dose 15 ML; Start 04/19/17 at 21:00 Doxazosin Mesylate (Cardura) 8 mg DAILY GTB Last administered on 04/23/17 09: 32; Admin Dose 8 MG; Start 04/20/17 at 09:00; Status Future Hold Ferrous Sulfate (Ferrous Sulfate (Ec)) 330 mg TID PO Last administered on 12:55; Admin Dose 330 MG; Start 04/19/17 at 13:00 Lactobacillus Acidophilus/ Rhamnosus (Culturelle) 1 cap DAILY PO Last administered on 04/28/17 09:32; Admin Dose 1 CAP; Start 04/20/17 at 09:00 Ascorbic Acid (Vitamin C) 500 mg BID GTB Last administered on 04/28/17 09:27; Admin Dose 500 MG; Start 04/19/17 at 21:00 Lorazepam (Ativan) 2 mg Q10MIN PRN IV seisure Last administered on 04/25/17 04:06; Admin Dose 2 MG; Start 04/19/17 at 17:30 Acetaminophen (Tylenol Liquid) 650 mg Q6H PRN GTB PAIN AND OR ELEVATED TEMP Last administered on 04/28/17 09:26; Admin Dose 650 MG; Start 04/20/17 at 19: 00 Miscellaneous Information (Pending Santyl Order For Wound Care) This patient galdamez... PRN PRN XX WOUND CARE; Start 04/21/17 at 02:00 Collagenase (Santyl) 1 applic DAILY TOP Last administered on 04/28/17 09:29; Admin Dose 1 APPLIC; Start 04/21/17 at 09:00 Collagenase (Santyl) 1 applic PRN PRN TOP PRN Last administered on 04/21/17 10:40; Admin Dose 1 APPLIC; Start 04/21/17 at 05:00 Enoxaparin Sodium (Lovenox) 50 mg Q12 SC Last administered on 04/23/17 21:00 ; Admin Dose 50 MG; Start 04/21/17 at 21:00; Status Future Hold Mupirocin (Bactroban) 1 applic BID TOP Last administered on 04/28/17 09:28; Admin Dose 1 APPLIC; Start 04/21/17 at 21:00 Metoprolol Tartrate (Lopressor) 12.5 mg BID PO Last administered on 04/28/17 09:27; Admin Dose 12.5 MG; Start 04/22/17 at 21:00 Albuterol (Proventil 0.083% (Neb)) 2.5 mg Q3H PRN NEB WHEEZING AND SOB; Start 04/22/17 at 19:00 Atorvastatin Calcium (Lipitor) 20 mg QHS GTB Last administered on 04/27/17 21: 18; Admin Dose 20 MG; Start 04/22/17 at 21:00 Tamsulosin HCl 0.4 mg 0.4 mg HS PO Last administered on 04/27/17 21:18; Admin Dose 0.4 MG; Start 04/22/17 at 21:00 Clindamycin HCl/ Dextrose (Cleocin 600 Mg/ D5W (Pmx)) 50 ml @ 50 mls/hr Q8 IVPB Last administered on 04/28/17 14:58; Admin Dose 50 MLS/HR; Start 04/23/17 at 22:00 Docusate Sodium (Colace Liquid Cup) 100 mg BID GTB Last administered on 09:26; Admin Dose 100 MG; Start 04/23/17 at 21:00 Multivitamins 30 ml 30 ml DAILY GTB Last administered on 04/28/17 09:26; Admin Dose 30 ML; Start 04/24/17 at 09:00 Meropenem/Sodium Chloride (Merrem 500mg/50 ml(Pmx)) 50 ml @ 100 mls/hr Q8 IVPB Last administered on 04/28/17 13:30; Admin Dose 100 MLS/HR; Start 04/24/17 at 14:00 Digoxin (Digoxin) 0.125 mg DAILY@13 PO Last administered on 04/28/17 12:55; Admin Dose 0.125 MG; Start 04/27/17 at 13:00 Fluconazole (Diflucan) 100 mg DAILY PO ; Start 04/29/17 at 09:00 VIRGILIO MCCALL MD Apr 28, 2017 15:44
--- NOTE | 2017-04-28 19:52 | CONS ---
Date/Time of Note Date/Time of Note DATE: 04/28/17 TIME: 19:51 Assessment/Plan Assessment/Plan Chief Complaint/Hosp Course SUBJECTIVE: no acute changes, spiking fevers, nad MICROBIOLOGY: Blood culture and urine culture repeated on 04/24/2017 remain negative. Upper chest wound culture growing MRSA susceptible to clindamycin. DIAGNOSTICS: 04/24 CT of the abdomen and chest revealed consolidation with independent bilateral lower lobes which may reflect aspiration or pneumonia, small bilateral pleural effusion, extensive bronchiolitis throughout the remaining bibasilar lower lobes, lingula and inferior right upper lobe and right middle lobe, fractures of the anterolateral right second through seventh ribs and anterolateral left second through sixth ribs which appears subacute in nature. No specific focal fluid density within the ventral . Subcutaneous fat measuring 3.5 cm, possibly seroma. Underlying infection is not excluded. Mediastinal adenopathy likely reactive in nature. CT of the abdomen revealed 6 mm rounded hyperdensity within the left psoas muscle, questionable intramuscular hemorrhage. Questionable right hip joint effusion with synovitis. No well-defined drainable intra-abdominal abscess. INDWELLINGS: Trach, PEG, Taylor. ANTIMICROBIALS: Meropenem Clindamycin, Diflucan PHYSICAL EXAMINATION: GENERAL: This is a chronically ill-appearing, elderly man who is in no distress. HEENT: Head atraumatic, normocephalic. Sclerae anicteric. Buccal mucosa dry. NECK: Supple. Tracheostomy present. CHEST: Rise symmetrical. Breath sounds diminished to bases. HEART: S1, S2. ABDOMEN: Soft, bowel tones present. EXTREMITIES: Without cyanosis. ASSESSMENT: 1. Septic shock with persistent fevers. Etiology could be secondary to pneumonia, left psoas muscle infection versus chest wound with a questionable abscess, possibly central as well. 2. Vegetative state status post cardiopulmonary arrest. 3. 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 4. Methicillin-resistant Staphylococcus aureus nares colonization. 5. Dysphagia. 6. Anemia. 7. R great toe OM PLAN: Clinically unchanged. Spiking fevers despite broad-spectrum antibiotics, will add antifungal coverage, send sputum cx, await for WBC scan DW staff Problems: Consultation Date/Type/Reason Admit Date/Time Apr 19, 2017 at 10:58 Initial Consult Date 04/24/17 Type of Consultation: ID Referring Provider: RAHI,ZOE S. Exam/Review of Systems Vital Signs Vitals Vital Signs Date Time Temp Pulse Resp B/P Pulse Ox O2 Delivery O2 Flow Rate FiO2 04/28/17 19:48 103.3 102 21 115/66 100 04/28/17 17:21 40 04/24/17 17:45 Mechanical Ventilator Intake and Output 04/27/17 04/27/17 04/28/17 15:00 23:00 07:00 Intake Total 1000 ml 450 ml Output Total 700 ml 550 ml Balance 300 ml -100 ml Results Result Diagram: 04/27/17 1710 04/26/17 0555 Medications Medications Current Medications Ondansetron HCl (Zofran Inj) 4 mg Q6H PRN IV NAUSEA AND/OR VOMITING; Start at 12:00 Acetaminophen (Tylenol Tab) 650 mg Q6H PRN PO PAIN LEVEL 1-3 OR FEVER Last administered on 04/26/17 21:27; Admin Dose 650 MG; Start 04/19/17 at 12:00 Acetaminophen/ Hydrocodone Bitart ([place] (5/325)) 1 tab Q6H PRN PO MODERATE PAIN LEVEL 4-6; Start 04/19/17 at 12:00 Morphine Sulfate (morphine) 2 mg Q4H PRN IV SEVERE PAIN LEVEL 7-10 Last administered on 04/20/17 23:43; Admin Dose 2 MG; Start 04/19/17 at 12:00 Magnesium Hydroxide (Milk Of Mag) 30 ml DAILY PRN PO CONSTIPATION; Start 04/19 at 12:00 Sodium Biphosphate/ Sodium Phosphate (Fleet Enema) 133 ml DAILY PRN [place] CONSTIPATION; Start 04/19/17 at 12:00 Nitroglycerin (Nitroglycerin (Sl Tab) 0.4 Mg) 1 tab Q5M PRN SL ANGINA; Start 04/19/17 at 12:00 Amiodarone HCl (Cordarone) 200 mg DAILY GTB Last administered on 04/28/17 09: 27; Admin Dose 200 MG; Start 04/20/17 at 09:00 Carbidopa/Levodopa (Sinemet (25/ 100)) 1 tab QID GTB Last administered on 17:29; Admin Dose 1 TAB; Start 04/19/17 at 13:00 Chlorhexidine Gluconate (Peridex) 15 ml Q12 MM Last administered on 04/28/17 09:26; Admin Dose 15 ML; Start 04/19/17 at 21:00 Doxazosin Mesylate (Cardura) 8 mg DAILY GTB Last administered on 04/23/17 09: 32; Admin Dose 8 MG; Start 04/20/17 at 09:00; Status Future Hold Ferrous Sulfate (Ferrous Sulfate (Ec)) 330 mg TID PO Last administered on 12:55; Admin Dose 330 MG; Start 04/19/17 at 13:00 Lactobacillus Acidophilus/ Rhamnosus (Culturelle) 1 cap DAILY PO Last administered on 04/28/17 09:32; Admin Dose 1 CAP; Start 04/20/17 at 09:00 Ascorbic Acid (Vitamin C) 500 mg BID GTB Last administered on 04/28/17 09:27; Admin Dose 500 MG; Start 04/19/17 at 21:00 Lorazepam (Ativan) 2 mg Q10MIN PRN IV seisure Last administered on 04/25/17 04:06; Admin Dose 2 MG; Start 04/19/17 at 17:30 Acetaminophen (Tylenol Liquid) 650 mg Q6H PRN GTB PAIN AND OR ELEVATED TEMP Last administered on 04/28/17 09:26; Admin Dose 650 MG; Start 04/20/17 at 19: 00 Miscellaneous Information (Pending Santyl Order For Wound Care) This patient galdamez... PRN PRN XX WOUND CARE; Start 04/21/17 at 02:00 Collagenase (Santyl) 1 applic DAILY TOP Last administered on 04/28/17 09:29; Admin Dose 1 APPLIC; Start 04/21/17 at 09:00 Collagenase (Santyl) 1 applic PRN PRN TOP PRN Last administered on 04/21/17 10:40; Admin Dose 1 APPLIC; Start 04/21/17 at 05:00 Enoxaparin Sodium (Lovenox) 50 mg Q12 SC Last administered on 04/23/17 21:00 ; Admin Dose 50 MG; Start 04/21/17 at 21:00; Status Future Hold Mupirocin (Bactroban) 1 applic BID TOP Last administered on 04/28/17 09:28; Admin Dose 1 APPLIC; Start 04/21/17 at 21:00 Metoprolol Tartrate (Lopressor) 12.5 mg BID PO Last administered on 04/28/17 09:27; Admin Dose 12.5 MG; Start 04/22/17 at 21:00 Albuterol (Proventil 0.083% (Neb)) 2.5 mg Q3H PRN NEB WHEEZING AND SOB; Start 04/22/17 at 19:00 Atorvastatin Calcium (Lipitor) 20 mg QHS GTB Last administered on 04/27/17 21: 18; Admin Dose 20 MG; Start 04/22/17 at 21:00 Tamsulosin HCl 0.4 mg 0.4 mg HS PO Last administered on 04/27/17 21:18; Admin Dose 0.4 MG; Start 04/22/17 at 21:00 Clindamycin HCl/ Dextrose (Cleocin 600 Mg/ D5W (Pmx)) 50 ml @ 50 mls/hr Q8 IVPB Last administered on 04/28/17 14:58; Admin Dose 50 MLS/HR; Start 04/23/17 at 22:00 Docusate Sodium (Colace Liquid Cup) 100 mg BID GTB Last administered on 09:26; Admin Dose 100 MG; Start 04/23/17 at 21:00 Multivitamins 30 ml 30 ml DAILY GTB Last administered on 04/28/17 09:26; Admin Dose 30 ML; Start 04/24/17 at 09:00 Meropenem/Sodium Chloride (Merrem 500mg/50 ml(Pmx)) 50 ml @ 100 mls/hr Q8 IVPB Last administered on 04/28/17 13:30; Admin Dose 100 MLS/HR; Start 04/24/17 at 14:00 Digoxin (Digoxin) 0.125 mg DAILY@13 PO Last administered on 04/28/17 12:55; Admin Dose 0.125 MG; Start 04/27/17 at 13:00 Fluconazole (Diflucan) 100 mg DAILY PO ; Start 04/29/17 at 09:00 ALLIE GODOY NP Apr 28, 2017 19:52
[2017-04-28] MEDS: TAMSULOSIN (SR) 0.4 MG CAP PO SCH (21:25)
[2017-04-28] MEDS: ATORVASTATIN 20 MG TAB GTB SCH (21:25)
[2017-04-28] MEDS: FERROUS SULFATE 60 MG/ML 5ML CUP GTB SCH (21:27)
[2017-04-29] VITALS (20 sets, daily range): BP systolic 131–162; BP diastolic 62–74; PULSE 76–105; RESP 20–28
[2017-04-29] MEDS: CLINDAMYCIN 600 MG/D5W (PMX) 50 ML IVPB SCH ×3 (06:37→22:25)
[2017-04-29] MEDS: MEROPENEM 500MG/50 ML (PMX) 50 ML IVPB SCH ×3 (06:40→22:22)
[2017-04-29] MEDS: ACETAMINOPHEN 650MG/20.3ML CUP GTB PRN ×2 (10:12→18:05)
[2017-04-29] MEDS: FERROUS SULFATE 60 MG/ML 5ML CUP GTB SCH ×3 (10:13→22:22)
[2017-04-29] MEDS: MULTIVITAMINS 30 ML CUP GTB SCH (10:13)
[2017-04-29] MEDS: DOCUSATE SODIUM 10 MG/ML (10ML CUP) GTB SCH ×2 (10:13→22:22)
[2017-04-29] MEDS: FLUCONAZOLE 100 MG TAB PO SCH (10:13)
[2017-04-29] MEDS: CARBIDOPA/LEVODOPA (25/100) TAB GTB SCH ×4 (10:13→22:29)
[2017-04-29] MEDS: AMIODARONE 200 MG TAB GTB SCH (10:14)
[2017-04-29] MEDS: ASCORBIC ACID 500 MG TAB GTB SCH ×2 (10:14→22:27)
[2017-04-29] MEDS: CHLORHEXIDINE GLUCONATE 15 ML UD CUP MM SCH ×2 (10:14→22:22)
[2017-04-29] MEDS: LACTOBACILLUS RHAMNOSUS CAP PO SCH (10:14)
[2017-04-29] MEDS: METOPROLOL 25 MG TAB PO SCH ×2 (10:18→22:29)
[2017-04-29] MEDS: MUPIROCIN 2% 22 GM OINT TOP SCH ×2 (10:19→21:00)
[2017-04-29] MEDS: BALSAM PERU/CASTOR OIL 60 GM TUBE TOP SCH (10:19)
[2017-04-29] MEDS: COLLAGENASE 30 GM TUBE TOP SCH (10:20)
--- NOTE | 2017-04-29 11:06 | CONS ---
Date/Time of Note Date/Time of Note DATE: 04/29/17 TIME: 11:04 Assessment/Plan Assessment/Plan Additional Assessment/Plan Ventilator setting; AC of 24, tidal volume 450, PEEP of 5, 30% FiO2. Assessment and recommendations; 1. Patient admitted with UTI and pneumonia as well as wound infection, currently on appropriate broad-spectrum antibiotic coverage. 2. Chronic respiratory failure. 3. Advanced dementia. 4. Parkinson's disease. 5. BPH. 6. Mild anemia and mild thrombocytopenia. Continue current supportive care. Consultation Date/Type/Reason Admit Date/Time Apr 19, 2017 at 10:58 Initial Consult Date 04/24/17 Type of Consultation: Pulmonary Referring Provider: ZOE ALEXANDRA 24 HR Interval Summary Free Text/Dictation Patient's condition remains stable. Remains chronically ventilator dependent. Patient has advanced dementia and is unable to give any history by himself whatsoever. Patient however has remained hemodynamically stable. General exam; elderly male, on ventilator via tracheostomy, awake, currently in no distress. Unresponsive to any commands. Exam/Review of Systems Vital Signs Vitals Vital Signs Date Time Temp Pulse Resp B/P Pulse Ox O2 Delivery O2 Flow Rate FiO2 04/29/17 08:39 99 04/29/17 08:00 23 98 30 04/29/17 07:45 103.0 146/67 Intake and Output 04/28/17 04/28/17 04/29/17 14:59 22:59 06:59 Intake Total 50 ml 270 ml 1070 ml Output Total 350 ml 600 ml Balance 50 ml -80 ml 470 ml Exam HEENT exam; supple neck, no JVD. No lymphadenopathy. Midline trachea. No thyromegaly. Tracheostomy in place. Chest exam; diminished but clear breath sounds. S1-S2 audible, no murmurs. Regular rhythm. Abdomen exam; soft, nondistended. G-tube in place. Bowel sounds audible. No organomegaly. Back examination; dressing applied over sacrum. Extremity exam; no edema. Patient does have contractures involving all 4 extremities. STUNTMAN exam; patient remains awake but unresponsive to any commands. Results Result Diagram: 04/27/17 1710 04/26/17 0555 Medications Medications Current Medications Ondansetron HCl (Zofran Inj) 4 mg Q6H PRN IV NAUSEA AND/OR VOMITING; Start at 12:00 Acetaminophen (Tylenol Tab) 650 mg Q6H PRN PO PAIN LEVEL 1-3 OR FEVER Last administered on 04/26/17 21:27; Admin Dose 650 MG; Start 04/19/17 at 12:00 Acetaminophen/ Hydrocodone Bitart ([employer] (5/325)) 1 tab Q6H PRN PO MODERATE PAIN LEVEL 4-6; Start 04/19/17 at 12:00 Morphine Sulfate (morphine) 2 mg Q4H PRN IV SEVERE PAIN LEVEL 7-10 Last administered on 04/20/17 23:43; Admin Dose 2 MG; Start 04/19/17 at 12:00 Magnesium Hydroxide (Milk Of Mag) 30 ml DAILY PRN PO CONSTIPATION; Start 04/19 at 12:00 Sodium Biphosphate/ Sodium Phosphate (Fleet Enema) 133 ml DAILY PRN [place] CONSTIPATION; Start 04/19/17 at 12:00 Nitroglycerin (Nitroglycerin (Sl Tab) 0.4 Mg) 1 tab Q5M PRN SL ANGINA; Start 04/19/17 at 12:00 Amiodarone HCl (Cordarone) 200 mg DAILY GTB Last administered on 04/29/17 10: 14; Admin Dose 200 MG; Start 04/20/17 at 09:00 Carbidopa/Levodopa (Sinemet (25/ 100)) 1 tab QID GTB Last administered on 10:13; Admin Dose 1 TAB; Start 04/19/17 at 13:00 Chlorhexidine Gluconate (Peridex) 15 ml Q12 MM Last administered on 04/29/17 10:14; Admin Dose 15 ML; Start 04/19/17 at 21:00 Doxazosin Mesylate (Cardura) 8 mg DAILY GTB Last administered on 04/23/17 09: 32; Admin Dose 8 MG; Start 04/20/17 at 09:00; Status Future Hold Lactobacillus Acidophilus/ Rhamnosus (Culturelle) 1 cap DAILY PO Last administered on 04/29/17 10:14; Admin Dose 1 CAP; Start 04/20/17 at 09:00 Ascorbic Acid (Vitamin C) 500 mg BID GTB Last administered on 04/29/17 10:14; Admin Dose 500 MG; Start 04/19/17 at 21:00 Lorazepam (Ativan) 2 mg Q10MIN PRN IV seisure Last administered on 04/25/17 04:06; Admin Dose 2 MG; Start 04/19/17 at 17:30 Acetaminophen (Tylenol Liquid) 650 mg Q6H PRN GTB PAIN AND OR ELEVATED TEMP Last administered on 04/29/17 10:12; Admin Dose 650 MG; Start 04/20/17 at 19: 00 Miscellaneous Information (Pending Santyl Order For Wound Care) This patient galdamez... PRN PRN XX WOUND CARE; Start 04/21/17 at 02:00 Collagenase (Santyl) 1 applic DAILY TOP Last administered on 04/29/17 10:20; Admin Dose 1 APPLIC; Start 04/21/17 at 09:00 Collagenase (Santyl) 1 applic PRN PRN TOP PRN Last administered on 04/21/17 10:40; Admin Dose 1 APPLIC; Start 04/21/17 at 05:00 Enoxaparin Sodium (Lovenox) 50 mg Q12 SC Last administered on 04/23/17 21:00 ; Admin Dose 50 MG; Start 04/21/17 at 21:00; Status Future Hold Mupirocin (Bactroban) 1 applic BID TOP Last administered on 04/29/17 10:19; Admin Dose 1 APPLIC; Start 04/21/17 at 21:00 Metoprolol Tartrate (Lopressor) 12.5 mg BID PO Last administered on 04/29/17 10:18; Admin Dose 12.5 MG; Start 04/22/17 at 21:00 Albuterol (Proventil 0.083% (Neb)) 2.5 mg Q3H PRN NEB WHEEZING AND SOB; Start 04/22/17 at 19:00 Atorvastatin Calcium (Lipitor) 20 mg QHS GTB Last administered on 04/28/17 21: 25; Admin Dose 20 MG; Start 04/22/17 at 21:00 Tamsulosin HCl 0.4 mg 0.4 mg HS PO Last administered on 04/28/17 21:25; Admin Dose 0.4 MG; Start 04/22/17 at 21:00 Clindamycin HCl/ Dextrose (Cleocin 600 Mg/ D5W (Pmx)) 50 ml @ 50 mls/hr Q8 IVPB Last administered on 04/29/17 06:37; Admin Dose 50 MLS/HR; Start 04/23/17 at 22:00 Docusate Sodium (Colace Liquid Cup) 100 mg BID GTB Last administered on 10:13; Admin Dose 100 MG; Start 04/23/17 at 21:00 Multivitamins 30 ml 30 ml DAILY GTB Last administered on 04/29/17 10:13; Admin Dose 30 ML; Start 04/24/17 at 09:00 Meropenem/Sodium Chloride (Merrem 500mg/50 ml(Pmx)) 50 ml @ 100 mls/hr Q8 IVPB Last administered on 04/29/17 06:40; Admin Dose 100 MLS/HR; Start 04/24/17 at 14:00 Digoxin (Digoxin) 0.125 mg DAILY@13 PO Last administered on 04/28/17 12:55; Admin Dose 0.125 MG; Start 04/27/17 at 13:00 Fluconazole (Diflucan) 100 mg DAILY PO Last administered on 04/29/17 10:13; Admin Dose 100 MG; Start 04/29/17 at 09:00 Ferrous Sulfate (Feosol Liquid Cup) 300 mg TID GTB Last administered on 10:13; Admin Dose 300 MG; Start 04/28/17 at 21:00 ILANA BENITEZ Apr 29, 2017 11:06
--- NOTE | 2017-04-29 13:13 | PN ---
Date/Time of Note Date/Time of Note DATE: 04/29/17 TIME: 13:08 Assessment/Plan VTE Prophylaxis VTE Prophylaxis Intervention: SCD's Lines/Catheters IV Catheter Type (from Nrs): PICC Line Central line still needed: Yes (meds) Urinary Cath still in place: No Assessment/Plan Chief Complaint/Hosp Course Chief Complaint/Hosp Course Assessment: Anemia possible due to intramuscular hemorrhage and psoas muscle on CT Ultrasound of the right hip-small collection of fluid Persistent fever due to possible abscess in the right hip Hypotension-resolved Chronic encephalopathy Respiratory failure-tracheostomy, ventilator dependent Sepsis UTI Chest wall wound Status post cardiac arrest Plan: Monitor H&H Transfuse for hemoglobin less than 7.5 No colonoscopy at this time unless there is a sign of overt bleeding Patient seen in collaboration with Dr. Leal Subjective: Course reviewed with nursing staff Patient interviewed and examined All labs, imaging and other results reviewed The patient non-responsive, trach and vent dependant, not in any acute distress. No overt signs of GI bleed, again colonoscopy not warranted at this time. PHYSICAL EXAMINATION: GENERAL: Patient is nonresponsive, trached and vent dependent. No acute distress SKIN: Multiple lesions on the toes and chest wound, no stigmata chronic liver disease, no evidence of bleeding diathesis. Chest wall wound and bilateral pressure ulcers on the feet LYMPHATIC: No palpable lymphadenopathy. HEAD: Normocephalic, atraumatic, no tenderness. EYES: Pupils equal reactive to light and accommodation, full extraocular movements, sclera clear, non-icteric, no discharge. EARS/NOSE AND THROAT: Ears normal, nose normal, oropharynx normal, oral membranes well hydrated without lesions. NECK: Supple, no masses, tracheostomy tube in place, JVP within normal limits, carotids normal without bruits. CHEST: Inspection within normal limits. Chest wall wound CARDIOVASCULAR: Heart: Regular rate and rhythm, no murmurs, gallops or rubs. Peripheral pulses present within normal limits, no cyanosis, clubbing or edemas. No pulsatile abdominal mass RESPIRATORY: Lungs clear to auscultation and percussion, no wheezing, no rubs GASTROINTESTINAL AND LIVER: Abdomen: Soft, non tenderness, non-distended, no hernias, no masses, no organomegaly, no ascites, no guarding, no rebound tenderness, normoactive bowel sounds, PEG tube in place with continuous feeding. Rectal: Deferred. GENITOURINARY: Male genitalia within normal limits. EXTREMITIES: No cyanosis, clubbing or edema. Problems: Problems: Exam/Review of Systems Vital Signs Vitals Vital Signs Date Time Temp Pulse Resp B/P Pulse Ox O2 Delivery O2 Flow Rate FiO2 04/29/17 12:32 105 04/29/17 11:43 103.1 22 142/65 99 04/29/17 11:15 30 Intake and Output 04/28/17 04/28/17 04/29/17 15:00 23:00 07:00 Intake Total 50 ml 270 ml 1070 ml Output Total 350 ml 600 ml Balance 50 ml -80 ml 470 ml Results Result Diagram: 04/27/17 1710 04/26/17 0555 Medications Medications Current Medications Ondansetron HCl (Zofran Inj) 4 mg Q6H PRN IV NAUSEA AND/OR VOMITING; Start at 12:00 Acetaminophen (Tylenol Tab) 650 mg Q6H PRN PO PAIN LEVEL 1-3 OR FEVER Last administered on 04/26/17 21:27; Admin Dose 650 MG; Start 04/19/17 at 12:00 Acetaminophen/ Hydrocodone Bitart ([place] (5/325)) 1 tab Q6H PRN PO MODERATE PAIN LEVEL 4-6; Start 04/19/17 at 12:00 Morphine Sulfate (morphine) 2 mg Q4H PRN IV SEVERE PAIN LEVEL 7-10 Last administered on 04/20/17 23:43; Admin Dose 2 MG; Start 04/19/17 at 12:00 Magnesium Hydroxide (Milk Of Mag) 30 ml DAILY PRN PO CONSTIPATION; Start 04/19 at 12:00 Sodium Biphosphate/ Sodium Phosphate (Fleet Enema) 133 ml DAILY PRN [place] CONSTIPATION; Start 04/19/17 at 12:00 Nitroglycerin (Nitroglycerin (Sl Tab) 0.4 Mg) 1 tab Q5M PRN SL ANGINA; Start 04/19/17 at 12:00 Amiodarone HCl (Cordarone) 200 mg DAILY GTB Last administered on 04/29/17 10: 14; Admin Dose 200 MG; Start 04/20/17 at 09:00 Carbidopa/Levodopa (Sinemet (25/ 100)) 1 tab QID GTB Last administered on 12/4/ 17at 10:13; Admin Dose 1 TAB; Start 04/19/17 at 13:00 Chlorhexidine Gluconate (Peridex) 15 ml Q12 MM Last administered on 04/29/17 10:14; Admin Dose 15 ML; Start 04/19/17 at 21:00 Doxazosin Mesylate (Cardura) 8 mg DAILY GTB Last administered on 04/23/17 09: 32; Admin Dose 8 MG; Start 04/20/17 at 09:00; Status Future Hold Lactobacillus Acidophilus/ Rhamnosus (Culturelle) 1 cap DAILY PO Last administered on 04/29/17 10:14; Admin Dose 1 CAP; Start 04/20/17 at 09:00 Ascorbic Acid (Vitamin C) 500 mg BID GTB Last administered on 04/29/17 10:14; Admin Dose 500 MG; Start 04/19/17 at 21:00 Lorazepam (Ativan) 2 mg Q10MIN PRN IV seisure Last administered on 04/25/17 04:06; Admin Dose 2 MG; Start 04/19/17 at 17:30 Acetaminophen (Tylenol Liquid) 650 mg Q6H PRN GTB PAIN AND OR ELEVATED TEMP Last administered on 04/29/17 10:12; Admin Dose 650 MG; Start 04/20/17 at 19: 00 Miscellaneous Information (Pending Santyl Order For Wound Care) This patient galdamez... PRN PRN XX WOUND CARE; Start 04/21/17 at 02:00 Collagenase (Santyl) 1 applic DAILY TOP Last administered on 04/29/17 10:20; Admin Dose 1 APPLIC; Start 04/21/17 at 09:00 Collagenase (Santyl) 1 applic PRN PRN TOP PRN Last administered on 04/21/17 10:40; Admin Dose 1 APPLIC; Start 04/21/17 at 05:00 Enoxaparin Sodium (Lovenox) 50 mg Q12 SC Last administered on 04/23/17 21:00 ; Admin Dose 50 MG; Start 04/21/17 at 21:00; Status Future Hold Mupirocin (Bactroban) 1 applic BID TOP Last administered on 04/29/17 10:19; Admin Dose 1 APPLIC; Start 04/21/17 at 21:00 Metoprolol Tartrate (Lopressor) 12.5 mg BID PO Last administered on 04/29/17 10:18; Admin Dose 12.5 MG; Start 04/22/17 at 21:00 Albuterol (Proventil 0.083% (Neb)) 2.5 mg Q3H PRN NEB WHEEZING AND SOB; Start 04/22/17 at 19:00 Atorvastatin Calcium (Lipitor) 20 mg QHS GTB Last administered on 04/28/17 21: 25; Admin Dose 20 MG; Start 04/22/17 at 21:00 Tamsulosin HCl 0.4 mg 0.4 mg HS PO Last administered on 04/28/17 21:25; Admin Dose 0.4 MG; Start 04/22/17 at 21:00 Clindamycin HCl/ Dextrose (Cleocin 600 Mg/ D5W (Pmx)) 50 ml @ 50 mls/hr Q8 IVPB Last administered on 04/29/17 06:37; Admin Dose 50 MLS/HR; Start 04/23/17 at 22:00 Docusate Sodium (Colace Liquid Cup) 100 mg BID GTB Last administered on 10:13; Admin Dose 100 MG; Start 04/23/17 at 21:00 Multivitamins 30 ml 30 ml DAILY GTB Last administered on 04/29/17 10:13; Admin Dose 30 ML; Start 04/24/17 at 09:00 Meropenem/Sodium Chloride (Merrem 500mg/50 ml(Pmx)) 50 ml @ 100 mls/hr Q8 IVPB Last administered on 04/29/17 06:40; Admin Dose 100 MLS/HR; Start 04/24/17 at 14:00 Digoxin (Digoxin) 0.125 mg DAILY@13 PO Last administered on 04/28/17 12:55; Admin Dose 0.125 MG; Start 04/27/17 at 13:00 Fluconazole (Diflucan) 100 mg DAILY PO Last administered on 04/29/17 10:13; Admin Dose 100 MG; Start 04/29/17 at 09:00 Ferrous Sulfate (Feosol Liquid Cup) 300 mg TID GTB Last administered on 10:13; Admin Dose 300 MG; Start 04/28/17 at 21:00 JAMIE FINLEY Apr 29, 2017 13:13
[2017-04-29] MEDS: DIGOXIN 0.125 MG TAB PO SCH (13:23)
--- NOTE | 2017-04-29 14:59 | CONS ---
Date/Time of Note Date/Time of Note DATE: 04/29/17 TIME: 14:58 Assessment/Plan Assessment/Plan Chief Complaint/Hosp Course SUBJECTIVE: no acute changes, spiking fevers, nad MICROBIOLOGY: Blood culture and urine culture repeated on 04/24/2017 remain negative. Upper chest wound culture growing MRSA susceptible to clindamycin. DIAGNOSTICS: 04/24 CT of the abdomen and chest revealed consolidation with independent bilateral lower lobes which may reflect aspiration or pneumonia, small bilateral pleural effusion, extensive bronchiolitis throughout the remaining bibasilar lower lobes, lingula and inferior right upper lobe and right middle lobe, fractures of the anterolateral right second through seventh ribs and anterolateral left second through sixth ribs which appears subacute in nature. No specific focal fluid density within the ventral . Subcutaneous fat measuring 3.5 cm, possibly seroma. Underlying infection is not excluded. Mediastinal adenopathy likely reactive in nature. CT of the abdomen revealed 6 mm rounded hyperdensity within the left psoas muscle, questionable intramuscular hemorrhage. Questionable right hip joint effusion with synovitis. No well-defined drainable intra-abdominal abscess. INDWELLINGS: Trach, PEG, Taylor. ANTIMICROBIALS: Meropenem Clindamycin, Diflucan PHYSICAL EXAMINATION: GENERAL: This is a chronically ill-appearing, elderly man who is in no distress. HEENT: Head atraumatic, normocephalic. Sclerae anicteric. Buccal mucosa dry. NECK: Supple. Tracheostomy present. CHEST: Rise symmetrical. Breath sounds diminished to bases. HEART: S1, S2. ABDOMEN: Soft, bowel tones present. EXTREMITIES: Without cyanosis. ASSESSMENT: 1. S/p septic shock with persistent fevers. Etiology could be secondary to pneumonia, left psoas muscle infection versus chest wound with a questionable abscess, possibly central as well. 2. Vegetative state status post cardiopulmonary arrest. 3. 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 4. Methicillin-resistant Staphylococcus aureus nares colonization. 5. Dysphagia. 6. Anemia. 7. R great toe OM PLAN: Clinically unchanged. Spiking fevers despite broad-spectrum antibiotics, pending sputum cx, pending WBC scan, care is futile DW staff Problems: Consultation Date/Type/Reason Admit Date/Time Apr 19, 2017 at 10:58 Initial Consult Date 04/24/17 Type of Consultation: id Referring Provider: ZOE ALEXANDRA Exam/Review of Systems Vital Signs Vitals Vital Signs Date Time Temp Pulse Resp B/P Pulse Ox O2 Delivery O2 Flow Rate FiO2 04/29/17 14:04 88 20 99 30 04/29/17 11:43 103.1 142/65 Intake and Output 04/28/17 04/28/17 04/29/17 15:00 23:00 07:00 Intake Total 50 ml 270 ml 1070 ml Output Total 350 ml 600 ml Balance 50 ml -80 ml 470 ml Results Result Diagram: 04/27/17 1710 04/26/17 0555 Medications Medications Current Medications Ondansetron HCl (Zofran Inj) 4 mg Q6H PRN IV NAUSEA AND/OR VOMITING; Start at 12:00 Acetaminophen (Tylenol Tab) 650 mg Q6H PRN PO PAIN LEVEL 1-3 OR FEVER Last administered on 04/26/17 21:27; Admin Dose 650 MG; Start 04/19/17 at 12:00 Acetaminophen/ Hydrocodone Bitart ([place] (5/325)) 1 tab Q6H PRN PO MODERATE PAIN LEVEL 4-6; Start 04/19/17 at 12:00 Morphine Sulfate (morphine) 2 mg Q4H PRN IV SEVERE PAIN LEVEL 7-10 Last administered on 04/20/17 23:43; Admin Dose 2 MG; Start 04/19/17 at 12:00 Magnesium Hydroxide (Milk Of Mag) 30 ml DAILY PRN PO CONSTIPATION; Start 04/19 at 12:00 Sodium Biphosphate/ Sodium Phosphate (Fleet Enema) 133 ml DAILY PRN [place] CONSTIPATION; Start 04/19/17 at 12:00 Nitroglycerin (Nitroglycerin (Sl Tab) 0.4 Mg) 1 tab Q5M PRN SL ANGINA; Start 04/19/17 at 12:00 Amiodarone HCl (Cordarone) 200 mg DAILY GTB Last administered on 04/29/17 10: 14; Admin Dose 200 MG; Start 04/20/17 at 09:00 Carbidopa/Levodopa (Sinemet (25/ 100)) 1 tab QID GTB Last administered on 13:22; Admin Dose 1 TAB; Start 04/19/17 at 13:00 Chlorhexidine Gluconate (Peridex) 15 ml Q12 MM Last administered on 04/29/17 10:14; Admin Dose 15 ML; Start 04/19/17 at 21:00 Doxazosin Mesylate (Cardura) 8 mg DAILY GTB Last administered on 04/23/17 09: 32; Admin Dose 8 MG; Start 04/20/17 at 09:00; Status Future Hold Lactobacillus Acidophilus/ Rhamnosus (Culturelle) 1 cap DAILY PO Last administered on 04/29/17 10:14; Admin Dose 1 CAP; Start 04/20/17 at 09:00 Ascorbic Acid (Vitamin C) 500 mg BID GTB Last administered on 04/29/17 10:14; Admin Dose 500 MG; Start 04/19/17 at 21:00 Lorazepam (Ativan) 2 mg Q10MIN PRN IV seisure Last administered on 04/25/17 04:06; Admin Dose 2 MG; Start 04/19/17 at 17:30 Acetaminophen (Tylenol Liquid) 650 mg Q6H PRN GTB PAIN AND OR ELEVATED TEMP Last administered on 04/29/17 10:12; Admin Dose 650 MG; Start 04/20/17 at 19: 00 Miscellaneous Information (Pending Santyl Order For Wound Care) This patient galdamez... PRN PRN XX WOUND CARE; Start 04/21/17 at 02:00 Collagenase (Santyl) 1 applic DAILY TOP Last administered on 04/29/17 10:20; Admin Dose 1 APPLIC; Start 04/21/17 at 09:00 Collagenase (Santyl) 1 applic PRN PRN TOP PRN Last administered on 04/21/17 10:40; Admin Dose 1 APPLIC; Start 04/21/17 at 05:00 Enoxaparin Sodium (Lovenox) 50 mg Q12 SC Last administered on 04/23/17 21:00 ; Admin Dose 50 MG; Start 04/21/17 at 21:00; Status Future Hold Mupirocin (Bactroban) 1 applic BID TOP Last administered on 04/29/17 10:19; Admin Dose 1 APPLIC; Start 04/21/17 at 21:00 Metoprolol Tartrate (Lopressor) 12.5 mg BID PO Last administered on 04/29/17 10:18; Admin Dose 12.5 MG; Start 04/22/17 at 21:00 Albuterol (Proventil 0.083% (Neb)) 2.5 mg Q3H PRN NEB WHEEZING AND SOB; Start 04/22/17 at 19:00 Atorvastatin Calcium (Lipitor) 20 mg QHS GTB Last administered on 04/28/17 21: 25; Admin Dose 20 MG; Start 04/22/17 at 21:00 Tamsulosin HCl 0.4 mg 0.4 mg HS PO Last administered on 04/28/17 21:25; Admin Dose 0.4 MG; Start 04/22/17 at 21:00 Clindamycin HCl/ Dextrose (Cleocin 600 Mg/ D5W (Pmx)) 50 ml @ 50 mls/hr Q8 IVPB Last administered on 04/29/17 14:15; Admin Dose 50 MLS/HR; Start 04/23/17 at 22:00 Docusate Sodium (Colace Liquid Cup) 100 mg BID GTB Last administered on 10:13; Admin Dose 100 MG; Start 04/23/17 at 21:00 Multivitamins 30 ml 30 ml DAILY GTB Last administered on 04/29/17 10:13; Admin Dose 30 ML; Start 04/24/17 at 09:00 Meropenem/Sodium Chloride (Merrem 500mg/50 ml(Pmx)) 50 ml @ 100 mls/hr Q8 IVPB Last administered on 04/29/17 13:23; Admin Dose 100 MLS/HR; Start 04/24/17 at 14:00 Digoxin (Digoxin) 0.125 mg DAILY@13 PO Last administered on 04/29/17 13:23; Admin Dose 0.125 MG; Start 04/27/17 at 13:00 Fluconazole (Diflucan) 100 mg DAILY PO Last administered on 04/29/17 10:13; Admin Dose 100 MG; Start 04/29/17 at 09:00 Ferrous Sulfate (Feosol Liquid Cup) 300 mg TID GTB Last administered on 13:22; Admin Dose 300 MG; Start 04/28/17 at 21:00 ALLIE GODOY NP Apr 29, 2017 14:59
--- NOTE | 2017-04-29 15:22 | PN ---
Date/Time of Note Date/Time of Note DATE: 04/29/17 TIME: 15:14 Assessment/Plan VTE Prophylaxis VTE Prophylaxis Intervention: SCD's Lines/Catheters IV Catheter Type (from Nrs): PICC Line Central line still needed: Yes Urinary Cath still in place: No Assessment/Plan Chief Complaint/Hosp Course S: Patient still with fevers. Seen by ID, GI, pulmonary teams today. O: VS: see below PE: GENERAL APPEARANCE: lying in bed, appears contracted HEENT: Pupils minimally reactive bilaterally. NECK: Trach in place. No leakage or bleeding from the trach site. LUNGS: Less positive rhonchi heard bilaterally. No wheezes. CARDIOVASCULAR: Irregularly irregular heart rate. No rubs or gallops. ABDOMEN: Soft, nontender, nondistended. Normal bowel sounds. No rebound or guarding. MUSCULOSKELETAL: He has got chronic contractures lower extremities but no lower extremity edema bilaterally. NEUROLOGIC: Unable to fully assess. A/P: 76-year-old male coming in with status post cardiac arrest, pulseless electrical activity with return of spontaneous circulation now sepsis and lactic acidosis secondary to upper respiratory infection versus urinary tract infection. 1. Status post cardiac arrest -ROSC -Follow-up cardiology consult and pulmonary recommendations - monitor heart rate very carefully, cont cardiac meds 2. Severe sepsis, lactic acidosis- sec to PNA v chest wall wound based on imaging. remains febrile. -Continue current broad-spectrum antibiotics, ID has added antifungal coverage, send sputum cx, await for WBC scan -Tylenol p.r.n. fevers, intravenous fluids as well. - Follow up final culture results. -could also consider sampling hip fluid, pleural effusion. DEFER FURTHER ASPIRATION/INTERVENTION UNTIL GOALS OF CARE ARE CLARIFIED - chest wall wound is sp gen surg eval. not in need of acute debridement 3. History of chronic encephalopathy. Again, no present issues. -Continue to monitor for now. 4. History of respiratory failure, ventilator dependent. - F/U pulmonary consult for vent management. -Antibiotics, duo nebs as needed 5. Gastrointestinal prophylaxis - H2 ulises. 6. Deep venous thrombosis prophylaxis - sequential compression devices for now. Dispo: Prior hospitalist and ID team agree that medical care is ultimately medically futile. Palliative care is on the case. Pt initially sent in sp PEA arrest. His quality of life appears quite poor-->he's contracted in all limbs and unable to communicate. Previous hospitalist spoke WITH BROTHER OVER THE PHONE yesterday. Will attempt to reschedule FAMILY MEETING TOMORROW AT 2PM TO CLARIFY GOALS OF CARE. Problems: Exam/Review of Systems Vital Signs Vitals Vital Signs Date Time Temp Pulse Resp B/P Pulse Ox O2 Delivery O2 Flow Rate FiO2 04/29/17 15:05 103.0 87 22 131/62 99 04/29/17 14:04 30 Intake and Output 04/28/17 04/28/17 04/29/17 15:00 23:00 07:00 Intake Total 50 ml 270 ml 1070 ml Output Total 350 ml 600 ml Balance 50 ml -80 ml 470 ml Results Result Diagram: 04/27/17 1710 04/26/17 0555 Medications Medications Current Medications Ondansetron HCl (Zofran Inj) 4 mg Q6H PRN IV NAUSEA AND/OR VOMITING; Start at 12:00 Acetaminophen (Tylenol Tab) 650 mg Q6H PRN PO PAIN LEVEL 1-3 OR FEVER Last administered on 04/26/17 21:27; Admin Dose 650 MG; Start 04/19/17 at 12:00 Acetaminophen/ Hydrocodone Bitart ([place] (5/325)) 1 tab Q6H PRN PO MODERATE PAIN LEVEL 4-6; Start 04/19/17 at 12:00 Morphine Sulfate (morphine) 2 mg Q4H PRN IV SEVERE PAIN LEVEL 7-10 Last administered on 04/20/17 23:43; Admin Dose 2 MG; Start 04/19/17 at 12:00 Magnesium Hydroxide (Milk Of Mag) 30 ml DAILY PRN PO CONSTIPATION; Start 04/19 at 12:00 Sodium Biphosphate/ Sodium Phosphate (Fleet Enema) 133 ml DAILY PRN [place] CONSTIPATION; Start 04/19/17 at 12:00 Nitroglycerin (Nitroglycerin (Sl Tab) 0.4 Mg) 1 tab Q5M PRN SL ANGINA; Start 04/19/17 at 12:00 Amiodarone HCl (Cordarone) 200 mg DAILY GTB Last administered on 04/29/17 10: 14; Admin Dose 200 MG; Start 04/20/17 at 09:00 Carbidopa/Levodopa (Sinemet (25/ 100)) 1 tab QID GTB Last administered on 12/4/ 17at 13:22; Admin Dose 1 TAB; Start 04/19/17 at 13:00 Chlorhexidine Gluconate (Peridex) 15 ml Q12 MM Last administered on 04/29/17 10:14; Admin Dose 15 ML; Start 04/19/17 at 21:00 Doxazosin Mesylate (Cardura) 8 mg DAILY GTB Last administered on 04/23/17 09: 32; Admin Dose 8 MG; Start 04/20/17 at 09:00; Status Future Hold Lactobacillus Acidophilus/ Rhamnosus (Culturelle) 1 cap DAILY PO Last administered on 04/29/17 10:14; Admin Dose 1 CAP; Start 04/20/17 at 09:00 Ascorbic Acid (Vitamin C) 500 mg BID GTB Last administered on 04/29/17 10:14; Admin Dose 500 MG; Start 04/19/17 at 21:00 Lorazepam (Ativan) 2 mg Q10MIN PRN IV seisure Last administered on 04/25/17 04:06; Admin Dose 2 MG; Start 04/19/17 at 17:30 Acetaminophen (Tylenol Liquid) 650 mg Q6H PRN GTB PAIN AND OR ELEVATED TEMP Last administered on 04/29/17 10:12; Admin Dose 650 MG; Start 04/20/17 at 19: 00 Miscellaneous Information (Pending Santyl Order For Wound Care) This patient galdamez... PRN PRN XX WOUND CARE; Start 04/21/17 at 02:00 Collagenase (Santyl) 1 applic DAILY TOP Last administered on 04/29/17 10:20; Admin Dose 1 APPLIC; Start 04/21/17 at 09:00 Collagenase (Santyl) 1 applic PRN PRN TOP PRN Last administered on 04/21/17 10:40; Admin Dose 1 APPLIC; Start 04/21/17 at 05:00 Enoxaparin Sodium (Lovenox) 50 mg Q12 SC Last administered on 04/23/17 21:00 ; Admin Dose 50 MG; Start 04/21/17 at 21:00; Status Future Hold Mupirocin (Bactroban) 1 applic BID TOP Last administered on 04/29/17 10:19; Admin Dose 1 APPLIC; Start 04/21/17 at 21:00 Metoprolol Tartrate (Lopressor) 12.5 mg BID PO Last administered on 04/29/17 10:18; Admin Dose 12.5 MG; Start 04/22/17 at 21:00 Albuterol (Proventil 0.083% (Neb)) 2.5 mg Q3H PRN NEB WHEEZING AND SOB; Start 04/22/17 at 19:00 Atorvastatin Calcium (Lipitor) 20 mg QHS GTB Last administered on 04/28/17 21: 25; Admin Dose 20 MG; Start 04/22/17 at 21:00 Tamsulosin HCl 0.4 mg 0.4 mg HS PO Last administered on 04/28/17 21:25; Admin Dose 0.4 MG; Start 04/22/17 at 21:00 Clindamycin HCl/ Dextrose (Cleocin 600 Mg/ D5W (Pmx)) 50 ml @ 50 mls/hr Q8 IVPB Last administered on 04/29/17 14:15; Admin Dose 50 MLS/HR; Start 04/23/17 at 22:00 Docusate Sodium (Colace Liquid Cup) 100 mg BID GTB Last administered on 10:13; Admin Dose 100 MG; Start 04/23/17 at 21:00 Multivitamins 30 ml 30 ml DAILY GTB Last administered on 04/29/17 10:13; Admin Dose 30 ML; Start 04/24/17 at 09:00 Meropenem/Sodium Chloride (Merrem 500mg/50 ml(Pmx)) 50 ml @ 100 mls/hr Q8 IVPB Last administered on 04/29/17 13:23; Admin Dose 100 MLS/HR; Start 04/24/17 at 14:00 Digoxin (Digoxin) 0.125 mg DAILY@13 PO Last administered on 04/29/17 13:23; Admin Dose 0.125 MG; Start 04/27/17 at 13:00 Fluconazole (Diflucan) 100 mg DAILY PO Last administered on 04/29/17 10:13; Admin Dose 100 MG; Start 04/29/17 at 09:00 Ferrous Sulfate (Feosol Liquid Cup) 300 mg TID GTB Last administered on 13:22; Admin Dose 300 MG; Start 04/28/17 at 21:00 ZOE ALEXANDRA Apr 29, 2017 15:22
[2017-04-29] MEDS: ATORVASTATIN 20 MG TAB GTB SCH (22:27)
[2017-04-29] MEDS: TAMSULOSIN (SR) 0.4 MG CAP PO SCH (22:27)
[2017-04-30] VITALS (25 sets, daily range): BP systolic 94–153; BP diastolic 51–67; PULSE 70–92; RESP 18–87
[2017-04-30] MEDS: ACETAMINOPHEN 650MG/20.3ML CUP GTB PRN ×2 (06:12→21:47)
[2017-04-30] MEDS: MEROPENEM 500MG/50 ML (PMX) 50 ML IVPB SCH ×3 (06:12→22:00)
[2017-04-30] MEDS: CLINDAMYCIN 600 MG/D5W (PMX) 50 ML IVPB SCH ×3 (06:12→22:07)
[2017-04-30 07:59] LABS: ABNORMAL IP MESSAGE 1; BASOPHILS % 0.3 % (0.0-2.0); EOSINOPHILS % 0.1 % (0.0-7.0); HEMATOCRIT 30.3 % (42.0-52.0); HEMOGLOBIN 9.4 g/dl (14.0-18.0); LYMPHOCYTES # 1.6 10^3/ul (0.8-2.9); LYMPHOCYTES % 18.5 % (15.0-51.0); MEAN CORPUSCULAR HEMOGLOBIN 33.2 pg (29.0-33.0); MEAN CORPUSCULAR VOLUME 107.1 fl (82.0-101.0); MEAN PLATELET VOLUME 13.2 fl (7.4-10.4); MONOCYTE # 0.6 10^3/ul (0.3-0.9); MONOCYTES % 7.2 % (0.0-11.0); NEUTROPHIL # 6.3 10^3/ul (1.6-7.5); NEUTROPHILS % 73.3 % (39.0-77.0); NUCLEATED RED BLOOD CELLS% 0.5 /100WBC (0.0-0.0); PLATELET COUNT 192 10^3/UL (140-415); POSITIVE DIFF @See below; RED BLOOD COUNT 2.83 10^6/ul (4.70-6.10); RED CELL DISTRIBUTION WIDTH 18.9 % (11.5-14.5); WHITE BLOOD COUNT 8.6 10^3/ul (4.8-10.8)
[2017-04-30 08:15] LABS: CALCIUM 7.3 mg/dl (8.4-10.2); CREATININE 0.96 mg/dl (0.61-1.24)
[2017-04-30] MEDS: CARBIDOPA/LEVODOPA (25/100) TAB GTB SCH ×4 (08:46→21:48)
[2017-04-30] MEDS: MULTIVITAMINS 30 ML CUP GTB SCH (08:46)
[2017-04-30] MEDS: ASCORBIC ACID 500 MG TAB GTB SCH ×2 (08:46→21:48)
[2017-04-30] MEDS: FLUCONAZOLE 100 MG TAB PO SCH (08:46)
[2017-04-30] MEDS: LACTOBACILLUS RHAMNOSUS CAP PO SCH (08:46)
[2017-04-30] MEDS: METOPROLOL 25 MG TAB PO SCH ×2 (08:46→21:48)
[2017-04-30] MEDS: CHLORHEXIDINE GLUCONATE 15 ML UD CUP MM SCH ×2 (08:46→21:47)
[2017-04-30] MEDS: DOCUSATE SODIUM 10 MG/ML (10ML CUP) GTB SCH ×2 (08:47→21:47)
[2017-04-30] MEDS: AMIODARONE 200 MG TAB GTB SCH (08:47)
[2017-04-30] MEDS: FERROUS SULFATE 60 MG/ML 5ML CUP GTB SCH ×3 (08:47→21:47)
[2017-04-30] MEDS: COLLAGENASE 30 GM TUBE TOP SCH (08:49)
[2017-04-30] MEDS: BALSAM PERU/CASTOR OIL 60 GM TUBE TOP SCH (08:49)
[2017-04-30] MEDS: MUPIROCIN 2% 22 GM OINT TOP SCH ×2 (08:50→21:49)
--- NOTE | 2017-04-30 11:07 | PN ---
Date/Time of Note Date/Time of Note DATE: 04/30/17 TIME: 11:06 Assessment/Plan VTE Prophylaxis VTE Prophylaxis Intervention: SCD's Lines/Catheters IV Catheter Type (from Nrs): PICC Line Central line still needed: Yes Urinary Cath still in place: No Assessment/Plan Chief Complaint/Hosp Course S: Patient still with fevers. O: VS: see below PE: GENERAL APPEARANCE: lying in bed, appears contracted HEENT: Pupils minimally reactive bilaterally. NECK: Trach in place. No leakage or bleeding from the trach site. LUNGS: Less positive rhonchi heard bilaterally. No wheezes. CARDIOVASCULAR: Irregularly irregular heart rate. No rubs or gallops. ABDOMEN: Soft, nontender, nondistended. Normal bowel sounds. No rebound or guarding. MUSCULOSKELETAL: chronic contractures lower extremities but no lower extremity edema bilaterally. NEUROLOGIC: Unable to fully assess. A/P: 76-year-old male coming in with status post cardiac arrest, pulseless electrical activity with return of spontaneous circulation now sepsis and lactic acidosis secondary to upper respiratory infection versus urinary tract infection. 1. Status post cardiac arrest -ROSC -Follow-up cardiology consult and pulmonary recommendations - monitor heart rate very carefully, cont cardiac meds 2. Severe sepsis, lactic acidosis- sec to PNA v chest wall wound based on imaging. remains febrile. -Continue current broad-spectrum antibiotics, ID has added antifungal coverage, send sputum cx, await for WBC scan -Tylenol p.r.n. fevers, intravenous fluids as well. - Follow up final culture results. - could also consider sampling hip fluid, pleural effusion. DEFER FURTHER ASPIRATION/INTERVENTION UNTIL GOALS OF CARE ARE CLARIFIED - chest wall wound is sp gen surg eval. not in need of acute debridement 3. History of chronic encephalopathy. Again, no present issues. -Continue to monitor for now. 4. History of respiratory failure, ventilator dependent. - F/U pulmonary consult for vent management. - Antibiotics, duo nebs as needed 5. Gastrointestinal prophylaxis - H2 ulises. 6. Deep venous thrombosis prophylaxis - sequential compression devices for now. Dispo: Prior hospitalist and ID team agree that medical care is ultimately medically futile. Palliative care is on the case. Pt initially sent in sp PEA arrest. His quality of life appears quite poor-->he's contracted in all limbs and unable to communicate. Previous hospitalist spoke WITH BROTHER OVER THE PHONE 2 days ago. Will attempt to reschedule FAMILY MEETING TO CLARIFY GOALS OF CARE. Problems: Exam/Review of Systems Vital Signs Vitals Vital Signs Date Time Temp Pulse Resp B/P Pulse Ox O2 Delivery O2 Flow Rate FiO2 04/30/17 09:35 90 20 97 30 04/30/17 07:33 102.7 114/66 Intake and Output 04/29/17 04/29/17 04/30/17 15:00 23:00 07:00 Intake Total 0 ml 910 ml 780 ml Output Total 625 ml Balance 0 ml 910 ml 155 ml Results Result Diagram: 04/30/1771604/30/17716 Results 24 hrs Laboratory Tests Test 04/30/17 07:17 White Blood Count 8.6 Red Blood Count 2.83 L Hemoglobin 9.4 L Hematocrit 30.3 L Mean Corpuscular Volume 107.1 H Mean Corpuscular Hemoglobin 33.2 H Mean Corpuscular Hemoglobin Concent 31.0 L Red Cell Distribution Width 18.9 H Platelet Count 192 Mean Platelet Volume 13.2 H Neutrophils % 73.3 Lymphocytes % 18.5 Monocytes % 7.2 Eosinophils % 0.1 Basophils % 0.3 Nucleated Red Blood Cells % 0.5 H Neutrophils # 6.3 Lymphocytes # 1.6 Monocytes # 0.6 Eosinophils # 0.0 Basophils # 0.0 Nucleated Red Blood Cells # 0.0 Sodium Level 156 H Potassium Level 4.0 Chloride Level 121 H Carbon Dioxide Level 31 Anion Gap 8 Blood Urea Nitrogen 40 H Creatinine 0.96 Glucose Level 124 Calcium Level 7.3 L Medications Medications Current Medications Ondansetron HCl (Zofran Inj) 4 mg Q6H PRN IV NAUSEA AND/OR VOMITING; Start at 12:00 Acetaminophen (Tylenol Tab) 650 mg Q6H PRN PO PAIN LEVEL 1-3 OR FEVER Last administered on 04/26/17 21:27; Admin Dose 650 MG; Start 04/19/17 at 12:00 Acetaminophen/ Hydrocodone Bitart ([place] (5/325)) 1 tab Q6H PRN PO MODERATE PAIN LEVEL 4-6; Start 04/19/17 at 12:00 Morphine Sulfate (morphine) 2 mg Q4H PRN IV SEVERE PAIN LEVEL 7-10 Last administered on 04/20/17 23:43; Admin Dose 2 MG; Start 04/19/17 at 12:00 Magnesium Hydroxide (Milk Of Mag) 30 ml DAILY PRN PO CONSTIPATION; Start 04/19 at 12:00 Sodium Biphosphate/ Sodium Phosphate (Fleet Enema) 133 ml DAILY PRN [place] CONSTIPATION; Start 04/19/17 at 12:00 Nitroglycerin (Nitroglycerin (Sl Tab) 0.4 Mg) 1 tab Q5M PRN SL ANGINA; Start 04/19/17 at 12:00 Amiodarone HCl (Cordarone) 200 mg DAILY GTB Last administered on 04/30/17 08: 47; Admin Dose 200 MG; Start 04/20/17 at 09:00 Carbidopa/Levodopa (Sinemet ()) 1 tab QID GTB Last administered on 08:46; Admin Dose 1 TAB; Start 04/19/17 at 13:00 Chlorhexidine Gluconate (Peridex) 15 ml Q12 MM Last administered on 04/30/17 08:46; Admin Dose 15 ML; Start 04/19/17 at 21:00 Doxazosin Mesylate (Cardura) 8 mg DAILY GTB Last administered on 04/23/17 09: 32; Admin Dose 8 MG; Start 04/20/17 at 09:00; Status Future Hold Lactobacillus Acidophilus/ Rhamnosus (Culturelle) 1 cap DAILY PO Last administered on 04/30/17 08:46; Admin Dose 1 CAP; Start 04/20/17 at 09:00 Ascorbic Acid (Vitamin C) 500 mg BID GTB Last administered on 04/30/17 08:46; Admin Dose 500 MG; Start 04/19/17 at 21:00 Lorazepam (Ativan) 2 mg Q10MIN PRN IV seisure Last administered on 04/25/17 04:06; Admin Dose 2 MG; Start 04/19/17 at 17:30 Acetaminophen (Tylenol Liquid) 650 mg Q6H PRN GTB PAIN AND OR ELEVATED TEMP Last administered on 04/30/17 06:12; Admin Dose 650 MG; Start 04/20/17 at 19: 00 Miscellaneous Information (Pending Santyl Order For Wound Care) This patient galdamez... PRN PRN XX WOUND CARE; Start 04/21/17 at 02:00 Collagenase (Santyl) 1 applic DAILY TOP Last administered on 04/30/17 08:49; Admin Dose 1 APPLIC; Start 04/21/17 at 09:00 Collagenase (Santyl) 1 applic PRN PRN TOP PRN Last administered on 04/21/17 10:40; Admin Dose 1 APPLIC; Start 04/21/17 at 05:00 Enoxaparin Sodium (Lovenox) 50 mg Q12 SC Last administered on 04/23/17 21:00 ; Admin Dose 50 MG; Start 04/21/17 at 21:00; Status Future Hold Mupirocin (Bactroban) 1 applic BID TOP Last administered on 04/30/17 08:50; Admin Dose 1 APPLIC; Start 04/21/17 at 21:00 Metoprolol Tartrate (Lopressor) 12.5 mg BID PO Last administered on 04/30/17 08:46; Admin Dose 12.5 MG; Start 04/22/17 at 21:00 Albuterol (Proventil 0.083% (Neb)) 2.5 mg Q3H PRN NEB WHEEZING AND SOB; Start 04/22/17 at 19:00 Atorvastatin Calcium (Lipitor) 20 mg QHS GTB Last administered on 04/29/17 22: 27; Admin Dose 20 MG; Start 04/22/17 at 21:00 Tamsulosin HCl 0.4 mg 0.4 mg HS PO Last administered on 04/29/17 22:27; Admin Dose 0.4 MG; Start 04/22/17 at 21:00 Clindamycin HCl/ Dextrose (Cleocin 600 Mg/ D5W (Pmx)) 50 ml @ 50 mls/hr Q8 IVPB Last administered on 04/30/17 06:12; Admin Dose 50 MLS/HR; Start 04/23/17 at 22:00 Docusate Sodium (Colace Liquid Cup) 100 mg BID GTB Last administered on 08:47; Admin Dose 100 MG; Start 04/23/17 at 21:00 Multivitamins 30 ml 30 ml DAILY GTB Last administered on 04/30/17 08:46; Admin Dose 30 ML; Start 04/24/17 at 09:00 Meropenem/Sodium Chloride (Merrem 500mg/50 ml(Pmx)) 50 ml @ 100 mls/hr Q8 IVPB Last administered on 04/30/17 06:12; Admin Dose 100 MLS/HR; Start 04/24/17 at 14:00 Digoxin (Digoxin) 0.125 mg DAILY@13 PO Last administered on 04/29/17 13:23; Admin Dose 0.125 MG; Start 04/27/17 at 13:00 Fluconazole (Diflucan) 100 mg DAILY PO Last administered on 04/30/17 08:46; Admin Dose 100 MG; Start 04/29/17 at 09:00 Ferrous Sulfate 300 mg 300 mg TID GTB Last administered on 04/30/17 08:47; Admin Dose 300 MG; Start 04/28/17 at 21:00 Dextrose (D5W) 1,000 ml @ 100 mls/hr Q10H IV ; Start 04/30/17 at 11:30; Status ZOE MORA Apr 30, 2017 11:07
--- NOTE | 2017-04-30 11:21 | CONS ---
Date/Time of Note Date/Time of Note DATE: 04/30/17 TIME: 11:20 Assessment/Plan Assessment/Plan Additional Assessment/Plan 1. HTN - well Rx, con't Med rx - better now 2. Resp failure - chronicm, pulm team follows 3. A. fib (likely chronic) - reasonable rate control now - on anti- coagualation now 4. s/p reported PEA arrest - uncera, no tachy-bardy here. NO VT/Vf noted. 5. HF with preserved EF - chronic - EFCHO EF 55% - stable - not i CHF by exam Consultation Date/Type/Reason Admit Date/Time Apr 19, 2017 at 10:58 Type of Consultation: id Referring Provider: ZOE ALEXANDRA 24 HR Interval Summary Free Text/Dictation NO acute events - a. fib on tele - no pauses ROS: No fever, no chills, no nausea, no vomiting, no diarrhea/constipation No recent weight changes No chest pain, no PND, no orthopnea No dizziness, blurred vision No thirst, no heat or cold intolerance Exam/Review of Systems Vital Signs Vitals Vital Signs Date Time Temp Pulse Resp B/P Pulse Ox O2 Delivery O2 Flow Rate FiO2 04/30/17 09:35 90 20 97 30 04/30/17 07:33 102.7 114/66 Intake and Output 04/29/17 04/29/17 04/30/17 15:00 23:00 07:00 Intake Total 0 ml 910 ml 780 ml Output Total 625 ml Balance 0 ml 910 ml 155 ml Exam General: WN/WD/NAD, AOx 0 HEENT: Unicetric/atraumatic/EOMI (does not follow commands) t NECK: trach Lymph: no lymphadenopathy HEART: regular with no S3, II/ systolic murmur at apex LUNGS: Coarse sounds ABD: soft, NT, ND, +BS : Intact Neuro: non focal SKIN: chronic changes EXT: trace edema Results Result Diagram: 04/30/1771604/30/17716 Results 24 hrs Laboratory Tests Test 04/30/17 07:17 White Blood Count 8.6 Red Blood Count 2.83 L Hemoglobin 9.4 L Hematocrit 30.3 L Mean Corpuscular Volume 107.1 H Mean Corpuscular Hemoglobin 33.2 H Mean Corpuscular Hemoglobin Concent 31.0 L Red Cell Distribution Width 18.9 H Platelet Count 192 Mean Platelet Volume 13.2 H Neutrophils % 73.3 Lymphocytes % 18.5 Monocytes % 7.2 Eosinophils % 0.1 Basophils % 0.3 Nucleated Red Blood Cells % 0.5 H Neutrophils # 6.3 Lymphocytes # 1.6 Monocytes # 0.6 Eosinophils # 0.0 Basophils # 0.0 Nucleated Red Blood Cells # 0.0 Sodium Level 156 H Potassium Level 4.0 Chloride Level 121 H Carbon Dioxide Level 31 Anion Gap 8 Blood Urea Nitrogen 40 H Creatinine 0.96 Glucose Level 124 Calcium Level 7.3 L Medications Medications Current Medications Ondansetron HCl (Zofran Inj) 4 mg Q6H PRN IV NAUSEA AND/OR VOMITING; Start at 12:00 Acetaminophen (Tylenol Tab) 650 mg Q6H PRN PO PAIN LEVEL 1-3 OR FEVER Last administered on 04/26/17 21:27; Admin Dose 650 MG; Start 04/19/17 at 12:00 Acetaminophen/ Hydrocodone Bitart ([place] (5/325)) 1 tab Q6H PRN PO MODERATE PAIN LEVEL 4-6; Start 04/19/17 at 12:00 Morphine Sulfate (morphine) 2 mg Q4H PRN IV SEVERE PAIN LEVEL 7-10 Last administered on 04/20/17 23:43; Admin Dose 2 MG; Start 04/19/17 at 12:00 Magnesium Hydroxide (Milk Of Mag) 30 ml DAILY PRN PO CONSTIPATION; Start 04/19 at 12:00 Sodium Biphosphate/ Sodium Phosphate (Fleet Enema) 133 ml DAILY PRN [place] CONSTIPATION; Start 04/19/17 at 12:00 Nitroglycerin (Nitroglycerin (Sl Tab) 0.4 Mg) 1 tab Q5M PRN SL ANGINA; Start 04/19/17 at 12:00 Amiodarone HCl (Cordarone) 200 mg DAILY GTB Last administered on 04/30/17 08: 47; Admin Dose 200 MG; Start 04/20/17 at 09:00 Carbidopa/Levodopa (Sinemet (25/ 100)) 1 tab QID GTB Last administered on 08:46; Admin Dose 1 TAB; Start 04/19/17 at 13:00 Chlorhexidine Gluconate (Peridex) 15 ml Q12 MM Last administered on 04/30/17 08:46; Admin Dose 15 ML; Start 04/19/17 at 21:00 Doxazosin Mesylate (Cardura) 8 mg DAILY GTB Last administered on 04/23/17 09: 32; Admin Dose 8 MG; Start 04/20/17 at 09:00; Status Future Hold Lactobacillus Acidophilus/ Rhamnosus (Culturelle) 1 cap DAILY PO Last administered on 04/30/17 08:46; Admin Dose 1 CAP; Start 04/20/17 at 09:00 Ascorbic Acid (Vitamin C) 500 mg BID GTB Last administered on 04/30/17 08:46; Admin Dose 500 MG; Start 04/19/17 at 21:00 Lorazepam (Ativan) 2 mg Q10MIN PRN IV seisure Last administered on 04/25/17 04:06; Admin Dose 2 MG; Start 04/19/17 at 17:30 Acetaminophen (Tylenol Liquid) 650 mg Q6H PRN GTB PAIN AND OR ELEVATED TEMP Last administered on 04/30/17 06:12; Admin Dose 650 MG; Start 04/20/17 at 19: 00 Miscellaneous Information (Pending Santyl Order For Wound Care) This patient galdamez... PRN PRN XX WOUND CARE; Start 04/21/17 at 02:00 Collagenase (Santyl) 1 applic DAILY TOP Last administered on 04/30/17 08:49; Admin Dose 1 APPLIC; Start 04/21/17 at 09:00 Collagenase (Santyl) 1 applic PRN PRN TOP PRN Last administered on 04/21/17 10:40; Admin Dose 1 APPLIC; Start 04/21/17 at 05:00 Enoxaparin Sodium (Lovenox) 50 mg Q12 SC Last administered on 04/23/17 21:00 ; Admin Dose 50 MG; Start 04/21/17 at 21:00; Status Future Hold Mupirocin (Bactroban) 1 applic BID TOP Last administered on 04/30/17 08:50; Admin Dose 1 APPLIC; Start 04/21/17 at 21:00 Metoprolol Tartrate (Lopressor) 12.5 mg BID PO Last administered on 04/30/17 08:46; Admin Dose 12.5 MG; Start 04/22/17 at 21:00 Albuterol (Proventil 0.083% (Neb)) 2.5 mg Q3H PRN NEB WHEEZING AND SOB; Start 04/22/17 at 19:00 Atorvastatin Calcium (Lipitor) 20 mg QHS GTB Last administered on 04/29/17 22: 27; Admin Dose 20 MG; Start 04/22/17 at 21:00 Tamsulosin HCl 0.4 mg 0.4 mg HS PO Last administered on 04/29/17 22:27; Admin Dose 0.4 MG; Start 04/22/17 at 21:00 Clindamycin HCl/ Dextrose (Cleocin 600 Mg/ D5W (Pmx)) 50 ml @ 50 mls/hr Q8 IVPB Last administered on 04/30/17 06:12; Admin Dose 50 MLS/HR; Start 04/23/17 at 22:00 Docusate Sodium (Colace Liquid Cup) 100 mg BID GTB Last administered on 08:47; Admin Dose 100 MG; Start 04/23/17 at 21:00 Multivitamins 30 ml 30 ml DAILY GTB Last administered on 04/30/17 08:46; Admin Dose 30 ML; Start 04/24/17 at 09:00 Meropenem/Sodium Chloride (Merrem 500mg/50 ml(Pmx)) 50 ml @ 100 mls/hr Q8 IVPB Last administered on 04/30/17 06:12; Admin Dose 100 MLS/HR; Start 04/24/17 at 14:00 Digoxin (Digoxin) 0.125 mg DAILY@13 PO Last administered on 04/29/17 13:23; Admin Dose 0.125 MG; Start 04/27/17 at 13:00 Fluconazole (Diflucan) 100 mg DAILY PO Last administered on 04/30/17 08:46; Admin Dose 100 MG; Start 04/29/17 at 09:00 Ferrous Sulfate 300 mg 300 mg TID GTB Last administered on 04/30/17 08:47; Admin Dose 300 MG; Start 04/28/17 at 21:00 Dextrose (D5W) 1,000 ml @ 100 mls/hr Q10H IV ; Start 04/30/17 at 11:30; Status MARCI HERRERA MD Apr 30, 2017 11:21
--- NOTE | 2017-04-30 11:40 | CONS ---
Date/Time of Note Date/Time of Note DATE: 04/30/17 TIME: 11:39 Consult Date/Type/Reason Admit Date/Time Apr 19, 2017 at 10:58 Type of Consultation: Pulmonary Ordering Provider: ZOE ALEXANDRA Subjective Patient remains stable this morning. No new events. Objective Vital Signs Date Time Temp Pulse Resp B/P Pulse Ox O2 Delivery O2 Flow Rate FiO2 04/30/17 11:35 102.9 80 24 94/53 98 04/30/17 11:25 30 Intake and Output 04/29/17 04/29/17 04/30/17 15:00 23:00 07:00 Intake Total 0 ml 910 ml 780 ml Output Total 625 ml Balance 0 ml 910 ml 155 ml Exam PHYSICAL EXAMINATION GENERAL: Elderly gentleman, stable on mechanical ventilation VITAL SIGNS: see below. HEENT: Pupils equal, round, and reactive to light. Tracheostomy site clean and intact. CARDIAC: S1, S2, 1/6 systolic ejection murmur CHEST: Diminished air entry bilaterally. ABDOMEN: Mildly distended. Bowel sounds present no guarding or rebound EXTREMITIES: No cyanosis, clubbing edema +1 NEUROLOGIC: Generalized weakness Results/Medications Result Diagram: 04/30/17 0717 04/30/17 0717 Results 24 hrs Laboratory Tests Test 04/30/17 07:17 White Blood Count 8.6 Red Blood Count 2.83 L Hemoglobin 9.4 L Hematocrit 30.3 L Mean Corpuscular Volume 107.1 H Mean Corpuscular Hemoglobin 33.2 H Mean Corpuscular Hemoglobin Concent 31.0 L Red Cell Distribution Width 18.9 H Platelet Count 192 Mean Platelet Volume 13.2 H Neutrophils % 73.3 Lymphocytes % 18.5 Monocytes % 7.2 Eosinophils % 0.1 Basophils % 0.3 Nucleated Red Blood Cells % 0.5 H Neutrophils # 6.3 Lymphocytes # 1.6 Monocytes # 0.6 Eosinophils # 0.0 Basophils # 0.0 Nucleated Red Blood Cells # 0.0 Sodium Level 156 H Potassium Level 4.0 Chloride Level 121 H Carbon Dioxide Level 31 Anion Gap 8 Blood Urea Nitrogen 40 H Creatinine 0.96 Glucose Level 124 Calcium Level 7.3 L Medications Current Medications Ondansetron HCl (Zofran Inj) 4 mg Q6H PRN IV NAUSEA AND/OR VOMITING; Start at 12:00 Acetaminophen (Tylenol Tab) 650 mg Q6H PRN PO PAIN LEVEL 1-3 OR FEVER Last administered on 04/26/17 21:27; Admin Dose 650 MG; Start 04/19/17 at 12:00 Acetaminophen/ Hydrocodone Bitart ([place] (5/325)) 1 tab Q6H PRN PO MODERATE PAIN LEVEL 4-6; Start 04/19/17 at 12:00 Morphine Sulfate (morphine) 2 mg Q4H PRN IV SEVERE PAIN LEVEL 7-10 Last administered on 04/20/17 23:43; Admin Dose 2 MG; Start 04/19/17 at 12:00 Magnesium Hydroxide (Milk Of Mag) 30 ml DAILY PRN PO CONSTIPATION; Start 04/19 at 12:00 Sodium Biphosphate/ Sodium Phosphate (Fleet Enema) 133 ml DAILY PRN [place] CONSTIPATION; Start 04/19/17 at 12:00 Nitroglycerin (Nitroglycerin (Sl Tab) 0.4 Mg) 1 tab Q5M PRN SL ANGINA; Start 04/19/17 at 12:00 Amiodarone HCl (Cordarone) 200 mg DAILY GTB Last administered on 04/30/17 08: 47; Admin Dose 200 MG; Start 04/20/17 at 09:00 Carbidopa/Levodopa (Sinemet (25/ 100)) 1 tab QID GTB Last administered on 08:46; Admin Dose 1 TAB; Start 04/19/17 at 13:00 Chlorhexidine Gluconate (Peridex) 15 ml Q12 MM Last administered on 04/30/17 08:46; Admin Dose 15 ML; Start 04/19/17 at 21:00 Doxazosin Mesylate (Cardura) 8 mg DAILY GTB Last administered on 04/23/17 09: 32; Admin Dose 8 MG; Start 04/20/17 at 09:00; Status Future Hold Lactobacillus Acidophilus/ Rhamnosus (Culturelle) 1 cap DAILY PO Last administered on 04/30/17 08:46; Admin Dose 1 CAP; Start 04/20/17 at 09:00 Ascorbic Acid (Vitamin C) 500 mg BID GTB Last administered on 04/30/17 08:46; Admin Dose 500 MG; Start 04/19/17 at 21:00 Lorazepam (Ativan) 2 mg Q10MIN PRN IV seisure Last administered on 04/25/17 04:06; Admin Dose 2 MG; Start 04/19/17 at 17:30 Acetaminophen (Tylenol Liquid) 650 mg Q6H PRN GTB PAIN AND OR ELEVATED TEMP Last administered on 04/30/17 06:12; Admin Dose 650 MG; Start 04/20/17 at 19: 00 Miscellaneous Information (Pending Santyl Order For Wound Care) This patient galdamez... PRN PRN XX WOUND CARE; Start 04/21/17 at 02:00 Collagenase (Santyl) 1 applic DAILY TOP Last administered on 04/30/17 08:49; Admin Dose 1 APPLIC; Start 04/21/17 at 09:00 Collagenase (Santyl) 1 applic PRN PRN TOP PRN Last administered on 04/21/17 10:40; Admin Dose 1 APPLIC; Start 04/21/17 at 05:00 Enoxaparin Sodium (Lovenox) 50 mg Q12 SC Last administered on 04/23/17 21:00 ; Admin Dose 50 MG; Start 04/21/17 at 21:00; Status Future Hold Mupirocin (Bactroban) 1 applic BID TOP Last administered on 04/30/17 08:50; Admin Dose 1 APPLIC; Start 04/21/17 at 21:00 Metoprolol Tartrate (Lopressor) 12.5 mg BID PO Last administered on 04/30/17 08:46; Admin Dose 12.5 MG; Start 04/22/17 at 21:00 Albuterol (Proventil 0.083% (Neb)) 2.5 mg Q3H PRN NEB WHEEZING AND SOB; Start 04/22/17 at 19:00 Atorvastatin Calcium (Lipitor) 20 mg QHS GTB Last administered on 04/29/17 22: 27; Admin Dose 20 MG; Start 04/22/17 at 21:00 Tamsulosin HCl 0.4 mg 0.4 mg HS PO Last administered on 04/29/17 22:27; Admin Dose 0.4 MG; Start 04/22/17 at 21:00 Clindamycin HCl/ Dextrose (Cleocin 600 Mg/ D5W (Pmx)) 50 ml @ 50 mls/hr Q8 IVPB Last administered on 04/30/17 06:12; Admin Dose 50 MLS/HR; Start 04/23/17 at 22:00 Docusate Sodium (Colace Liquid Cup) 100 mg BID GTB Last administered on 08:47; Admin Dose 100 MG; Start 04/23/17 at 21:00 Multivitamins 30 ml 30 ml DAILY GTB Last administered on 04/30/17 08:46; Admin Dose 30 ML; Start 04/24/17 at 09:00 Meropenem/Sodium Chloride (Merrem 500mg/50 ml(Pmx)) 50 ml @ 100 mls/hr Q8 IVPB Last administered on 04/30/17 06:12; Admin Dose 100 MLS/HR; Start 04/24/17 at 14:00 Digoxin (Digoxin) 0.125 mg DAILY@13 PO Last administered on 04/29/17 13:23; Admin Dose 0.125 MG; Start 04/27/17 at 13:00 Fluconazole (Diflucan) 100 mg DAILY PO Last administered on 04/30/17 08:46; Admin Dose 100 MG; Start 04/29/17 at 09:00 Ferrous Sulfate 300 mg 300 mg TID GTB Last administered on 04/30/17 08:47; Admin Dose 300 MG; Start 04/28/17 at 21:00 Dextrose (D5W) 1,000 ml @ 100 mls/hr Q10H IV ; Start 04/30/17 at 11:30 Assessment/Plan Chief Complaint/Hosp Course Assessment 1. Patient admitted with UTI and pneumonia as well as wound infection, currently on appropriate broad-spectrum antibiotic coverage. 2. Chronic respiratory failure. 3. Advanced dementia. 4. Parkinson's disease. 5. BPH. 6. Mild anemia and mild thrombocytopenia. Plan 1. Continue DC planning Problems: TEVIN CURRAN MD, [facility] Apr 30, 2017 11:40
--- NOTE | 2017-04-30 11:58 | PN ---
Date/Time of Note Date/Time of Note DATE: 04/30/17 TIME: 11:56 Assessment/Plan VTE Prophylaxis VTE Prophylaxis Intervention: SCD's Lines/Catheters IV Catheter Type (from Nrs): PICC Line Central line still needed: Yes (meds) Urinary Cath still in place: No Assessment/Plan Chief Complaint/Hosp Course Chief Complaint/Hosp Course Assessment: Anemia possible due to intramuscular hemorrhage and psoas muscle on CT Ultrasound of the right hip-small collection of fluid Persistent fever due to possible abscess in the right hip Hypotension-resolved Chronic encephalopathy Respiratory failure-tracheostomy, ventilator dependent Sepsis UTI Chest wall wound Status post cardiac arrest Plan: Monitor H&H Hgb stable, continue to monitor H/h Transfuse as needed No colonoscopy warranted at this time Patient seen in collaboration with Dr. Leal Subjective: Course reviewed with nursing staff Patient interviewed and examined All labs, imaging and other results reviewed The patient non-responsive, trach and vent dependant, not in any acute distress. Hgb continues to improve, will continue to monitor. PHYSICAL EXAMINATION: GENERAL: Patient is nonresponsive, trached and vent dependent. No acute distress SKIN: Multiple lesions on the toes and chest wound, no stigmata chronic liver disease, no evidence of bleeding diathesis. Chest wall wound and bilateral pressure ulcers on the feet LYMPHATIC: No palpable lymphadenopathy. HEAD: Normocephalic, atraumatic, no tenderness. EYES: No discharge. EARS/NOSE AND THROAT: Ears normal, nose normal, oropharynx normal, oral membranes well hydrated without lesions. NECK: Supple, no masses, tracheostomy tube in place, CHEST: Inspection within normal limits. Chest wall wound CARDIOVASCULAR: Heart: Regular rate and rhythm, RESPIRATORY: Lungs clear to auscultation and percussion, GASTROINTESTINAL AND LIVER: Abdomen: Soft, non tenderness, non-distended, no hernias, no masses, no organomegaly, no ascites, no guarding, no rebound tenderness, normoactive bowel sounds, PEG tube in place with continuous feeding. Rectal: Deferred. GENITOURINARY: Male genitalia within normal limits. EXTREMITIES: No cyanosis, clubbing or edema. Problems: Problems: Exam/Review of Systems Vital Signs Vitals Vital Signs Date Time Temp Pulse Resp B/P Pulse Ox O2 Delivery O2 Flow Rate FiO2 04/30/17 11:35 102.9 80 24 94/53 98 04/30/17 11:25 30 Intake and Output 04/29/17 04/29/17 04/30/17 15:00 23:00 07:00 Intake Total 0 ml 910 ml 780 ml Output Total 625 ml Balance 0 ml 910 ml 155 ml Results Result Diagram: 04/30/1717 04/30/17 0717 Results 24 hrs Laboratory Tests Test 04/30/17 07:17 White Blood Count 8.6 Red Blood Count 2.83 L Hemoglobin 9.4 L Hematocrit 30.3 L Mean Corpuscular Volume 107.1 H Mean Corpuscular Hemoglobin 33.2 H Mean Corpuscular Hemoglobin Concent 31.0 L Red Cell Distribution Width 18.9 H Platelet Count 192 Mean Platelet Volume 13.2 H Neutrophils % 73.3 Lymphocytes % 18.5 Monocytes % 7.2 Eosinophils % 0.1 Basophils % 0.3 Nucleated Red Blood Cells % 0.5 H Neutrophils # 6.3 Lymphocytes # 1.6 Monocytes # 0.6 Eosinophils # 0.0 Basophils # 0.0 Nucleated Red Blood Cells # 0.0 Sodium Level 156 H Potassium Level 4.0 Chloride Level 121 H Carbon Dioxide Level 31 Anion Gap 8 Blood Urea Nitrogen 40 H Creatinine 0.96 Glucose Level 124 Calcium Level 7.3 L Medications Medications Current Medications Ondansetron HCl (Zofran Inj) 4 mg Q6H PRN IV NAUSEA AND/OR VOMITING; Start at 12:00 Acetaminophen (Tylenol Tab) 650 mg Q6H PRN PO PAIN LEVEL 1-3 OR FEVER Last administered on 04/26/17 21:27; Admin Dose 650 MG; Start 04/19/17 at 12:00 Acetaminophen/ Hydrocodone Bitart ([place] (5/325)) 1 tab Q6H PRN PO MODERATE PAIN LEVEL 4-6; Start 04/19/17 at 12:00 Morphine Sulfate (morphine) 2 mg Q4H PRN IV SEVERE PAIN LEVEL 7-10 Last administered on 04/20/17 23:43; Admin Dose 2 MG; Start 04/19/17 at 12:00 Magnesium Hydroxide (Milk Of Mag) 30 ml DAILY PRN PO CONSTIPATION; Start 04/19 at 12:00 Sodium Biphosphate/ Sodium Phosphate (Fleet Enema) 133 ml DAILY PRN [place] CONSTIPATION; Start 04/19/17 at 12:00 Nitroglycerin (Nitroglycerin (Sl Tab) 0.4 Mg) 1 tab Q5M PRN SL ANGINA; Start 04/19/17 at 12:00 Amiodarone HCl (Cordarone) 200 mg DAILY GTB Last administered on 04/30/17 08: 47; Admin Dose 200 MG; Start 04/20/17 at 09:00 Carbidopa/Levodopa (Sinemet (25/ 100)) 1 tab QID GTB Last administered on 08:46; Admin Dose 1 TAB; Start 04/19/17 at 13:00 Chlorhexidine Gluconate (Peridex) 15 ml Q12 MM Last administered on 04/30/17 08:46; Admin Dose 15 ML; Start 04/19/17 at 21:00 Doxazosin Mesylate (Cardura) 8 mg DAILY GTB Last administered on 04/23/17 09: 32; Admin Dose 8 MG; Start 04/20/17 at 09:00; Status Future Hold Lactobacillus Acidophilus/ Rhamnosus (Culturelle) 1 cap DAILY PO Last administered on 04/30/17 08:46; Admin Dose 1 CAP; Start 04/20/17 at 09:00 Ascorbic Acid (Vitamin C) 500 mg BID GTB Last administered on 04/30/17 08:46; Admin Dose 500 MG; Start 04/19/17 at 21:00 Lorazepam (Ativan) 2 mg Q10MIN PRN IV seisure Last administered on 04/25/17 04:06; Admin Dose 2 MG; Start 04/19/17 at 17:30 Acetaminophen (Tylenol Liquid) 650 mg Q6H PRN GTB PAIN AND OR ELEVATED TEMP Last administered on 04/30/17 06:12; Admin Dose 650 MG; Start 04/20/17 at 19: 00 Miscellaneous Information (Pending Santyl Order For Wound Care) This patient galdamez... PRN PRN XX WOUND CARE; Start 04/21/17 at 02:00 Collagenase (Santyl) 1 applic DAILY TOP Last administered on 04/30/17 08:49; Admin Dose 1 APPLIC; Start 04/21/17 at 09:00 Collagenase (Santyl) 1 applic PRN PRN TOP PRN Last administered on 04/21/17 10:40; Admin Dose 1 APPLIC; Start 04/21/17 at 05:00 Enoxaparin Sodium (Lovenox) 50 mg Q12 SC Last administered on 04/23/17 21:00 ; Admin Dose 50 MG; Start 04/21/17 at 21:00; Status Future Hold Mupirocin (Bactroban) 1 applic BID TOP Last administered on 04/30/17 08:50; Admin Dose 1 APPLIC; Start 04/21/17 at 21:00 Metoprolol Tartrate (Lopressor) 12.5 mg BID PO Last administered on 04/30/17 08:46; Admin Dose 12.5 MG; Start 04/22/17 at 21:00 Albuterol (Proventil 0.083% (Neb)) 2.5 mg Q3H PRN NEB WHEEZING AND SOB; Start 04/22/17 at 19:00 Atorvastatin Calcium (Lipitor) 20 mg QHS GTB Last administered on 04/29/17 22: 27; Admin Dose 20 MG; Start 04/22/17 at 21:00 Tamsulosin HCl 0.4 mg 0.4 mg HS PO Last administered on 04/29/17 22:27; Admin Dose 0.4 MG; Start 04/22/17 at 21:00 Clindamycin HCl/ Dextrose (Cleocin 600 Mg/ D5W (Pmx)) 50 ml @ 50 mls/hr Q8 IVPB Last administered on 04/30/17 06:12; Admin Dose 50 MLS/HR; Start 04/23/17 at 22:00 Docusate Sodium (Colace Liquid Cup) 100 mg BID GTB Last administered on 08:47; Admin Dose 100 MG; Start 04/23/17 at 21:00 Multivitamins 30 ml 30 ml DAILY GTB Last administered on 04/30/17 08:46; Admin Dose 30 ML; Start 04/24/17 at 09:00 Meropenem/Sodium Chloride (Merrem 500mg/50 ml(Pmx)) 50 ml @ 100 mls/hr Q8 IVPB Last administered on 04/30/17 06:12; Admin Dose 100 MLS/HR; Start 04/24/17 at 14:00 Digoxin (Digoxin) 0.125 mg DAILY@13 PO Last administered on 04/29/17 13:23; Admin Dose 0.125 MG; Start 12/2/17 at 13:00 Fluconazole (Diflucan) 100 mg DAILY PO Last administered on 04/30/17 08:46; Admin Dose 100 MG; Start 04/29/17 at 09:00 Ferrous Sulfate 300 mg 300 mg TID GTB Last administered on 04/30/17 08:47; Admin Dose 300 MG; Start 04/28/17 at 21:00 Dextrose (D5W) 1,000 ml @ 100 mls/hr Q10H IV ; Start 04/30/17 at 11:30 JAMIE FINLEY Apr 30, 2017 11:58
[2017-04-30] MEDS: DEXTROSE 5% 1,000 ML IV SCH (13:25)
[2017-04-30] MEDS: DIGOXIN 0.125 MG TAB PO SCH (13:25)
--- NOTE | 2017-04-30 21:22 | RADRPT ---
PROCEDURE: Indium-111 labeled white blood cell scan CLINICAL INDICATION: 76 -year-old patient with fever and leukocytosis. TECHNIQUE: Following the intravenous injection of 0.39 mCi of Indium-111 labeled white blood cells , whole body anterior and posterior planar images were obtained along with spot views of the chest a nd abdomen 24 hours post injection. COMPARISON: No prior indium scans. FINDINGS: Small focus of increased activity is seen in the left upper abdomen, which corresponds to the patien t's known gastrostomy on the CT scan dated April 24, 2017. No other definite abnormal areas of increased activity are seen in the study, including visualized p ortions of the head and neck, chest, abdomen, pelvis and visualized portions of the upper and lower extremities bilaterally. Physiologic uptake is noted in the liver and spleen. IMPRESSION: 1. No definite abnormal focal areas of increased activity. 2. Increased uptake corresponding to the patient's known gastrostomy tube in the left upper abdomen . RPTAT: HH .Marley Moore MD, MD Date Time Electronically viewed and signed by .Marley Moore MD, on 04/30/2017 21:21 .L/
[2017-04-30] MEDS: ATORVASTATIN 20 MG TAB GTB SCH (21:48)
[2017-04-30] MEDS: TAMSULOSIN (SR) 0.4 MG CAP PO SCH (21:49)
[2017-05-01] VITALS (22 sets, daily range): BP systolic 101–122; BP diastolic 57–60; PULSE 69–82; RESP 17–24
[2017-05-01] MEDS: DEXTROSE 5% 1,000 ML IV SCH ×2 (04:52→09:06)
[2017-05-01] MEDS: CLINDAMYCIN 600 MG/D5W (PMX) 50 ML IVPB SCH (05:42)
[2017-05-01] MEDS: MEROPENEM 500MG/50 ML (PMX) 50 ML IVPB SCH (06:55)
--- NOTE | 2017-05-01 06:57 | CONS ---
Date/Time of Note Date/Time of Note DATE: 05/01/17 TIME: 06:55 Assessment/Plan Assessment/Plan Additional Assessment/Plan Stated note April 24 Patient is not improved significantly she remains on the telemetry floor she is out of the ICU. Her neurological condition has not significantly changed remains moribund only karla does not follow any simple commands. We will schedule an appointment family conference with her children to establish level of care and goals of care. Consultation Date/Type/Reason Admit Date/Time Apr 19, 2017 at 10:58 Initial Consult Date 04/26/17 Type of Consultation: Pulmonary Referring Provider: ZOE ALEXANDRA Exam/Review of Systems Vital Signs Vitals Vital Signs Date Time Temp Pulse Resp B/P Pulse Ox O2 Delivery O2 Flow Rate FiO2 05/01/17 05:15 78 23 96 30 05/01/17 04:24 103.0 103/59 Intake and Output 04/30/17 04/30/17 05/01/17 15:00 23:00 07:00 Intake Total 500 ml 1050 ml Output Total 600 ml Balance 500 ml 450 ml Results Result Diagram: 04/30/17 0717 04/30/17 0717 Results 24 hrs Laboratory Tests Test 04/30/17 07:17 White Blood Count 8.6 Red Blood Count 2.83 L Hemoglobin 9.4 L Hematocrit 30.3 L Mean Corpuscular Volume 107.1 H Mean Corpuscular Hemoglobin 33.2 H Mean Corpuscular Hemoglobin Concent 31.0 L Red Cell Distribution Width 18.9 H Platelet Count 192 Mean Platelet Volume 13.2 H Neutrophils % 73.3 Lymphocytes % 18.5 Monocytes % 7.2 Eosinophils % 0.1 Basophils % 0.3 Nucleated Red Blood Cells % 0.5 H Neutrophils # 6.3 Lymphocytes # 1.6 Monocytes # 0.6 Eosinophils # 0.0 Basophils # 0.0 Nucleated Red Blood Cells # 0.0 Sodium Level 156 H Potassium Level 4.0 Chloride Level 121 H Carbon Dioxide Level 31 Anion Gap 8 Blood Urea Nitrogen 40 H Creatinine 0.96 Glucose Level 124 Calcium Level 7.3 L Medications Medications Current Medications Ondansetron HCl (Zofran Inj) 4 mg Q6H PRN IV NAUSEA AND/OR VOMITING; Start at 12:00 Acetaminophen (Tylenol Tab) 650 mg Q6H PRN PO PAIN LEVEL 1-3 OR FEVER Last administered on 04/26/17 21:27; Admin Dose 650 MG; Start 04/19/17 at 12:00 Acetaminophen/ Hydrocodone Bitart ([place] (5/325)) 1 tab Q6H PRN PO MODERATE PAIN LEVEL 4-6; Start 04/19/17 at 12:00 Morphine Sulfate (morphine) 2 mg Q4H PRN IV SEVERE PAIN LEVEL 7-10 Last administered on 04/20/17 23:43; Admin Dose 2 MG; Start 04/19/17 at 12:00 Magnesium Hydroxide (Milk Of Mag) 30 ml DAILY PRN PO CONSTIPATION; Start 04/19 at 12:00 Sodium Biphosphate/ Sodium Phosphate (Fleet Enema) 133 ml DAILY PRN [place] CONSTIPATION; Start 04/19/17 at 12:00 Nitroglycerin (Nitroglycerin (Sl Tab) 0.4 Mg) 1 tab Q5M PRN SL ANGINA; Start 04/19/17 at 12:00 Amiodarone HCl (Cordarone) 200 mg DAILY GTB Last administered on 04/30/17 08: 47; Admin Dose 200 MG; Start 04/20/17 at 09:00 Carbidopa/Levodopa (Sinemet (25/ 100)) 1 tab QID GTB Last administered on 21:48; Admin Dose 1 TAB; Start 04/19/17 at 13:00 Chlorhexidine Gluconate (Peridex) 15 ml Q12 MM Last administered on 04/30/17 21:47; Admin Dose 15 ML; Start 04/19/17 at 21:00 Doxazosin Mesylate (Cardura) 8 mg DAILY GTB Last administered on 04/23/17 09: 32; Admin Dose 8 MG; Start 04/20/17 at 09:00; Status Future Hold Lactobacillus Acidophilus/ Rhamnosus (Culturelle) 1 cap DAILY PO Last administered on 04/30/17 08:46; Admin Dose 1 CAP; Start 04/20/17 at 09:00 Ascorbic Acid (Vitamin C) 500 mg BID GTB Last administered on 04/30/17 21:48; Admin Dose 500 MG; Start 04/19/17 at 21:00 Lorazepam (Ativan) 2 mg Q10MIN PRN IV seisure Last administered on 04/25/17 04:06; Admin Dose 2 MG; Start 04/19/17 at 17:30 Acetaminophen (Tylenol Liquid) 650 mg Q6H PRN GTB PAIN AND OR ELEVATED TEMP Last administered on 04/30/17 21:47; Admin Dose 650 MG; Start 04/20/17 at 19: 00 Miscellaneous Information (Pending Santyl Order For Wound Care) This patient galdamez... PRN PRN XX WOUND CARE; Start 04/21/17 at 02:00 Collagenase (Santyl) 1 applic DAILY TOP Last administered on 04/30/17 08:49; Admin Dose 1 APPLIC; Start 04/21/17 at 09:00 Collagenase (Santyl) 1 applic PRN PRN TOP PRN Last administered on 04/21/17 10:40; Admin Dose 1 APPLIC; Start 04/21/17 at 05:00 Enoxaparin Sodium (Lovenox) 50 mg Q12 SC Last administered on 04/23/17 21:00 ; Admin Dose 50 MG; Start 04/21/17 at 21:00; Status Future Hold Mupirocin (Bactroban) 1 applic BID TOP Last administered on 04/30/17 21:49; Admin Dose 1 APPLIC; Start 04/21/17 at 21:00 Metoprolol Tartrate (Lopressor) 12.5 mg BID PO Last administered on 04/30/17 21:48; Admin Dose 12.5 MG; Start 04/22/17 at 21:00 Albuterol (Proventil 0.083% (Neb)) 2.5 mg Q3H PRN NEB WHEEZING AND SOB; Start 04/22/17 at 19:00 Atorvastatin Calcium (Lipitor) 20 mg QHS GTB Last administered on 04/30/17 21: 48; Admin Dose 20 MG; Start 04/22/17 at 21:00 Tamsulosin HCl 0.4 mg 0.4 mg HS PO Last administered on 04/30/17 21:49; Admin Dose 0.4 MG; Start 04/22/17 at 21:00 Clindamycin HCl/ Dextrose (Cleocin 600 Mg/ D5W (Pmx)) 50 ml @ 50 mls/hr Q8 IVPB Last administered on 05/01/17 05:42; Admin Dose 50 MLS/HR; Start 04/23/17 at 22:00 Docusate Sodium (Colace Liquid Cup) 100 mg BID GTB Last administered on 21:47; Admin Dose 100 MG; Start 04/23/17 at 21:00 Multivitamins 30 ml 30 ml DAILY GTB Last administered on 04/30/17 08:46; Admin Dose 30 ML; Start 04/24/17 at 09:00 Meropenem/Sodium Chloride (Merrem 500mg/50 ml(Pmx)) 50 ml @ 100 mls/hr Q8 IVPB Last administered on 04/30/17 22:00; Admin Dose 100 MLS/HR; Start 04/24/17 at 14:00 Digoxin (Digoxin) 0.125 mg DAILY@13 PO Last administered on 04/30/17 13:25; Admin Dose 0.125 MG; Start 04/27/17 at 13:00 Fluconazole (Diflucan) 100 mg DAILY PO Last administered on 04/30/17 08:46; Admin Dose 100 MG; Start 04/29/17 at 09:00 Ferrous Sulfate 300 mg 300 mg TID GTB Last administered on 04/30/17 21:47; Admin Dose 300 MG; Start 04/28/17 at 21:00 Dextrose (D5W) 1,000 ml @ 100 mls/hr Q10H IV Last administered on 05/01/17 04 :52; Admin Dose 100 MLS/HR; Start 04/30/17 at 11:30 PRATIK SANTACRUZ May 01, 2017 06:57
--- NOTE | 2017-05-01 07:07 | CONS ---
Date/Time of Note Date/Time of Note DATE: 05/01/17 TIME: 06:57 Consultation Date/Type/Reason Admit Date/Time Apr 19, 2017 at 10:58 Reason for Consultation Palliative care Hx of Present Illness Family conference was done with patient's eldest brother and social work service. We covered patient's current medical condition long discussion concerning patient's long-term prognosis will probably pass away within the next 2 weeks background was discussed patient's social history was discussed and and the fact that he lives in a [place] [facility] unit had very poor quality of life prior to this hospitalization. Patient's brother is fully cognizant of his current moribund condition and he brought up the concept that his brother is suffering hopes that this will not continue this is not an acceptable quality of life his fears only that his brother is now suffering once again. We have spoke about cultural differences communication unfortunately other family members cannot be available they live a distance from this hospital and have to take the bus. It took this gentleman more than an hour to arrive for this appointment today my impressions are that this is very close family and they only have the ultimate hope to allow patient to a comfortable dignified end-of-life. Estimated prognosis is extremely poor and he will probably pass away very soon there are no psychological social ethical surrogate concerns at this time patient's CODE STATUS is DO NOT RESUSCITATE we will ask for a an in-house general inpatient care hospice consultation. His CODE STATUS will be changed to comfort measures only. Social History Smoking Status: Unknown if ever smoked Exam/Review of Systems Vital Signs Vitals Vital Signs Date Time Temp Pulse Resp B/P Pulse Ox O2 Delivery O2 Flow Rate FiO2 05/01/17 05:15 78 23 96 30 05/01/17 04:24 103.0 103/59 Intake and Output 04/30/17 04/30/17 05/01/17 15:00 23:00 07:00 Intake Total 500 ml 1050 ml Output Total 600 ml Balance 500 ml 450 ml Results Result Diagram: 04/30/1771604/30/17716 Results 24 hrs Laboratory Tests Test 04/30/17 07:17 White Blood Count 8.6 Red Blood Count 2.83 L Hemoglobin 9.4 L Hematocrit 30.3 L Mean Corpuscular Volume 107.1 H Mean Corpuscular Hemoglobin 33.2 H Mean Corpuscular Hemoglobin Concent 31.0 L Red Cell Distribution Width 18.9 H Platelet Count 192 Mean Platelet Volume 13.2 H Neutrophils % 73.3 Lymphocytes % 18.5 Monocytes % 7.2 Eosinophils % 0.1 Basophils % 0.3 Nucleated Red Blood Cells % 0.5 H Neutrophils # 6.3 Lymphocytes # 1.6 Monocytes # 0.6 Eosinophils # 0.0 Basophils # 0.0 Nucleated Red Blood Cells # 0.0 Sodium Level 156 H Potassium Level 4.0 Chloride Level 121 H Carbon Dioxide Level 31 Anion Gap 8 Blood Urea Nitrogen 40 H Creatinine 0.96 Glucose Level 124 Calcium Level 7.3 L Medications Medications Current Medications Ondansetron HCl (Zofran Inj) 4 mg Q6H PRN IV NAUSEA AND/OR VOMITING; Start at 12:00 Acetaminophen (Tylenol Tab) 650 mg Q6H PRN PO PAIN LEVEL 1-3 OR FEVER Last administered on 04/26/17 21:27; Admin Dose 650 MG; Start 04/19/17 at 12:00 Acetaminophen/ Hydrocodone Bitart ([place] (5/325)) 1 tab Q6H PRN PO MODERATE PAIN LEVEL 4-6; Start 04/19/17 at 12:00 Morphine Sulfate (morphine) 2 mg Q4H PRN IV SEVERE PAIN LEVEL 7-10 Last administered on 04/20/17 23:43; Admin Dose 2 MG; Start 04/19/17 at 12:00 Magnesium Hydroxide (Milk Of Mag) 30 ml DAILY PRN PO CONSTIPATION; Start 04/19 at 12:00 Sodium Biphosphate/ Sodium Phosphate (Fleet Enema) 133 ml DAILY PRN [place] CONSTIPATION; Start 04/19/17 at 12:00 Nitroglycerin (Nitroglycerin (Sl Tab) 0.4 Mg) 1 tab Q5M PRN SL ANGINA; Start 04/19/17 at 12:00 Amiodarone HCl (Cordarone) 200 mg DAILY GTB Last administered on 04/30/17 08: 47; Admin Dose 200 MG; Start 04/20/17 at 09:00 Carbidopa/Levodopa (Sinemet (25/ 100)) 1 tab QID GTB Last administered on 21:48; Admin Dose 1 TAB; Start 04/19/17 at 13:00 Chlorhexidine Gluconate (Peridex) 15 ml Q12 MM Last administered on 04/30/17 21:47; Admin Dose 15 ML; Start 04/19/17 at 21:00 Doxazosin Mesylate (Cardura) 8 mg DAILY GTB Last administered on 04/23/17 09: 32; Admin Dose 8 MG; Start 04/20/17 at 09:00; Status Future Hold Lactobacillus Acidophilus/ Rhamnosus (Culturelle) 1 cap DAILY PO Last administered on 04/30/17 08:46; Admin Dose 1 CAP; Start 04/20/17 at 09:00 Ascorbic Acid (Vitamin C) 500 mg BID GTB Last administered on 04/30/17 21:48; Admin Dose 500 MG; Start 04/19/17 at 21:00 Lorazepam (Ativan) 2 mg Q10MIN PRN IV seisure Last administered on 04/25/17 04:06; Admin Dose 2 MG; Start 04/19/17 at 17:30 Acetaminophen (Tylenol Liquid) 650 mg Q6H PRN GTB PAIN AND OR ELEVATED TEMP Last administered on 04/30/17 21:47; Admin Dose 650 MG; Start 04/20/17 at 19: 00 Miscellaneous Information (Pending Santyl Order For Wound Care) This patient galdamez... PRN PRN XX WOUND CARE; Start 04/21/17 at 02:00 Collagenase (Santyl) 1 applic DAILY TOP Last administered on 04/30/17 08:49; Admin Dose 1 APPLIC; Start 04/21/17 at 09:00 Collagenase (Santyl) 1 applic PRN PRN TOP PRN Last administered on 04/21/17 10:40; Admin Dose 1 APPLIC; Start 04/21/17 at 05:00 Enoxaparin Sodium (Lovenox) 50 mg Q12 SC Last administered on 04/23/17 21:00 ; Admin Dose 50 MG; Start 04/21/17 at 21:00; Status Future Hold Mupirocin (Bactroban) 1 applic BID TOP Last administered on 04/30/17 21:49; Admin Dose 1 APPLIC; Start 04/21/17 at 21:00 Metoprolol Tartrate (Lopressor) 12.5 mg BID PO Last administered on 04/30/17 21:48; Admin Dose 12.5 MG; Start 04/22/17 at 21:00 Albuterol (Proventil 0.083% (Neb)) 2.5 mg Q3H PRN NEB WHEEZING AND SOB; Start 04/22/17 at 19:00 Atorvastatin Calcium (Lipitor) 20 mg QHS GTB Last administered on 04/30/17 21: 48; Admin Dose 20 MG; Start 04/22/17 at 21:00 Tamsulosin HCl 0.4 mg 0.4 mg HS PO Last administered on 04/30/17 21:49; Admin Dose 0.4 MG; Start 04/22/17 at 21:00 Clindamycin HCl/ Dextrose (Cleocin 600 Mg/ D5W (Pmx)) 50 ml @ 50 mls/hr Q8 IVPB Last administered on 05/01/17 05:42; Admin Dose 50 MLS/HR; Start 04/23/17 at 22:00 Docusate Sodium (Colace Liquid Cup) 100 mg BID GTB Last administered on 21:47; Admin Dose 100 MG; Start 04/23/17 at 21:00 Multivitamins 30 ml 30 ml DAILY GTB Last administered on 04/30/17 08:46; Admin Dose 30 ML; Start 04/24/17 at 09:00 Meropenem/Sodium Chloride (Merrem 500mg/50 ml(Pmx)) 50 ml @ 100 mls/hr Q8 IVPB Last administered on 04/30/17 22:00; Admin Dose 100 MLS/HR; Start 04/24/17 at 14:00 Digoxin (Digoxin) 0.125 mg DAILY@13 PO Last administered on 04/30/17 13:25; Admin Dose 0.125 MG; Start 04/27/17 at 13:00 Fluconazole (Diflucan) 100 mg DAILY PO Last administered on 04/30/17 08:46; Admin Dose 100 MG; Start 04/29/17 at 09:00 Ferrous Sulfate 300 mg 300 mg TID GTB Last administered on 04/30/17 21:47; Admin Dose 300 MG; Start 04/28/17 at 21:00 Dextrose (D5W) 1,000 ml @ 100 mls/hr Q10H IV Last administered on 05/01/17 04 :52; Admin Dose 100 MLS/HR; Start 04/30/17 at 11:30 PRATIK SANTACRUZ May 01, 2017 07:07
--- NOTE | 2017-05-01 07:42 | PN ---
DATE: 04/30/2017 SUBJECTIVE: No events. The patient is in no distress, spiking fevers with a T-max 102.9. WBC toda y 8.6. No shift, no bands. BUN 40, creatinine 0.96. INDWELLINGS: Trach, PEG, Taylor. MICROBIOLOGY: Blood culture and urine culture since 04/24/2017 negative. Endotracheal aspirate laura wing Pseudomonas aeruginosa and gram-negative rods, pseudomonas susceptible only to aminoglycosides. ANTIMICROBIALS: The patient is on: 1. Clindamycin 2. Meropenem. PHYSICAL EXAMINATION: GENERAL: This is a chronically ill-appearing, elderly man who is in persistent vegetative state. HEENT: Head atraumatic, normocephalic. Sclerae anicteric. Buccal mucosa dry. NECK: Supple. Tracheostomy present. CHEST: Rise symmetrical. Breath sounds diminished to bases. HEART: S1, S2. ABDOMEN: Soft. Bowel tones present. ASSESSMENT: 1. Ongoing fevers, possibly central. Rule out infectious etiology. 2. Healthcare-associated pneumonia. 3. Methicillin-resistant Staphylococcus aureus positive sternal wound, on clindamycin. 4. Methicillin-resistant Staphylococcus aureus nares colonization. 5. Right great toe osteomyelitis. 6. Dysphagia. 7. Persistent vegetative state, status post cardiopulmonary arrest. PLAN: We are going to add amikacin to the regimen. Continue clindamycin and Merrem. Await for WBC labeled nuclear scan. Dictated By: ALLIE GODOY [employer] COLLECTION SYSTEM OPERATOR for ESTEFANY REDDING MD NI/NTS Conf#: [id number] DID#: [id number]
[2017-05-01] MEDS: FERROUS SULFATE 60 MG/ML 5ML CUP GTB SCH (09:06)
[2017-05-01] MEDS: DOCUSATE SODIUM 10 MG/ML (10ML CUP) GTB SCH (09:07)
[2017-05-01] MEDS: CHLORHEXIDINE GLUCONATE 15 ML UD CUP MM SCH (09:07)
[2017-05-01] MEDS: ACETAMINOPHEN 650MG/20.3ML CUP GTB PRN (09:07)
[2017-05-01] MEDS: MULTIVITAMINS 30 ML CUP GTB SCH (09:07)
[2017-05-01] MEDS: ASCORBIC ACID 500 MG TAB GTB SCH (09:08)
[2017-05-01] MEDS: LACTOBACILLUS RHAMNOSUS CAP PO SCH (09:08)
[2017-05-01] MEDS: CARBIDOPA/LEVODOPA (25/100) TAB GTB SCH (09:09)
[2017-05-01] MEDS: FLUCONAZOLE 100 MG TAB PO SCH (09:09)
[2017-05-01] MEDS: AMIODARONE 200 MG TAB GTB SCH (09:10)
[2017-05-01] MEDS: BALSAM PERU/CASTOR OIL 60 GM TUBE TOP SCH (09:11)
[2017-05-01] MEDS: MUPIROCIN 2% 22 GM OINT TOP SCH (09:11)
[2017-05-01] MEDS: METOPROLOL 25 MG TAB PO SCH (09:11)
[2017-05-01] MEDS: COLLAGENASE 30 GM TUBE TOP SCH (09:11)
[2017-05-01 09:12] LABS: ABNORMAL IP MESSAGE 1; BASOPHILS % 0.3 % (0.0-2.0); HEMATOCRIT 27.9 % (42.0-52.0); HEMOGLOBIN 8.8 g/dl (14.0-18.0); LYMPHOCYTES # 1.4 10^3/ul (0.8-2.9); LYMPHOCYTES % 17.6 % (15.0-51.0); MEAN CORPUSCULAR HEMOGLOBIN 33.6 pg (29.0-33.0); MEAN CORPUSCULAR HGB CONC 31.5 g/dl (32.0-37.0); MEAN CORPUSCULAR VOLUME 106.5 fl (82.0-101.0); MEAN PLATELET VOLUME 13.2 fl (7.4-10.4); MONOCYTE # 0.5 10^3/ul (0.3-0.9); MONOCYTES % 6.4 % (0.0-11.0); NEUTROPHIL # 5.8 10^3/ul (1.6-7.5); NEUTROPHILS % 74.9 % (39.0-77.0); NUCLEATED RED BLOOD CELLS # 0.1 10^3/ul (0.0-0.0); NUCLEATED RED BLOOD CELLS% 0.7 /100WBC (0.0-0.0); PLATELET COUNT 164 10^3/UL (140-415); POSITIVE DIFF @See below; RED BLOOD COUNT 2.62 10^6/ul (4.70-6.10); RED CELL DISTRIBUTION WIDTH 18.8 % (11.5-14.5); WHITE BLOOD COUNT 7.7 10^3/ul (4.8-10.8)
[2017-05-01 09:29] LABS: CALCIUM 7.3 mg/dl (8.4-10.2); CREATININE 1.02 mg/dl (0.61-1.24); POTASSIUM 3.7 mmol/L (3.5-5.1)
--- NOTE | 2017-05-01 10:22 | CONS ---
Date/Time of Note Date/Time of Note DATE: 05/01/17 TIME: 10:20 Assessment/Plan Assessment/Plan Additional Assessment/Plan Ventilator setting; AC of 12, tidal volume 450, PEEP of 5, 30% FiO2. Assessment and recommendations; 1. Patient with history of severe encephalopathy as well as chronic respiratory failure admitted for sepsis due to UTI pneumonia as well as wound infection. 2. Anemia and thrombocytopenia. 3. Parkinson's disease. 4. BPH. Continue current supportive care. Patient apparently will go to hospice service. Prognosis is poor. Consultation Date/Type/Reason Admit Date/Time Apr 19, 2017 at 10:58 Initial Consult Date 04/24/17 Type of Consultation: Pulmonary Referring Provider: ZOE ALEXANDRA 24 HR Interval Summary Free Text/Dictation Patient's condition remains stable. Has remained hemodynamically stable. Patient remains unresponsive to any commands. General exam; elderly male, on ventilator via tracheostomy currently in no distress. Exam/Review of Systems Vital Signs Vitals Vital Signs Date Time Temp Pulse Resp B/P Pulse Ox O2 Delivery O2 Flow Rate FiO2 05/01/17 08:22 102.3 83 19 122/57 99 05/01/17 05:15 30 Intake and Output 04/30/17 04/30/17 05/01/17 15:00 23:00 07:00 Intake Total 500 ml 1050 ml 1249 ml Output Total 600 ml 350 ml Balance 500 ml 450 ml 899 ml Exam HEENT exam; supple neck, no JVD. No lymphadenopathy. Midline trachea. No thyromegaly. Patient is edentulous. Tracheostomy placed with clean insertion site. Pupils are small bilaterally. Chest exam; diminished but clear breath sounds. S1-S2 audible, no murmurs. Regular rhythm. Abdomen exam; soft, G-tube in place. No organomegaly. Bowel sounds audible. Back examination; dressing applied over sacrum. It exam; no edema. Patient does have contractures involving all 4 extremities. AERIAL APPLICATOR PILOT exam; patient remains unresponsive. Results Result Diagram: 05/01/17 0849 05/01/17 0849 Results 24 hrs Laboratory Tests Test 05/01/17 08:49 White Blood Count 7.7 Red Blood Count 2.62 L Hemoglobin 8.8 L Hematocrit 27.9 L Mean Corpuscular Volume 106.5 H Mean Corpuscular Hemoglobin 33.6 H Mean Corpuscular Hemoglobin Concent 31.5 L Red Cell Distribution Width 18.8 H Platelet Count 164 Mean Platelet Volume 13.2 H Neutrophils % 74.9 Lymphocytes % 17.6 Monocytes % 6.4 Eosinophils % 0.0 Basophils % 0.3 Nucleated Red Blood Cells % 0.7 H Neutrophils # 5.8 Lymphocytes # 1.4 Monocytes # 0.5 Eosinophils # 0.0 Basophils # 0.0 Nucleated Red Blood Cells # 0.1 H Sodium Level 151 H Potassium Level 3.7 Chloride Level 115 H Carbon Dioxide Level 32 H Anion Gap 8 Blood Urea Nitrogen 45 H Creatinine 1.02 Glucose Level 133 Calcium Level 7.3 L Medications Medications Current Medications Ondansetron HCl (Zofran Inj) 4 mg Q6H PRN IV NAUSEA AND/OR VOMITING; Start at 12:00 Acetaminophen (Tylenol Tab) 650 mg Q6H PRN PO PAIN LEVEL 1-3 OR FEVER Last administered on 04/26/17 21:27; Admin Dose 650 MG; Start 04/19/17 at 12:00 Acetaminophen/ Hydrocodone Bitart ([place] (5/325)) 1 tab Q6H PRN PO MODERATE PAIN LEVEL 4-6; Start 04/19/17 at 12:00 Morphine Sulfate (morphine) 2 mg Q4H PRN IV SEVERE PAIN LEVEL 7-10 Last administered on 04/20/17 23:43; Admin Dose 2 MG; Start 04/19/17 at 12:00 Magnesium Hydroxide (Milk Of Mag) 30 ml DAILY PRN PO CONSTIPATION; Start 04/19 at 12:00 Sodium Biphosphate/ Sodium Phosphate (Fleet Enema) 133 ml DAILY PRN [place] CONSTIPATION; Start 04/19/17 at 12:00 Nitroglycerin (Nitroglycerin (Sl Tab) 0.4 Mg) 1 tab Q5M PRN SL ANGINA; Start 04/19/17 at 12:00 Amiodarone HCl (Cordarone) 200 mg DAILY GTB Last administered on 05/01/17 09: 10; Admin Dose 200 MG; Start 04/20/17 at 09:00 Carbidopa/Levodopa (Sinemet (25/ 100)) 1 tab QID GTB Last administered on 09:09; Admin Dose 1 TAB; Start 04/19/17 at 13:00 Chlorhexidine Gluconate (Peridex) 15 ml Q12 MM Last administered on 05/01/17 09:07; Admin Dose 15 ML; Start 04/19/17 at 21:00 Doxazosin Mesylate (Cardura) 8 mg DAILY GTB Last administered on 04/23/17 09: 32; Admin Dose 8 MG; Start 04/20/17 at 09:00; Status Future Hold Lactobacillus Acidophilus/ Rhamnosus (Culturelle) 1 cap DAILY PO Last administered on 05/01/17 09:08; Admin Dose 1 CAP; Start 04/20/17 at 09:00 Ascorbic Acid (Vitamin C) 500 mg BID GTB Last administered on 05/01/17 09:08; Admin Dose 500 MG; Start 04/19/17 at 21:00 Lorazepam (Ativan) 2 mg Q10MIN PRN IV seisure Last administered on 04/25/17 04:06; Admin Dose 2 MG; Start 04/19/17 at 17:30 Acetaminophen (Tylenol Liquid) 650 mg Q6H PRN GTB PAIN AND OR ELEVATED TEMP Last administered on 05/01/17 09:07; Admin Dose 650 MG; Start 04/20/17 at 19: 00 Miscellaneous Information (Pending Santyl Order For Wound Care) This patient galdamez... PRN PRN XX WOUND CARE; Start 04/21/17 at 02:00 Collagenase (Santyl) 1 applic DAILY TOP Last administered on 05/01/17 09:11; Admin Dose 1 APPLIC; Start 04/21/17 at 09:00 Collagenase (Santyl) 1 applic PRN PRN TOP PRN Last administered on 04/21/17 10:40; Admin Dose 1 APPLIC; Start 04/21/17 at 05:00 Enoxaparin Sodium (Lovenox) 50 mg Q12 SC Last administered on 04/23/17 21:00 ; Admin Dose 50 MG; Start 04/21/17 at 21:00; Status Future Hold Mupirocin (Bactroban) 1 applic BID TOP Last administered on 05/01/17 09:11; Admin Dose 1 APPLIC; Start 04/21/17 at 21:00 Metoprolol Tartrate (Lopressor) 12.5 mg BID PO Last administered on 05/01/17 09:11; Admin Dose 12.5 MG; Start 04/22/17 at 21:00 Albuterol (Proventil 0.083% (Neb)) 2.5 mg Q3H PRN NEB WHEEZING AND SOB; Start 04/22/17 at 19:00 Atorvastatin Calcium (Lipitor) 20 mg QHS GTB Last administered on 04/30/17 21: 48; Admin Dose 20 MG; Start 04/22/17 at 21:00 Tamsulosin HCl 0.4 mg 0.4 mg HS PO Last administered on 04/30/17 21:49; Admin Dose 0.4 MG; Start 04/22/17 at 21:00 Clindamycin HCl/ Dextrose (Cleocin 600 Mg/ D5W (Pmx)) 50 ml @ 50 mls/hr Q8 IVPB Last administered on 05/01/17 05:42; Admin Dose 50 MLS/HR; Start 04/23/17 at 22:00 Docusate Sodium (Colace Liquid Cup) 100 mg BID GTB Last administered on 09:07; Admin Dose 100 MG; Start 04/23/17 at 21:00 Multivitamins 30 ml 30 ml DAILY GTB Last administered on 05/01/17 09:07; Admin Dose 30 ML; Start 04/24/17 at 09:00 Meropenem/Sodium Chloride (Merrem 500mg/50 ml(Pmx)) 50 ml @ 100 mls/hr Q8 IVPB Last administered on 05/01/17 06:55; Admin Dose 100 MLS/HR; Start 04/24/17 at 14:00 Digoxin (Digoxin) 0.125 mg DAILY@13 PO Last administered on 04/30/17 13:25; Admin Dose 0.125 MG; Start 04/27/17 at 13:00 Fluconazole (Diflucan) 100 mg DAILY PO Last administered on 05/01/17 09:09; Admin Dose 100 MG; Start 04/29/17 at 09:00 Ferrous Sulfate 300 mg 300 mg TID GTB Last administered on 05/01/17 09:06; Admin Dose 300 MG; Start 04/28/17 at 21:00 Dextrose (D5W) 1,000 ml @ 100 mls/hr Q10H IV Last administered on 05/01/17 04 :52; Admin Dose 100 MLS/HR; Start 12/5/17 at 11:30 ILANA BENITEZ May 01, 2017 10:22
--- NOTE | 2017-05-01 10:43 | PN ---
Date/Time of Note Date/Time of Note DATE: 05/01/17 TIME: 10:42 Assessment/Plan VTE Prophylaxis VTE Prophylaxis Intervention: SCD's Lines/Catheters IV Catheter Type (from [facility]): PICC Line Central line still needed: Yes Urinary Cath still in place: No Assessment/Plan Chief Complaint/Hosp Course S: Patient still with fevers. Family meeting held yesterday with palliative care team. Decision was made to make the patient DNR and comfort measures only this morning. O: VS: see below PE: GENERAL APPEARANCE: lying in bed, appears contracted HEENT: Pupils minimally reactive bilaterally. NECK: Trach in place. No leakage or bleeding from the trach site. LUNGS: Less positive rhonchi heard bilaterally. No wheezes. CARDIOVASCULAR: Irregularly irregular heart rate. No rubs or gallops. ABDOMEN: Soft, nontender, nondistended. Normal bowel sounds. No rebound or guarding. MUSCULOSKELETAL: chronic contractures lower extremities but no lower extremity edema bilaterally. NEUROLOGIC: Unable to fully assess. A/P: 76-year-old male coming in with status post cardiac arrest, pulseless electrical activity with return of spontaneous circulation now sepsis and lactic acidosis secondary to upper respiratory infection versus urinary tract infection. 1. Status post cardiac arrest -ROSC -Follow-up cardiology consult and pulmonary recommendations - monitor heart rate very carefully, cont cardiac meds 2. Severe sepsis, lactic acidosis- sec to PNA v chest wall wound based on imaging. remains febrile. -Continue current broad-spectrum antibiotics, ID has added antifungal coverage, send sputum cx, await for WBC scan -Tylenol p.r.n. fevers, intravenous fluids as well. - Follow up final culture results. - could also consider sampling hip fluid, pleural effusion. DEFER FURTHER ASPIRATION/INTERVENTION UNTIL GOALS OF CARE ARE CLARIFIED - chest wall wound is sp gen surg eval. not in need of acute debridement 3. History of chronic encephalopathy. Again, no present issues. -Continue to monitor for now. 4. History of respiratory failure, ventilator dependent. - F/U pulmonary consult for vent management. - Antibiotics, duo nebs as needed 5. Gastrointestinal prophylaxis - H2 ulises. 6. Deep venous thrombosis prophylaxis - sequential compression devices for now. Dispo: Prior hospitalist and ID team agree that medical care is ultimately medically futile. Palliative care is on the case. Pt initially sent in sp PEA arrest. His quality of life appears quite poor-->he's contracted in all limbs and unable to communicate. Again, there was FAMILY MEETING TO CLARIFY GOALS OF CARE -patient now DNR and comfort care measures only. Problems: Exam/Review of Systems Vital Signs Vitals Vital Signs Date Time Temp Pulse Resp B/P Pulse Ox O2 Delivery O2 Flow Rate FiO2 05/01/17 08:22 102.3 83 19 122/57 99 05/01/17 05:15 30 Intake and Output 04/30/17 04/30/17 05/01/17 15:00 23:00 07:00 Intake Total 500 ml 1050 ml 1249 ml Output Total 600 ml 350 ml Balance 500 ml 450 ml 899 ml Results Result Diagram: 05/01/17 0849 05/01/17 0849 Results 24 hrs Laboratory Tests Test 05/01/17 08:49 White Blood Count 7.7 Red Blood Count 2.62 L Hemoglobin 8.8 L Hematocrit 27.9 L Mean Corpuscular Volume 106.5 H Mean Corpuscular Hemoglobin 33.6 H Mean Corpuscular Hemoglobin Concent 31.5 L Red Cell Distribution Width 18.8 H Platelet Count 164 Mean Platelet Volume 13.2 H Neutrophils % 74.9 Lymphocytes % 17.6 Monocytes % 6.4 Eosinophils % 0.0 Basophils % 0.3 Nucleated Red Blood Cells % 0.7 H Neutrophils # 5.8 Lymphocytes # 1.4 Monocytes # 0.5 Eosinophils # 0.0 Basophils # 0.0 Nucleated Red Blood Cells # 0.1 H Sodium Level 151 H Potassium Level 3.7 Chloride Level 115 H Carbon Dioxide Level 32 H Anion Gap 8 Blood Urea Nitrogen 45 H Creatinine 1.02 Glucose Level 133 Calcium Level 7.3 L Medications Medications Current Medications Ondansetron HCl (Zofran Inj) 4 mg Q6H PRN IV NAUSEA AND/OR VOMITING; Start at 12:00 Acetaminophen (Tylenol Tab) 650 mg Q6H PRN PO PAIN LEVEL 1-3 OR FEVER Last administered on 04/26/17t 21:27; Admin Dose 650 MG; Start 04/19/17 at 12:00 Acetaminophen/ Hydrocodone Bitart ([place] (5/325)) 1 tab Q6H PRN PO MODERATE PAIN LEVEL 4-6; Start 04/19/17 at 12:00 Morphine Sulfate (morphine) 2 mg Q4H PRN IV SEVERE PAIN LEVEL 7-10 Last administered on 04/20/17 23:43; Admin Dose 2 MG; Start 04/19/17 at 12:00 Magnesium Hydroxide (Milk Of Mag) 30 ml DAILY PRN PO CONSTIPATION; Start 04/19 at 12:00 Sodium Biphosphate/ Sodium Phosphate (Fleet Enema) 133 ml DAILY PRN SD CONSTIPATION; Start 04/19/17 at 12:00 Nitroglycerin (Nitroglycerin (Sl Tab) 0.4 Mg) 1 tab Q5M PRN SL ANGINA; Start 04/19/17 at 12:00 Amiodarone HCl (Cordarone) 200 mg DAILY GTB Last administered on 05/01/17 09: 10; Admin Dose 200 MG; Start 04/20/17 at 09:00 Carbidopa/Levodopa (Sinemet ()) 1 tab QID GTB Last administered on 09:09; Admin Dose 1 TAB; Start 04/19/17 at 13:00 Chlorhexidine Gluconate (Peridex) 15 ml Q12 MM Last administered on 05/01/17 09:07; Admin Dose 15 ML; Start 04/19/17 at 21:00 Doxazosin Mesylate (Cardura) 8 mg DAILY GTB Last administered on 04/23/17 09: 32; Admin Dose 8 MG; Start 04/20/17 at 09:00; Status Future Hold Lactobacillus Acidophilus/ Rhamnosus (Culturelle) 1 cap DAILY PO Last administered on 05/01/17 09:08; Admin Dose 1 CAP; Start 04/20/17 at 09:00 Ascorbic Acid (Vitamin C) 500 mg BID GTB Last administered on 05/01/17 09:08; Admin Dose 500 MG; Start 04/19/17 at 21:00 Lorazepam (Ativan) 2 mg Q10MIN PRN IV seisure Last administered on 04/25/17 04:06; Admin Dose 2 MG; Start 04/19/17 at 17:30 Acetaminophen (Tylenol Liquid) 650 mg Q6H PRN GTB PAIN AND OR ELEVATED TEMP Last administered on 05/01/17 09:07; Admin Dose 650 MG; Start 04/20/17 at 19: 00 Miscellaneous Information (Pending [facility] Order For Wound Care) This patient galdamez... PRN PRN XX WOUND CARE; Start 04/21/17 at 02:00 Collagenase (Santyl) 1 applic DAILY TOP Last administered on 05/01/17 09:11; Admin Dose 1 APPLIC; Start 04/21/17 at 09:00 Collagenase (Santyl) 1 applic PRN PRN TOP PRN Last administered on 04/21/17 10:40; Admin Dose 1 APPLIC; Start 04/21/17 at 05:00 Enoxaparin Sodium (Lovenox) 50 mg Q12 SC Last administered on 04/23/17 21:00 ; Admin Dose 50 MG; Start 04/21/17 at 21:00; Status Future Hold Mupirocin (Bactroban) 1 applic BID TOP Last administered on 05/01/17 09:11; Admin Dose 1 APPLIC; Start 04/21/17 at 21:00 Metoprolol Tartrate (Lopressor) 12.5 mg BID PO Last administered on 05/01/17 09:11; Admin Dose 12.5 MG; Start 04/22/17 at 21:00 Albuterol (Proventil 0.083% (Neb)) 2.5 mg Q3H PRN NEB WHEEZING AND SOB; Start 04/22/17 at 19:00 Atorvastatin Calcium (Lipitor) 20 mg QHS GTB Last administered on 04/30/17 21: 48; Admin Dose 20 MG; Start 04/22/17 at 21:00 Tamsulosin HCl 0.4 mg 0.4 mg HS PO Last administered on 04/30/17 21:49; Admin Dose 0.4 MG; Start 04/22/17 at 21:00 Clindamycin HCl/ Dextrose (Cleocin 600 Mg/ D5W (Pmx)) 50 ml @ 50 mls/hr Q8 IVPB Last administered on 05/01/17 05:42; Admin Dose 50 MLS/HR; Start 04/23/17 at 22:00 Docusate Sodium (Colace Liquid Cup) 100 mg BID GTB Last administered on 09:07; Admin Dose 100 MG; Start 04/23/17 at 21:00 Multivitamins 30 ml 30 ml DAILY GTB Last administered on 05/01/17 09:07; Admin Dose 30 ML; Start 04/24/17 at 09:00 Meropenem/Sodium Chloride (Merrem 500mg/50 ml(Pmx)) 50 ml @ 100 mls/hr Q8 IVPB Last administered on 05/01/17 06:55; Admin Dose 100 MLS/HR; Start 04/24/17 at 14:00 Digoxin (Digoxin) 0.125 mg DAILY@13 PO Last administered on 04/30/17 13:25; Admin Dose 0.125 MG; Start 04/27/17 at 13:00 Fluconazole (Diflucan) 100 mg DAILY PO Last administered on 05/01/17 09:09; Admin Dose 100 MG; Start 04/29/17 at 09:00 Ferrous Sulfate 300 mg 300 mg TID GTB Last administered on 05/01/17 09:06; Admin Dose 300 MG; Start 04/28/17 at 21:00 Dextrose (D5W) 1,000 ml @ 100 mls/hr Q10H IV Last administered on 05/01/17 04 :52; Admin Dose 100 MLS/HR; Start 04/30/17 at 11:30 ZOE ALEXANDRA May 01, 2017 10:43
[2017-05-01] MEDS ORDERED: SCOPOLAMINE 1.5 MG PATCH TRANSDERM SCH (11:30)
[2017-05-01] MEDS ORDERED: morphine 4 MG/ML VIAL IV PRN ×2 (11:30)
[2017-05-01] MEDS ORDERED: ARTIFICIAL TEARS 15 ML OPH BOTH EYES PRN (11:30)
[2017-05-01] MEDS ORDERED: DIMETHICONE STICK TOP PRN (11:30)
--- NOTE | 2017-05-01 11:59 | CONS ---
Date/Time of Note Date/Time of Note DATE: 05/01/17 TIME: 11:56 Assessment/Plan Assessment/Plan Chief Complaint/Hosp Course IMP: 1.AF-Rate controlled 2.s/p cardiac arrest-PEA. EF 50% by echo this admit 3.encephalopathy 4.Fevers-ongoing to 103 5.anemia-worsening 6.UTI 7. 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 Problems: Consultation Date/Type/Reason Admit Date/Time Apr 19, 2017 at 10:58 Initial Consult Date 04/20/2017 Type of Consultation: cardiology Reason for Consultation cardiac arrest Referring Provider: ZOE ALEXANDRA Exam/Review of Systems Vital Signs Vitals Vital Signs Date Time Temp Pulse Resp B/P Pulse Ox O2 Delivery O2 Flow Rate FiO2 05/01/17 10:58 86 22 95 30 05/01/17 08:22 102.3 122/57 Intake and Output 04/30/17 04/30/17 05/01/17 15:00 23:00 07:00 Intake Total 500 ml 1050 ml 1249 ml Output Total 600 ml 350 ml Balance 500 ml 450 ml 899 ml Exam Review of Systems: CONSTITUTIONAL: No fevers, chills. PULMONARY: trached CARDIOVASCULAR: No chest pain/palpitations GASTROINTESTINAL: No nausea/vomiting. GENITOURINARY: No hematuria/dysuria. MUSCULOSKELETAL: No myagias/arthalgias. PSYCHIATRIC: The patient denies depression. NEUROLOGIC: encephalopathic Constitutional: alert Psych: no complaints Head: normocephalic ENMT: mucosa pink and moist Neck: jvd (8 cm water), supple Respiratory: diminished breath sounds Cardiovascular: regular rate and rhythm Gastrointestinal: non-tender, soft Musculoskeletal: muscle weakness (generalized) Extremities: edema (none) Neurological: other (No focal deficits) Results Result Diagram: 05/01/17 0849 05/01/17 0849 Results 24 hrs Laboratory Tests Test 05/01/17 08:49 White Blood Count 7.7 Red Blood Count 2.62 L Hemoglobin 8.8 L Hematocrit 27.9 L Mean Corpuscular Volume 106.5 H Mean Corpuscular Hemoglobin 33.6 H Mean Corpuscular Hemoglobin Concent 31.5 L Red Cell Distribution Width 18.8 H Platelet Count 164 Mean Platelet Volume 13.2 H Neutrophils % 74.9 Lymphocytes % 17.6 Monocytes % 6.4 Eosinophils % 0.0 Basophils % 0.3 Nucleated Red Blood Cells % 0.7 H Neutrophils # 5.8 Lymphocytes # 1.4 Monocytes # 0.5 Eosinophils # 0.0 Basophils # 0.0 Nucleated Red Blood Cells # 0.1 H Sodium Level 151 H Potassium Level 3.7 Chloride Level 115 H Carbon Dioxide Level 32 H Anion Gap 8 Blood Urea Nitrogen 45 H Creatinine 1.02 Glucose Level 133 Calcium Level 7.3 L Medications Medications Current Medications Lorazepam (Ativan) 2 mg Q10MIN PRN IV AGITATION/ANXIETY Last administered on t 04:06; Admin Dose 2 MG; Start 04/19/17 at 17:30 Morphine Sulfate (morphine) 2 mg Q15M PRN IV BREAKTHROUGH PAIN/DYSPNEA; Start 05/01/17 at 11:30 Morphine Sulfate 2 mg 2 mg Q15M PRN IV BREAKTHROUGH PAIN/DYSPNEA; Start at 11:30 Morphine Sulfate/ Sodium Chloride (morphine) 100 ml @ 1 mls/hr TITRATE IV ; Start 05/01/17 at 11:30 Scopolamine (Transderm-Scop) 1 patch Q72H TRANSDERM ; Start 05/01/17 at 11:30 ELVIS HINTON May 01, 2017 11:59
--- NOTE | 2017-05-01 15:34 | PN ---
Date/Time of Note Date/Time of Note DATE: 05/01/17 TIME: 15:22 Assessment/Plan VTE Prophylaxis VTE Prophylaxis Intervention: SCD's Lines/Catheters IV Catheter Type (from Nrs): PICC Line Central line still needed: Yes (Medications) Urinary Cath still in place: No Assessment/Plan Chief Complaint/Hosp Course Assessment: Anemia possible due to intramuscular hemorrhage and psoas muscle on CT Ultrasound of the right hip-small collection of fluid Persistent fever due to possible abscess in the right hip Hypotension-resolved Chronic encephalopathy Respiratory failure-tracheostomy, ventilator dependent Sepsis UTI Chest wall wound Status post cardiac arrest Plan: Hospice/comfort measures No acute events overnight. Patient will be put on comfort measures. Plan discussed with the nursing staff. At this point patient is stable GI mckeon, will sign off to the hospitalist and will be available for consultation upon request. Consultation performed in collaboration with Dr. Leal PHYSICAL EXAMINATION: GENERAL: Patient is nonresponsive, trached and vent dependent. No acute distress SKIN: Multiple lesions on the toes and chest wound, no stigmata chronic liver disease, no evidence of bleeding diathesis. Chest wall wound and bilateral pressure ulcers on the feet LYMPHATIC: No palpable lymphadenopathy. HEAD: Normocephalic, atraumatic, no tenderness. EYES: Pupils equal reactive to light and accommodation, full extraocular movements, sclera clear, non-icteric, no discharge. EARS/NOSE AND THROAT: Ears normal, nose normal, oropharynx normal, oral membranes well hydrated without lesions. NECK: Supple, no masses, tracheostomy tube in place, JVP within normal limits, carotids normal without bruits. CHEST: Inspection within normal limits. Chest wall wound CARDIOVASCULAR: Heart: Regular rate and rhythm, no murmurs, gallops or rubs. Peripheral pulses present within normal limits, no cyanosis, clubbing or edemas. No pulsatile abdominal mass RESPIRATORY: Lungs clear to auscultation and percussion, no wheezing, no rubs GASTROINTESTINAL AND LIVER: Abdomen: Soft, non tenderness, non-distended, no hernias, no masses, no organomegaly, no ascites, no guarding, no rebound tenderness, normoactive bowel sounds, PEG tube in place with continuous feeding. Rectal: Deferred. GENITOURINARY: Male genitalia within normal limits. EXTREMITIES: No cyanosis, clubbing or edema. Problems: Exam/Review of Systems Vital Signs Vitals Vital Signs Date Time Temp Pulse Resp B/P Pulse Ox O2 Delivery O2 Flow Rate FiO2 05/01/17 14:54 88 22 95 30 05/01/17 08:22 102.3 122/57 Intake and Output 04/30/17 04/30/17 05/01/17 15:00 23:00 07:00 Intake Total 500 ml 1050 ml 1249 ml Output Total 600 ml 350 ml Balance 500 ml 450 ml 899 ml Results Result Diagram: 05/01/17 0849 05/01/17 0849 Results 24 hrs Laboratory Tests Test 05/01/17 08:49 White Blood Count 7.7 Red Blood Count 2.62 L Hemoglobin 8.8 L Hematocrit 27.9 L Mean Corpuscular Volume 106.5 H Mean Corpuscular Hemoglobin 33.6 H Mean Corpuscular Hemoglobin Concent 31.5 L Red Cell Distribution Width 18.8 H Platelet Count 164 Mean Platelet Volume 13.2 H Neutrophils % 74.9 Lymphocytes % 17.6 Monocytes % 6.4 Eosinophils % 0.0 Basophils % 0.3 Nucleated Red Blood Cells % 0.7 H Neutrophils # 5.8 Lymphocytes # 1.4 Monocytes # 0.5 Eosinophils # 0.0 Basophils # 0.0 Nucleated Red Blood Cells # 0.1 H Sodium Level 151 H Potassium Level 3.7 Chloride Level 115 H Carbon Dioxide Level 32 H Anion Gap 8 Blood Urea Nitrogen 45 H Creatinine 1.02 Glucose Level 133 Calcium Level 7.3 L Medications Medications Current Medications Lorazepam (Ativan) 2 mg Q10MIN PRN IV AGITATION/ANXIETY Last administered on t 04:06; Admin Dose 2 MG; Start 04/19/17 at 17:30 Morphine Sulfate (morphine) 2 mg Q15M PRN IV BREAKTHROUGH PAIN/DYSPNEA; Start 05/01/17 at 11:30 Morphine Sulfate 2 mg 2 mg Q15M PRN IV BREAKTHROUGH PAIN/DYSPNEA; Start at 11:30 Morphine Sulfate/ Sodium Chloride (morphine) 100 ml @ 1 mls/hr TITRATE IV ; Start 05/01/17 at 11:30 Scopolamine (Transderm-Scop) 1 patch Q72H TRANSDERM ; Start 05/01/17 at 11:30 Copies To: CC: DHEERAJ LEAL MD, ANASTASIA NP May 01, 2017 15:33
[2017-05-01] MEDS: morphine (DRIP) 100 MG/100 ML 100 ML IV SCH (19:46)
[2017-05-02] VITALS (9 sets, daily range): BP systolic 110–123; BP diastolic 49–58; PULSE 70–90; RESP 20–24
[2017-05-02] MEDS: morphine (DRIP) 100 MG/100 ML 100 ML IV SCH ×6 (10:37→21:33)
[2017-05-02] MEDS ORDERED: ATROPINE 1% 5 ML OPH SL PRN (11:30)
--- NOTE | 2017-05-02 11:41 | PN ---
Date/Time of Note Date/Time of Note DATE: 05/02/17 TIME: 11:40 Assessment/Plan VTE Prophylaxis VTE Prophylaxis Intervention: SCD's Lines/Catheters IV Catheter Type (from Nrsg): PICC Line Central line still needed: Yes Urinary Cath still in place: No Assessment/Plan Chief Complaint/Hosp Course S: Patient on comfort measures. O: VS: see below PE: GENERAL APPEARANCE: lying in bed, appears contracted HEENT: Pupils minimally reactive bilaterally. NECK: Trach in place. No leakage or bleeding from the trach site. LUNGS: Less positive rhonchi heard bilaterally. No wheezes. CARDIOVASCULAR: Irregularly irregular heart rate. No rubs or gallops. ABDOMEN: Soft, nontender, nondistended. Normal bowel sounds. No rebound or guarding. MUSCULOSKELETAL: chronic contractures lower extremities but no lower extremity edema bilaterally. NEUROLOGIC: Unable to fully assess. A/P: 76-year-old male coming in with status post cardiac arrest, pulseless electrical activity with return of spontaneous circulation now sepsis and lactic acidosis secondary to upper respiratory infection versus urinary tract infection. 1. Status post cardiac arrest -ROSC - patient now DNR and comfort care measures only. Problems: Exam/Review of Systems Vital Signs Vitals Vital Signs Date Time Temp Pulse Resp B/P Pulse Ox O2 Delivery O2 Flow Rate FiO2 05/02/17 08:06 103.2 91 22 113/52 92 05/01/17 21:00 30 Intake and Output 05/01/17 05/01/17 05/02/17 14:59 22:59 06:59 Intake Total 1205 ml 11 ml Output Total 700 ml 750 ml Balance 505 ml -739 ml Results Result Diagram: 05/01/17 0849 05/01/17 0849 Medications Medications Current Medications Lorazepam (Ativan) 2 mg Q10MIN PRN IV AGITATION/ANXIETY Last administered on 04:06; Admin Dose 2 MG; Start 04/19/17 at 17:30 Morphine Sulfate (morphine) 2 mg Q15M PRN IV BREAKTHROUGH PAIN/DYSPNEA; Start 05/01/17 at 11:30 Morphine Sulfate 2 mg 2 mg Q15M PRN IV BREAKTHROUGH PAIN/DYSPNEA; Start at 11:30 Morphine Sulfate/ Sodium Chloride (morphine) 100 ml @ 1 mls/hr TITRATE IV Last administered on 05/02/17 10:37; Admin Dose 2 MLS/HR; Start 05/01/17 at 11:30 Scopolamine (Transderm-Scop) 1 patch Q72H TRANSDERM Last administered on 18:46; Admin Dose 1 PATCH; Start 05/01/17 at 11:30 Atropine Sulfate (Atropine 1% Oph) 2 drop Q2H PRN SL PRN SECRETIONS; Start 05/02/17 at 11:30 ZOE ALEXANDRA May 02, 2017 11:41
[2017-05-03 00:36] VITALS: PULSE 79
[2017-05-03 04:25] VITALS: PULSE 80
[2017-05-03] MEDS: morphine (DRIP) 100 MG/100 ML 100 ML IV SCH (06:15)
[2017-05-03 08:51] VITALS: PULSE 42
--- NOTE | 2017-05-03 11:48 | DES ---
Date/Time of Note Date/Time of Note DATE: 05/03/17 TIME: 11:38 Discharge/ Summary Admission/Discharge Info Admit Date/Time Apr 19, 2017 at 10:58 Discharge Date/Time Final Diagnosis 1. Status post cardiac arrest -ROSC 2. Severe sepsis, lactic acidosis- sec to PNA v chest wall wound based on imaging. remains febrile. 3. History of chronic encephalopathy. 4. History of respiratory failure, ventilator dependent. 5. hypertension 6. prostate issues 7. high cholesterol Preliminary Cause of 1. respiratory distress (hours) 2. severe sepsis (days) 3. cardiac arrest (days) Hospital Course 76-year-old male, [facility] in from [facility]. Past medical history, based on records, of hypertension, prostate issues, high cholesterol, who again was brought in because of PEA cardiac arrest. Most of the information is taken from ER documentation as patient is unable to provide a full HPI at this time. He has a history of chronic encephalopathy as well as contractures and respiratory failure, ventilator dependent. Again when the patient was in PEA cardiac arrest he received 1 round of epinephrine and he had return of spontaneous circulation, on admission he was found with a white count of 20.7 so it was elevated. He was found with lactic acid of 8.6, so elevated, and was given IV antibiotics, as well. He also had a chest x-ray performed. History of worsening patchy bilateral upper and lower lobe infiltrates suspicious for worsening pulmonary vascular congestion. So he was admitted, seen by pulmonary, GI, infectious disease, palliative care, and cardiology teams. 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 Patient was placed on multiple antibiotics, but upon discussion with investment consultant teams including positive care team and ID team, there was agreement that medical care is ultimately medically futile. So family met with positive care team and incision was made for comfort care measures and DNR/DNI status. Eventually patient was also seen by hospice. His quality of life appears quite poor-->he's contracted in all limbs and unable to communicate. Placed on morphine drip and Ativan as needed. The patient on April at 7:45 AM ZOE ALEXANDRA May 03, 2017 11:48
== END 2017-05-03 12:15 | disposition expired | DRG 870 ==
LOC: E/R 07:53 → ICU 10:58 → TEL 04-21 14:26 → ICU 04-24 16:38 → TEL 04-25 19:21
PROVIDERS: ADMIT Internal Medicine; ATTEND Internal Medicine
PROC: 5A1955Z Respiratory Ventilation, Greater than 96 Consecutive Hours (ICD-10-PCS; principal; 2017-04-19)
PROC: 30233N1 Transfusion of Nonautologous Red Blood Cells into Peripheral Vein, Percutaneous Approach (ICD-10-PCS; 2017-04-19)
PROC: 02HV33Z Insertion of Infusion Device into Superior Vena Cava, Percutaneous Approach (ICD-10-PCS; 2017-04-20)
DX: A41.9 Sepsis, unspecified organism (principal); I46.9 Cardiac arrest, cause unspecified; R65.21 Severe sepsis with septic shock; J18.9 Pneumonia, unspecified organism; L89.894 Pressure ulcer of other site, stage 4; G93.1 Anoxic brain damage, not elsewhere classified; R40.3 Persistent vegetative state; I11.0 Hypertensive heart disease with heart failure; J96.10 Chronic respiratory failure, unspecified whether with hypoxia or hypercapnia; I50.32 Chronic diastolic (congestive) heart failure; E87.2 Acidosis; N39.0 Urinary tract infection, site not specified; L02.415 Cutaneous abscess of right lower limb; M86.9 Osteomyelitis, unspecified; D68.69 Other thrombophilia; L89.322 Pressure ulcer of left buttock, stage 2; Z93.0 Tracheostomy status; Z93.1 Gastrostomy status; I51.7 Cardiomegaly; I48.2 Chronic atrial fibrillation; E78.00 Pure hypercholesterolemia, unspecified; N40.0 Benign prostatic hyperplasia without lower urinary tract symptoms; D64.9 Anemia, unspecified; M62.89 Other specified disorders of muscle; G20 Parkinson's disease; F02.80 Dementia in other diseases classified elsewhere, unspecified severity, without behavioral disturbance, psychotic disturbance, mood disturbance, and anxiety; D69.6 Thrombocytopenia, unspecified; Z22.322 Carrier or suspected carrier of Methicillin resistant Staphylococcus aureus; Z66 Do not resuscitate; B95.61 Methicillin susceptible Staphylococcus aureus infection as the cause of diseases classified elsewhere; L89.890 Pressure ulcer of other site, unstageable
CPT/HCPCS: 36415; 36430; 36569; 36600; 70450; 71010; 71250; 74177; 76937; 78806; 80048; 80053; 80061; 80200; 80202; 81001; 82270; 82550; 82607; 82803; 83036; 83540; 83605; 83735; 84100; 84145; 84439; 84443; 84484; 85025; 85610; 85730; 86850; 86900; 86901; 86920; 87040; 87070; 87081; 87086; 89220; 93005; 93306; 94002; 94003; 96365; 96366; 96375; A9570; J0692; J1200; J1650; J1940; J2060; J2185; J2270; J2997; J3260; J3370; J7030; J7040; J7050; J7070; P9016; Q9967